=== PATIENT | female | born 1940 | race Caucasian/White ===

== ENCOUNTER 2017-06-21 05:57 | Day surgery (SDC) | payer MEDICARE, OTHER, SELFPAY ==
[2017-06-21] VITALS (8 sets, daily range): BP systolic 126–175; BP diastolic 74–90; PULSE 55–70; RESP 16; TEMP 36.2–37.1; O2SAT 94–99; BMI 25.6
--- NOTE | 2017-06-21 07:25 | PCM.OPRPT ---
Report of Operation Date of Procedure: 06/21/17 Pre-Operative Diagnosis: L CTS Post-Operative Diagnosis: L CTS Surgery/Procedure Performed:: L CTR Description of Surgical Findings:: Complete release TCL steel detailer: None Type of Anesthesia:: Lm Isaacs Anesthesiologist: Sal Rojas Special Medications: 1 gm ancef Estimated Blood Loss (mL): 2 Fluids Replaced: 400 ml Description of Procedure: Brief history operative indications: 77 yo female who failed conservative treatment for L CTS. Patient wished to proceed with left open carpal tunnel release. After discussing risks and benefits including but not limited to blood loss, DVTs, PEs, neurovascular damage, infection, hematoma and general risk of anesthesia, the patient demonstrated understanding wish to proceed with left open carpal tunnel release Procedure: On the date of the procedure, the patient's left upper extremity was marked in the preoperative area. Patient was taken back to the operating room, where the tourniquet was placed on the right upper extremity. Patient was given light sedation. All bony prominences are identified well-padded. Anesthesia assumed control C-spine and airway and remained in control throughout the remainder the procedure. Lm block was administered by anesthesia. The left upper extremity was prepped in sterile fashion. Surgeon then scrub. Upon reentering the room, the left upper extremity was prepped in a standard orthopedic fashion. A timeout was called and everyone agreed upon the side, the site, the procedure to be performed, patient identity and antibiotics given. The incision was marked out. Incision was taken at the skin subtenons tissue fat down to fascia. Fascia was then lightly tethered until the median nerve was visible. A [place] was placed proximally and distally, and then scissors were placed proximally and distally to release the transverse carpal ligament. During the release the others were never completely closed. The [place] was then placed proximally and distally once more to verify the transverse carpal ligament had been adequately released. The wound was then copiously irrigated out with normal saline. Wound was then closed using 3-0 nylon suture. 10 cc of 50-50 mixture of 1% lidocaine and 0.5% Sensorcaine without epinephrine injection was given. Xeroform dressing was placed, sterile dressing was placed, compressive dressing was placed. Tourniquet was let down. Volar splint was placed. Patient was awakened by anesthesia and transferred to the PACU for recovery. Postoperative plan: The patient will follow up in 2 weeks for removal of sutures. Can remove splintin 5 days. At that time if they are doing well they will follow-up as needed. Grafts/Implants Used: none - Complications none - Admit VTE Documentation VTE Present on Admission: No VTE Mechan Device Prophylaxis: SCD's VTE Pharm Prophylaxis ordered?: No Reason prophylaxis not ordered:: Treatment Not Indicated
--- NOTE | 2017-06-21 07:29 | OP.PCM_ITS ---
Report of Operation Date of Procedure: 06/21/17 Pre-Operative Diagnosis: L CTS Post-Operative Diagnosis: L CTS Surgery/Procedure Performed:: L CTR Description of Surgical Findings:: Complete release TCL medical administrative technician: None Type of Anesthesia:: Lm Isaacs Anesthesiologist: Sal Rojas Special Medications: 1 gm ancef Estimated Blood Loss (mL): 2 Fluids Replaced: 400 ml Description of Procedure: Brief history operative indications: 77 yo female who failed conservative treatment for L CTS. Patient wished to proceed with left open carpal tunnel release. After discussing risks and benefits including but not limited to blood loss, DVTs, PEs, neurovascular damage, infection, hematoma and general risk of anesthesia, the patient demonstrated understanding wish to proceed with left open carpal tunnel release Procedure: On the date of the procedure, the patient's left upper extremity was marked in the preoperative area. Patient was taken back to the operating room, where the tourniquet was placed on the right upper extremity. Patient was given light sedation. All bony prominences are identified well-padded. Anesthesia assumed control C-spine and airway and remained in control throughout the remainder the procedure. Lm block was administered by anesthesia. The left upper extremity was prepped in sterile fashion. Surgeon then scrub. Upon reentering the room, the left upper extremity was prepped in a standard orthopedic fashion. A timeout was called and everyone agreed upon the side, the site, the procedure to be performed, patient identity and antibiotics given. The incision was marked out. Incision was taken at the skin subtenons tissue fat down to fascia. Fascia was then lightly tethered until the median nerve was visible. A [place] was placed proximally and distally, and then scissors were placed proximally and distally to release the transverse carpal ligament. During the release the others were never completely closed. The [place] was then placed proximally and distally once more to verify the transverse carpal ligament had been adequately released. The wound was then copiously irrigated out with normal saline. Wound was then closed using 3-0 nylon suture. 10 cc of 50-50 mixture of 1% lidocaine and 0.5% Sensorcaine without epinephrine injection was given. Xeroform dressing was placed, sterile dressing was placed, compressive dressing was placed. Tourniquet was let down. Volar splint was placed. Patient was awakened by anesthesia and transferred to the PACU for recovery. Postoperative plan: The patient will follow up in 2 weeks for removal of sutures. Can remove splintin 5 days. At that time if they are doing well they will follow-up as needed. Grafts/Implants Used: none - Complications none - Admit VTE Documentation VTE Present on Admission: No VTE Mechan Device Prophylaxis: SCD's VTE Pharm Prophylaxis ordered?: No Reason prophylaxis not ordered:: Treatment Not Indicated
[2017-06-21] MEDS: Ketorolac 30 MG/ML Syringe IV (07:54)
== END 2017-06-21 09:12 | disposition home or self-care (01) ==
LOC: SDC 06:00 → AC 06:00
PROVIDERS: Family Provider Family Medicine; PCP Family Medicine; Visit Provider Specialist
PROC: (CPT 64721; principal; 2017-06-21 07:00)
DX: G56.02 Carpal tunnel syndrome, left upper limb (principal); I10 Essential (primary) hypertension; E66.3 Overweight; Z68.27 Body mass index [BMI] 27.0-27.9, adult; Z96.612 Presence of left artificial shoulder joint; Z79.891 Long term (current) use of opiate analgesic; Z79.82 Long term (current) use of aspirin; Z79.899 Other long term (current) drug therapy
CPT/HCPCS: 64721; J7120

== ENCOUNTER 2017-07-29 22:49 | Emergency (ER) | payer MEDICARE, OTHER, SELFPAY ==
[2017-07-29 22:49] VITALS: BP 197/84; PULSE 70; RESP 18; TEMP 36.3; O2SAT 97; BMI 25.7
--- NOTE | 2017-07-29 23:11 | ED.VISSUMM ---
- ER Visit Summary Date of Service: 07/29/17 Chief Complaint: Bleeding from varicose vein History of Present Illness: The patient is a 77 F who states that around 1600 hrs. today she was shaving her legs when she believes she nicked a varicose vein. She has been unable to get it to stop bleeding. Patient has tried numerous compressive devices that have not been successful. She takes a baby aspirin a day. Physical Examination: Afebrile vital signs are stable noted hypertension in triage There is a varicose vein lateral aspect distal left leg shows pinpoint area of bleeding. Emergency Department Course and Treatment: After removing the patient's dressings and washing the area that started bleeding but it quickly clotted on its own. I applied a Gelfoam dressing and covered it with Rosales wrap. Patient will leave this dressing in place until Tuesday. Return if worsening or concerns. She is instructed to elevate it not stay on her feet much over the next day. Impression: 1. Varicose vein bleeding This note was generated with Spodly dictation software. It may contain incorrect words, spelling, and punctuation that were not noted in review of the chart prior to signing ED Disposition - Plan for ED Patient: Disposition: Home or Assisted Living Chief Complaint: Laceration Instructions: ED Veins Varicose Referrals: Yannick Hughes MD [Primary Care Provider] - As Needed Additional Instructions: Leave dressing on until Tuesday. Return if worsening or concerns.
[2017-07-29 23:18] VITALS: BP 164/86; PULSE 87; RESP 16; O2SAT 97
== END 2017-07-29 23:22 | disposition home or self-care (01) ==
PROVIDERS: Emergency Provider Emergency Medicine; Family Provider Family Medicine; PCP Family Medicine
DX: I83.892 Varicose veins of left lower extremity with other complications (principal); I10 Essential (primary) hypertension; I34.1 Nonrheumatic mitral (valve) prolapse; Z79.82 Long term (current) use of aspirin; Z79.899 Other long term (current) drug therapy
CPT/HCPCS: 99282

== ENCOUNTER → 2018-10-30 | Outpatient (CLI) | payer MEDICARE, OTHER, SELFPAY ==
[2018-10-30 10:48] LABS: Anion Gap 8 (5-15); BUN 20 mg/dL (7-18); BUN/Creat Ratio 17.4 RATIO (10-20); Calcium,Total 9.7 mg/dL (8.5-10.1); Chloride 103 mmol/L (98-107); Cholesterol 242 mg/dL (200); Creatinine, Serum 1.15 mg/dL (0.55-1.02); EST Glomerular Filtration Rate 49 mL/min (>60); Est Glom Filt Rate - Afr Amer 59 mL/min (>60); Glucose 95 mg/dL (74-106); High Density Lipoprotein 74 mg/dL; Sodium Level 139 mmol/L (136-145); Triglycerides 92 mg/dL; Very Low Density Lipoprotein 18 mg/dL (5-40)
== END | disposition home or self-care (01) ==
LOC: MFPLAB 08:25
PROVIDERS: Family Provider Family Medicine; PCP Family Medicine; Visit Provider Family Medicine
DX: I10 Essential (primary) hypertension (principal); E78.00 Pure hypercholesterolemia, unspecified
CPT/HCPCS: 36415; 80048; 80061

== ENCOUNTER → 2018-11-23 | Outpatient (CLI) | payer MEDICARE, OTHER, SELFPAY ==
[2018-11-23 15:12] LABS: Bacteria 0 SEEN /hpf (None Seen); Mucous, Urine 0 SEEN /hpf (<or=2+); Red Blood Cells-Urine 0 SEEN /hpf (0-5); Squamous Epithelial Cells - UA 0 SEEN /hpf (5-10); White Blood Cells 0 SEEN /hpf (0-5)
[2018-11-23 17:39] LABS: Absolute Lymphocyte Count 1.48 X10^3/uL (0.83-4.51); Absolute Neutrophil Count 5.4 X10^3/uL (2.0-7.7); Basophil# 0.05 X10^3/uL; Basophil% 0.6 % (0-1); Eosinophil# 0.15 X10^3/uL; Eosinophils% 1.8 % (0-5); Hematocrit 37.5 % (37-47); Hemoglobin 12.4 g/dL (12.0-15.0); Lymphocyte # 1.48 X10^3/ul (4.0); Mean Corp Hgb Conc 33.1 g/dL (32-36); Mean Corpuscular Hgb 31.6 pg (27.0-32.0); Mean Corpuscular Volume 95.7 fL (81-99); Mean Platelet Vol. 10.2 fl (6.2-12.0); Monocyte# 1.07 X10^3/uL; NRBC Flagged by Analyzer 0 % (0-5); Neutrophil # 5.41 X10^3/uL (2.7-7.7); Neutrophil % 66.1 % (47-70); Platelet Count 273 K/mm3 (150-450); RBC Distribution Width CV 14.4 % (11.6-14.6); RBC Distribution Width SD 50.4 fl (35.1-43.9); Red Blood Count 3.92 M/mm3 (4.2-5.4); White Blood Count 8.2 K/mm3 (4.4-11.0)
[2018-11-23 17:52] LABS: Color, Urine Yellow (Yellow); Glucose, Dipstick Normal (Normal); Ketone-Dipstick Negative (Negative); Leukocyte Esterase-Dipstick Negative /ul (Negative); Nitrite-Dipstick Negative (Negative); Occult Blood-Urine 10 /ul (Negative); Protein-Dipstick Negative (Negative); Urine Bilirubin Dipstick Negative (Negative); Urine Clarity Clear (Clear); Urine Urobilinogen Normal (Normal)
[2018-11-23 18:08] LABS: Protein, Urine (Random) 12.1 mg/dL (<11.9); Protein:Creat Ratio 140 mg/g CRE (0-200)
[2018-11-23 18:17] LABS: ALB/GLOB Ratio 1.1 RATIO (0.9-2.4); AST(SGOT) 19 U/L (15-37); Alanine Aminotransfer ALT/SGPT 23 U/L (13-56); Albumin, Serum 3.8 g/dL (3.2-5.0); Alkaline Phosphatase 81 U/L (45-117); Anion Gap 7 (5-15); BUN 25 mg/dL (7-18); Calcium,Total 9.7 mg/dL (8.5-10.1); Chloride 104 mmol/L (98-107); Creatinine, Serum 1.39 mg/dL (0.55-1.02); EST Glomerular Filtration Rate 39 mL/min (>60); Est Glom Filt Rate - Afr Amer 47 mL/min (>60); Globulin 3.4 g/dL (2.2-4.2); Glucose 91 mg/dL (74-106); Potassium 4.2 mmol/L (3.5-5.1); Protein, Total 7.2 g/dL (6.4-8.2); Sodium Level 140 mmol/L (136-145)
[2018-11-23 18:20] LABS: Vitamin D,25 Hydroxy 34.3 ng/mL (29.95-100.01)
[2018-11-23 18:21] LABS: PTHIN 30.1 pg/mL (18.4-80.1)
== END | disposition home or self-care (01) ==
LOC: MFPLAB 15:09
PROVIDERS: Family Provider Family Medicine; PCP Family Medicine; Referring Provider Family Medicine; Visit Provider Family Medicine
DX: N18.3 Chronic kidney disease, stage 3 (moderate) (principal); L29.9 Pruritus, unspecified
CPT/HCPCS: 36415; 80053; 81001; 82306; 82570; 83970; 84156; 85025

== ENCOUNTER → 2018-12-07 | Outpatient (CLI) | payer MEDICARE, OTHER, SELFPAY ==
[2018-12-07 18:41] LABS: Anion Gap 9 (5-15); BUN 26 mg/dL (7-18); BUN/Creat Ratio 22.8 RATIO (10-20); Calcium,Total 9.4 mg/dL (8.5-10.1); Chloride 98 mmol/L (98-107); Cholesterol 244 mg/dL (200); Creatinine, Serum 1.14 mg/dL (0.55-1.02); EST Glomerular Filtration Rate 49 mL/min (>60); Est Glom Filt Rate - Afr Amer 60 mL/min (>60); Glucose 94 mg/dL (74-106); High Density Lipoprotein 73 mg/dL; Potassium 3.8 mmol/L (3.5-5.1); Sodium Level 134 mmol/L (136-145); Triglycerides 138 mg/dL; Very Low Density Lipoprotein 28 mg/dL (5-40)
[2018-12-17 09:08] LABS: Anti-Thyroglobulin AB 1.1 IU/mL (0.0-0.9); Thyroglobulin RIA 23 ng/mL (.); Thyroid Peroxidase AB 127 IU/mL (0-34)
== END | disposition home or self-care (01) ==
LOC: LAB 17:26
PROVIDERS: Family Provider Family Medicine; PCP Family Medicine; Referring Provider Family Medicine; Visit Provider Family Medicine
DX: E78.00 Pure hypercholesterolemia, unspecified (principal); I10 Essential (primary) hypertension; E01.0 Iodine-deficiency related diffuse (endemic) goiter
CPT/HCPCS: 36415; 80048; 80061; 84432; 84439; 84443; 86376; 86800

== ENCOUNTER → 2018-12-21 | Outpatient (CLI) | payer MEDICARE, OTHER, SELFPAY ==
--- NOTE | 2018-12-21 12:16 | US_ITS ---
STUDY: THYROID ULTRASOUND REASON FOR EXAM: Female, 78 years old. Thyromegaly. TECHNIQUE: Ultrasound evaluation of the thyroid was performed with real-time and static douglas-scale imaging. COMPARISON: None. FINDINGS: RIGHT LOBE: The right lobe of the thyroid gland measures 4.9 x 1.4 x 1.8 cm. There is a heterogeneous echotexture. There are no demonstrated solid, cystic or complex lesions. LEFT LOBE: The left lobe of the thyroid gland measures 4.3 x 1.4 x 1.7 cm. There is a heterogeneous echotexture. There is a 0.9 x 1.1 x 0.4 cm hyperechoic nodule along the anterior surface of the mid left thyroid lobe with perinodular and intranodular vascularity. There is a 0.4 x 0.3 x 0.2 cm cyst. ISTHMUS: The isthmus measures 0.3 centimeter. US/Thyroid IMPRESSION: Prominent size of the thyroid for age with generally moderately heterogeneous parenchyma. No demonstrated nodule of the right thyroid. Hyperechoic 0.9 x 1.1 x 0.4 cm well defined nodule of the mid pole of the left thyroid and a 0.4 x 0.3 x 0.2 cm cystic nodule. Electronically Signed: Jacquie Gong MD at 17:09 EST , Service support ,
--- NOTE | 2018-12-21 12:41 | ECHOD_ITS ---
Reason For Study: MITRAL VALVE PROLAPSE Procedure This was a 2D Doppler, Color Flow transthoracic echocardiogram. Exam performed in department. Left Ventricle Normal LV size. The estimated ejection fraction is 60 %. Diastolic function is indeterminate. No regional wall motion abnormalities noted. Right Ventricle Normal RV size. Normal systolic function. Atria Normal left atrium. Normal right atrium. No doppler evidence for ASD. Mitral Valve There is no mitral valve stenosis. Trivial mitral valve insufficiency. Tricuspid Valve There is no tricuspid stenosis. Trivial eccentric tricuspid valve insufficiency. Pulmonary artery systolic pressure is 35 mmHg. Aortic Valve Trisinus/trileaflet aortic valve. There is no aortic stenosis. No aortic valve insufficiency. Pulmonic Valve There is no pulmonic valvular stenosis. No pulmonic valve insufficiency. Great Vessels Normal aortic root. Pericardium/Pleural No pericardial effusion. MMode/2D Measurements & Calculations LVIDd: 4.2 cm IVSd: 0.94 cm Ao root diam: 2.8 cm LVIDs: 3.0 cm LVPWd: 1.0 cm RVDd: 3.6 cm FS: 29.2 % LAV(MOD-bp): 59.4 ml LA A4 area: 18.1 cm2 LA dimension(2D): 3.7 cm LAV(MOD-bp) Indexed: 33.9 ml/m2 LAV(MOD-sp2): 56.7 ml LAV(MOD-sp4): 56.7 ml RA A4 area: 11.4 cm2 Time Measurements MV dec time: 0.21 sec Doppler Measurements & Calculations MV E max hussein: 85.3 cm/sec Lat Peak E' Hussein: 4.6 cm/sec Med Peak E' Hussein: 5.2 cm/sec MV A max hussein: 134.2 cm/sec E/E' lat: 18.7 E/E' med: 16.5 MV E/A: 0.64 Ao V2 max: 91.4 cm/sec LV V1 max: 97.8 cm/sec PA V2 max: 67.4 cm/sec Ao max P.5 mmHg LV V1 max P.8 mmHg TR max hussein: 268.1 cm/sec TR max P.8 mmHg Interpretation Summary The estimated ejection fraction is 60 %. Diastolic function is indeterminate. Trivial mitral valve insufficiency. Trivial eccentric tricuspid valve insufficiency. Pulmonary artery systolic pressure is 35 mmHg. Ordering Physician: Yannick De Jesus Referring Physician: Yannick De Jesus Performed By: Brianna Hendrickson RDCS, RVT
== END | disposition home or self-care (01) ==
PROVIDERS: Family Provider Family Medicine; PCP Family Medicine; Referring Provider Family Medicine; Visit Provider Family Medicine
DX: I34.1 Nonrheumatic mitral (valve) prolapse (principal); E01.0 Iodine-deficiency related diffuse (endemic) goiter
CPT/HCPCS: 76536; 93306

== ENCOUNTER → 2019-01-03 14:20 | Outpatient (CLI) | payer MEDICARE, OTHER, SELFPAY ==
[2019-01-03 14:18] VITALS: BMI 27.1
--- NOTE | 2019-01-03 14:20 | ASPS_PTH ---
PATIENT: MISSY WYNN LOC: [facility] U#:[id number] AGE/SX: 84/F ROOM: RE01/03/[address]: Dr. Matt Gardner MD : [id number] BED: DIS: SPEC #: [id number] RECD: 01/04/19 11:41 STATUS: KRISTEN BENNY #: [id number] KATERINE: 01/03/19 14:[address]: Matt Gardner DEPT: CYTOLOGY RECD BY: John Mann ENTERED: 01/04/19 11:44 SP TYPE: ASPIRATION OTHR DR: Dr. Yannick De Jesus MD Tissues: Thyroid gland, NOS Procedures: Special Stain Group II Cytology Other HEADER OPERATION: Ultrasound-guided fine needle aspiration left thyroid PRE-OP DIAGNOSIS: Multinodular goiter E04.2 TISSUE SUBMITTED: Fine needle aspiration left thyroid (10 slides) DIAGNOSIS CYTOLOGY Fine needle aspiration, left thyroid nodule (smears): Adequate for evaluation. Atypical follicular cells with H?rthle cell change. Consistent with chronic thyroiditis. AM:sofia 01/05/19 COMMENT Clinical correlation is suggested. CYTOLOGY STUDY Slides are reviewed. CYTOLOGY GROSS Received are ten smears labeled with the patient's name and designated per the requisition as left thyroid. Submitted for staining. / sofia 01/04/19 TC:? CPT: 20539
== END ==
PROVIDERS: Family Provider Family Medicine; PCP Family Medicine; Visit Provider Surgery
DX: E04.2 Nontoxic multinodular goiter (principal)
CPT/HCPCS: 88161; 88313

== ENCOUNTER → 2019-01-16 14:12 | Outpatient (CLI) | payer MEDICARE, OTHER, SELFPAY ==
[2019-01-03 14:18] VITALS: BMI 27.1
[2019-01-16 17:49] LABS: Anion Gap 7 (5-15); BUN 23 mg/dL (7-18); Calcium,Total 9.3 mg/dL (8.5-10.1); Chloride 104 mmol/L (98-107); Creatinine, Serum 1.21 mg/dL (0.55-1.02); EST Glomerular Filtration Rate 46 mL/min (>60); Est Glom Filt Rate - Afr Amer 56 mL/min (>60); Glucose 103 mg/dL (74-106); Potassium 3.9 mmol/L (3.5-5.1); Sodium Level 137 mmol/L (136-145)
== END ==
PROVIDERS: Family Provider Family Medicine; PCP Family Medicine; Referring Provider Family Medicine; Visit Provider Family Medicine
DX: N18.3 Chronic kidney disease, stage 3 (moderate) (principal)
CPT/HCPCS: 36415; 80048

== ENCOUNTER → 2019-04-02 | Outpatient (CLI) | payer MEDICARE, OTHER, SELFPAY ==
[2019-01-03 14:18] VITALS: BMI 27.1
[2019-04-02 17:33] LABS: Absolute Lymphocyte Count 3.99 X10^3/uL (0.83-4.51); Absolute Neutrophil Count 5.9 X10^3/uL (2.0-7.7); Basophil% 0.8 % (0-1); Eosinophils% 1.7 % (0-5); Hematocrit 39.6 % (37-47); Hemoglobin 13.6 g/dL (12.0-15.0); Lymphocyte # 3.99 X10^3/ul (4.0); Lymphocyte % 33.6 % (19-41); Mean Corp Hgb Conc 34.3 g/dL (32-36); Mean Corpuscular Hgb 32.5 pg (27.0-32.0); Mean Corpuscular Volume 94.5 fL (81-99); Mean Platelet Vol. 9.3 fl (6.2-12.0); Monocyte# 1.51 X10^3/uL; Monocyte% 12.7 % (0-10); NRBC Flagged by Analyzer 0 % (0-5); Neutrophil # 5.94 X10^3/uL (2.7-7.7); Neutrophil % 50.2 % (47-70); POSITIVE DIFFERENTIAL YES; Platelet Count 333 K/mm3 (150-450); Red Blood Count 4.19 M/mm3 (4.2-5.4); White Blood Count 11.9 K/mm3 (4.4-11.0)
[2019-04-02 17:38] LABS: Differential Indicated SCAN CRITERIA MET
[2019-04-02 18:15] LABS: Vitamin D,25 Hydroxy 27.7 ng/mL (29.95-100.01)
[2019-04-02 18:16] LABS: Platelet Estimate ADEQUATE (ADEQ); Red Cell Morphology NORM C+C NORMAL (NORM C&C)
[2019-04-02 18:19] LABS: ALB/GLOB Ratio 1.1 RATIO (0.9-2.4); AST(SGOT) 14 U/L (15-37); Alanine Aminotransfer ALT/SGPT 29 U/L (13-56); Albumin, Serum 3.9 g/dL (3.2-5.0); Alkaline Phosphatase 69 U/L (45-117); Anion Gap 10 (5-15); BUN 32 mg/dL (7-18); BUN/Creat Ratio 19.8 RATIO (10-20); Calcium,Total 9.6 mg/dL (8.5-10.1); Chloride 101 mmol/L (98-107); Creatinine, Serum 1.62 mg/dL (0.55-1.02); EST Glomerular Filtration Rate 33 mL/min (>60); Est Glom Filt Rate - Afr Amer 40 mL/min (>60); Globulin 3.7 g/dL (2.2-4.2); Glucose 109 mg/dL (74-106); Potassium 3.6 mmol/L (3.5-5.1); Protein, Total 7.6 g/dL (6.4-8.2); Sodium Level 135 mmol/L (136-145); T4 Free Direct 0.89 ng/dL (0.76-1.46); Thyroid Stim Hormone (TSH) 7.26 uIU/mL (0.358-3.74)
[2019-04-03 14:45] LABS: Pathologist Review Reviewed
== END | disposition home or self-care (01) ==
LOC: MFPLAB 16:41
PROVIDERS: PCP Family Medicine; Referring Provider Family Medicine; Visit Provider Family Medicine
DX: E06.3 Autoimmune thyroiditis (principal); I12.9 Hypertensive chronic kidney disease with stage 1 through stage 4 chronic kidney disease, or unspecified chronic kidney disease; N18.3 Chronic kidney disease, stage 3 (moderate)
CPT/HCPCS: 36415; 80053; 82306; 84439; 84443; 85025

== ENCOUNTER → 2019-04-11 08:16 | Outpatient (CLI) | payer MEDICARE, OTHER, SELFPAY ==
[2019-01-03 14:18] VITALS: BMI 27.1
--- NOTE | 2019-04-11 08:30 | RAD_ITS ---
EXAM DESCRIPTION: Esophagram CLINICAL HISTORY: 79 years Female, pressure at mid esophagus when eating dense foods COMPARISON: None. TECHNIQUE: 3 minutes and 22 seconds of fluoroscopy was performed in 124 images were obtained. 208.92 mGy was a radiation dose FINDINGS: A barium esophagram with thin liquid barium was performed. Barium passed from the oropharynx to the stomach without delay or obstruction. Particular attention was paid to the cervical esophagus and the cricopharyngeus initially appeared somewhat thickened however this disappeared on subsequent imaging and appear to be normal. The mid and distal esophagus also appeared to be normal. No hiatal hernia or gastroesophageal reflux was seen. RAD/Esophagus Single Contrast IMPRESSION: Normal esophagram. Electronically Signed: Yannick Lynch, at 15:20 EST Tel , Service support ,
== END ==
PROVIDERS: PCP Family Medicine; Referring Provider Family Medicine; Visit Provider Family Medicine
DX: R13.10 Dysphagia, unspecified (principal)
CPT/HCPCS: 74220

== ENCOUNTER → 2019-04-19 | Outpatient (CLI) | payer MEDICARE, OTHER, SELFPAY ==
[2019-01-03 14:18] VITALS: BMI 27.1
--- NOTE | 2019-04-19 14:36 | RAD_ITS ---
STUDY: X-RAY - LEFT KNEE REASON FOR EXAM: Pain, gradually getting worse, left greater than right. TECHNIQUE: 4 view(s) of the knee. COMPARISON: None. FINDINGS: Normal visualized distal femur. Normal visualized proximal tibia and fibula. Normal proximal tibiofibular articulation. There is mild joint space narrowing of the medial femorotibial compartment. Normal lateral femorotibial compartment. Normal patellofemoral articulation. There is chondrocalcinosis in the menisci and at the posterior joint capsule in the knee. There is mild vascular calcification. RAD/Knee 4 or More Views IMPRESSION: Mild arthrosis of the medial femorotibial compartment. Chondrocalcinosis. Electronically Signed: Ag Rosales MD at 15:17 EST Tel , Service support ,
--- NOTE | 2019-04-19 14:36 | RAD_ITS ---
STUDY: X-RAY - RIGHT KNEE REASON FOR EXAM: Pain, gradually getting worse, left greater than right. TECHNIQUE: 4 view(s) of the knee. COMPARISON: None. FINDINGS: Normal visualized distal femur. Normal visualized proximal tibia and fibula. Normal proximal tibiofibular articulation. There is a small marginal osteophyte and mild joint space narrowing of the medial femorotibial compartment. Normal lateral femorotibial compartment. Normal patellofemoral articulation. There is chondrocalcinosis in the menisci and at the posterior joint capsule of the knee. RAD/Knee 4 or More Views IMPRESSION: Mild arthrosis of the medial femorotibial compartment. Chondrocalcinosis. Electronically Signed: Ag Rosales MD at 15:21 EST Tel , Service support ,
== END | disposition home or self-care (01) ==
LOC: MTRAD 14:35
PROVIDERS: PCP Family Medicine; Referring Provider Family Medicine; Visit Provider Family Medicine
DX: M25.561 Pain in right knee (principal); M25.562 Pain in left knee
CPT/HCPCS: 73564

== ENCOUNTER → 2019-08-14 | Outpatient (CLI) | payer MEDICARE, OTHER, SELFPAY ==
[2019-01-03 14:18] VITALS: BMI 27.1
[2019-08-14 15:38] LABS: Absolute Lymphocyte Count 1.66 X10^3/uL (0.83-4.51); Absolute Neutrophil Count 4.5 X10^3/uL (2.0-7.7); Basophil# 0.06 X10^3/uL; Basophil% 0.8 % (0-1); Eosinophil# 0.23 X10^3/uL; Eosinophils% 3.1 % (0-5); Hematocrit 41.5 % (37-47); Hemoglobin 12.9 g/dL (12.0-15.0); Lymphocyte # 1.66 X10^3/ul (4.0); Lymphocyte % 22.2 % (19-41); Mean Corp Hgb Conc 31.1 g/dL (32-36); Mean Corpuscular Hgb 32.3 pg (27.0-32.0); Mean Corpuscular Volume 103.8 fL (81-99); Mean Platelet Vol. 9.9 fl (6.2-12.0); Monocyte# 1.02 X10^3/uL; Monocyte% 13.7 % (0-10); NRBC Flagged by Analyzer 0 % (0-5); Neutrophil # 4.47 X10^3/uL (2.7-7.7); Neutrophil % 59.8 % (47-70); Platelet Count 316 K/mm3 (150-450); RBC Distribution Width CV 14.2 % (11.6-14.6); RBC Distribution Width SD 54.4 fl (35.1-43.9); White Blood Count 7.5 K/mm3 (4.4-11.0)
[2019-08-14 16:32] LABS: ALB/GLOB Ratio 1.1 RATIO (0.9-2.4); AST(SGOT) 30 U/L (15-37); Alanine Aminotransfer ALT/SGPT 25 U/L (13-56); Albumin, Serum 3.9 g/dL (3.2-5.0); Alkaline Phosphatase 79 U/L (45-117); Anion Gap 7 (5-15); BUN 25 mg/dL (7-18); BUN/Creat Ratio 18.9 RATIO (10-20); Calcium,Total 9.1 mg/dL (8.5-10.1); Chloride 103 mmol/L (98-107); Creatinine, Serum 1.32 mg/dL (0.55-1.02); EST Glomerular Filtration Rate 41 mL/min (>60); Est Glom Filt Rate - Afr Amer 50 mL/min (>60); Globulin 3.5 g/dL (2.2-4.2); Glucose 95 mg/dL (74-106); Potassium 5.3 mmol/L (3.5-5.1); Protein, Total 7.4 g/dL (6.4-8.2); Sodium Level 137 mmol/L (136-145); T4 Free Direct 0.96 ng/dL (0.76-1.46); Thyroid Stim Hormone (TSH) 2.67 uIU/mL (0.358-3.74)
[2019-08-14 16:35] LABS: Vitamin D,25 Hydroxy 64.8 ng/mL
== END | disposition home or self-care (01) ==
LOC: MFPLAB 13:52
PROVIDERS: PCP Family Medicine; Visit Provider Family Medicine
DX: I10 Essential (primary) hypertension (principal); E06.3 Autoimmune thyroiditis; E55.9 Vitamin D deficiency, unspecified
CPT/HCPCS: 36415; 80053; 82306; 84439; 84443; 85025

== ENCOUNTER → 2019-08-22 | Outpatient (CLI) | payer MEDICARE, OTHER, SELFPAY ==
[2019-01-03 14:18] VITALS: BMI 27.1
[2019-08-22 15:34] LABS: Potassium 4.1 mmol/L (3.5-5.1)
== END | disposition home or self-care (01) ==
LOC: MTLAB 13:34
PROVIDERS: PCP Family Medicine; Referring Provider Family Medicine; Visit Provider Family Medicine
DX: E87.5 Hyperkalemia (principal)
CPT/HCPCS: 36415; 84132

== ENCOUNTER → 2019-12-05 | Outpatient (CLI) | payer MEDICARE, OTHER, SELFPAY ==
[2019-01-03 14:18] VITALS: BMI 27.1
--- NOTE | 2019-12-05 13:55 | US_ITS ---
STUDY: THYROID ULTRASOUND REASON FOR EXAM: Female, 79 years old. Nodules. TECHNIQUE: Ultrasound evaluation of the thyroid was performed with real-time and static douglas-scale imaging. COMPARISON: December 21, 2018. FINDINGS: RIGHT LOBE: The right lobe of the thyroid gland measures 4.3 x 2.0 x 1.4 cm. There is a heterogeneous echotexture. There are no demonstrated solid, cystic or complex lesions. LEFT LOBE: The left lobe of the thyroid gland measures 4.2 x 2.2 x 1.5 cm. There is a heterogeneous echotexture. Midpole echogenic solid nodule measuring 1.1 x 0.9 x 0.4 cm and cystic nodule measuring 0.4 x 0.3 x 0.2 cm. ISTHMUS: The isthmus measures 4 mm . The regional lymph nodes are normal. US/Thyroid IMPRESSION: The thyroid gland is not enlarged. No significant change in solid and cystic nodules left lobe since December 2018. Electronically Signed: Fred Krueger MD at 6:16 EDT , Service support ,
== END | disposition home or self-care (01) ==
LOC: US 13:53
PROVIDERS: PCP Family Medicine; Referring Provider Family Medicine; Visit Provider Family Medicine
DX: E04.1 Nontoxic single thyroid nodule (principal)
CPT/HCPCS: 76536

== ENCOUNTER → 2020-05-23 08:45 | Outpatient (CLI) | payer MEDICARE, OTHER, SELFPAY ==
[2019-01-03 14:18] VITALS: BMI 27.1
[2020-05-23 10:18] LABS: PTHIN 38.9 pg/mL (18.4-80.1)
[2020-05-23 10:21] LABS: Vitamin D,25 Hydroxy 47.9 ng/mL
[2020-05-23 10:31] LABS: Protein, Urine (Random) 8.2 mg/dL (<11.9); Protein:Creat Ratio 163 mg/g CRE (0-200)
[2020-05-23 10:33] LABS: AST(SGOT) 16 U/L (15-37); Alanine Aminotransfer ALT/SGPT 24 U/L (13-56); Albumin, Serum 3.9 g/dL (3.2-5.0); Alkaline Phosphatase 74 U/L (45-117); Anion Gap 6 (5-15); BUN 22 mg/dL (7-18); BUN/Creat Ratio 20.8 RATIO (10-20); Calcium,Total 9.7 mg/dL (8.5-10.1); Chloride 101 mmol/L (98-107); Creatinine, Serum 1.06 mg/dL (0.55-1.02); EST Glomerular Filtration Rate 53 mL/min (>60); Est Glom Filt Rate - Afr Amer 65 mL/min (>60); Globulin 3.9 g/dL (2.2-4.2); Glucose 102 mg/dL (74-106); Phosphorus 3.3 mg/dL (2.5-4.9); Potassium 3.8 mmol/L (3.5-5.1); Protein, Total 7.8 g/dL (6.4-8.2); Sodium Level 132 mmol/L (136-145); Thyroid Stim Hormone (TSH) 4.85 uIU/mL (0.358-3.74)
== END ==
PROVIDERS: PCP Family Medicine; Referring Provider Family Medicine; Visit Provider Family Medicine
DX: E06.3 Autoimmune thyroiditis (principal); N18.30 Chronic kidney disease, stage 3 unspecified; E55.9 Vitamin D deficiency, unspecified
CPT/HCPCS: 80053; 82306; 82570; 83970; 84100; 84156; 84439; 84443

== ENCOUNTER → 2020-12-12 09:22 | Outpatient (CLI) | payer MEDICARE, OTHER, SELFPAY ==
[2020-12-12 10:01] LABS: Absolute Lymphocyte Count 1.69 X10^3/uL (0.83-4.51); Absolute Neutrophil Count 4.3 X10^3/uL (2.0-7.7); Basophil# 0.05 X10^3/uL; Basophil% 0.7 % (0-1); Eosinophil# 0.26 X10^3/uL; Eosinophils% 3.5 % (0-5); Hematocrit 39.4 % (37-47); Hemoglobin 13.4 g/dL (12.0-15.0); Lymphocyte # 1.69 X10^3/ul (0.83-4.51); Lymphocyte % 22.6 % (19-41); Mean Corpuscular Hgb 31.8 pg (27.0-32.0); Mean Corpuscular Volume 93.6 fL (81-99); Mean Platelet Vol. 9.2 fl (6.2-12.0); Monocyte# 1.14 X10^3/uL; Monocyte% 15.2 % (0-10); NRBC Flagged by Analyzer 0 % (0-5); Neutrophil # 4.32 X10^3/uL (2.7-7.7); Neutrophil % 57.7 % (47-70); Platelet Count 335 K/mm3 (150-450); RBC Distribution Width CV 14.5 % (11.6-14.6); RBC Distribution Width SD 50.2 fl (35.1-43.9); Red Blood Count 4.21 M/mm3 (4.2-5.4); White Blood Count 7.5 K/mm3 (4.4-11.0)
[2020-12-12 10:41] LABS: ALB/GLOB Ratio 0.9 RATIO (0.9-2.4); AST(SGOT) 17 U/L (15-37); Alanine Aminotransfer ALT/SGPT 22 U/L (13-56); Albumin, Serum 3.7 g/dL (3.2-5.0); Alkaline Phosphatase 84 U/L (45-117); Anion Gap 7 (5-15); BUN 18 mg/dL (7-18); BUN/Creat Ratio 15.3 RATIO (10-20); Calcium,Total 9.5 mg/dL (8.5-10.1); Chloride 101 mmol/L (98-107); Cholesterol 250 mg/dL (200); Creatinine, Serum 1.18 mg/dL (0.55-1.02); EST Glomerular Filtration Rate 47 mL/min (>60); Est Glom Filt Rate - Afr Amer 57 mL/min (>60); Globulin 4.3 g/dL (2.2-4.2); Glucose 103 mg/dL (74-106); High Density Lipoprotein 81 mg/dL; Potassium 3.8 mmol/L (3.5-5.1); Sodium Level 137 mmol/L (136-145); T4 Free Direct 0.89 ng/dL (0.76-1.46); Triglycerides 80 mg/dL; Very Low Density Lipoprotein 16 mg/dL (5-40)
== END ==
PROVIDERS: PCP Family Medicine; Referring Provider Family Medicine; Visit Provider Family Medicine
DX: I10 Essential (primary) hypertension (principal); E03.8 Other specified hypothyroidism; E78.5 Hyperlipidemia, unspecified
CPT/HCPCS: 36415; 80053; 80061; 84439; 84443; 85025

== ENCOUNTER → 2021-11-12 | Outpatient (CLI) | payer MEDICARE, OTHER, SELFPAY ==
--- NOTE | 2021-11-12 13:07 | CT_ITS ---
EXAM: CT RIGHT UPPER EXTREMITY WITHOUT INTRAVENOUS CONTRAST CLINICAL INDICATION: Osteomyelitis TECHNIQUE: Helically acquired images were obtained of the right upper extremity without intravenous contrast. 2-D reformats were performed by the technologist. This CT exam was performed using one or more of the following dose reduction techniques: automated exposure control, adjustment of the mA and/or kV according to patient size, and/or use of iterative reconstruction technique. This report was created using Pronota report Skritter technology. COMPARISON: None. FINDINGS: BONES/JOINTS: Fracture involves the acromion process. Prominent narrowing of the glenohumeral and AC joints. Subchondral cyst formation and bony hypertrophy extending along the glenohumeral joint. No findings to suggest osteomyelitis or septic arthritis. SOFT TISSUES: Normal. No soft tissue swelling or gas. No radiopaque foreign body. CT/Extremity Upper without Contra IMPRESSION: 1. Acute fracture of the acromion process. 2. Advanced arthritic changes of the shoulder. Electronically Signed: Chaim Newman MD at 7:13 EDT ,
== END | disposition home or self-care (01) ==
LOC: CT 13:01
PROVIDERS: PCP Family Medicine; Referring Provider Specialist; Visit Provider Specialist
DX: M19.011 Primary osteoarthritis, right shoulder (principal); G89.29 Other chronic pain
CPT/HCPCS: 73200

== ENCOUNTER → 2021-11-27 | Outpatient (CLI) | payer MEDICARE, OTHER, SELFPAY ==
[2021-11-27 12:31] LABS: Absolute Lymphocyte Count 1.56 X10^3/uL (0.83-4.51); Absolute Neutrophil Count 4.3 X10^3/uL (2.0-7.7); Basophil# 0.05 X10^3/uL; Basophil% 0.6 % (0-1); Eosinophil# 0.14 X10^3/uL; Eosinophils% 1.7 % (0-5); Hematocrit 40.5 % (37-47); Hemoglobin 13.6 g/dL (12.0-15.0); Lymphocyte # 1.56 X10^3/ul (0.83-4.51); Lymphocyte % 19.4 % (19-41); Mean Corp Hgb Conc 33.6 g/dL (32-36); Mean Corpuscular Hgb 31.6 pg (27.0-32.0); Mean Corpuscular Volume 94.2 fL (81-99); Mean Platelet Vol. 9.7 fl (6.2-12.0); Monocyte# 1.93 X10^3/uL; NRBC Flagged by Analyzer 0 % (0-5); Neutrophil # 4.31 X10^3/uL (2.7-7.7); Neutrophil % 53.8 % (47-70); POSITIVE DIFFERENTIAL YES; Platelet Count 286 K/mm3 (150-450); RBC Distribution Width CV 15.1 % (11.6-14.6); RBC Distribution Width SD 52.5 fl (35.1-43.9)
[2021-11-27 12:33] LABS: Differential Indicated SCAN CRITERIA MET
[2021-11-27 12:55] LABS: Ferritin 287 ng/mL (8-252); T4 Free Direct 0.96 ng/dL (0.76-1.46); Thyroid Stim Hormone (TSH) 1.23 uIU/mL (0.358-3.74)
== END | disposition home or self-care (01) ==
LOC: BFHLAB 11:06
PROVIDERS: PCP Family Medicine; Visit Provider Family Medicine
DX: E03.9 Hypothyroidism, unspecified (principal); L65.0 Telogen effluvium
CPT/HCPCS: 36415; 82728; 84439; 84443; 85025

== ENCOUNTER 2022-09-10 13:02 | Emergency (ER) | payer MEDICARE, OTHER, SELFPAY ==
[2022-09-10 13:03] VITALS: BP 162/62; PULSE 71; RESP 14; TEMP 36.6; O2SAT 97; BMI 25.1
--- NOTE | 2022-09-10 13:23 | EKG12_ITS ---
Test Reason : cp Blood Pressure : / mmHG Vent. Rate : 074 BPM Atrial Rate : 074 BPM P-R Int : 174 ms QRS Dur : 078 ms QT Int : 388 ms P-R-T Axes : 040 022 -02 degrees QTc Int : 430 ms Normal sinus rhythm Normal ECG Confirmed by SHRUTHI HERNANDEZ, ADONAY ([id number]), newspaper managing editor LG HOYOS ([id number]) on 09/11/2022 10:02:20 AM Referred By: Confirmed By:ADONAY HAWKINS MD
--- NOTE | 2022-09-10 13:41 | RAD_ITS ---
STUDY: X-RAY CHEST REASON FOR EXAM: Female, 82 years old. Chest pain TECHNIQUE: Single AP portable view of the chest. COMPARISON: Comparison is made with prior study dated August 04, 2009. FINDINGS: EKG electrodes are seen. There is hyperinflation of the lungs consistent with chronic obstructive lung disease (COPD). Scattered calcified granulomas. There is no demonstrated pleural abnormality. Normal size heart. Normal mediastinum and lee. There is prominence of the pulmonary hilar arteries without peripheral pulmonary vascular congestion, suggesting pulmonary hypertension. There is atherosclerotic calcification of the aortic arch with tortuosity. There are diffuse degenerative changes of the visualized thoracic spine. Status post left shoulder replacement. There is no demonstrated abnormality of the visualized soft tissue structures of the upper abdomen. RAD/Chest 1 View (Portable) IMPRESSION: Hyperinflation. No acute abnormality is seen. Electronically Signed: Jai Sharma MD at 14:01 EDT ,
[2022-09-10 13:42] LABS: Absolute Lymphocyte Count 1.96 X10^3/uL (0.83-4.51); Absolute Neutrophil Count 5.8 X10^3/uL (2.0-7.7); Basophil# 0.05 X10^3/uL; Basophil% 0.5 % (0-1); Eosinophil# 0.17 X10^3/uL; Eosinophils% 1.8 % (0-5); Hematocrit 36.8 % (37-47); Hemoglobin 12.3 g/dL (12.0-15.0); Lymphocyte # 1.96 X10^3/ul (0.83-4.51); Mean Corp Hgb Conc 33.4 g/dL (32-36); Mean Corpuscular Hgb 31.8 pg (27.0-32.0); Mean Corpuscular Volume 95.1 fL (81-99); Mean Platelet Vol. 9.2 fl (6.2-12.0); Monocyte# 1.35 X10^3/uL; Monocyte% 14.5 % (0-10); NRBC Flagged by Analyzer 0 % (0-5); Neutrophil # 5.77 X10^3/uL (2.7-7.7); Platelet Count 330 K/mm3 (150-450); RBC Distribution Width CV 14.2 % (11.6-14.6); RBC Distribution Width SD 49.2 fl (35.1-43.9); Red Blood Count 3.87 M/mm3 (4.2-5.4); White Blood Count 9.3 K/mm3 (4.4-11.0)
--- NOTE | 2022-09-10 13:49 | ED.VIS.CHEST ---
HPI <CLOVIS Burrows - Last Filed: 09/10/22 17:07> History of Present Illness Chief Complaint: Chest Pain Narrative Narrative: Patient presenting today due to concerns for a cardiac event. She reports that she was making lunch this afternoon just a few hours ago and felt a sharp pain in her left arm. She reports that a few days ago while she was riding her exercise bike she felt a pain in her left arm as well but it was not this severe. She denies any chest pain, shortness of breath, fever, chills, abdominal pain, nausea, vomiting, history of blood clots, recent surgeries/procedures, recent immobilization. PMH includes hypertension. She denies a history of any cardiac conditions. PFSH <CLOVIS Burrows - Last Filed: 09/10/22 17:07> PFSH Medical History Arthritis Dehydration Hypertension Hypokalemia Multinodular goiter MVP (mitral valve prolapse) NSVT (nonsustained ventricular tachycardia) Prerenal azotemia Syncope Home Medications losartan 100 mg tablet 100 mg PO DAILY BP 11/14/12 [History Last Taken 02/15/17 05:50 100 MG] multivitamin with folic acid 400 mcg tablet 1 tab PO QODAY SUPPLEMENT 11/14/12 [History Last Taken 07/08/13 08:00] fluticasone propionate 50 mcg/actuation nasal spray,suspension 2 spray NASAL DAILY ALLERGIES 06/15/17 [History Last Taken Unknown] amlodipine 5 mg tablet 5 mg PO DAILY 12/25/18 [History Last Taken Unknown] metoprolol succinate 100 mg tablet,extended release 24 hr (Toprol XL) 100 mg PO DAILY 12/25/18 [History Last Taken Unknown] Allergy/AdvReac Type Severity Reaction Status Date / Time No Known Allergies Allergy Verified 09/10/22 13:03 Family History Father Heart disease Surgical History History of tonsillectomy History of total replacement of both hip joints History of total replacement of left shoulder joint History of tubal ligation Status post biopsy of thyroid gland (~12/2018) Social History Smoking Status: Never smoker alcohol intake: never substance use type: does not use ROS <CLOVIS Burrows - Last Filed: 09/10/22 17:07> ROS ED Constitutional Constitutional ED: Denies chills or fever(s) Cardiovascular Cardiovascular: Denies chest pain or palpitations Respiratory/Chest Respiratory/Chest: Denies cough or dyspnea Gastrointestinal Gastrointestinal: Denies abdominal pain, nausea or vomiting Genitourinary Genitourinary ED: Denies dysuria, hematuria or urinary urgency Musculoskeletal Musculoskeletal: Reports arthralgias Integumentary Denies Abrasions or rash Neurologic Neurologic: Denies paresthesias or weakness EXAM <CLOVSI Burrows - Last Filed: 09/10/22 17:07> Physical Exam Const Vital Signs: 09/10/22 13:03 09/10/22 13:02 09/10/22 15:02 Temperature 98 F Temperature Source Temporal Pulse Rate 71 75 Respiratory Rate 14 16 Respiratory Effort Normal Non-Labored Blood Pressure 162/62 H 142/72 H Blood Pressure Mean 95 95 Pulse Ox 97 99 Oxygen Delivery Method Room Air Room Air Positive well nourished, well developed and no apparent distress General Appearance ED: well developed HEENT Reports normocephalic and head/scalp atraumatic Mouth ED: Yes moist mucous membranes normal Eyes PERRL and EOMs intact bilaterally Neck full ROM and supple Chest Wall inspection of chest normal Resp normal respiratory effort and clear to auscultation bilaterally Cardio regular rate and regular rhythm GI soft to palpation, non-tender, non-distended and no masses Back/Spine normal ROM and normal to inspection Extremity normal to inspection and full ROM Neuro oriented x3, CN's II-XII intact bilaterally, moves all extremities, no focal motor deficits and no sensory deficits noted Sensorium / Orientation: awake and alert Psych mental status grossly normal and thought process normal Skin no rashes or lesions noted and no wounds <Dr. Aiden Darling DO - Last Filed: 09/10/22 16:36> Physical Exam Const Vital Signs: 09/10/22 13:03 09/10/22 13:02 09/10/22 15:02 Temperature 98 F Temperature Source Temporal Pulse Rate 71 75 Respiratory Rate 14 16 Respiratory Effort Normal Non-Labored Blood Pressure 162/62 H 142/72 H Blood Pressure Mean 95 95 Pulse Ox 97 99 Oxygen Delivery Method Room Air Room Air <CLOVIS Burrows - Last Filed: 09/10/22 17:07> Heart Score Score: 4 <Dr. Aiden Darling DO - Last Filed: 09/10/22 16:36> Heart Score History: Slightly/Non-Suspicious ECG: Nonspecific Repolarization Age: >/= 65 years Risk Factors: 1 or 2 Risk Factors Troponin: </= Normal Limit Score: 4 MDM <CLOVIS Burrows - Last Filed: 09/10/22 17:07> MDM MDM Narrative Medical decision making narrative: Patient presenting with concerns that she had a cardiac event due to pain in her left arm that started this afternoon. She reports that it came on suddenly and lasted about 5 minutes and then went away. She is asymptomatic now and this started just prior to arrival. She has not had any chest pain or pressure. She has no shortness of breath. Labs will be obtained to rule out ACS, leukocytosis, anemia, electrolyte abnormality. EKG is normal sinus rhythm. She is well-appearing and in no acute distress, she is slightly hypertensive but otherwise vitals are unremarkable. Labs overall are unremarkable. patient has a heart score of 4, shared decision-making was made regarding discharge and following up with PCP for further cardiac testing as she has not had a cardiac stress test or echo performed in several years versus admission to the hospital and patient would like to follow-up outpatient. I feel that this is reasonable. She will be discharged home in stable condition and is comfortable with plan. She is to follow-up with her PCP and has been given return instructions. Lab Data Attestation: I reviewed the patient's lab results. Lab results narrative: Delta troponin WNL Labs: Laboratory Results - last 24 hr 09/10/22 09/10/22 13:30 15:23 WBC 9.3 RBC 3.87 L Hgb 12.3 Hct 36.8 L MCV 95.1 MCH 31.8 MCHC 33.4 RDW Std Deviation 49.2 H RDW Coeff of Jennifer 14.2 Plt Count 330 MPV 9.2 Immature Gran % (Auto) 0.200 Neut % (Auto) 62.0 Lymph % (Auto) 21.0 [place] % (Auto) 14.5 H Eos % (Auto) 1.8 Baso % (Auto) 0.5 Absolute Neuts (auto) 5.8 Absolute Lymphs (auto) 1.96 Nucleated RBC % 0 Sodium 137 Potassium 4.1 Chloride 105 Carbon Dioxide 25.0 Anion Gap 7 BUN 26 H Creatinine 1.34 H Estim Creat Clear Calc 30.13 Est GFR (MDRD) Af Amer 49 L Est GFR (MDRD) Non-Af 40 L BUN/Creatinine Ratio 19.4 Glucose 115 H Calcium 9.1 Troponin I High Sens 7 8 Radiography Diagnostic Testing: Clinical Impression(s) from Imaging Studies Chest X-Ray 09/10/22 13:41 IMPRESSION: Hyperinflation. No acute abnormality is seen. Electronically Signed: Jai Sharma MD at 14:01 EDT , EKG Initial EKG: Comments: 74 bpm, normal sinus rhythm, no ST elevation no signs of cardiac ischemia, reviewed and interpreted by attending ED physician <Dr. Aiden Darling, DO - Last Filed: 09/10/22 16:36> [facility] Lab Data Labs: Laboratory Results - last 24 hr 09/10/22 09/10/22 13:30 15:23 WBC 9.3 RBC 3.87 L Hgb 12.3 Hct 36.8 L MCV 95.1 MCH 31.8 MCHC 33.4 RDW Std Deviation 49.2 H RDW Coeff of Jennifer 14.2 Plt Count 330 MPV 9.2 Immature Gran % (Auto) 0.200 Neut % (Auto) 62.0 Lymph % (Auto) 21.0 [place] % (Auto) 14.5 H Eos % (Auto) 1.8 Baso % (Auto) 0.5 Absolute Neuts (auto) 5.8 Absolute Lymphs (auto) 1.96 Nucleated RBC % 0 Sodium 137 Potassium 4.1 Chloride 105 Carbon Dioxide 25.0 Anion Gap 7 BUN 26 H Creatinine 1.34 H Estim Creat Clear Calc 30.13 Est GFR (MDRD) Af Amer 49 L Est GFR (MDRD) Non-Af 40 L BUN/Creatinine Ratio 19.4 Glucose 115 H Calcium 9.1 Troponin I High Sens 7 8 Radiography Chest X-Ray - ED: Read by ED Physician Diagnostic Testing: Clinical Impression(s) from Imaging Studies Chest X-Ray 09/10/22 13:41 IMPRESSION: Hyperinflation. No acute abnormality is seen. Electronically Signed: Jai Sharma MD at 14:01 EDT , I have personally reviewed the patient's chest x-ray. Chest x-ray is unremarkable for pulmonary edema, pneumothorax, pneumonia or focal cardiopulmonary abnormality. EKG Initial EKG: Attestation: I personally reviewed and interpreted this EKG as follows: Treatment and Re-Evaluation :: ED attending note: I evaluated the patient in conjunction with the MAURISIO. I agree with his/her statements and above findings. I have personally performed a face to face assessment of the patient and have reviewed the MAURISIO Note. I performed a substantive portion of the visit including all aspects of the following. I personally saw the patient performed chart review, physical exam, reviewed labs, imaging (if obtained), and formulated a treatment and management plan. Brief history: 82-year old female here with left arm pain. Denies any chest pain or shortness of breath. The patient denies recent surgery in the last 4 weeks or immobilization in the last 3 days, denies previous diagnosis of DVT or PE, hemoptysis, unilateral leg swelling or malignancy with treatment the last 6 months. No estrogen use noted. Patient denies sudden onset of pain, no tearing sensation, no migratory symptoms, no new numbness, weakness or loss of sensation. Patient denies family history or personal history of Marfan syndrome or Adeel-Danlos Exam: Nursing triage notes reviewed, Vital signs reviewed Constitutional: please see mdm HENT: MMM Eyes: Pupils equal round and reactive to light, Extraocular muscles intact Neck: No stridor, no JVD, full neck ROM Lungs: Clear to auscultation, No wheezing or rales. No increased work of breathing, no conversational dyspnea, no accessory muscle use, no nasal flaring. No respiratory distress noted Heart: Regular rate and rhythm, No murmurs, No rubs and No gallops, 2+ distal pulses (radial, femoral, posterior tibial) in all extremities Abdomen: Soft, there is no tenderness, rigidity, rebound or guarding, no obvious peritoneal signs, no palpable pulsatile abdominal masses, no auscultated abdominal bruit : No CVAT Extremities: No edema Neuro: No focal neurological deficits, cranial nerves II through XII intact, 5/5 strength in all extremities. Intact sensation to light touch in all extremities, 2+ reflexes bilateral patella dens. Normal gait. No ataxia. Skin: No rash or lesions noted MDM/plan: Chief Complaint: Chest pain External records reviewed: Echocardiogram shows ejection of 60 MDM narrative: Patient was hemodynamically stable, afebrile, nontoxic-appearing. Exam without focal cardiopulmonary maladies. I considered the following differential diagnosis: PE less likely given low risk Wells score. Aortic dissection is thought to be less likely given no sudden ripping or tearing pain, migratory pain, palpable pulse inequalities, no focal neurologic deficits concurrent with chest pain. Chance of dissection less than 02/1999. Pericarditis less likely given no pathognomonic EKG changes (no diffuse ST elevations, WA depressions). GI etiology (i.e. Boerhaave syndrome) less likely given no chest or neck crepitus, no vomiting or forced retching. We will also obtain labs including troponin, chest x-ray and EKG to further elucidate the etiology of the patient's complaints. We will dispo based on assessment of chest pain, lab and imaging evaluation, heart score evaluation and shared decision making. Shared decision making: I will have a discussion with the patient and or visitors regarding risk/benefits of further testing or admission. They will be made aware of of the risk/benefits inherent in this decision they will be given the opportunity to voice understanding. Consults: none Discharge Plan Triage Chief Complaint: Chest Pain ED Midlevel Provider: Anusha Guzman ED Provider: Aiden Darling Dx/Rx/DC Orders Clinical Impression: Arm pain, left Instructions: ED Chest Pain, Uncertain Cause Prescriptions: No Action amlodipine 5 mg tablet 5 mg PO DAILY metoprolol succinate [Toprol XL] 100 mg tablet extended release 24 hr 100 mg PO DAILY losartan 100 MG tablet 100 mg PO DAILY Patient Comments: blood pressure multivitamin with folic acid 1 TABLET tablet 1 tab PO QODAY Patient Comments: vitamin fluticasone propionate 1 SPRAY spray,suspension 2 spray NASAL DAILY Primary Care Provider: Shavon Pitts Referrals: Shavon Pitts MD [Primary Care Provider] - 3-5 Days Activity Restrictions/Additional Instructions: Please follow-up with your PCP and return for any worsening of your symptoms. Disposition Disposition: Home, Self Care Discharge Date/Time: 09/10/22 16:23
[2022-09-10 13:57] LABS: Anion Gap 7 (5-15); BUN 26 mg/dL (7-18); BUN/Creat Ratio 19.4 RATIO (10-20); Calcium,Total 9.1 mg/dL (8.5-10.1); Chloride 105 mmol/L (98-107); Creatinine, Serum 1.34 mg/dL (0.55-1.02); EST Glomerular Filtration Rate 40 mL/min (>60); Est Glom Filt Rate - Afr Amer 49 mL/min (>60); Estimated Creatinine Clearance 30.13 ml/min; Glucose 115 mg/dL (74-106); Potassium 4.1 mmol/L (3.5-5.1); Sodium Level 137 mmol/L (136-145); Troponin-I HS (w/2H Reflex) 7 pg/mL (3.0-54.0)
[2022-09-10 15:02] VITALS: BP 142/72; PULSE 75; RESP 16; O2SAT 99
[2022-09-10 15:35] LABS: Reflex Troponin-HS? (from REC) Y
[2022-09-10 15:46] LABS: Troponin-I HS 8 pg/mL (3.0-54.0)
== END 2022-09-10 16:23 | disposition home or self-care (01) ==
PROVIDERS: Physician Assistant; Emergency Provider Emergency Medicine; PCP Family Medicine; Visit Provider Emergency Medicine
DX: M79.602 Pain in left arm (principal); I10 Essential (primary) hypertension
CPT/HCPCS: 71045; 80048; 84484; 85025; 93005; 99284; A4216

== ENCOUNTER → 2022-09-14 | Outpatient (CLI) | payer MEDICARE, OTHER, SELFPAY ==
--- NOTE | 2022-09-14 17:10 | RAD_ITS ---
STUDY: X-RAY - CERVICAL SPINE REASON FOR EXAM: Female, 82 years old. LEFT ARM AND NECK PAIN TECHNIQUE: XR Spine Cervical 5 Views COMPARISON: None FINDINGS: Normal anterior atlantoaxial articulation. The odontoid process is obscured by the overlying hard palate on the open mouth view. Therefore, it is not fully evaluated by plain film. There is straightening of the normal cervical lordosis. There is multi-level endplate spondylosis. There is multi-level degenerative disc disease with multilevel disc space narrowing. There is multi-level osseous foraminal stenosis. There are calcifications around the left common carotid arteries. This is consistent for atherosclerotic disease. RAD/Cerv Spine 4 or 5 Views IMPRESSION: There are degenerative changes as noted above. The odontoid process is obscured by the overlying hard palate on the open mouth view. Therefore, it is not fully evaluated by plain film. There are calcifications around the left common carotid arteries. This is consistent for atherosclerotic disease. Electronically Signed: Monico Reddy MD at 21:37 EDT ,
== END | disposition home or self-care (01) ==
LOC: MTRAD 17:06
PROVIDERS: PCP Family Medicine; Referring Provider Family Medicine; Visit Provider Family Medicine
DX: M47.812 Spondylosis without myelopathy or radiculopathy, cervical region (principal)
CPT/HCPCS: 72050

== ENCOUNTER → 2022-10-13 | Outpatient (CLI) | payer MEDICARE, OTHER, SELFPAY ==
--- NOTE | 2022-10-18 16:53 | STRESSREP ---
Stress Test Report Date: 10/13/2022 Procedure: Exercise tolerance test/imaging study Indications: Chest pain Consent: Per the patient Procedure: The patient exercised on a Brandon protocol for 3 minutes and 15 seconds achieving a peak heart rate of 126 bpm (90% predicted maximal heart rate) with a peak blood pressure 150/60 mmHg and a peak MET capacity of 5.2 METs. The baseline ECG demonstrated normal sinus rhythm. The peak exercise ECG demonstrated no significant ischemic changes. EKG during recovery revealed no ischemic changes [There were no cardiac dysrhythmias pretest, during exercise, or recovery]. The functional capacity was considered normal for age. There was [no complaint of chest discomfort during exercise or recovery]. The examination was discontinued secondary to dyspnea, fatigue. Impression: 1. Technically adequate (percent predicted maximal heart rate greater than 85%) exercise tolerance test 2. Stress test is negative for exercise-induced EKG changes of ischemia 3. The test test is negative for exercise-induced chest pain 4. Functional capacity is normal for age 5. Nuclear images pending Myocardial perfusion imaging study: Technique: The patient was injected with 11.2 mCi of technetium 99m Cardiolite and subsequently rest SPECT Cardiolite nuclear imaging was obtained in the horizontal long, vertical long, and short axis views. The patient exercised on a Brandon protocol. Please see above for details. The patient was injected with 34.1 mCi of technetium 99m Cardiolite and subsequently stress SPECT Cardiolite nuclear imaging was obtained in the horizontal long, vertical long, and short axis views. A gated Cardiolite study at peak stress was obtained. Interpretation: Rest and stress SPECT Cardiolite nuclear imaging status post realignment, normalization, and attenuation correction, demonstrates no evidence of significant ischemia or infarction. The gated Cardiolite study demonstrates no significant regional wall motion abnormalities. The reported LVEF is greater than 70%. Impression: 1. There is no evidence of significant ischemia or infarction. 2. The gated Cardiolite study reports an LVEF of greater than 70%. This note was generated with [employer] software. It may contain incorrect words, spelling, and punctuation that were not noted in checking the note before signing.
== END | disposition home or self-care (01) ==
LOC: CVS 07:10
PROVIDERS: PCP Family Medicine; Referring Provider Family Medicine; Visit Provider Family Medicine
DX: R07.9 Chest pain, unspecified (principal)
CPT/HCPCS: 78452; 93017; A9500; A4216

== ENCOUNTER → 2023-08-09 | Outpatient (CLI) | payer MEDICARE, OTHER, SELFPAY ==
--- NOTE | 2023-08-09 08:50 | ECHOD_ITS ---
Reason For Study: MURMUR Procedure This was a 2D Doppler, Color Flow transthoracic echocardiogram. Exam performed in department. Left Ventricle Normal LV size. Left ventricular systolic function is normal. The left ventricular ejection fraction is 60 %. Stage 1 diastolic dysfunction. No regional wall motion abnormalities noted. Right Ventricle Normal right ventricle. Normal systolic function. Atria Normal left atrium. Normal right atrium. Mitral Valve Bileaflet diffuse mitral valve thickening. Tricuspid Valve Normal tricuspid valve. Mild (1+) tricuspid valve insufficiency. Pulmonary artery systolic pressure is 41 mmHg. Aortic Valve Trisinus/trileaflet aortic valve. Mild focal aortic valve calcification. Pulmonic Valve Normal pulmonic valve. Great Vessels Normal aortic root. The pulmonary artery is normal size. Inferior vena cava collapse with sniff. Pericardium/Pleural No pericardial effusion. MMode/2D Measurements & Calculations LVIDd: 4.3 cm IVSd: 1.1 cm LVOT diam: 1.9 cm LVIDs: 2.4 cm LVPWd: 0.84 cm LVOT area: 2.9 cm2 RVDd: 3.2 cm FS: 45.5 % Ao root diam: 3.1 cm LAV(MOD-bp): 53.0 ml LVAd ap4: 20.3 cm2 LAV(MOD-bp) Indexed: 30.1 ml/m2 LVLd ap4: 6.7 cm LAV(MOD-sp2): 46.7 ml EDV(MOD-sp4): 50.3 ml LAV(MOD-sp4): 55.5 ml EDV(sp4-el): 52.6 ml LVAs ap4: 9.7 cm2 LVLs ap4: 5.4 cm ESV(MOD-sp4): 14.9 ml ESV(sp4-el): 14.7 ml EF(MOD-sp4): 70.3 % EF(sp4-el): 72.1 % LVAd ap2: 17.2 cm2 SV(MOD-sp4): 35.4 ml SV(MOD-sp2): 25.3 ml LVLd ap2: 6.5 cm EDV(MOD-sp2): 36.9 ml EDV(sp2-el): 38.7 ml LVAs ap2: 8.6 cm2 LVLs ap2: 5.7 cm ESV(MOD-sp2): 11.6 ml ESV(sp2-el): 11.1 ml EF(MOD-sp2): 68.5 % SV(sp4-el): 37.9 ml LA dimension(2D): 3.7 cm LA A4 area: 19.1 cm2 RA A4 area: 15.1 cm2 TAPSE: 2.2 cm Time Measurements MV dec time: 0.29 sec Doppler Measurements & Calculations MV E max hussein: 89.3 cm/sec Lat Peak E' Hussein: 6.7 cm/sec Med Peak E' Hussein: 7.7 cm/sec MV A max hussein: 118.5 cm/sec E/E' lat: 13.4 E/E' med: 11.6 MV E/A: 0.75 Ao V2 max: 175.7 cm/sec LV V1 max: 95.5 cm/sec MV dec slope: 305.8 cm/sec2 Ao max P.3 mmHg LV V1 max P.6 mmHg Ao V2 mean: 129.0 cm/sec LV V1 mean P.2 mmHg Ao mean P.2 mmHg LV V1 mean: 72.0 cm/sec Ao V2 VTI: 41.6 cm LV V1 VTI: 23.6 cm AV (velocity ratio): 0.57 INDIRA(I,D): 1.6 cm2 INDIRA(V,D): 1.6 cm2 SV(LVOT): 68.2 ml PA V2 max: 77.7 cm/sec TR max hussein: 303.5 cm/sec PA max PG (full): 0.81 mmHg TR max P.9 mmHg ECHO/Echo Complete Interpretation Summary Normal LV size. Left ventricular systolic function is normal. The left ventricular ejection fraction is 60 %. Stage 1 diastolic dysfunction. Pulmonary artery systolic pressure is 41 mmHg. Ordering Physician: Graciela Tejada Referring Physician: Graciela Tejada Performed By: Consuelo Doll RDCS
--- NOTE | 2023-08-09 08:50 | ART_ITS ---
Reason For Study: claudication Procedure A bilateral lower extremity continuous wave Doppler with analog waveform analysis and ankle brachial indexes. Left Segmental Pressures Left brachial= 155mmHg. Left posterior tibial artery = 154mmHg. Left dorsalis pedis artery = 160mmHg. The left dorsalis pedis waveforms are triphasic. The left posterior tibial artery waveforms are triphasic. Right Segmental Pressures Right brachial= 157mmHg. Right posterior tibial artery = 146mmHg. Right dorsalis pedis artery = 138mmHg. The right dorsalis pedis waveforms are triphasic. The right posterior tibial artery waveforms are triphasic. Indices The right ankle brachial index by the dorsalis pedis is .88. The right ankle brachial index by the posterior tibial artery is .93. The left ankle brachial index by the posterior tibial artery is .98. The left ankle brachial index by the dorsalis pedis is 1.02. VL/Ankle Brachial Index Interpretation Summary Triphasic Doppler waveforms are noted at ankle level bilaterally. Pulse-volume recordings appear satisfactory at ankle level bilaterally. The resting right ankle-brachial index demonstrates minimal arterial disease. The resting left ankle-brachial index is normal. There is evidence of minimal arterial occlusive disease at ankle level on the r ight. There is no evidence of significant arterial occlusive disease on the left. Ordering Physician: Shannan Spann Referring Physician: SHANNAN SPANN QUAL FIELD MANAGER-C Performed By: Patricio Angel RVT
== END | disposition home or self-care (01) ==
LOC: CVS 08:48
PROVIDERS: PCP Family Medicine; Referring Provider Nurse Practitioner Gerontology; Visit Provider Nurse Practitioner Gerontology
DX: R01.1 Cardiac murmur, unspecified (principal); I73.9 Peripheral vascular disease, unspecified
CPT/HCPCS: 93306; 93922

== ENCOUNTER → 2023-10-07 | Outpatient (CLI) | payer MEDICARE, OTHER, SELFPAY ==
[2023-10-07 12:25] LABS: Absolute Neutrophil Count 3.7 X10^3/uL (2.0-7.7); Basophil# 0.06 X10^3/uL; Basophil% 0.9 % (0-1); Eosinophil# 0.29 X10^3/uL; Eosinophils% 4.1 % (0-5); Hematocrit 39.5 % (37-47); Hemoglobin 13.3 g/dL (12.0-15.0); Lymphocyte % 24.3 % (19-41); Mean Corp Hgb Conc 33.7 g/dL (32-36); Mean Corpuscular Hgb 31.5 pg (27.0-32.0); Mean Corpuscular Volume 93.6 fL (81-99); Mean Platelet Vol. 9.8 fl (6.2-12.0); Monocyte% 17.1 % (0-10); NRBC Flagged by Analyzer 0 % (0-5); Neutrophil # 3.73 X10^3/uL (2.7-7.7); Neutrophil % 53.3 % (47-70); Platelet Count 368 K/mm3 (150-450); RBC Distribution Width CV 14.6 % (11.6-14.6); RBC Distribution Width SD 50.3 fl (35.1-43.9); Red Blood Count 4.22 M/mm3 (4.2-5.4)
[2023-10-07 12:27] LABS: Erythrocyte Sedimentation Rate 24 mm/hr (0-30)
[2023-10-07 13:11] LABS: CRP < 2.90 mg/L (0.0-3.0)
== END | disposition home or self-care (01) ==
LOC: MTLAB 09:56
PROVIDERS: PCP Family Medicine; Referring Provider Specialist; Visit Provider Specialist
DX: T84.84XD Pain due to internal orthopedic prosthetic devices, implants and grafts, subsequent encounter (principal); S46.012D Strain of muscle(s) and tendon(s) of the rotator cuff of left shoulder, subsequent encounter; I10 Essential (primary) hypertension; X58.XXXA Exposure to other specified factors, initial encounter
CPT/HCPCS: 36415; 85025; 85652; 86140

== ENCOUNTER → 2023-10-13 | Outpatient (CLI) | payer MEDICARE, OTHER, SELFPAY ==
[2023-10-13 15:15] LABS: Color, Urine Yellow (Yellow); Glucose, Dipstick Normal (Normal); Ketone-Dipstick Negative (Negative); Leukocyte Esterase-Dipstick Negative /ul (Negative); Nitrite-Dipstick Negative (Negative); Occult Blood-Urine Negative /ul (Negative); Protein-Dipstick Negative (Negative); Specific Gravity, Urine 1.005 (1.002-1.030); Urine Bilirubin Dipstick Negative (Negative); Urine Clarity Clear (Clear); Urine Urobilinogen Normal (Normal)
[2023-10-13 16:16] LABS: ALB/GLOB Ratio 0.9 RATIO (0.9-2.4); AST(SGOT) 23 U/L (15-37); Alanine Aminotransfer ALT/SGPT 26 U/L (13-56); Albumin, Serum 3.9 g/dL (3.2-5.0); Alkaline Phosphatase 80 U/L (45-117); Anion Gap 7 (5-15); BUN 23 mg/dL (7-18); BUN/Creat Ratio 19.2 RATIO (10-20); Calcium,Total 10.6 mg/dL (8.5-10.1); Chloride 102 mmol/L (98-107); EST Glomerular Filtration Rate 46 mL/min (>60); Est Glom Filt Rate - Afr Amer 55 mL/min (>60); Globulin 4.2 g/dL (2.2-4.2); Glucose 104 mg/dL (74-106); Potassium 4.4 mmol/L (3.5-5.1); Protein, Total 8.1 g/dL (6.4-8.2); Sodium Level 135 mmol/L (136-145)
== END | disposition home or self-care (01) ==
LOC: BFHLAB 13:29
PROVIDERS: PCP Family Medicine; Referring Provider Family Medicine; Visit Provider Family Medicine
DX: N18.30 Chronic kidney disease, stage 3 unspecified (principal); R55 Syncope and collapse; R53.83 Other fatigue
CPT/HCPCS: 36415; 80053; 81002; 84443

== ENCOUNTER → 2023-10-21 | Outpatient (CLI) | payer MEDICARE, OTHER, SELFPAY ==
--- NOTE | 2023-10-21 08:44 | CDU_ITS ---
Reason For Study: Left carotid bruit Rt. Velocities/BP Lt. Velocities/BP Prox CCA 79.6/10.7 cm/sec. Prox CCA 68.3/12.6 cm/sec. Mid CCA 81.5/12.6 cm/sec. Mid CCA 75.9/14.5 cm/sec. Dist CCA 63.6/12.6 cm/sec. Dist CCA 67.4/11.6 cm/sec. Prox ICA 54.1/9.7 cm/sec. Bulb, 154.3/20.4 cm/sec. Mid ICA 63.6/17.3 cm/sec. Prox ICA 67.9/15.1 cm/sec. Dist ICA 68.3/21.1 cm/sec. Mid ICA 72.8/16.3 cm/sec. Rt. ICA/CCA = 0.84. Dist ICA 59.9/17 cm/sec. Prox ECA 93.8/5.8 cm/sec. Lt. ICA/CCA = 2.03. Rt. Vert. 57.9/11.6 cm/sec. Prox ECA 226.3/8.6 cm/sec. Lt. Vert. 26.8 cm/sec. Right Extracranial There is homogeneous, smooth atherosclerotic plaque noted in the right common carotid artery. There is heterogeneous, irregular atherosclerotic plaque noted in the right internal carotid artery. There is heterogeneous, irregular atherosclerotic plaque noted in the right external carotid artery. Antegrade flow is noted in the right vertebral artery. Left Extracranial There is homogeneous, irregular atherosclerotic plaque noted in the left common carotid artery. There is heterogeneous, irregular atherosclerotic plaque noted in the left internal carotid artery. There is heterogeneous, irregular atherosclerotic plaque noted in the left external carotid artery. Antegrade flow is noted in the left vertebral artery. Procedure Carotid Duplex [id number]. This is a Carotid Duplex examination using B-mode, color flow and specral Doppler. Exam performed in department. VL/Carotid Duplex Ultrasound Interpretation Summary Mild (<50%) stenosis right extracranial internal carotid. Moderate (50-69%) stenosis left extracranial internal carotid. Patent and antegrade vertebrals bilaterally. Ordering Physician: Shavon Pitts Referring Physician: Shavon Pitts Performed By: Maddi Kapoor RVT
[2023-10-21 09:08] LABS: Ionized Calcium 5.02 mg/dL (4.36-5.20)
[2023-10-21 09:24] LABS: Ionized Calcium Order ORDER TUBE
[2023-10-21 10:16] LABS: PTHIN 39.3 pg/mL (18.4-80.1)
[2023-10-21 10:19] LABS: Vitamin D,25 Hydroxy 46.5 ng/mL
[2023-10-24 12:08] LABS: Vitamin D 1,25-Dihydroxy 27.1 pg/mL (24.8-81.5)
== END | disposition home or self-care (01) ==
PROVIDERS: PCP Family Medicine; Referring Provider Family Medicine; Visit Provider Family Medicine
DX: R09.89 Other specified symptoms and signs involving the circulatory and respiratory systems (principal); E83.52 Hypercalcemia
CPT/HCPCS: 36415; 82306; 82330; 82652; 83970; 93880

== ENCOUNTER → 2024-05-02 | Outpatient (CLI) | payer MEDICARE, OTHER, SELFPAY ==
--- NOTE | 2024-05-07 08:01 | EKG12_ITS ---
Test Reason : PRE OP
[2024-05-07 09:10] LABS: Absolute Lymphocyte Count 2.15 X10^3/uL (0.83-4.51); Absolute Neutrophil Count 4.8 X10^3/uL (2.0-7.7); Basophil# 0.07 X10^3/uL; Basophil% 0.8 % (0-1); Eosinophil# 0.37 X10^3/uL; Eosinophils% 4.2 % (0-5); Hematocrit 39.5 % (37-47); Hemoglobin 13.5 g/dL (12.0-15.0); Lymphocyte # 2.15 X10^3/ul (0.83-4.51); Lymphocyte % 24.3 % (19-41); Mean Corp Hgb Conc 34.2 g/dL (32-36); Mean Corpuscular Hgb 31.9 pg (27.0-32.0); Mean Corpuscular Volume 93.4 fL (81-99); Mean Platelet Vol. 9.2 fl (6.2-12.0); Monocyte% 15.8 % (0-10); NRBC Flagged by Analyzer 0 % (0-5); Neutrophil # 4.78 X10^3/uL (2.7-7.7); Neutrophil % 54.1 % (47-70); Platelet Count 382 K/mm3 (150-450); RBC Distribution Width CV 14.3 % (11.6-14.6); RBC Distribution Width SD 49.3 fl (35.1-43.9); Red Blood Count 4.23 M/mm3 (4.2-5.4); White Blood Count 8.8 K/mm3 (4.4-11.0)
[2024-05-07 14:37] LABS: Albumin, Serum 4.4 g/dL (3.4-4.8); Anion Gap 13 (5-15); BUN 24 mg/dL (4-19); BUN/Creat Ratio 19.1 RATIO (10-20); Calcium,Total 10.4 mg/dL (7.6-11.0); Carbon Dioxide 22.2 mmol/L (21.0-32.0); Chloride 99 mmol/L (98-108); Creatinine, Serum 1.24 mg/dL (0.70-1.20); EST Glomerular Filtration Rate 43 (>60); Glucose 109 mg/dL (70-99); Potassium 4.3 mmol/L (3.3-5.1); Sodium Level 134 mmol/L (133-145)
--- NOTE | 2024-05-09 11:51 | PAT.ANESEVAL ---
Pre-Assessment Diagnosis/Proposed Procedure Planned Operative Procedure(s): RIGHT REVERSE TOTAL SHOULDER ARTHROPLASTY Anesthesia History Anesthesia History - hand binder cutter: Anesthesia History - hand binder cutter Hx Hospitalization No 05/09/24 11:32 Any Problems With Anesthesia Yes: DAKOTA GOES A LONG 05/09/24 11:32 WAY HAS FAINTED AFTER /SLOW TO AWAKEN Cholinesterase deficiency No 05/09/24 11:32 You/Your Family Experience No 05/09/24 11:32 fever (hyperthermia) with Relationship Recent Exposure to Contagious No 06/21/17 06:17 Disease Does patient have nerve No 05/09/24 11:32 stimulator Patient instructed to have device shut off --Does patient have Pacemaker or ICD? When Was Last Pacemaker Check QUESTION #4 FULL TEXT: You/Your Family Experience fever (hyperthermia) with Anesthesia Last Oral Intake Last Oral intake: Last Oral Intake NPO since Meds taken in AM with sips of water? Meds patient instructed to take am of surgery PONV PONV - hand binder cutter: PONV - hand binder cutter Female Yes 05/09/24 11:32 HX of Motion Sickness No 05/09/24 11:32 HX of N/V After Surgery No 05/09/24 11:32 Non-Smoker Yes 05/09/24 11:32 Duration of Surgery greater Yes 05/09/24 11:32 than 60 minutes Number of Risk Factors 3 05/09/24 11:32 PONV Score Moderate Risk 05/09/24 11:32 Height & Weight Height & Weight: Anesthesia: Height & Weight Height 5 ft 5 in 07/01/23 14:54 Respiratory Assessment Respiratory Assessment - hand binder cutter: Respiratory Tract Infection Hx - hand binder cutter Hx Respiratory Tract Infection Yes: SINUS INFECTION/TREATED 05/09/24 11:32 STOP Sleep Apnea STOP Sleep Apnea - hand binder cutter: STOP Sleep Apnea - hand binder cutter Hx Hypertension Yes: CONTROLLED WITH MED 05/09/24 11:32 Hx Sleep Apnea No 05/09/24 11:32 CPAP No 06/21/17 07:39 BIPAP No 06/15/17 15:23 Do you snore loudly (louder No 05/09/24 11:32 than talking or can be heard Do you often feel tired/ No 05/09/24 11:32 fatigued/ sleepy during daytime? Has anyone observed you stop No 05/09/24 11:32 breathing during sleep? STOP Results Negative 05/09/24 11:32 QUESTION #5 FULL TEXT : Do you snore loudly (louder than talking or can be heard through closed doors)? 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 Specify any problems Hx of Preganancy in last 3 No 05/09/24 11:32 Months Nurse Filling Out Transfusion DSCHRIBER 05/09/24 11:32 & Questions: Date: 05/09/24 05/09/24 11:32 Time: 11:35 05/09/24 11:32 Patient unable to answer at this time (ie. confused, unrespo /Reproduction History /Reproductive History - hand binder cutter: /Reproductive Hx- hand binder cutter Hx Now No 05/09/24 11:32 Gestational Age (in weeks): EDC: Hx Hx Para Hx Section SAB No 05/09/24 11:32 PFSH Medical History (Updated 05/09/24 @ 11:48 by Madalyn Hill) Wears glasses Post-menopausal Low iron Migraine headache Syncope Non-smoker Shortness of breath on exertion History of echocardiogram History of stress test Cardiology follow-up encounter MRSA (methicillin resistant staph aureus) culture positive Skin cancer Chronic renal disease, stage 3, moderately decreased glomerular filtration rate (GFR) between 30-59 mL/min/1.73 square meter Vitamin D deficiency Essential hypertension Arthritis Multinodular goiter NSVT (nonsustained ventricular tachycardia) Hypokalemia Dehydration MVP (mitral valve prolapse) Syncope Prerenal azotemia Home Medications ?Medication ?Instructions ?Recorded ?Last Taken ?Type amlodipine 10 mg tablet 10 mg PO DAILY 10/04/22 Unknown History calcium 600 mg (as 1 tab PO DAILY 10/04/22 Unknown History carbonate)-vitamin D3 10 mcg (400 unit) tablet fluticasone propionate 50 1 spray NASAL DAILY ALLERGIES 10/04/22 Unknown History mcg/actuation nasal spray,suspension metoprolol succinate 50 mg 50 mg PO DAILY 10/04/22 Unknown History tablet,extended release 24 hr losartan 100 mg tablet 100 mg PO DAILY #90 tabs 11/01/22 Unknown Rx multivitamin with folic acid 400 1 tab PO DAILY SUPPLEMENT 11/01/22 Unknown History mcg tablet loratadine 10 mg tablet (Claritin) 10 mg PO DAILY 05/09/24 Unknown History Allergy/AdvReac Type Severity Reaction Status Date / Time No Known Allergies Allergy Verified 05/09/24 11:23 Family History Father CAD (coronary artery disease) Surgical History (Updated 05/09/24 @ 11:48 by Madalyn Hill) Hx of colonoscopy History of lumbar laminectomy History of carpal tunnel surgery of left wrist Hx of total hip arthroplasty Hx of total hip arthroplasty History of vein stripping History of carpal tunnel surgery of right wrist Status post biopsy of thyroid gland (~12/2018) History of tonsillectomy History of tubal ligation History of total replacement of left shoulder joint Social History Smoking Status: Never smoker alcohol intake: never substance use type: does not use Audit: Pertinent Findings Pertinent Findings EKG Perinent findings: 05/07/2024. Normal sinus rhythm. 64 bpm. Echo (EF%) pertinent findings: 08/09/2023. EF 60% pulmonary artery pressure 41. Consult pertinent findings: 07/01/2023. Hypertension. Chronic. Continue medications. Cardiac murmur. Acute. Obtain echo to assess. Recommendation Anesthesia Recommendation Anesthesia recommendation: OPTIMIZED for anesthesia
[2024-05-09 16:49] LABS: Magnesium 2.1 mg/dL (1.5-2.2)
== END | disposition home or self-care (01) ==
LOC: SDC 12-26 16:01
PROVIDERS: Anesthesiology; PCP Family Medicine; Visit Provider Specialist
DX: Z01.818 Encounter for other preprocedural examination (principal); Z01.810 Encounter for preprocedural cardiovascular examination; M19.011 Primary osteoarthritis, right shoulder
CPT/HCPCS: 36415; 80048; 82040; 83735; 85025; 87081; 93005

== ENCOUNTER 2024-05-07 07:58 | Outpatient (CLI) | payer MEDICARE, OTHER, SELFPAY ==
--- NOTE | 2024-05-07 08:06 | CT_ITS ---
PROCEDURE: EXTREMITY UPPER WITHOUT CONTRA 05/07/2024 REASON FOR EXAM: PAIN IN RIGHT SHOULDER TECHNIQUE: Axial CT images of the right shoulder obtained without intravenous contrast. Coronal and Sagittal reconstruction series were provided. One or more dose reduction techniques were used (e.g., Automated exposure control, adjustment of the mA and/or kV according to patient size, use of iterative reconstruction technique RADIATION DOSE SUMMARY: CTDlvol: 22.17 mGy DLP: 437.59 mGycm COMPARISON: None FINDINGS: Bones: Degenerative spur formation of the medial inferior aspect of the humeral head. Joints: Marked degree of joint space narrowing of the glenohumeral joint with decreased distance between the humeral head and acromion suggestive of rotator cuff pathology. Moderate degree of hypertrophic osteoarthritis of the right acromioclavicular joint. Soft Tissues: Calcific tendinitis. CT/Extremity Upper without Contra IMPRESSION: Marked degree of osteoarthritis with joint space narrowing and degenerative spu r formation of the glenoid humeral joint with findings suggestive of rotator cuff pathology. 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 Reading Location: [place] [id number]
== END 2024-05-07 23:59 | disposition home or self-care (01) ==
LOC: CT 08:00
PROVIDERS: PCP Family Medicine; Referring Provider Specialist; Visit Provider Specialist
DX: Z01.818 Encounter for other preprocedural examination (principal); M25.511 Pain in right shoulder; M19.011 Primary osteoarthritis, right shoulder; Z01.810 Encounter for preprocedural cardiovascular examination
CPT/HCPCS: 36415; 73200; 80048; 82040; 83735; 85025; 87081; 93005

== ENCOUNTER → 2024-05-21 | Outpatient (CLI) | payer MEDICARE, OTHER, SELFPAY ==
--- NOTE | 2024-05-21 16:10 | RAD_ITS ---
PROCEDURE: PA and lateral chest radiographs, two views 05/21/2024 REASON FOR EXAM: Cough for 6 weeks TECHNIQUE: PA and lateral views of the chest. FINDINGS: The cardiomediastinal silhouette is within normal limits. Thoracic aorta is tortuous. Bones are osteopenic with degenerative changes in the spine. Partially included left total shoulder arthroplasty. 3 mm tiny calcified granuloma projects over the lower left lung on the PA view. Lungs are hyperinflated, without focal airspace consolidation or pleural effusion. RAD/Chest PA and Lateral IMPRESSION: Pulmonary hyperinflation. No acute cardiopulmonary process is demonstrated. If there are persistent symptoms or clinical concern, short-term follow-up CT e valuation may be considered. Reading Location: [facility]
== END | disposition home or self-care (01) ==
LOC: MTRAD 16:08
PROVIDERS: PCP Family Medicine; Referring Provider Physician Assistant Surgical; Visit Provider Physician Assistant Surgical
DX: R05.1 Acute cough (principal); R09.81 Nasal congestion
CPT/HCPCS: 71046

== ENCOUNTER 2024-06-11 07:37 | Observation (INO) | payer MEDICARE, OTHER, SELFPAY ==
--- NOTE | 2024-06-07 06:47 | HP.PCM_ITS ---
History and Physical History and Physical Patient Name: Yin Wu : 1940From:? MARY PAUL PA-C DATE OF PRE-OPERATIVE EXAM: 06/06/2024 DATE OF SURGERY:? 06/11/2024 SCHEDULED PROCEDURE:? Right reverse total shoulder arthroplasty HISTORY OF PRESENT ILLNESS: Preoperative history and physical exam was performed on June 06, 2024.? This is a 84-year-old female who is been having ongoing pain in the right shoulder for several years.? She is right-hand dominant.? She does have past history of a left reverse total shoulder arthroplasty by Dr. Dominic Romero on February 15, 2017.? She is doing well from that procedure.? The right shoulder gives her pain throughout the day with activities.? Pain is increased with overhead use.? She gets locking sensations in the shoulder and severe pain.? Patient has difficulty and at times unable to reach in high coverage due to the pain.? She has difficulty with getting dressed and doing hygiene activity with the right upper extremity.? Difficulty putting on her shirt and jacket.? She has increased pain Stanley on the right shoulder.? Patient recently was scheduled to undergo total shoulder arthroplasty however had upper respiratory symptoms.? She had chest x- ray which has been reviewed by the primary care provider.? Patient's symptoms have all resolved.? PCP was okay with patient proceeding forward with surgery.? Patient has medical history pertinent for chronic kidney disease, thyroid nodules, hypertension.? Denies past history of DVT or pulmonary embolism.? After failing conservative measures and discussing all treatment options Dr. Dominic Romero, the patient does wish to proceed with a right reverse total shoulder arthroplasty.? She has obtain surgical clearance from the primary care provider Dr. Wagoner. ? REVIEW OF SYSTEMS: Review Of Systems: Constitutional: Denies anorexia, anxiety, change in appetite, fever and weight change,hard of hearing, and vision problems. Cardiovasular: Denies chest pain, heart murmur, irregular heartbeat and peripheral vascular disease. Respiratory: Denies asthma, cough, pneumonia, sleep apnea, shortness of breath, tuberculosis and wheezing. Gastrointestinal: Denies constipation, diarrhea, heartburn, nausea, bloody stools and vomiting, and difficulty swallowing. Genitourinary: Denies incontinence. Musculoskeletal: Reports pain and weakness, but denies gait disturbance, leg swelling and trouble walking. Skin: Denies Raynaud's, history of shingles and tattoo. Neurological: Denies tremor in R hand, ambulatory dysfunction, dizziness and numbness/tingling Psychiatric: Denies anxiety, depression, insomnia, mental illness and stress. Hematologic/Lymphatic: Denies anemia, bleeding/bruising tendency and past transfusion. Reviewed and updated. PAST MEDICAL HISTORY: Advance Care Plan: Other Directive, POA Effective Date: 11/15/2016 Past Medical History: Medical Problems: Arthritis, High Blood Pressure Kidney Disease/Renal Failure - stage 3 thyroid nodules syncope after surgery - if not enough fluids after surgery Covid- 19 - (2023) subclinical hypothyroidism, carotid stenosis left side, psoriasis on scalp Accidents: Sports Related Injury - (1979) TORN ACHILLES Surgical Hx: Tonsillectomy - Age 8 Tubal Ligation - 1971 Carpal Tunnel - RT- 2001 [facility]? Dr. James Laminectomy - 1971 [facility]? Dr. James LT THR - (08/19/2008) ROGER @ [facility] RT THR - (11/27/2012) [email or web address] Shoulder Replacement LT - (02/15/2017) [email or web address] Carpal Tunnel Release LT - (06/21/2017) [email or web address] vein stripping - (1982) Anesthesia Complications: Takes awhile to wake up Assistive Devices: Glasses - readers Reviewed and updated. 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 Personal Habits:? Tobacco Use: Patient has never smoked.Cigarette Use: Never.Smokeless Tobacco: Never Used Smokeless Tobacco.E-Cigarette Use: Never used.Alcohol: Occasionally.Drug Use: Denies Use.Enjoy Exercising: Daily. Reviewed and updated. VITALS: Ht: 64.5 Wt: 150lb Wt k.040 BMI: 25.3 BP: 128/70 Pulse: 75 Resp: 17 T: 97.7 T: 36.5C Pain Level: 9 O2SatR: 95 ALLERGIES: No Known Drug Allergy MEDICATIONS: Mupirocin 2 % use qtip and apply inside each nostril twice a day until the day of surgery, Calcium Plus D3 600 mg 1 po qday, Losartan Potassium 50 mg 1 tab po daily, Metoprolol Succinate ER 50 mg twice daily po, Fluticasone Propionate 50 mcg/Act uad, Multivitamin? take one(1) tablet daily., Amlodipine Besylate 10 mg 1 by mouth every day, Calcium + D 500-1000-40 MG-Unt-mcg 1po qday PRE-OP EXAM: General appearance:NORMAL? Other: Eyes: Conjunctivae and lids: NORMAL? Pupils: ERR Ears, Nose, Mouth, and Throat: NORMAL? Other: Inspection of lips, teeth and gums: NORMAL?? Other: Neck: Examination of neck: no masses noted. Respiratory: Assessment of respiratory effort: NORMAL?? Other: ? Auscultation of lungs: clear to auscultation no wheezes, rhonchi or rales. Cardiovascular:? Auscultation of heart: regular rate and rhythm, no murmurs, gallops or rubs. PHYSICAL EXAMINATION: Patient's right shoulder is without erythema or signs of infection.? She has diffuse tenderness to palpation throughout the right shoulder.? Crepitus appreciated with range of motion.? Pain is increased with active motion.? Forward elevation 90, internal rotation L4, and external rotation 40.? 3/5 right shoulder strength with increased pain.? Scapular dyskinesia with range of motion.? Sensation intact axillary, radial, median, ulnar nerve distribution. IMAGING STUDIES: Previous x-rays of the right shoulder reveal progression of the osteoarthritis from previous imaging in 2021.? Patient has joint space narrowing with large osteophytes with increased bony erosion in the glenohumeral joint.? [id number] stage IV glenohumeral osteoarthritis. IMPRESSION: 1.? Severe right shoulder glenohumeral osteoarthritis 2.? 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 Hypertension 4.? Chronic kidney disease stage III 5.? Thyroid nodules with hypothyroidism 6.? Overweight with a BMI 25.3 PLAN: Dr. Dominic Romero did discuss and review with the patient all treatment options including surgical versus nonsurgical options.? I will continue plan established by Dr. Dominic Romero.? Patient does wish to proceed with the above-stated procedure.? Potential risks, benefits, and complications of the procedure were discussed in detail including but not limited to , infection, nerve and blood vessel damage, persistent pain, numbness, tingling, paresthesias, blood clot, pulmonary embolism, and requirement for possible further surgery.? The patient expressed full understanding and has no further questions for the doctor.? Patient does agree to proceed with the above-stated procedure and has signed the surgery consent form. POST-OP MEDICATION PLAN: Pain Medications: Postoperative pain regimen will be initiated by Dr. Dominic Romero in the hospital.? We are unable to use nonsteroidal anti-inflammatories due to chronic kidney disease.? Patient will be on doxycycline for 2 weeks postoperatively due to preoperative findings of positive MRSA.? Instructed the patient that she is more sensitive to this and my and should take appropriate precautions.? Also recommend using probiotics while on the antibiotic. DVT Prophylaxis Plan:? Aspirin 81 mg twice daily for 2 weeks postoperatively.? Denies past history of DVT or pulmonary embolism.? Patient will also use RANJIT hose for 2 weeks postoperatively. This dictation was created using voice recognition software. Phonetic and/or grammatical errors may exist. ___? I have re-examined the patient.? There are no clinical changes since date of exam. ___? See progress notes for changes. ___? Dictated on admission Date: ? Time: Signature:
[2024-06-11] VITALS (14 sets, daily range): BP systolic 107–146; BP diastolic 47–65; PULSE 57–82; RESP 16–18; TEMP 35.8–36.4; O2SAT 93–98; BMI 25.4
--- NOTE | 2024-06-11 08:48 | PCM.PRE.AN2 ---
ASA Classification* ASA Classification ASA Classification: 2 Assessment & Plan Anesthesia* Anesthesia Assessment Anesthesia Assessment: Discussed sedation and/or anesthesia options, risks, benefits, and alternatives with patient/parents/legal guardian/POA. Questions invited. The patient/parents/legal guardian/POA seems to understand and agrees to proceed with anesthesia plan. Reviewed the physical assessment, medical history, allergy history and patient home medications list prior to surgery/procedure/anesthetic and documented any changes. Performed airway and anesthesia risk assessments. Anesthesia Type Anesthesia Type: General Anesthesia Focused Assessment* Airway Assessment Mouth opens: >3 cm Mallampati Score: II Focused Labs Anesthesia Preop lab: CBC WBC 8.8 K/mm3 (4.4-11.0) 05/07/24 08:40 05/07/24 RBC 4.23 M/mm3 (4.2-5.4) 05/07/24 08:40 05/07/24 Hgb 13.5 g/dL (12.0-15.0) 05/07/24 08:40 05/07/24 Hct 39.5 % (37-47) 05/07/24 08:40 05/07/24 Plt Count 382 K/mm3 (150-450) 05/07/24 08:40 05/07/24 CHEMISTRY Potassium 4.3 mmol/L (3.3-5.1) 05/07/24 08:40 05/07/24 Sodium 134 mmol/L (133-145) 05/07/24 08:40 05/07/24 Magnesium 2.1 mg/dL (1.5-2.2) 05/09/24 14:53 05/09/24 Phosphorus 3.3 mg/dL (2.5-4.9) 05/23/20 08:50 05/23/20 BUN 24 mg/dL (4-19) H 05/07/24 08:40 05/07/24 Creatinine 1.24 mg/dL (0.70-1.20) H 05/07/24 08:40 05/07/24 Glucose 109 mg/dL (70-99) H 05/07/24 08:40 05/07/24 TSH 4.640 uIU/mL (0.358-3.740) H 10/13/23 13:30 10/13/23 COAG Pre-Assessment Diagnosis/Proposed Procedure Planned Operative Procedure(s): Right Reverse Total shoulder Anesthesia History Anesthesia History - recruiting and selection consultant: Anesthesia History - recruiting and selection consultant Hx Hospitalization No 05/09/24 11:32 Any Problems With Anesthesia Yes: DAKOTA GOES A LONG 05/09/24 11:32 WAY HAS FAINTED AFTER /SLOW TO AWAKEN Cholinesterase deficiency No 05/09/24 11:32 You/Your Family Experience No 05/09/24 11:32 fever (hyperthermia) with Relationship Recent Exposure to Contagious No 06/21/17 06:17 Disease Does patient have nerve No 05/09/24 11:32 stimulator Patient instructed to have device shut off --Does patient have Pacemaker or ICD? When Was Last Pacemaker Check QUESTION #4 FULL TEXT: You/Your Family Experience fever (hyperthermia) with Anesthesia Last Oral Intake Last Oral intake: Last Oral Intake NPO since Meds taken in AM with sips of water? Meds patient instructed to take am of surgery PONV PONV - recruiting and selection consultant: PONV - recruiting and selection consultant Female HX of Motion Sickness HX of N/V After Surgery Non-Smoker Duration of Surgery greater than 60 minutes Number of Risk Factors PONV Score Height & Weight Height & Weight: Anesthesia: Height & Weight Height 5 ft 5 in 06/08/24 11:07 Weight: 68.039 kg 06/08/24 11:07 Respiratory Assessment Respiratory Assessment - recruiting and selection consultant: Respiratory Tract Infection Hx - recruiting and selection consultant Hx Respiratory Tract Infection Yes: SINUS INFECTION/TREATED 05/09/24 11:32 STOP Sleep Apnea STOP Sleep Apnea - recruiting and selection consultant: STOP Sleep Apnea - recruiting and selection consultant Hx Hypertension Yes: CONTROLLED WITH MED 05/09/24 11:32 Hx Sleep Apnea No 05/09/24 11:32 CPAP No 06/21/17 07:39 BIPAP No 06/15/17 15:23 Do you snore loudly (louder than talking or can be heard Do you often feel tired/ fatigued/ sleepy during daytime? Has anyone observed you stop breathing during sleep? STOP Results QUESTION #5 FULL TEXT : Do you snore loudly (louder than talking or can be heard through closed doors)? 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 Specify any problems Hx of Preganancy in last 3 Months Nurse Filling Out Transfusion & Questions: Date: Time: Patient unable to answer at this time (ie. confused, unrespo /Reproduction History /Reproductive History - recruiting and selection consultant: /Reproductive Hx- recruiting and selection consultant Hx Now Gestational Age (in weeks): EDC: Hx Hx Para Hx Section SAB No 05/09/24 11:32 Active Medications Active Medications: Current Medications Generic Name Dose Route Start Last Admin Trade Name Freq PRN Reason Stop Dose Admin Acetaminophen 1,000 mg 06/11/24 10:30 Acetaminophen 500 Mg Tablet PO 06/11/24 10:31 X1 ONE Acetaminophen 1,000 mg 06/11/24 14:00 Acetaminophen 500 Mg Tablet PO Q8 [facility] Aspirin 81 mg 06/11/24 10:00 Aspirin 81 Mg Tab.Chew PO BID [facility] Dexamethasone Sodium Phosphate 10 mg 06/11/24 10:30 Dexamethasone 10 Mg/Ml Vial IV 06/11/24 10:31 X1 ONE Doxycycline Monohydrate 100 mg 06/12/24 13:00 Doxycycline 100 Mg Capsule PO BID [facility] Enteral Nutritional Formula 237 ml 06/11/24 08:00 Ensure Surgery 237 Ml Liquid PO TIDCM [facility] Famotidine 20 mg 06/11/24 10:00 Famotidine 20 Mg Tablet PO DAILY [facility] Gabapentin 600 mg 06/11/24 10:30 Gabapentin 600 Mg Tablet PO 06/11/24 10:31 X1 ONE Lactated Ringer's 1,000 mls @ 999 mls/hr 06/11/24 10:30 IV 06/11/24 11:30 .Q1H1M [facility] Cefazolin Sodium 2 gm/ N/A 20 mls @ 400 mls/hr 06/11/24 10:30 IV 06/11/24 10:32 PREOP ONE Tranexamic Acid 1,000 mg/ 110 mls @ 660 mls/hr 06/11/24 10:30 Sodium Chloride IV 06/11/24 10:39 X1 ONE Tranexamic Acid 1,000 mg/ 110 mls @ 660 mls/hr 06/11/24 11:30 Sodium Chloride IV 06/11/24 11:39 X1 ONE Lactated Ringer's 1,000 mls @ 999 mls/hr 06/11/24 11:30 IV 06/11/24 12:30 .Q1H1M [facility] Lactated Ringer's 1,000 mls @ 125 mls/hr 06/11/24 12:30 IV 06/11/24 20:29 .Q8H [facility] Vancomycin HCl 1,000 mg in 200 mls @ 200 mls/hr 06/11/24 09:00 Vancomycin IV 06/11/24 09:59 PREOP ONE Magnesium Sulfate 1 gm/ 102 mls @ 408 mls/hr 06/11/24 10:30 Dextrose IV 06/11/24 10:44 X1 ONE Cefazolin Sodium 1 gm in 50 mls @ 150 mls/hr 06/11/24 07:40 IV 06/11/24 15:59 Q8H [facility] Insulin Human Lispro 1 - 6 unit 06/11/24 10:30 Insulin Lispro 100 Unit/Ml Insuln.Pen SC 06/11/24 16:30 Q4H PRN PRN BG>/= 180, SEE PROTOCOL Protocol Morphine Sulfate 2 - 4 mg 06/11/24 07:37 Morphine 2 Mg/Ml Syringe IV Q2H PRN PRN Pain Score 4-10 Ondansetron HCl 4 mg 06/11/24 07:37 Ondansetron 4 Mg/2 Ml Vial IV Q6H PRN PRN NAUSEA/VOMITING Oxycodone HCl 5 - 10 mg 06/11/24 07:37 Oxycodone 5 Mg Tablet PO Q4H PRN PRN Pain Score 4-10 Promethazine HCl 12.5 mg 06/11/24 07:37 Promethazine 25 Mg Tablet PO Q6H PRN PRN NAUSEA/VOMITING Promethazine HCl 12.5 mg 06/11/24 07:37 Promethazine 25 Mg/Ml Syringe IM Q6H PRN PRN NAUSEA/VOMITING Senna/Docusate Sodium 2 tablet 06/11/24 10:00 Senna/Docusate Sodium 1 Tablet PO BID [facility] Medical History Wears glasses Post-menopausal Low iron Migraine headache Syncope Non-smoker Shortness of breath on exertion History of echocardiogram History of stress test Cardiology follow-up encounter MRSA (methicillin resistant staph aureus) culture positive Skin cancer Chronic renal disease, stage 3, moderately decreased glomerular filtration rate (GFR) between 30-59 mL/min/1.73 square meter Vitamin D deficiency Essential hypertension Arthritis Multinodular goiter NSVT (nonsustained ventricular tachycardia) Hypokalemia Dehydration MVP (mitral valve prolapse) Syncope Prerenal azotemia Home Medications ?Medication ?Instructions ?Recorded ?Last Taken ?Type amlodipine 10 mg tablet 10 mg PO DAILY 10/04/22 Unknown History calcium 600 mg (as 1 tab PO DAILY 10/04/22 Unknown History carbonate)-vitamin D3 10 mcg (400 unit) tablet fluticasone propionate 50 1 spray NASAL DAILY ALLERGIES 10/04/22 Unknown History mcg/actuation nasal spray,suspension metoprolol succinate 50 mg 50 mg PO DAILY 10/04/22 Unknown History tablet,extended release 24 hr losartan 100 mg tablet 100 mg PO DAILY #90 tabs 11/01/22 Unknown Rx multivitamin with folic acid 400 1 tab PO DAILY SUPPLEMENT 11/01/22 Unknown History mcg tablet loratadine 10 mg tablet (Claritin) 10 mg PO DAILY 05/09/24 Unknown History Allergy/AdvReac Type Severity Reaction Status Date / Time No Known Allergies Allergy Verified 05/09/24 11:23 Family History Father CAD (coronary artery disease) Surgical History Hx of colonoscopy History of lumbar laminectomy History of carpal tunnel surgery of left wrist Hx of total hip arthroplasty Hx of total hip arthroplasty History of vein stripping History of carpal tunnel surgery of right wrist Status post biopsy of thyroid gland (~12/2018) History of tonsillectomy History of tubal ligation History of total replacement of left shoulder joint Social History Smoking Status: Never smoker alcohol intake: never substance use type: does not use Review of Systems (Anesthesia) ROS Narrative System reviewed and no additional complaints, except as documented.
[2024-06-11] MEDS: Magnesium 1 GM over 15 mins IV (09:24)
[2024-06-11] MEDS: Lactated Ringers 1,000 ML 999 ML IV ×2 (09:24→13:00)
[2024-06-11] MEDS: Acetaminophen 500 MG Tablet 1000 MG PO ×2 (09:25→21:38)
[2024-06-11] MEDS: Gabapentin 600 MG Tablet PO (09:26)
[2024-06-11] MEDS: Vancomycin IV 1,000 MG/200 ML BAG 200 MG IV (09:35)
[2024-06-11 10:05] LABS: Bedside Glucose 117 mg/dL (74-106)
[2024-06-11] MEDS: TXA 1000mg in NS100 100ml (IVPB at Incision) 660 MG IV (10:45)
[2024-06-11] MEDS: Cefazolin 2 GM in Syringe 10 ML IV (10:46)
[2024-06-11] MEDS: TXA 1000mg in NS100 100ml (IVPB at Closure) 660 MG IV (11:44)
--- NOTE | 2024-06-11 11:46 | PCM.OPRPT ---
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 Post-Operative Diagnosis: Right reverse total shoulder replacement Surgery/Procedure Performed: Right reverse total shoulder replacement pond tender: Yes Waiter: Samantha Hong Tasks completed by welder first class: Other (See body of operative report) Additional research assistant member?: No Type of Anesthesia: General RN Documented Start/Stop Times: Operation Date: 06/11/24 10:30 Case Time Into Pre-Op 06/11/24 08:30 Anesthesia Start 06/11/24 10:30 Into Room 06/11/24 10:30 Out of Pre-Op 06/11/24 10:30 Procedure Start 06/11/24 10:57 Procedure End 06/11/24 12:45 Anesthesia End 06/11/24 12:52 Out of Room 06/11/24 12:52 Into Recovery 06/11/24 12:55 Procedure Start Time: 10:57 Procedure Stop Time: 12:45 Select all DRAINS/GRAFTS/IMPLANTS that apply: Prosthetic device Prosthetic device details: See body of operative report Special Medications: Ancef, vancomycin, TXA Estimated Blood Loss: 100 mL Fluids Replaced: 1000 L crystalloid Specimen collected: Yes Description of specimen(s) removed: Bony cuts Description of surgery: Components used 1. Tournier perform glenoid full wedge, 25 mm baseplate 2. Tournier perform 36 mm, 0 mm Glenosphere 3. Tournier perform 36 mm, 0 mm humeral liner retentive 4. 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 Patient failed conservative measures as mentioned in the H&P. After discussion of risk and benefits of reverse total shoulder replacement including but not limited to blood loss, DVTs, PEs, nerve vessel damage, infection, general risk of anesthesia including loss of life, instability and stiffness patient demonstrating understanding wish to proceed was able to sign informed consent. Medical clearance was obtained. Procedure: On the date of the procedure, patient's R upper extremity was marked in the preoperative area. Patient was taken back to the operating room where they were placed on the table in the supine position. Anesthesia assumed control of the C-spine and airway, then administered anesthetic. All bony prominences were identified well-padded, the head was secured and the patient was placed in the beachchair position at about 35? inclination. Anesthesia remained in control of the C-spine airway throughout the remainder of the procedure. Patient was then appropriately fastened to the table and the R upper extremity was prepped in a sterile fashion. The surgeons then scrubbed. Upon reentering the room, the R upper extremity was draped in a sterile fashion and the incision was marked out. Timeout was called, everyone agreed upon the side, the site, the procedure to be performed, patient identity and antibiotics given. Incision was taken down through skin and subcutaneous tissue, fat down to fascia. The stripe of the deltopectoral interval and cephalic vein were identified and blunt dissection was used to retract the deltoid. The cephalic vein was retracted laterally. Clavipectoral fascia was then incised and a cobra retractor was placed in the wound. The proximal one third of the pectoralis major insertion was released. Pectoralis tendon insertion was used to tenodesed the biceps tendon which was identified in the bicipital groove. Tenodesis was done with #1 Vicryl. Proximally we followed the biceps tendon after transecting it into the rotator interval. The rotator interval was split and the arm was externally rotated. The split was 1 cm medial to the bicipital groove. Subscapularis tendon was released. We released down the anterior portion of the humeral head and a rodriguez elevator was used to release the inferior portion of the humeral head. The arm was externally rotated and the shoulder was dislocated. The humeral head was then cut at its natural retroversion. Once his humeral head cut was made humerus was retracted out of the way and the glenoid was exposed. After exposing the glenoid, the labrum and the remaining proximal biceps were debrided. At this time we are able to view the entire outer edge of the glenoid. A central pin was placed we sequentially reamed over this central pin to 25mm. Once this was completed the central screw was measured and found to be. The glenoid baseplate was screwed into place. Wound was closely irrigated out with normal saline we then drilled sequentially for 2 screws. Screws were placed superiorly and inferiorly and tightened down the screws. Once the screws were appropriately tightened into place the glenoid baseplate was compressed against the exposed subchondral bone. A 36mm glenosphere was impacted into place engaging the Muniz taper. Attention was then turned towards the humerus. The humerus was again externally rotated exposing the proximal portion of the humerus. Central canal finder was then used to open up the canal. We reamed to a 2 reamer. We then broached to a size 2+ stem. We trialed the 0 mm liner. We obtained an adequate reduction at this time with a nice stable shoulder. Good internal rotation to the gluteus, forward elevation to 140?, external rotation to 20?. Final components were then assembled on the back table, trials were removed and the wound was copiously irrigated with normal saline after dislocating the shoulder. Once the final components were assembled they were impacted into place. Shoulder was then reduced and found to be stable with good range of motion. Subscapularis tendon was repaired using #2 FiberWire. The wound was with chlorhexidine solution then copiously irrigated out with a 1 L normal saline lavage. The deltopectoral fascia was then closed using #1 Vicryl skin was closed using 2-0 Vicryl interrupted sutures and final skin closure was done with 3-0 stratafix. Steri-Strips are placed for final skin closure. Sterile dressing was placed patient was then placed in a sling and awakened by anesthesia. Patient was then transferred to the PACU for recovery. Postoperative plan: Patient will be admitted to the hospital overnight. They will get physical therapy starting in 2 weeks with normal postoperative regimen. Patient will be placed on aspirin 81 mg p.o. twice daily for DVT prophylaxis. The first postoperative appointment will be in 2 weeks for wound check and initiation of phase 1 physical therapy. During the course of the procedure the physician research assistant member played a vital role. His intimate knowledge of my steps in the procedure aided in safe and expedient completion of the procedure. The PA played a vital rolls in positioning particularly in obtaining the appropriate beach chair position and securing the patient's body and head to the table. The PA was also vital in the retraction of soft tissues during the exposure and especially the glenoid work as this is a vital part of the procedure to prevent neurovascular damage. the PA was also vital and protecting soft tissues during times of bony cuts and reaming. He also played a vital role in closure with my direct supervision. The PA was also important during reduction and dislocation of the joint and trials intraoperatively. Surgical Findings: severe OA Complications Complications: No Admit VTE Documentation VTE Present on Admission: No VTE Mechan Device Prophylaxis: SCD's and Thigh High RANJIT Hose VTE Pharm Prophylaxis ordered?: Yes
--- NOTE | 2024-06-11 12:54 | SHO_PTH ---
PATIENT: MISSY WYNN LOC: [facility] U#:[id number] AGE/SX: 84/F ROOM: DC321 RE06/11/[address]: Dr. Dominic Romero MD : [id number] BED: 1 DIS: 06/12/2024 SPEC #: [id number] RECD: 06/11/24 13:55 STATUS: KRISTEN REGeorges #: [id number] KATERINE: 06/11/24 12:[address]: Dominic Romero DEPT: SURGICAL PATHOLOGY RECD BY: Ren Lopez ENTERED: 06/11/24 13:55 SP TYPE: HUMERUS OTHR DR: Dr. Shavon Pitts MD Tissues: A - Humerus, NOS Procedures: Decalcification bone/plaque Surgery Specimen Level IV HEADER OPERATION: ERAS, reverse total shoulder arthroplasty PRE-OP DIAGNOSIS: Severe right shoulder glenohumeral osteoarthritis TISSUE SUBMITTED: A- Right humeral head MICROSCOPIC DIAGNOSIS A. Right shoulder, humeral head, total arthroplasty: * Benign cartilage and bone with degenerative changes MICROSCOPIC DESCRIPTION Slides are reviewed. GROSS DESCRIPTION A. Received in formalin in a container labeled with the patient's name, date of , and right humeral head is a 5.0 x 4.8 x 0.2 cm semispherical fragment of firm bone. The resection margin is smooth and firm and the cortical surface is pitted and granular with smooth eburnation. Sectioning reveals firm and unremarkable surfaces. There are multiple soft tissue and bone fragments measuring 4.8 x 4.0 x 1.2 cm in aggregate. Sectioning reveals unremarkable bill-pink surfaces. Wicker Molded Candles sections of bone and soft tissue are submitted in A1 following decalcification. [facility] 06-11-2024 CPT:[id number]
--- NOTE | 2024-06-11 13:00 | PCM.POST.ANE ---
Anesthesia: Postop Eval I Current Vital Signs Temperature: 97.5 F Pulse Rate: 63 Blood Pressure: 121/51 Respiratory Rate: 16 Pulse Ox: 93 Oxygen Delivery Method: Nasal Cannula Oxygen Flow Rate (L/min): 3 Assessment Airway patent: Yes Spontaneous unlabored respirations: Yes Mental status: Awake and Calm nausea: No Vomiting: No Anesthesia Complication: No Fluid Hydration Crystalloid volume administer (ml): 1,000 Total IV fluid infused: 1,000 Progress Note Anesthesia document: Postop Eval 1 completed: Yes
--- NOTE | 2024-06-11 13:05 | RAD_ITS ---
PROCEDURE: SHOULDER MIN 2 VIEWS 06/11/2024 REASON FOR EXAM: TSA TECHNIQUE: Two views of the right shoulder COMPARISON: None FINDINGS: There is a reverse shoulder prosthesis in position. The AC joint is aligned. There is no fracture or dislocation. RAD/Shoulder min 2 Views IMPRESSION: Hardware in position. Reading Location: [facility]
--- NOTE | 2024-06-11 14:01 | POSTOPAN2_ITS ---
Anesthesia Postop Eval I Sum Postop Eval Completion status Anesthesia document: Postop Eval 1 completed: Yes Anesthesia Postop Eval I Summary Anesthesia Postop Eval I Summary: Anesthesia Postop Eval I: Assessment Summary Airway patent Yes 06/11/24 13:01 APPLICATIONS INTERN.SOBR Spontaneous unlabored Yes 06/11/24 13:01 APPLICATIONS INTERN.SOBR respirations Mental status Awake,Calm 06/11/24 13:01 APPLICATIONS INTERN.SOBR nausea No 06/11/24 13:01 APPLICATIONS INTERN.SOBR Vomiting No 06/11/24 13:01 APPLICATIONS INTERN.SOBR Anesthesia Postop Eval I: Fluid Summary Crystalloid volume administer 1,000 06/11/24 13:01 APPLICATIONS INTERN.SOBR (ml) Colloids volume administered ( ml) Blood Product volume administered (ml) Total IV fluid infused 1,000 06/11/24 13:01 APPLICATIONS INTERN.SOBR Anesthesia Postop Eval I: Summary Notes Anesthesia Complication No 06/11/24 13:01 APPLICATIONS INTERN.SOBR Anesthesia Complication Comment: Post-operative progress note Anesthesia: Postop Eval II Evaluation Mental status: Awake Pain Level: 1 nausea: No Vomiting: No
--- NOTE | 2024-06-11 14:01 | PCM.POSTANE2 ---
Anesthesia Postop Eval I Sum Postop Eval Completion status Anesthesia document: Postop Eval 1 completed: Yes Anesthesia Postop Eval I Summary Anesthesia Postop Eval I Summary: Anesthesia Postop Eval I: Assessment Summary Airway patent Yes 06/11/24 13:01 PADDED PRODUCTS INSPECTOR [email or web address] Spontaneous unlabored Yes 06/11/24 13:01 PADDED PRODUCTS INSPECTOR [email or web address] respirations Mental status Awake,Calm 06/11/24 13:01 PADDED PRODUCTS INSPECTOR [email or web address] nausea No 06/11/24 13:01 PADDED PRODUCTS INSPECTOR [email or web address] Vomiting No 06/11/24 13:01 PADDED PRODUCTS INSPECTOR [email or web address] Anesthesia Postop Eval I: Fluid Summary Crystalloid volume administer 1,000 06/11/24 13:01 PADDED PRODUCTS INSPECTOR [email or web address] (ml) Colloids volume administered ( ml) Blood Product volume administered (ml) Total IV fluid infused 1,000 06/11/24 13:01 PADDED PRODUCTS INSPECTOR [email or web address] Anesthesia Postop Eval I: Summary Notes Anesthesia Complication No 06/11/24 13:01 PADDED PRODUCTS INSPECTOR [email or web address] Anesthesia Complication Comment: Post-operative progress note Anesthesia: Postop Eval II Evaluation Mental status: Awake Pain Level: 1 nausea: No Vomiting: No
[2024-06-11] MEDS: 0.9% Saline Lock 10 ML Syringe IV ×2 (17:07→21:37)
[2024-06-11] MEDS: Ensure Surgery 237 ML LIQUID PO (17:07)
[2024-06-11] MEDS: Cefazolin 1 GM/50 ML BAG IV (17:07)
[2024-06-11] MEDS: Senna/Docusate Sodium 1 Tablet 2 TABLET PO (21:37)
[2024-06-11] MEDS: Aspirin 81 MG TAB.CHEW PO (21:37)
[2024-06-12 01:32] VITALS: BP 125/65; PULSE 80; RESP 18; TEMP 36.4; O2SAT 94
[2024-06-12] MEDS: Cefazolin 1 GM/50 ML BAG IV (01:45)
[2024-06-12] MEDS: 0.9% Saline Lock 10 ML Syringe IV ×2 (01:46→05:30)
[2024-06-12 05:24] VITALS: BP 130/67; PULSE 66; RESP 16; TEMP 36.4; O2SAT 95
[2024-06-12] MEDS: Acetaminophen 500 MG Tablet 1000 MG PO ×2 (05:30→15:04)
[2024-06-12] MEDS: oxyCODONE 5 MG Tablet PO ×2 (06:04→11:22)
[2024-06-12 07:09] LABS: Hematocrit 37.2 % (37-47); Mean Corp Hgb Conc 34.9 g/dL (32-36); Mean Corpuscular Hgb 32.5 pg (27.0-32.0); Mean Platelet Vol. 9.9 fl (6.2-12.0); Platelet Count 339 K/mm3 (150-450); RBC Distribution Width CV 14.2 % (11.6-14.6); RBC Distribution Width SD 48.6 fl (35.1-43.9)
[2024-06-12 07:48] LABS: Anion Gap 14 (5-15); BUN 16 mg/dL (4-19); BUN/Creat Ratio 15.7 RATIO (10-20); Calcium,Total 9.3 mg/dL (7.6-11.0); Carbon Dioxide 20.9 mmol/L (21.0-32.0); Chloride 100 mmol/L (98-108); Creatinine, Serum 1.02 mg/dL (0.70-1.20); EST Glomerular Filtration Rate 55 (>60); Estimated Creatinine Clearance 41.62 ml/min (50-250); Glucose 133 mg/dL (70-99); Potassium 4.1 mmol/L (3.3-5.1); Sodium Level 135 mmol/L (133-145)
--- NOTE | 2024-06-12 08:18 | PN.ORTHO_ITS ---
Subjective Subjective Patient appears comfortable in bed. Patient states that she has not yet worked with physical therapy or occupational therapy. Patient states that she does feel safe going home and has her at home. Patient states that her pain is adequately controlled. Patient denies any numbness or tingling. Patient denies any fevers, chills, signs of infection. Patient denies any shortness of breath, chest pain, calf pain. Patient denies any nausea, vomiting, dizziness. Patient denies any adverse events overnight. Objective Data Objective Data Vital Signs: Vital Signs Temp Pulse Resp BP Pulse Ox O2 Del Method O2 Flow Rate 97.5 F L 66 16 130/67 H 95 Room Air 3 06/12/24 05:24 06/12/24 05:24 06/12/24 05:24 06/12/24 05:24 06/12/24 05:24 06/12/24 05:24 06/11/24 14:00 Oxygen Flow Rate (L/min) 3 Oxygen Delivery Method Room Air Weight: 69.5 kg Body Mass Index (BMI) 25.4 Intake & Output: Intake and Output for Last 24 Hours 06/10/24 06/11/24 06/12/24 23:59 23:59 23:59 Intake Total 2592 / 2592 50 / 50 Balance 2592 / 2592 50 / 50 Lab / Micro Data 06/12/24 06:13 06/12/24 06:13 Labs: Laboratory Results - last 24 hr 06/11/24 09:21: POC Glucose 117 H 06/12/24 06:13: WBC 15.0 H, RBC 4.00 L, Hgb 13.0, Hct 37.2, MCV 93.0, MCH 32.5 H , MCHC 34.9, RDW Std Deviation 48.6 H, RDW Coeff of Jennifer 14.2, Plt Count 339, MPV 9.9, Sodium 135, Potassium 4.1, Chloride 100, Carbon Dioxide 20.9 L, Anion Gap 14, BUN 16, Creatinine 1.02, Estim Creat Clear Calc 41.62 L, Est GFR (MDRD) Non- Af 55 L, BUN/Creatinine Ratio 15.7, Glucose 133 H, Calcium 9.3 Radiography Diagnostic Testing: Radiology Impression Shoulder X-Ray 06/11/24 13:05 IMPRESSION: Hardware in position. Reading Location: [facility] Physical Exam Narrative Vital signs are stable and afebrile. Dressing is clean dry and intact. Ultrasound has been appropriately fitted. Sensation intact axillary, radial, median, ulnar nerve distribution. Motor intact with patient able to make okay sign, cross fingers, thumbs up. RANJIT hose in place bilaterally. SCDs in place bilaterally. Const alert, oriented x3 and no apparent distress Assessment & Plan Assessment/Plan (1) Status post reverse total shoulder replacement: PLAN: Status post right reverse total shoulder arthroplasty day 1. 1. Physical therapy. Patient will continue with UltraSling at all times. Patient is okay to take the sling off for range of motion of elbow and pendulum exercises 2-3 times daily. No range of motion of the operative shoulder. Will begin outpatient physical therapy after the 2-week follow-up at [facility] [place]. 2. DVT prophylaxis: Patient will be taking aspirin 81 mg twice daily for 2 weeks postoperatively. Patient was also educated to wear RANJIT hose for 2 weeks postoperatively. 3. Pain control: Patient was instructed to take Tylenol 1000 mg every 8 hours [id number] taking no more than 3000 mg in 24 hours. We will be avoiding anti-inflammatory medications in this patient due to chronic kidney disease. Patient was then instructed to take her oxycodone 1-2 every 4-6 hours as needed for breakthrough pain. OARRS report was reviewed today. The risk of abuse potential for narcotic pain medication was discussed and reviewed. Patient voiced understanding. 4. Constipation: Patient was instructed to take senna as instructed until her first bowel movement to decrease risk of infection following surgery. Patient was instructed if she has not had a bowel movement in 3 days contact our office. Patient states that she already has senna at home. 5. Labs: H&H: 13.0/37.2. Patient is afebrile and vital signs are stable. Hemoglobin is currently above the threshold of 10 and patient does not have to begin anemia protocol. 6. Reactive leukocytosis: White blood cell count is currently 15.0. Patient did receive intraoperative Decadron. Currently has stable vital signs and is afebrile. 7. Incentive spirometry: Patient was encouraged to use incentive spirometer every hour if she is awake for the first week to exercise the lungs and decrease risk of postoperative lung infection. 8. Doxycycline: Patient will be on doxycycline for 2 weeks postoperatively due to positive MRSA screening prior to surgery. Patient was educated to be extra cautious in the sun as it can cause increased risk sunburn. Patient was encouraged to try taking a probiotic while taking doxycycline. 9. Patient is to follow-up per postoperative instructions. 10. Patient will be seen by medicine to evaluate chronic disease. Appreciate recommendations from medicine for safe and proper discharge. 11. Patient does have outpatient physical therapy and follow-up appointment scheduled. 12. Patient is okay for discharge if pain is adequately controlled, has worked with and is cleared by physical therapy and Occupational Therapy and is okay per medicine doctors instructions. 13. Disposition: At this time patient states that she does feel comfortable going home and that her is at home to help her. Patient also has kids that she may have help from. Patient does have follow-up scheduled for 2 weeks postoperatively and physical therapy to begin after. Patient's medications were sent to pharmacy of choice. Patient stated that she did have senna, Tylenol, aspirin at home. Patient was educated on UltraSling and physical therapy. At this time patient was encouraged to call with any questions, concerns, new problems.
--- NOTE | 2024-06-12 08:31 | DCINST_ITS ---
Discharge Instructions Diet Discharge Diet: No restrictions DC O2, CPAP, BIPAP needs Home O2 Discharge instructions: No Dressing / Incision Discharge Activity: May Shower (Patient may shower over waterproof dressing on postop day 1. Patient was encouraged to not let water directly hit dressing.) Dressing / Incision Call your doctor if your incision/area has: Continuous Slow Oozing, Sudden Increased Bleeding, Increased Pain/ Swelling, Increased Redness, Foul Smelling Discharge and Swelling at the incision site Call your doctor if you observe: Fever of 101 or Higher, Coldness, Increased Pain, Numbness or Tingling, Change in Color, Inability to urinate, Inability to have a bowel movement, Using more than 1 pad per hour, Shortness of breath, Dizziness, Fainting spells, Swelling in the ankles, Chest pain, Prolonged hiccupping, Increased palpitations (irregular heartbeat), Calf discomfort and Uncontrolled pain Remove Dressing in: 5 days (Patient was encouraged she can remove her dressing on postop day 5. Which will be 06/16/2024. Patient was encouraged when her dressing is removed there will be Steri-Strips underneath. Patient was encouraged to leave Steri-Strips alone and allow it to fall off on their own.) Cleanse incision/area with: Soap & Water Additional Dressing/Incision Instructions:: Patient was encouraged no soaking, submerging of incision until 6 weeks postoperatively. Patient was encouraged no lotions, salves, oils on incision until 6 weeks postoperatively. Patient was encouraged no motion of operative shoulder until 2 weeks postoperatively. Patient will then begin physical therapy following her 2-week follow-up appointment. Patient was encouraged she could remove sling for gentle range of motion of elbow, hand. Patient was educated on the increased risk of sunburn with taking doxycycline. Patient voiced understanding. Patient was encouraged to take probiotic while taking doxycycline. OARRS report was checked today. Follow Up Care Test Results: Test results from this visit will be discussed in further detail at your follow- up appointment, if applicable. Discharge Plan Admission Admit Date/Time: 06/11/24 07:37 Attending Provider: Dominic Romero Primary Care Provider: Shavon Pitts Consulting Providers: Macario Kilgore Alexander Discharge Orders/Prescriptions Prescriptions: New acetaminophen 500 mg Tablet 1,000 mg PO TID Qty: 0 0RF aspirin 81 mg capsule 81 mg PO BID Qty: 0 0RF sennosides-docusate sodium [Stimulant Laxative Plus] 8.6-50 mg Tablet 2 tab PO BID Qty: 0 0RF Rx Instructions: Take until first bowel movement and then as needed. famotidine 20 mg Tablet 20 mg PO DAILY 14 Days Qty: 14 0RF doxycycline monohydrate 100 mg Capsule 100 mg PO BID 14 Days Qty: 28 0RF oxycodone 5 mg Tablet 5 - 10 mg PO Q4H PRN PRN (Reason: As needed for pain.) 7 Days Qty: 28 0RF Continued amlodipine 10 mg tablet 10 mg PO DAILY metoprolol succinate 50 mg tablet extended release 24 hr 50 mg PO DAILY calcium carbonate-vitamin D3 600 mg-10 mcg (400 unit) tablet 1 tab PO DAILY losartan 100 mg tablet 100 mg PO DAILY Qty: 90 3RF multivitamin with folic acid 400 mcg tablet 1 tab PO DAILY Patient Comments: vitamin fluticasone propionate 50 mcg/actuation spray,suspension 1 spray NASAL DAILY loratadine [Claritin] 10 mg tablet 10 mg PO DAILY Referrals / Follow Up: Shavon Pitts MD [Primary Care Provider] - Disposition Disposition (needs filled in before D/C Order can be placed): Home, Self Care
--- NOTE | 2024-06-12 09:38 | CASEMGMT ---
Met with patient to complete GALLEGOS form. GALLEGOS form explained to patient who voiced understanding and signed form. Original form placed in pt?s chart and copy provided to patient. Edith Burton, Discharge Planning Asst
--- NOTE | 2024-06-12 10:39 | PCM.PN.HOSP ---
Reason for Visit Reason for Visit: Diagnoses Presence of unspecified artificial shoulder joint (06/11/24) Subjective Subjective Patient is an orthopedic surgery primary patient. Had right reverse total shoulder replacement done with Dr. Romero on 06/11. Tolerated procedure well, no intraoperative complications noted. Medicine consulted postoperatively for medical management. I saw the patient at bedside this morning. Patient was sitting up comfortably in bedside chair, conversing normally, in no acute distress. Had mild shoulder pain this morning but stated it was very manageable. Was hoping to go home today, denied any other acute concerns currently. Objective Data Objective Data Vital Signs: Vital Signs Temp Pulse Resp BP Pulse Ox O2 Del Method O2 Flow Rate 97.5 F L 66 16 130/67 H 95 Room Air 3 06/12/24 05:24 06/12/24 05:24 06/12/24 05:24 06/12/24 05:24 06/12/24 05:24 06/12/24 05:24 06/11/24 14:00 Oxygen Flow Rate (L/min) 3 Oxygen Delivery Method Room Air Weight: 69.5 kg Body Mass Index (BMI) 25.4 Intake & Output: Intake and Output for Last 24 Hours 06/10/24 06/11/24 06/12/24 23:59 23:59 23:59 Intake Total 2592 / 2592 50 / 50 Balance 2592 / 2592 50 / 50 Lab / Micro Data 06/12/24 06:13 06/12/24 06:13 Labs: Laboratory Results - last 24 hr 06/12/24 06:13: WBC 15.0 H, RBC 4.00 L, Hgb 13.0, Hct 37.2, MCV 93.0, MCH 32.5 H, MCHC 34.9, RDW Std Deviation 48.6 H, RDW Coeff of Jennifer 14.2, Plt Count 339, MPV 9.9, Sodium 135, Potassium 4.1, Chloride 100, Carbon Dioxide 20.9 L, Anion Gap 14, BUN 16, Creatinine 1.02, Estim Creat Clear Calc 41.62 L, Est GFR (MDRD) Non-Af 55 L, BUN/Creatinine Ratio 15.7, Glucose 133 H, Calcium 9.3 Radiography Diagnostic Testing: Radiology Impression Shoulder X-Ray 06/11/24 13:05 IMPRESSION: Hardware in position. Reading Location: [facility] Physical Exam Const alert, oriented x3, no apparent distress and average body habitus Constitutional Narrative: Pleasant elderly female, sitting back comfortably in bedside chair, conversing normally, in no acute distress. General Appearance: cooperative and comfortable HEENT normocephalic, head/scalp atraumatic, hearing grossly normal bilaterally, nasal mucous membranes and turbinates normal and moist oral mucous membranes Eyes PERRL, EOMs intact bilaterally and conjunctivae normal Neck full ROM Chest inspection of chest normal Resp normal respiratory effort, normal air movement, no use of accessory muscles and clear to auscultation bilaterally Cardio regular rate, regular rhythm, no murmurs and peripheral pulses 2+ throughout GI normal to inspection, nondistended, normoactive bowel sounds, soft to palpation, non-tender and non-distended Back/Spine normal ROM Extremity Extremity Narrative: Right shoulder with dressing and sling in place. Skin no rashes or lesions noted Psych mental status grossly normal Assessment & Plan Assessment/Plan (1) Status post reverse total shoulder replacement: PLAN: Plan Patient is an 84-year-old female who presented to [facility] on 06/11/2024 for planned right total shoulder replacement. Medicine consulted postoperatively for medical management. 1. Right shoulder primary osteoarthritis ? Orthopedic surgery primary. S/p right reverse total shoulder replacement with Dr. Romero on 06/11. Tolerated procedure well, no intraoperative complications. Postoperative care per orthopedics. 2. Mild leukocytosis ? WBC count 15 postoperatively. Presumed secondary to acute stress response from surgery. Afebrile and hemodynamically stable, very low concern for infection. Recommend repeat CBC in 5 to 7 days to ensure WBC count has normalized. 3. Hypertension ? Mildly hypertensive to the 130s systolic postoperatively. Continue home amlodipine, losartan and Toprol. 4. Seasonal allergies ? Stable. Continue home Claritin and Flonase. Total clinical time spent by myself addressing the patient's medical issues, reviewing all the data, and collaborating with patient's care team: 35 minutes. Charges/Coding Visit Charges Inpatient E&M: 86560 Subs Hosp L2
[2024-06-12] MEDS: Aspirin 81 MG TAB.CHEW PO (11:05)
[2024-06-12 11:06] VITALS: PULSE 79
[2024-06-12] MEDS: Metoprolol(XL)Succ 50 MG Tablet PO (11:06)
[2024-06-12] MEDS: Losartan Potassium 100 MG Tablet PO (11:06)
[2024-06-12] MEDS: amLODIPine 10 MG Tablet PO (11:07)
[2024-06-12] MEDS: Senna/Docusate Sodium 1 Tablet 2 TABLET PO (11:08)
[2024-06-12 11:24] VITALS: BP 127/64; PULSE 79; RESP 16; TEMP 36.6; O2SAT 98
[2024-06-12] MEDS: Ensure Surgery 237 ML LIQUID PO (12:54)
--- NOTE | 2024-06-12 13:50 | CASEMGMT ---
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 Pt voices understanding and consents to?assessment?at this time.? Pt sitting up in chair in no distress at this time.? Pt is A/O at this time and answers all questions appropriately.?? Care providers, pharmacy, and demographics verified/updated at this time. PCP: Dr Pitts Specialists: Dr Romero-ortho, Dr Ochoa-cardio, [facility] Preferred Pharmacy: [facility] Retail Insurance: MCR, [employer] Prescription Benefit:?yes LNOK: , [place] Living Arrangements: Lives w/ in one-story home w/basement and one step to enter home. Pt states she does not usually go to the basement. Independent w/ADL's and IADL's and does yard work (mowing, weed-eating, etc). Transportation:?Pt states drives self and states no transportation concerns at this time.? also drives and will take her home @ dc. DME: ?States has the following DME:?Rt arm sling in place that pt will take home. Pt has a shower chair available to use, if needed. ?Pt states no need for further DME at this time.? HHC/SNF: No hx of either. Has done OP therapy in the past. Pt is scheduled for OP therapy @ [facility] 06/25 @ 3 PM and she is aware. Pt had many questions and concerns re: [facility] form. Questions answered and pt voices much appreciation. She denies having further questions/concerns at this time. Pt wishes to return home and states has no concerns with going home. Discharge order is in. PLAN:??Home w/OP therapy @ [facility]. Misael TRACYN?RN?CM
--- NOTE | 2024-06-12 13:57 | PHA.DC.MC.R ---
Pharmacy [facility] has performed discharge medication reconciliation and counseling for this patient. 1. Acetaminophen 1000mg PO Q8 2. Aspirin 81mg PO BID 3. Doxycycline 100mg PO BID x 14 days 4. Famotidine 20mg PO daily 5. Oxycodone 5-10mg PO Q4H PRN pain 6. Senna/docusate 2T PO BID until first BM, then PRN The patient's discharge medication list was reviewed for discrepancies and discrepancies were resolved. The patient was counseled on the following discharge medications and changes in medications for homegoing were reviewed. The Reason for Use, instructions for use, and potential side effects were reviewed for all new medications. The patient's questions regarding all of their medications were answered. The patient was able to verbally demonstrate an understanding of their discharge medications. Patient counseled by pharmacy graduate intern, Mat. Medications at Discharge Home Medications amlodipine 10 mg tablet 10 mg PO DAILY 10/04/22 calcium 600 mg (as carbonate)-vitamin D3 10 mcg (400 unit) tablet 1 tab PO DAILY 10/04/22 fluticasone propionate 50 mcg/actuation nasal spray,suspension 1 spray NASAL DAILY ALLERGIES 10/04/22 metoprolol succinate 50 mg tablet,extended release 24 hr 50 mg PO DAILY 10/04/22 losartan 100 mg tablet 100 mg PO DAILY #90 tabs 11/01/22 multivitamin with folic acid 400 mcg tablet 1 tab PO DAILY SUPPLEMENT 11/01/22 loratadine 10 mg tablet (Claritin) 10 mg PO DAILY 05/09/24 acetaminophen 500 mg tablet 1,000 mg (2 x 500 mg) PO TID #0 tabs 06/12/24 aspirin 81 mg capsule 81 mg PO BID #0 caps 06/12/24 doxycycline monohydrate 100 mg capsule 100 mg PO BID 14 days #28 caps 06/12/24 famotidine 20 mg tablet 20 mg PO DAILY 14 days #14 tabs 06/12/24 oxycodone 5 mg tablet 5 - 10 mg (1 - 2 x 5 mg) PO Q4H PRN PRN As needed for pain. 7 days #28 tabs 06/12/24 sennosides 8.6 mg-docusate sodium 50 mg tablet (Stimulant Laxative Plus) 2 tab PO BID #0 tabs 06/12/24
[2024-06-12] MEDS: Doxycycline 100 MG CAPSULE PO (15:04)
[2024-06-12] MEDS: Morphine 2 MG/ML Syringe IV (15:05)
== END 2024-06-12 15:36 | disposition home or self-care (01) ==
LOC: AC 08:24 → SDC 14:15 → AC 14:15 → SDC 14:16 → MS3 14:16
PROVIDERS: Admitting Provider Specialist; PCP Family Medicine; Referring Provider Specialist; Visit Provider Specialist
PROC: (CPT 23472; principal; 2024-06-11 10:00)
DX: M19.011 Primary osteoarthritis, right shoulder (principal); N18.30 Chronic kidney disease, stage 3 unspecified; I65.22 Occlusion and stenosis of left carotid artery; E04.2 Nontoxic multinodular goiter; I12.9 Hypertensive chronic kidney disease with stage 1 through stage 4 chronic kidney disease, or unspecified chronic kidney disease; E03.9 Hypothyroidism, unspecified; L40.9 Psoriasis, unspecified; J30.2 Other seasonal allergic rhinitis; Z79.899 Other long term (current) drug therapy
CPT/HCPCS: 23472; 01638; 36415; 73030; 80048; 82962; 85027; 88305; 88311; 94668; 96365; 96366; 96375; 97166; 99221; C1713; C1776; A4216; G0378; J2405; J3475

== ENCOUNTER 2024-07-23 10:46 | Emergency (ER) | payer MEDICARE, OTHER, SELFPAY ==
[2024-07-23 10:47] VITALS: BP 160/58; PULSE 82; RESP 16; TEMP 36.6; O2SAT 98; BMI 25.2
--- NOTE | 2024-07-23 11:28 | EX.ED.VISEXT ---
HPI History of Present Illness Chief Complaint: Bite Narrative Narrative: Chief complaint and HPI: Bites. 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 Patient states that she occasionally gets what she thinks are bites to her body periodically over the past several years. She states when she gets them it takes several weeks for them to heal. She denies history of abscesses or MRSA. She has not seen a recent spider or bug. Patient states several weeks ago she developed a small area of redness to her right lateral thigh as well as right upper arm which is consistent with her typical bites. She states over the past several weeks they have become more red and warm. States that the upper arm is now developing a blister over the area. She denies any significant pain. Denies any fever, chills, body aches, nausea, vomiting. Denies any purulence. Denies rash elsewhere. Review of systems: See HPI Medications: As listed on the chart Allergies: As listed on the chart PFSH: Per chart Vital signs: As listed on the chart. Reviewed. Physical exam: Gen: A&O x3, NAD Head: Normocephalic, atraumatic Eyes: No sclera icterus, conjunctiva clear ENT: Moist mucous membranes Neck: Trachea midline, No JVD, full range of motion CV: RRR, no murmurs, no peripheral edema Resp: Lungs CTA BL, no w/r/c GI: Abd soft, non-distended, non-tender, no r/r/g Musc: Full ROM of all extremities, patient has an approximately 2 x 2 cm erythematous patch to the right upper arm with surrounding erythema-indurated and warm-not significantly painful-1 small clear blister-no skin sloughing-no purulence or fluctuance, no tenderness/warmth/erythema over any of the upper extremity joints, no lymphatic streaking, radial pulse +2, sensation intact, compartments soft. Patient has an approximately 3 x 3 cm erythematous patch to the right upper thigh with surrounding erythema-indurated and warm-not significantly painful-no blisters-no skin sloughing-no purulence or fluctuance, no tenderness/warmth/erythema over any of the lower extremity joints, no lymphatic streaking, DP/PT pulse +2 , sensation intact, compartments soft. Both areas are blanchable. No crepitus. No weeping or drainage. Skin: Warm, dry Neuro: Alert, oriented, grossly intact, sensation intact Psych: Cooperative, appropriate mood and affect [facility] Medical History Wears glasses Post-menopausal Low iron Migraine headache Syncope Non-smoker Shortness of breath on exertion History of echocardiogram History of stress test Cardiology follow-up encounter MRSA (methicillin resistant staph aureus) culture positive Skin cancer Chronic renal disease, stage 3, moderately decreased glomerular filtration rate (GFR) between 30-59 mL/min/1.73 square meter Vitamin D deficiency Essential hypertension Arthritis Multinodular goiter NSVT (nonsustained ventricular tachycardia) Hypokalemia Dehydration MVP (mitral valve prolapse) Syncope Prerenal azotemia Home Medications ?Medication ?Instructions ?Recorded ?Last Taken ?Type amlodipine 10 mg tablet 10 mg PO DAILY 10/04/22 07/23/24 History calcium 600 mg (as 1 tab PO DAILY 10/04/22 07/23/24 History carbonate)-vitamin D3 10 mcg (400 unit) tablet fluticasone propionate 50 1 spray NASAL DAILY ALLERGIES 10/04/22 07/23/24 History mcg/actuation nasal spray,suspension metoprolol succinate 50 mg 50 mg PO DAILY 10/04/22 07/23/24 History tablet,extended release 24 hr losartan 100 mg tablet 100 mg PO DAILY #90 tabs 11/01/22 07/23/24 Rx multivitamin with folic acid 400 1 tab PO DAILY SUPPLEMENT 11/01/22 07/23/24 History mcg tablet loratadine 10 mg tablet (Claritin) 10 mg PO DAILY 05/09/24 07/23/24 History acetaminophen 500 mg tablet 1,000 mg (2 x 500 mg) PO TID #0 06/12/24 Unknown Rx tabs cephalexin 500 mg capsule 500 mg PO BID 7 days #14 caps 07/23/24 Unknown Rx sulfamethoxazole 800 1 tab PO BID 7 days #14 tabs 07/23/24 Unknown Rx mg-trimethoprim 160 mg tablet (Bactrim DS) Allergy/AdvReac Type Severity Reaction Status Date / Time No Known Allergies Allergy Verified 07/23/24 10:47 Family History Father CAD (coronary artery disease) Surgical History Hx of colonoscopy History of lumbar laminectomy History of carpal tunnel surgery of left wrist Hx of total hip arthroplasty Hx of total hip arthroplasty History of vein stripping History of carpal tunnel surgery of right wrist Status post biopsy of thyroid gland (~12/2018) History of tonsillectomy History of tubal ligation History of total replacement of left shoulder joint Social History Smoking Status: Never smoker alcohol intake: never substance use type: does not use EXAM Physical Exam Const Vital Signs: 07/23/24 10:47 07/23/24 11:26 07/23/24 13:28 Temperature 97.9 F 97.6 F L Temperature Source Oral Pulse Rate 82 92 Respiratory Rate 16 18 Respiratory Effort Normal Non-Labored Respiratory Pattern Normal Blood Pressure 160/58 H 118/64 Blood Pressure Mean 92 82 Pulse Ox 98 96 Oxygen Delivery Method Room Air MDM MDM MDM Narrative Medical decision making narrative: 84-year-old female with past medical history of HTN, right reverse total shoulder replacement in May presents for evaluation of bites. Patient has 2 areas of erythema/warmth over her right thigh and right arm. See physical exam. Differential diagnosis includes but is not limited to cellulitis, bite. Physical exam is not consistent with abscess or erythema migrans. There is nothing to drain or incise. Not consistent with Fatima-Jean Pierre syndrome or other rashes. On presentation, patient is no acute distress. Denies any systemic symptoms. Vitals are stable. No signs of septic arthritis. Will obtain basic infectious labs including blood culture. CBC without leukocytosis or anemia. Platelets unremarkable. BMP shows baseline renal insufficiency with creatinine of 1.34. Lactic acid unremarkable. Patient was updated of all the results. She was given the option of discharge home on oral antibiotics with strict return precautions versus admission for observation. Patient elected to discharge home. I do think this is appropriate as her vitals are unremarkable along with her labs. She denies any systemic symptoms. The redness of both areas was outlined with a marker. She was made aware that if it spreads beyond that she needs to return back to the emergency department. She was educated that should she has worsening signs and symptoms she needs to return back to the emergency department. She will given a 1 week course of Keflex and Bactrim. First dose is given here. Follow-up with PCP. She confirmed understanding of the plan. Patient discharged home. Impression: 1. Cellulitis of the right upper and right lower extremity 2. Concern for insect bite Lab Data Labs: Laboratory Results - last 24 hr 07/23/24 11:33 WBC 9.2 RBC 3.88 L Hgb 12.3 Hct 36.2 L MCV 93.3 MCH 31.7 MCHC 34.0 RDW Std Deviation 48.1 H RDW Coeff of Jennifer 14.0 Plt Count 353 MPV 8.9 Immature Gran % (Auto) 1.900 H Neut % (Auto) 59.5 Lymph % (Auto) 12.7 L Dewitt % (Auto) 24.5 H Eos % (Auto) 0.7 Baso % (Auto) 0.7 Absolute Neuts (auto) 5.5 Absolute Lymphs (auto) 1.16 Nucleated RBC % 0 Sodium 133 Potassium 4.1 Chloride 97 L Carbon Dioxide 23.0 Anion Gap 13 BUN 19 Creatinine 1.34 H Estim Creat Clear Calc 31.57 L Est GFR (MDRD) Non-Af 40 L BUN/Creatinine Ratio 13.9 Glucose 105 H Lactic Acid 1.1 Calcium 10.0 Discharge Plan Triage Chief Complaint: Bite ED Provider: Usman Ramirez Dx/Rx/DC Orders Clinical Impression: Cellulitis Instructions: ED Cellulitis Prescriptions: New sulfamethoxazole-trimethoprim [Bactrim DS] 800-160 mg tablet 1 tab PO BID 7 Days Qty: 14 0RF cephalexin 500 mg capsule 500 mg PO BID 7 Days Qty: 14 0RF No Action amlodipine 10 mg tablet 10 mg PO DAILY metoprolol succinate 50 mg tablet extended release 24 hr 50 mg PO DAILY calcium carbonate-vitamin D3 600 mg-10 mcg (400 unit) tablet 1 tab PO DAILY losartan 100 mg tablet 100 mg PO DAILY Qty: 90 3RF multivitamin with folic acid 400 mcg tablet 1 tab PO DAILY Patient Comments: vitamin fluticasone propionate 50 mcg/actuation spray,suspension 1 spray NASAL DAILY acetaminophen 500 mg Tablet 1,000 mg PO TID Qty: 0 0RF loratadine [Claritin] 10 mg tablet 10 mg PO DAILY Primary Care Provider: Shavon Pitts Referrals: Shavon Pitts MD [Primary Care Provider] - 3-5 Days Activity Restrictions/Additional Instructions: Follow-up with your primary care physician. Take all of your antibiotics. You received the first dose here in the emergency department. You need to return back to the ED if you developing worsening symptoms such as fever, chills, nausea, vomiting, spreading of the redness outside of the marker lines. Print Language: Persian Disposition Disposition: Home, Self Care Discharge Date/Time: 07/23/24 13:32
[2024-07-23 11:50] LABS: Absolute Lymphocyte Count 1.16 X10^3/uL (0.83-4.51); Absolute Neutrophil Count 5.5 X10^3/uL (2.0-7.7); Basophil# 0.06 X10^3/uL; Basophil% 0.7 % (0-1); Differential Indicated SCAN CRITERIA MET; Eosinophil# 0.06 X10^3/uL; Eosinophils% 0.7 % (0-5); Hematocrit 36.2 % (37-47); Hemoglobin 12.3 g/dL (12.0-15.0); Lymphocyte # 1.16 X10^3/ul (0.83-4.51); Lymphocyte % 12.7 % (19-41); Mean Corpuscular Hgb 31.7 pg (27.0-32.0); Mean Corpuscular Volume 93.3 fL (81-99); Mean Platelet Vol. 8.9 fl (6.2-12.0); Monocyte# 2.24 X10^3/uL; Monocyte% 24.5 % (0-10); NRBC Flagged by Analyzer 0 % (0-5); Neutrophil # 5.47 X10^3/uL (2.7-7.7); Neutrophil % 59.5 % (47-70); POSITIVE DIFFERENTIAL YES; Platelet Count 353 K/mm3 (150-450); RBC Distribution Width SD 48.1 fl (35.1-43.9); Red Blood Count 3.88 M/mm3 (4.2-5.4); White Blood Count 9.2 K/mm3 (4.4-11.0)
[2024-07-23 12:28] LABS: Anion Gap 13 (5-15); BUN 19 mg/dL (4-19); BUN/Creat Ratio 13.9 RATIO (10-20); Chloride 97 mmol/L (98-108); Creatinine, Serum 1.34 mg/dL (0.70-1.20); EST Glomerular Filtration Rate 40 (>60); Estimated Creatinine Clearance 31.57 ml/min (50-250); Glucose 105 mg/dL (70-99); Potassium 4.1 mmol/L (3.3-5.1); Sodium Level 133 mmol/L (133-145)
[2024-07-23 12:45] LABS: Lactic Acid 1.1 mmol/L (0.0-2.0)
[2024-07-23] MEDS: Smz/Tmp Ds Tablet 1 TABLET PO (13:26)
[2024-07-23] MEDS: Cephalexin 250 MG Capsule 500 MG PO (13:26)
[2024-07-23 13:28] VITALS: BP 118/64; PULSE 92; RESP 18; TEMP 36.4; O2SAT 96
== END 2024-07-23 13:32 | disposition home or self-care (01) ==
PROVIDERS: Emergency Provider Surgery; PCP Family Medicine; Visit Provider Surgery
DX: L03.115 Cellulitis of right lower limb (principal); N18.30 Chronic kidney disease, stage 3 unspecified; I12.9 Hypertensive chronic kidney disease with stage 1 through stage 4 chronic kidney disease, or unspecified chronic kidney disease; L03.113 Cellulitis of right upper limb; Z96.611 Presence of right artificial shoulder joint; Z85.828 Personal history of other malignant neoplasm of skin; Z79.899 Other long term (current) drug therapy; Z98.51 Tubal ligation status; Z04.89 Encounter for examination and observation for other specified reasons
CPT/HCPCS: 99285; 80048; 83605; 85025; 87040; A4216

== ENCOUNTER 2024-07-26 08:52 | Inpatient (IN) | payer MEDICARE, OTHER, SELFPAY ==
[2024-07-26 08:53] VITALS: BP 152/67; PULSE 72; RESP 16; TEMP 36.6; O2SAT 97; BMI 25.2
--- NOTE | 2024-07-26 09:09 | EX.ED.DYSGE1 ---
HPI History of Present Illness Chief Complaint: Cellulitis Detail of Chief Complaint: Cellulitis to the right upper arm and right thigh Informant: patient Narrative Narrative: Patient presents the emergency department with complaint of cellulitis to the right upper arm and right thigh. She states that she initially thought she had some bug bites that developed about 2 weeks ago. She was seen in the emergency department 4 days ago and started on Keflex and Bactrim and had the areas of erythema outlined with marker. Yesterday she complained of malaise. Denies fevers or chills or sweats. She states that the erythema has spread beyond the outlined area and marker and is not getting better. Patient has history of MRSA. [facility] Medical History Wears glasses Post-menopausal Low iron Migraine headache Syncope Non-smoker Shortness of breath on exertion History of echocardiogram History of stress test Cardiology follow-up encounter MRSA (methicillin resistant staph aureus) culture positive Skin cancer Chronic renal disease, stage 3, moderately decreased glomerular filtration rate (GFR) between 30-59 mL/min/1.73 square meter Vitamin D deficiency Essential hypertension Arthritis Multinodular goiter NSVT (nonsustained ventricular tachycardia) Hypokalemia Dehydration MVP (mitral valve prolapse) Syncope Prerenal azotemia Home Medications ?Medication ?Instructions ?Recorded ?Last Taken ?Type amlodipine 10 mg tablet 10 mg PO DAILY 10/04/22 07/23/24 History calcium 600 mg (as 1 tab PO DAILY 10/04/22 07/23/24 History carbonate)-vitamin D3 10 mcg (400 unit) tablet fluticasone propionate 50 1 spray NASAL DAILY ALLERGIES 10/04/22 07/23/24 History mcg/actuation nasal spray,suspension metoprolol succinate 50 mg 50 mg PO DAILY 10/04/22 07/23/24 History tablet,extended release 24 hr losartan 100 mg tablet 100 mg PO DAILY #90 tabs 11/01/22 07/23/24 Rx multivitamin with folic acid 400 1 tab PO DAILY SUPPLEMENT 11/01/22 07/23/24 History mcg tablet loratadine 10 mg tablet (Claritin) 10 mg PO DAILY 05/09/24 07/23/24 History acetaminophen 500 mg tablet 1,000 mg (2 x 500 mg) PO TID #0 06/12/24 Unknown Rx tabs cephalexin 500 mg capsule 500 mg PO BID 7 days #14 caps 07/23/24 Unknown Rx sulfamethoxazole 800 1 tab PO BID 7 days #14 tabs 07/23/24 Unknown Rx mg-trimethoprim 160 mg tablet (Bactrim DS) Allergy/AdvReac Type Severity Reaction Status Date / Time No Known Allergies Allergy Verified 07/26/24 08:53 Family History Father CAD (coronary artery disease) Surgical History Hx of colonoscopy History of lumbar laminectomy History of carpal tunnel surgery of left wrist Hx of total hip arthroplasty Hx of total hip arthroplasty History of vein stripping History of carpal tunnel surgery of right wrist Status post biopsy of thyroid gland (~12/2018) History of tonsillectomy History of tubal ligation History of total replacement of left shoulder joint Social History Smoking Status: Never smoker alcohol intake: never substance use type: does not use ROS ROS ED Review of Systems ROS Unobtainable: other Constitutional Constitutional ED: Reports lethargy; Denies chills, fever(s), sweats or weight loss Eyes Eyes: Denies blurry vision, change in vision or diplopia ENT ENT ED: Denies rhinorrhea or sore throat Cardiovascular Cardiovascular: Denies chest pain, orthopnea or racing heartbeat Respiratory/Chest Respiratory/Chest: Denies cough, dyspnea, dyspnea on exertion, orthopnea or sputum Gastrointestinal Gastrointestinal: Denies abdominal pain, diarrhea, nausea or vomiting Genitourinary Genitourinary ED: Denies dysuria, hematuria or urinary frequency Musculoskeletal Musculoskeletal: Denies arthralgias, back pain, myalgias or neck pain Integumentary Reports rash; Denies abscess or Abrasions Neurologic Neurologic: Denies headache(s) or weakness Psychiatric Psychiatric: Denies anxiety, depression or suicidal thoughts Endocrine Endocrinology: Denies polydipsia, polyphagia or polyuria Hematologic/Lymphatic Hematologic/Lymphatic: Denies easy bleeding, easy bruising or lymphadenopathy Allergic/Immunologic Allergic/Immunologic ED: Denies mouth swelling, tongue swelling or urticaria EXAM Physical Exam Const Vital Signs: 07/26/24 08:53 Temperature 97.9 F Temperature Source Oral Pulse Rate 72 Respiratory Rate 16 Blood Pressure 152/67 H Blood Pressure Mean 95 Pulse Ox 97 Oxygen Delivery Method Room Air Positive well nourished and well developed General Appearance ED: well developed and NAD HEENT Reports TM's clear and moist mucous membranes normocephalic and atraumatic; Negative for trauma or tenderness Tympanic Membrane ED: Yes TM's clear Eyes PERRL and EOMs intact bilaterally General Eye ED: Negative for pale conjunctiva or scleral icterus Neck no lymphadenopathy, supple and no JVD General: Negative for tenderness Chest Wall inspection of chest normal and palpation of chest normal Chest: Negative for tenderness Resp normal respiratory effort and clear to auscultation bilaterally Effort and Inspection: Negative for respiratory distress or pain with movement Auscultation: Negative for rhonchi, wheezes or diminished lung sounds Cardio regular rate, regular rhythm, S1 normal heart sound, S2 normal heart sound and no murmurs Peripheral Pulses: pulses 2+ throughout GI normal to inspection, nondistended, normoactive bowel sounds, soft to palpation, non-tender, non-distended and no masses Back/Spine no CVA tenderness and no thoracic nor lumbar tenderness Extremity Negative for normal to inspection Extremity Narrative: Right upper arm-over the area of the bicep there is a area of erythema measuring approximately 15 x 10 cm. Central portion of the erythema slightly indurated and superficial skin breakdown developing. No fluctuant area noted. Clinically I do not suspect an abscess. She is neurovascular intact distally. Right lateral thigh-area of erythema measuring approximately 10 x 10 cm with some central induration but no fluctuance. Erythema is extending beyond the initially outlined area with marker. General Extremety ED: Negative for edema General Extremity: Negative for edema Neuro oriented x3, CN's II-XII intact bilaterally, no sensory deficits noted and gait normal Sensorium / Orientation: awake, alert, oriented to person, oriented to place and oriented to time Motor Exam: strength 5/5 throughout and strength abnormal Psych mental status grossly normal Skin no rashes or lesions noted and no wounds MDM MDM MDM Narrative Medical decision making narrative: Patient presents with cellulitis of the right upper arm and right lateral thigh. Blood cultures performed 4 days ago were negative for growth. CBC with differential obtained here showed a white count of 6.2 with hemoglobin 12 and platelet count of 404. Patient started on Unasyn and vancomycin IV. Discussed case with hospitalist evaluate for admission for failed outpatient therapy. Patient has history of MRSA Lab Data Attestation: I reviewed the patient's lab results. Labs: Laboratory Results - last 24 hr 07/26/24 09:23 WBC 6.2 RBC 3.78 L Hgb 12.0 Hct 34.8 L MCV 92.1 MCH 31.7 MCHC 34.5 RDW Std Deviation 46.9 H RDW Coeff of Jennifer 13.9 Plt Count 404 MPV 9.1 Immature Gran % (Auto) 0.500 Neut % (Auto) 50.3 Lymph % (Auto) 20.1 [place] % (Auto) 24.0 H Eos % (Auto) 4.1 Baso % (Auto) 1.0 Absolute Neuts (auto) 3.1 Absolute Lymphs (auto) 1.24 Nucleated RBC % 0 Discharge Plan Triage Chief Complaint: Cellulitis ED Provider: Madeleine Logan Dx/Rx/DC Orders Clinical Impression: Cellulitis, Hypertension Prescriptions: No Action amlodipine 10 mg tablet 10 mg PO DAILY metoprolol succinate 50 mg tablet extended release 24 hr 50 mg PO DAILY calcium carbonate-vitamin D3 600 mg-10 mcg (400 unit) tablet 1 tab PO DAILY losartan 100 mg tablet 100 mg PO DAILY Qty: 90 3RF multivitamin with folic acid 400 mcg tablet 1 tab PO DAILY Patient Comments: vitamin fluticasone propionate 50 mcg/actuation spray,suspension 1 spray NASAL DAILY acetaminophen 500 mg Tablet 1,000 mg PO TID Qty: 0 0RF sulfamethoxazole-trimethoprim [Bactrim DS] 800-160 mg tablet 1 tab PO BID 7 Days Qty: 14 0RF cephalexin 500 mg capsule 500 mg PO BID 7 Days Qty: 14 0RF loratadine [Claritin] 10 mg tablet 10 mg PO DAILY Primary Care Provider: Shavon Pitts Referrals: Shavon Pitts MD [Primary Care Provider] - Print Language: Danish Disposition Disposition: Acute Care Hospital [facility]
[2024-07-26 09:37] LABS: Absolute Lymphocyte Count 1.24 X10^3/uL (0.83-4.51); Absolute Neutrophil Count 3.1 X10^3/uL (2.0-7.7); Basophil# 0.06 X10^3/uL; Eosinophil# 0.25 X10^3/uL; Eosinophils% 4.1 % (0-5); Hematocrit 34.8 % (37-47); Lymphocyte # 1.24 X10^3/ul (0.83-4.51); Lymphocyte % 20.1 % (19-41); Mean Corp Hgb Conc 34.5 g/dL (32-36); Mean Corpuscular Hgb 31.7 pg (27.0-32.0); Mean Corpuscular Volume 92.1 fL (81-99); Mean Platelet Vol. 9.1 fl (6.2-12.0); Monocyte# 1.48 X10^3/uL; NRBC Flagged by Analyzer 0 % (0-5); Neutrophil % 50.3 % (47-70); Platelet Count 404 K/mm3 (150-450); RBC Distribution Width CV 13.9 % (11.6-14.6); RBC Distribution Width SD 46.9 fl (35.1-43.9); Red Blood Count 3.78 M/mm3 (4.2-5.4); White Blood Count 6.2 K/mm3 (4.4-11.0)
[2024-07-26] MEDS: Ampicillin/Sulbactam 3 GM in 0.9% Normal Saline (100mL MB+) 100 ML IV ×2 (09:42→21:03)
[2024-07-26 09:55] VITALS: BP 145/72; PULSE 71; RESP 14; TEMP 36.5; O2SAT 98
[2024-07-26 09:59] LABS: Anion Gap 16 (5-15); BUN 21 mg/dL (4-19); BUN/Creat Ratio 13.1 RATIO (10-20); Calcium,Total 9.8 mg/dL (7.6-11.0); Carbon Dioxide 18.5 mmol/L (21.0-32.0); Chloride 100 mmol/L (98-108); Creatinine, Serum 1.63 mg/dL (0.70-1.20); EST Glomerular Filtration Rate 31 (>60); Estimated Creatinine Clearance 25.95 ml/min (50-250); Glucose 109 mg/dL (70-99); Sodium Level 135 mmol/L (133-145)
[2024-07-26 10:02] LABS: Lactic Acid 1.7 mmol/L (0.0-2.0)
[2024-07-26] MEDS: Vancomycin IV 1,000 MG/200 ML BAG 200 MG IV (10:19)
--- NOTE | 2024-07-26 10:58 | PCM.HP.STD ---
HPI - General General Date of Admission: 07/26/24 Date of Service: 07/26/24 Chief Complaint: Cellulitis HPI Narrative MISSY WYNN, is a 84 F who presents to the emergency room at [facility] for evaluation of persistent cellulitis of her right upper arm and right upper leg. She has been treated for cellulitis for the last several days with Bactrim and Keflex without improvement to these areas. Patient relates to a past history of positive MRSA and a nasal swab prior to recent right shoulder replacement. Labs obtained in the emergency room revealed an elevated creatinine of 1.63 and BUN of 21 on her chemistry profile, her CBC was unremarkable. Examination of the patient's right upper arm revealed an area approximately 4 cm in diameter which was reddened and indurated, there is some skin shear over the area noted, there is also another area of redness and induration over the patient's right hip area, this area is slightly smaller. Patient was given IV Unasyn and IV vancomycin in the emergency room, she will be admitted to [place] [id number] and placed on these medications, I will have infectious diseases see the patient in consultation tomorrow. [facility] Medical History Wears glasses Post-menopausal Low iron Migraine headache Syncope Non-smoker Shortness of breath on exertion History of echocardiogram History of stress test Cardiology follow-up encounter MRSA (methicillin resistant staph aureus) culture positive Skin cancer Chronic renal disease, stage 3, moderately decreased glomerular filtration rate (GFR) between 30-59 mL/min/1.73 square meter Vitamin D deficiency Essential hypertension Arthritis Multinodular goiter NSVT (nonsustained ventricular tachycardia) Hypokalemia Dehydration MVP (mitral valve prolapse) Syncope Prerenal azotemia Home Medications ?Medication ?Instructions ?Recorded ?Last Taken ?Type amlodipine 10 mg tablet 10 mg PO DAILY 10/04/22 07/23/24 History calcium 600 mg (as 1 tab PO DAILY 10/04/22 07/23/24 History carbonate)-vitamin D3 10 mcg (400 unit) tablet fluticasone propionate 50 1 spray NASAL DAILY ALLERGIES 10/04/22 07/23/24 History mcg/actuation nasal spray,suspension metoprolol succinate 50 mg 50 mg PO DAILY 10/04/22 07/23/24 History tablet,extended release 24 hr losartan 100 mg tablet 100 mg PO DAILY #90 tabs 11/01/22 07/23/24 Rx multivitamin with folic acid 400 1 tab PO DAILY SUPPLEMENT 11/01/22 07/23/24 History mcg tablet loratadine 10 mg tablet (Claritin) 10 mg PO DAILY 05/09/24 07/23/24 History acetaminophen 500 mg tablet 1,000 mg (2 x 500 mg) PO TID #0 06/12/24 Unknown Rx tabs cephalexin 500 mg capsule 500 mg PO BID 7 days #14 caps 07/23/24 Unknown Rx sulfamethoxazole 800 1 tab PO BID 7 days #14 tabs 07/23/24 Unknown Rx mg-trimethoprim 160 mg tablet (Bactrim DS) Allergy/AdvReac Type Severity Reaction Status Date / Time No Known Allergies Allergy Verified 07/26/24 08:53 Family History Father CAD (coronary artery disease) Surgical History Hx of colonoscopy History of lumbar laminectomy History of carpal tunnel surgery of left wrist Hx of total hip arthroplasty Hx of total hip arthroplasty History of vein stripping History of carpal tunnel surgery of right wrist Status post biopsy of thyroid gland (~12/2018) History of tonsillectomy History of tubal ligation History of total replacement of left shoulder joint Social History Smoking Status: Never smoker alcohol intake: never substance use type: does not use ROS Constitutional Constitutional: Denies anorexia, change in weight, chills, fatigue, fever(s), malaise, night sweats or weakness Eyes Eyes: Denies blurry vision, change in vision, discharge from eye(s) or eye pain Cardiovascular Cardiovascular: Denies chest pain, claudication, edema or palpitations Respiratory/Chest Respiratory/Chest: Denies cough, hemoptysis, shortness of breath at rest or shortness of breath with exertion Gastrointestinal Gastrointestinal: Denies abdominal pain, constipation, diarrhea, hematemesis, hematochezia, melena, nausea or vomiting Genitourinary Genitourinary: Denies dysuria, hematuria, urinary frequency, urinary hesitancy, urinary incontinence or urinary urgency Musculoskeletal Musculoskeletal: Denies back pain, joint pain, joint stiffness, joint swelling, myalgias or neck pain Neurologic Neurologic: Denies abnormal gait, abnormal speech, dizziness, focal weakness, headache(s), loss of vision, numbness, other visual disturbances, paresthesias, syncope or tingling Psychiatric Psychiatric: Denies anxiety, cognitive impairment, depression, irritability, mood swings or suicidal ideation Endocrine Endocrinology: Denies change in body appearance, cold intolerance, excessive sweating, heat intolerance, polydipsia or polyuria Hematologic/Lymphatic Hematologic/Lymphatic: Denies none, anemia, easy bleeding, easy bruising or lymphadenopathy Allergic/Immunologic Allergic/Immunologic: Denies rhinitis, urticaria, eczemia or asthma Vital Signs Vital Signs Vital Signs: 07/26/24 08:53 07/26/24 09:55 07/26/24 09:55 Temperature 97.9 F 97.7 F L 97.7 F L Temperature Source Oral Oral Pulse Rate 72 71 71 Respiratory Rate 16 14 14 Blood Pressure 152/67 H 145/72 H 145/72 H Blood Pressure Mean 95 96 96 Pulse Ox 97 98 98 Oxygen Delivery Method Room Air Room Air Weight Weight: 68.946 kg Body Mass Index (BMI) 25.2 Physical Exam Const alert, oriented x3, no apparent distress and healthy appearing General Appearance: cooperative, well kempt and well developed Orientation / Consciousness: awake, oriented to person, oriented to place and oriented to time HEENT normocephalic, head/scalp atraumatic, hearing grossly normal bilaterally and moist oral mucous membranes Eyes PERRL, EOMs intact bilaterally and conjunctivae normal Neck supple, no JVD, thyroid normal and no carotid bruits General: trachea midline Resp normal respiratory effort and clear to auscultation bilaterally Auscultation: Negative for rales, rhonchi or wheezes Cardio regular rate, regular rhythm, no murmurs, no rub and no gallops GI normal to inspection, nondistended, normoactive bowel sounds, soft to palpation, non-tender and non-distended Extremity no clubbing, cyanosis or edema Skin Skin Narrative: There is an area on the patient's right upper arm that is approximately 4 cm in diameter, this area is erythematous and indurated, there is some skin shear noted over the center of the area. There is another area over the patient's right hip area/right upper thigh that is approximately 3 cm, reddened and indurated. Both these areas are warm to the touch. Neuro oriented x3, CN's II-XII intact bilaterally, moves all extremities, no focal motor deficits and no sensory deficits noted Sensorium / Orientation: awake and alert Speech: speech normal Psych affect normal Results Lab / Micro Data 07/26/24 09:23 07/26/24 09:23 Labs: Laboratory Results - last 24 hr 07/26/24 09:23: WBC 6.2, RBC 3.78 L, Hgb 12.0, Hct 34.8 L, MCV 92.1, MCH 31.7, MCHC 34.5, RDW Std Deviation 46.9 H, RDW Coeff of Jennifer 13.9, Plt Count 404, MPV 9.1, Immature Gran % (Auto) 0.500, Neut % (Auto) 50.3, Lymph % (Auto) 20.1, [place] % (Auto) 24.0 H, Eos % (Auto) 4.1, Baso % (Auto) 1.0, Absolute Neuts (auto) 3.1, Absolute Lymphs (auto) 1.24, Nucleated RBC % 0, Sodium 135, Potassium 4.0, Chloride 100, Carbon Dioxide 18.5 L, Anion Gap 16 H, BUN 21 H, Creatinine 1.63 H, Estim Creat Clear Calc 25.95 L, Est GFR (MDRD) Non-Af 31 L, BUN/Creatinine Ratio 13.1, Glucose 109 H, Lactic Acid 1.7, Calcium 9.8 Assessment & Plan Assessment/Plan (1) Cellulitis: PLAN: Plan 1. Cellulitis of the right arm and right upper leg-failed outpatient therapy-patient will be admitted to [facility] 3, she will be placed on IV Unasyn and vancomycin, she will be seen in consultation by infectious diseases. #2 essential hypertension-patient will remain on her present medications #3 chronic kidney disease stage IIIb-BMP will be monitored Total clinical time spent by myself addressing the patient's medical issues, reviewing all of her data, and collaborating with patient's care team 55 minutes Charges/Coding Visit Charges Inpatient E&M: 88267 Subs Hosp L2
[2024-07-26 11:00] VITALS: BP 141/73; PULSE 73; RESP 16; TEMP 36.6; O2SAT 98
[2024-07-26 11:17] VITALS: BMI 25.2
[2024-07-26 11:49] VITALS: BP 142/64; PULSE 69; RESP 16; TEMP 36.6; O2SAT 96
--- NOTE | 2024-07-26 13:00 | PCM.RX.CS ---
Consult Antibiotic Management Pharmacy has been consulted to manage selected antibiotic: Vancomycin Type of Intervention Type of Consult: New start Suspected Infection Suspected Infection: Skin/Soft tissue Prior Doses of Antibiotics Prior Doses of Antibiotics Received/Current Regimen: Vancomycin 1000 mg IV x 1 given 07/26/24 @ 1019 Labs Labs: Sodium 135 mmol/L (133-145) 07/26/24 09:23 Potassium 4.0 mmol/L (3.3-5.1) 07/26/24 09:23 Chloride 100 mmol/L (98-108) 07/26/24 09:23 Carbon Dioxide 18.5 mmol/L (21.0-32.0) L 07/26/24 09:23 Anion Gap 16 (5-15) H 07/26/24 09:23 BUN 21 mg/dL (4-19) H 07/26/24 09:23 Creatinine 1.63 mg/dL (0.70-1.20) H 07/26/24 09:23 Est GFR (MDRD) Non-Af 31 (>60) L 07/26/24 09:23 BUN/Creatinine Ratio 13.1 RATIO (10-20) 07/26/24 09:23 Glucose 109 mg/dL (70-99) H 07/26/24 09:23 Dosing Weight Weight used for dosin kg Estimated Creatinine Clearance Estimated Creatinine Clearance: ~ 26 Goal Trough Goal Trough: 10-15 mcg/mL Pharmacy Plan for Drug Dosing Pharmacy Plan for Drug Dosing: Vancomycin 1000 mg IV x 1 followed by 500 mg Q24H Pharmacy Service will continue to monitor and adjust dosing as required. Follow-Up Labs Follow-Up Labs: Trough: Vancomycin Date/Time Labs Ordered Labs to be done on [date and time ordered]: 07/28/24 @ 0533
[2024-07-26 17:45] VITALS: BP 136/66; PULSE 72; RESP 16; TEMP 36.7; O2SAT 97
[2024-07-26 20:01] VITALS: BP 140/58; PULSE 67; RESP 16; TEMP 36.6; O2SAT 94
--- OUTSIDE RECORDS SUMMARY | 2024-07-26 20:33 | XMS RPT_ITS | CCD ---
Author Organization [facility] Care Team Providers Care Graphic Design Professor Name Role Phone Unavailable Primary Care Provider Dr. Shavon Santos Primary Care Provider Dr. Shavon Pitts Referring Provider [phone] Shavon Pitts Other Provider [phone] Dr. Micheal Pichardo Attending Provider DORCAS TAVARES Referring Unavailable DORCAS TAVARES Attending Unavailable SILVERIO RUIZ Referring Unavailable DORCAS TAVARES Attending Unavailable Unavailable Primary Care Provider Dr. Shavon Santos MD Primary Care Provider [phone] Dr. Silverio Ruiz MD Attending Provider Dr. Silverio Ruiz MD Referring Provider Dr. Teddy Ochoa MD Attending Provider Antolin Paul PA-C Attending Provider Almaz LYNN Ray Referring Provider Dr. Silverio Ruiz MD Admit Provider Magui HERNANDEZ, Dr. Macario Mcdonald Other Provider Dr. Kelvin Almonte DO Other Provider Dr. Silverio Ruiz MD Other Provider Dr. Kelvin Almonte DO Attending Provider Dr. Usman Ramirez DO Emergency Provider Shavon Pitts Primary Care Unavailable Silverio Ruiz Referring Unavailable Silverio Ruiz Attending Unavailable Antolin Cortez Referring Unavailable Antolin Cortez Attending Unavailable [facility] [place] Primary Care Unavailable [place], [place] Primary Care Unavailable Sara, Silverio Referring Unavailable Teddy Ochoa Attending Unavailable Wied, [place] Primary Care Unavailable Teddy Ochoa Attending Unavailable [facility] [place] Primary Care Unavailable Terrell FLOYD, Shannan Attending Unavailable Sal Doran Attending Unavailable [facility] [place] Primary Care Unavailable Miedel, Shavon Referring Unavailable Terrell FLOYD, Shannan Attending Unavailable [facility] [place] Primary Care Unavailable Kelvin Almonte Attending Unavailable Macario Kilgore Consulting Unavailable Wied, [place] Primary Care Unavailable Silverio Ruiz Admitting Unavailable Sara Silverio Referring Unavailable Kelvin Almonte Consulting Unavailable Silverio Ruiz Consulting Unavailable [facility] [place] Primary Care Unavailable Sheila Hernandez Attending Unavailable Ernie Grubbs Referring Unavailable [facility] [place] Primary Care Unavailable Silverio Ruiz Attending Unavailable Usman Ramirez Attending Unavailabl e [facility] [place] Primary Care Unavailable [facility] [place] Primary [facility] Unavailable Shannan Spann NP Referring Unavailable Terrell FLOYD, Shannan Attending Unavailable [facility] [place] Primary Care Unavailable Miedel, Shavon Referring Unavailable Miedel, Shavon Attending Unavailable [facility] [place] Primary Care Unavailable Miedel, Shavon Referring Unavailable [facility] [place] Attending Unavailable Macario Kilgore Consulting Unavailable [facility] [place] Primary Care Unavailable Sara Silverio Admitting Unavailable Sara Silverio Referring Unavailable Silverio Ruiz Attending Unavailable Kelvin Almonte Consulting Unavailable Miedel, Shavon Attending Unavailable [facility] [place] Primary Care Unavailable Miedel, Shavon Primary Care Unavailable Sara Silverio Referring Unavailable Silverio Ruiz Attending Unavailable Dr. Madeleine Logan DO Emergency Provider Anita HERNÁNDEZ, Dr. Klien Admit Provider [phone] [facility]NDEZ, Dr. Klein Attending Provider Medications Current Medications Medication Drug Class(es) Dates Sig (Normalized) Sig (Original) acetaminophen 500 mg oral tablet (3 sources) Start: 06-12-2024 take 2 tablets by mouth three times daily Acetaminophen 500 mg Tablet Active 1000 mg PO THREE TIMES A DAY 0 June 12, 2024 12:00am amLODIPine 10 mg oral tablet (15 sources) Dihydropyridine Calcium Channel Mason Start: 10-04-2022 take 1 tablet by mouth once daily Amlodipine 10 mg tablet Active 10 mg PO DAILY October 04, 2022 12:00am Start: 12-25-2018 End: 10-04-2022 take 1 tablet by mouth once daily Amlodipine 5 mg tablet Discontinued 5 mg PO DAILY December 25, 2018 1:00am October 04, 2022 11:11am calcium carbonate 1500 mg / cholecalciferol 0.01 mg oral tablet (15 sources) Vitamin D Start: 10-04-2022 Calcium Carbon ate-Vitamin D3 600 mg-10 mcg (400 unit) tablet Active 1 {tbl} PO DAILY October 04, 2022 12:00am Start: 10-04-2022 take 1 tablet by atul once daily Calcium Carbonate-Vitamin D3 Active 1 TABLET PO DAILY October 04, 2022 12:00am Start: 11-14-2012 End: 12-25-2018 Calcium Carbonate-Vitamin D3 1 TAB tablet Discontinued 1 {tbl} PO DAILY@799November 14, 2012 12:00am December 25, 2018 4:02pm Start: 11-14-2012 End: 12-25-2018 take 1 tablet by mouth once daily Calcium Carbonate-Vitamin D3 Discontinued 1 TABLET PO DAILY@799November 14, 2012 12:00am December 25, 2018 4:02pm cephalexin 500 mg oral capsule (2 sources) Cephalosporin Antibacterial Start: 07-23-2024 take 1 capsule by mouth twice daily Cephalexin 500 mg capsule Active 500 mg PO TWICE A DAY 14 7 July 23, 2024 12:00am fluticasone propionate 0.05 mg/actuat metered dose nasal spray (15 sources) Corticosteroid Start: 06-15-2017 End: 10-04-2022 Fluticasone Propionate 50 mcg/actuation spray,suspension Active 1 NMA NASAL DAILY October 04, 2022 11:11am Start: 06-15-2017 End: 10-04-2022 Fluticasone Propionate Activ e 1 SPRAY NASAL DAILY October 04, 2022 11:11am loratadine 10 mg oral tablet (5 sources) Start: 05-09-2024 take 1 tablet by mouth once daily Loratadine (Claritin) 10 mg tablet Active 10 mg PO DAILY May 09, 2024 12:00am losartan potassium 100 mg oral tablet (20 sources) Angiotensin 2 Receptor Mason Start: 11-01-2022 take 1 tablet by mouth once daily Losartan 100 mg tablet Active 100 mg PO DAILY November 01, 2022 1:32pm Start: 10-04-2022 End: 11-01-2022 take 1 tablet by mouth once daily Losartan 50 mg tablet Discontinued 50 mg PO DAILY October 04, 2022 12:00am November 01, 2022 1:43pm Start: 11-14-2012 End: 10-04-2022 take 1 tablet by mouth once daily Losartan 100 MG tablet Discontinued 100 mg PO DAILY November 14, 2012 12:00am October 04, 2022 11:15am 24 hr metoprolol succinate 50 mg extended release oral tablet (20 sources) beta-Adrenergic Mason Start: 10-04-2022 take 1 tablet by mouth once daily Metoprolol Succinate 50 mg tablet extended release 24 hr Active 50 mg PO DAILY October 04, 2022 12:00am Start: 12-25-2018 End: 10-04-2022 take 1 tablet by mouth once daily Metoprolol Succinate (Toprol Xl) 100 mg tablet extended release 24 hr Discontinued 100 mg PO DAILY December 25, 2018 1:00am October 04, 2022 11:12am Start: 11-14-2012 End: 12-25-2018 take 2 tablets by mouth once daily Metoprolol Succinate 25 MG tablet Discontinued 50 mg PO DAILY November 14, 2012 12:00am December 25, 2018 4:04pm Start: 11-14-2012 End: 12-25-2018 take 50 mg by mouth once daily Metoprolol Succinate Di scontinued 50 MG PO DAILY November 14, 2012 12:00am December 25, 2018 4:04pm Multivitamin With Folic Acid (4 sources) Start: 11-14-2012 take 1 tablet by mouth every other day Multivitamin With Folic Acid Active 1 TABLET PO EVERY OTHER DAY November 14, 2012 12:00am Multivitamin With Folic Acid 400 mcg tablet (5 sources) Start: 11-01-2022 Multivitamin With Folic Acid 400 mcg tablet Active 1 {tbl} PO DAILY November 01, 2022 1:14pm sulfamethoxazole 800 mg / trimethoprim 160 mg oral tablet (2 sources) Dihydrofolate Reductase Inhibitor Antibacterial, Sulfonamide Antimicrobial Start: 07-23-2024 Sulfamethoxazole- Trimethoprim (Bactrim Ds) 800-160 mg tablet Active 1 {tbl} PO TWICE A DAY 14 7 July 23, 2024 12:00am Completed/Discontinued Medications Medication Drug Class(es) Dates Sig (Normalized) Sig (Original) aspirin 81 mg oral tablet (20 sources) Platelet Aggregation Inhibitor, Nonsteroidal Anti-inflammatory Drug Start: 06-12-2024 End: 07-23-2024 take 1 capsule by mouth twice daily Aspirin 81 mg capsule Discontinued 81 mg PO TWICE A DAY 0 June 12, 2024 12:00am July 23, 2024 12:06pm Start: 06-15-2017 End: 12-25-2018 take 1 tablet by mouth once daily Aspirin 81 MG tablet,delayed release (DR/EC) Discontinued 81 mg PO DAILY June 15, 2017 12:00am December 25, 2018 4:02pm Start: 07-08-2013 End: 02-16-2017 take 1 tablet by mouth once daily Aspirin 81 MG Tab.Chew Discontinued 81 mg PO DAILY July 08, 2013 12:00am February 16, 2017 8:01am Start: 11-14-2012 End: 11-29-2012 take 1 tablet by mouth once daily Aspirin 81 MG Tab.Chew Discontinued 81 mg PO DAILY@0800 November 14, 2012 12:00am November 29, 2012 2:01pm 24 hr diclofenac sodium 100 mg extended release oral tablet (9 sources) Nonsteroidal Anti-inflammatory Drug Start: 11-14-2012 End: 11-29-2012 take 1 tablet by mouth once daily Diclofenac Sodium (Voltaren-Xr) 100 MG Tab.Er.24h Discontinued 75 mg PO DAILY November 14, 2012 12:00am November 29, 2012 2:01pm docusate sodium 50 mg / sennosides, intermediate 8.6 mg oral tablet (3 sources) Start: 06-12-2024 End: 07-23-2024 Sennosides-Docusate Sodium (Stimulant Laxative Plus) 8.6-50 mg Tablet Discontinued 2 {tbl} PO TWICE A DAY 0 June 12, 2024 12:00am July 23, 2024 12:07pm Take until first bowel movement and then as needed. doxycycline monohydrate 100 mg oral capsule (3 sources) Tetracycline-class Drug Start: 06-12-2024 End: 07-23-2024 take 1 capsule by mouth twice daily Doxycycline Monohydrate 100 mg Capsule Discontinued 100 mg PO TWICE A DAY June 12, 2024 12:00am July 23, 2024 12:07pm famotidine 20 mg oral tablet (3 sources) Histamine-2 Receptor Antagonist Start: 06-12-2024 End: 07-23-2024 take 1 tablet by mouth once daily Famotidine 20 mg Tablet Discontinued 20 mg PO DAILY June 12, 2024 12:00am July 23, 2024 12:07pm hydroCHLOROthiazide 25 mg oral tablet (18 sources) Thiazide Diuretic Start: 02-04-2016 End: 12-25-2018 take 1 tablet by mouth once daily Hydrochlorothiazide 25 MG tablet Discontinued 25 mg PO DAILY February 04, 2016 1:00am December 25, 2018 4:03pm Start: 07-08-2013 End: 07-09-2013 take 1 tablet by mouth once daily Hydrochlorothiazide 25 MG tablet Discontinued 25 mg PO DAILY July 08, 2013 12:00am July 09, 2013 2:11pm hydrocortisone 25 mg/ml topical lotion (6 sources) Corticosteroid Start: 10-04-2022 End: 11-01-2022 Hydrocortisone 2.5 % lotion Discontinued 1 NMA TOPICAL DAILY as needed October 04, 2022 12:00am November 01, 2022 1:14pm Multivitamin With Folic Acid 1 TABLET tablet (5 sources) Start: 11-14-2012 End: 11-01-2022 take 1 tablet by mouth every other day Multivitamin With Folic Acid 1 TABLET tablet Discontinued 1 {tbl} PO EVERY OTHER DAY November 14, 2012 12:00am November 01, 2022 1:14pm oxyCODONE hydrochloride 5 mg oral tablet (12 sources) Opioid Agonist Start: 06-12-2024 End: 07-23-2024 take 5-10 mg by mouth every four hours as needed for pain Oxycodone 5 mg Tablet Discontinued 5 - 10 mg PO EVERY 4 HOURS NEEDED as needed for As needed for pain. 10 09June 12, 2024 July 23, 2024 12:07pm Start: 02-16-2017 End: 12-25-2018 take 5-10 mg by mouth every four hours as needed for pain Oxycodone 5 MG tablet Discontinued 5 - 10 mg PO EVERY 4 HOURS NEEDED as needed for Pain 80 February 16, 2017 1:00am December 25, 2018 4:05pm traMADol hydrochloride 50 mg oral tablet (9 sources) Opioid Agonist Start: 11-14-2012 End: 11-29-2012 take 50 mg by mouth every four hours as needed for pain Tramadol HCl Discontinued 50 mg PO EVERY 4 HOURS NEEDED as needed for Pain November 14, 2012 12:00am November 29, 2012 2:01pm Tylenol Extra Strength (9 sources) Start: 11-14-2012 End: 11-29-2012 take 500 mg by mouth three times daily Tylenol Extra Strength Discontinued 500 mg PO THREE TIMES A DAY November 14, 2012 12:00am November 29, 2012 2:01pm Start: 11-14-2012 End: 11-29-2012 take 500 mg by mouth three times daily Tylenol Extra Strength Discontinued 500 MG PO THREE TIMES A DAY November 14, 2012 12:00am November 29, 2012 2:01pm Problems Active Problems Problem Classification Problem Date Documented Da te Episodic/Chronic Acute and unspecified renal failure (9 sources) Prerenal renal failure; Translations: [Acute kidney failure, unspecified] 12-25-2018 Episodic Cardiac dysrhythmias (9 sources) Nonsustained ventricular tachycardia ; Translations: [Nonsustained ventricular tachycardia] 12-25-2018 Chronic Chronic kidney disease (1 source) Chronic kidney disease; Translations: [Chronic kidney disease, stage 3 unspecified] Onset: 10-20-2023 Essential hypertension (11 sources) Hypertensive disorder; Translations: [Essential (primary) hypertension] 06-21-2017 Chronic Comment on above: CONTROLLED WITH MED Fluid and electrolyte disorders (18 sources) Dehydration; Translations: [Dehydration] 12-25-2018 Episodic Heart valve disorders (9 sources) Mitral valve prolapse; Translations: [Nonrheumatic mitral (valve) prolapse] 12-25-2018 Chronic Heart valve disorders (6 sources) Heart murmur; Translations: [Cardiac murmur, unspecified] Onset: 08-22-2023 07-05-2023 Episodic Occlusion or stenosis of precerebral arteries (5 sources) Carotid artery stenosis; Translations: [Occlusion and stenosis of unspecified carotid artery] 12-14-2023 Chronic Osteoarthritis (1 source) Primary osteoarthritis, right shoulder; Translations: [Primary osteoarthritis, right shoulder] Onset: 06-22-2024 Chronic Other connective tissue disease (2 sources) Presence of left artificial shoulder joint; Translations: [Presence of left artificial shoulder joint] Onset: 11-16-2023 Chronic Other connective tissue disease (6 sources) History of operative procedure on shoulder; Translations: [Presence of unspecified artificial shoulder joint] 06-12-2024 Chronic Other connective tissue disease (1 source) Presence of unspecified artificial shoulder joint; Translations: [Presence of unspecified artificial shoulder joint] Onset: 06-14-2024 Chronic Other connective tissue disease (7 sources) Pain in left arm; Translations: [Pain in left arm] 09-18-2022 Episodic Other non-traumatic joint disorders (4 sources) Pain in left shoulder; Translations: [Pain in joint, shoulder region] Onset: 11-16-2023 Episodic Other non-traumatic joint disorders (1 source) Pain in right shoulder; Translations: [Pain in right shoulder] Onset: 05-12-2024 Episodic Other nutritional; endocrine; and metabolic disorders (1 source) Hypercalcemia; Translations: [Hypercalcemia] Onset: 10-21-2023 Chronic Other upper respiratory disease (18 sources) Bleeding from nose; Translations: [Epistaxis] 06-21-2017 Episodic Peripheral and visceral atherosclerosis (5 sources) Intermittent claudication; Translations: [Peripheral vascular disease, unspecified] 07-05-2023 Chronic Skin and subcutaneous tissue infections (4 sources) Cellulitis; Translations: [Cellulitis, unspecified] 07-23-2024 Episodic Syncope (9 sources) Syncope; Translations: [Syncope and collapse] 12-25-2018 Episodic Unclassified (1 source) Acute cough; Translations: [Acute cough] Onset: 05-24-2024 Past or Other Problems Problem Classification Problem Date Documented Da te Episodic/Chronic Complication of device; implant or graft (1 source) Pain due to internal orthopedic prosthetic devices, implants and grafts, subsequent encounter; Translations: [Pain due to internal orthopedic prosthetic devices, implants and grafts, subsequent encounter] Onset: 10-19-2023 Episodic Other circulatory disease (1 source) Other specified symptoms and signs involving the circulatory and respiratory systems; Translations: [Other specified symptoms and signs involving the circulatory and respiratory systems] Onset: 11-21-2023 Episodic Results Test Name Value Interpretation Reference Range Facility Absolute lymphocyte countOrd ered By: Rem Doreen on 07-26-2024 Lymphocytes Auto (Unsp spec) [#/Vol] 1.24 10*3/uL 0.83-4.51 [facility] Absolute neutrophil countOrd ered By: Remus Ungur on 07-26-2024 Neutrophils (Bld) [#/Vol] 3.1 10*3/uL 2.0-7.7 [facility] Anion gap in Serum or Plasma Ordered By: Remus Ungur on 07-26-2024 Anion gap [Moles/Vol] 16 mmol/L High 5-15 [facility] Automated lymphocyte count a s percentage of total leukocytesOrdered By: Remus Logan on 07-26-2024 Lymphocytes/100 WBC Auto (Unsp spec) 20.1 % 19-41 [facility] BUN/creatinine ratioOrdered By: Remus Logan on 07-26-2024 Urea nitrogen/Creatinine [Mass ratio] 13.1 mg/mg 10-20 [facility] Basophil percentageOrdered B y: Remus Logan on 07-26-2024 Basophils/100 WBC (Bld) 1.0 % 0-1 [facility] Carbon dioxide, total [Moles /volume] in Central venous bloodOrdered By: Rem Ungflaquita on 07-26-2024 CO2 [Moles/Vol] 18.5 mmol/L Low 21.0-32.0 [facility] Chloride assayOrdered By: Re aydee Logan on 07-26-2024 Chloride [Moles/Vol] 100 mmol/L 98-108 [facility] Eosinophil percentageOrdered By: Rem Ungur on 07-26-2024 Eosinophils/100 WBC (Bld) 4.1 % 0-5 [facility] Erythrocyte distribution wid th ratioOrdered By: Remus Ungur on 07-26-2024 Erythrocyte distribution width (RBC) [Ratio] 13.9 % 11.6-14.6 [facility] Erythrocyte distribution wid th standard deviationOrdered By: Remus Ungur on 07-26-2024 Erythrocyte distribution width (RBC) [Ratio] 46.9 fl High 35.1-43.9 [facility] Glomerular filtration rate ( GFR) estimation/1.73 sq m using serum, plasma, or whole bOrdered By: Madeleine Logan on 07-26-2024 GFR/1.73 sq M.predicted among non-blacks MDRD (S/P/Bld) [Vol rate/Area] 31 mL/min/{1.73_m2} Low >60 [facility] Comment on above: mL/min/1.73m2 CKD-EP I Creatinine Equation (2020) Hematocrit Auto (Bld) [Volum e fraction]Ordered By: Madeleine Logan on 07-26-2024 Hematocrit (Bld) [Volume fraction] 34.8 % Low 37-47 [facility] Hemoglobin measurementOrdere d By: Madeleine Logan on 07-26-2024 Hemoglobin (Bld) [Mass/Vol] 12.0 g/dL 12.0-15.0 [facility] Immature granulocytes/100 WB C Auto (Bld)Ordered By: Madeleine Logan on 07-26-2024 Immature granulocytes/100 WBC (Bld) 0.500 % 0.0-0.9 [facility] Comment on above: IG% - Immature Granu locytes (promyelocytes, myelocytes and metamyelocytes) > 1% indicates that a LEFT SHIFT is Present. Lactic acid measurementOrder ed By: Madeleine Logan on 07-26-2024 Lactate [Moles/Vol] 1.7 mmol/L 0.0-2.0 [facility] MCV (mean corpuscular volume ) determinationOrdered By: Madeleine Logan on 07-26-2024 MCV (RBC) [Entitic vol] 92.1 fL 81-99 [facility] Mean corpuscular hemoglobin (MCH) determinationOrdered By: Madeleine Logan on 07-26-2024 MCH (RBC) [Entitic mass] 31.7 pg 27.0-32.0 [facility] Mean corpuscular hemoglobin concentration (MCHC) determinationOrdered By: Madeleine Logan on 07-26-2024 MCHC (RBC) [Mass/Vol] 34.5 g/dL 32-36 [facility] Mean platelet volume determi nationOrdered By: Madeleine Logan on 07-26-2024 Platelet mean volume (Bld) [Entitic vol] 9.1 fL 6.2-12.0 [facility] Monocyte percentageOrdered B y: Madeleine Logan on 07-26-2024 Monocytes/100 WBC (Bld) 24.0 % High 0-10 [facility] Neutrophil percentageOrdered By: Madeleine Logan on 07-26-2024 Neutrophils/100 WBC (Bld) 50.3 % 47-70 [facility] Nucleated red blood cell per centageOrdered By: Madeleine Logan on 07-26-2024 Nucleated RBC/100 WBC (Bld) [Ratio] 0 % 0-5 [facility] Platelet countOrdered By: Michela Logan on 07-26-2024 Platelets (Bld) [#/Vol] 404 10*3/uL 150-450 [facility] Potassium measurement (mass/ volume)Ordered By: Madeleine Logan on 07-26-2024 Potassium (Unsp spec) [Mass/Vol] 4.0 mmol/L 3.3-5.1 [facility] RBC Auto (Bld) [#/Vol]Ordere d By: Madeleine Logan on 07-26-2024 RBC (Bld) [#/Vol] 3.78 10*6/uL Low 4.2-5.4 [facility] Serum creatinine measurement (mass/volume)Ordered By: Madeleine Logan on 07-26-2024 Creatinine [Mass/Vol] 1.63 mg/dL High 0.70-1.20 [facility] Serum glucose measurement (m ass/volume)Ordered By: Madeleine Logan on 07-26-2024 Glucose [Mass/Vol] 109 mg/dL High 70-99 [facility] Serum or plasma calcium josefa urement (mass/volume)Ordered By: Madeleine Logan on 07-26-2024 Calcium [Mass/Vol] 9.8 mg/dL 7.6-11.0 [facility] Serum or plasma urea nitroge n measurement (mass/volume)Ordered By: Madeleine Logan on 07-26-2024 Urea nitrogen [Mass/Vol] 21 mg/dL High 4-19 [facility] Sodium levelOrdered By: Jarred Logan on 07-26-2024 Sodium [Moles/Vol] 135 mmol/L 133-145 [facility] White blood cell (WBC) count Ordered By: Madeleine Logan on 07-26-2024 WBC (Bld) [#/Vol] 6.2 10*3/uL 4.4-11.0 [facility] Absolute lymphocyte countOrd ered By: Usmanshoshana Ramirez on 07-23-2024 Lymphocytes Auto (Unsp spec) [#/Vol] 1.16 10*3/uL 0.83-4.51 [facility] Absolute neutrophil countOrd ered By: Usman Tank on 07-23-2024 Neutrophils (Bld) [#/Vol] 5.5 10*3/uL 2.0-7.7 [facility] Anion gap in Serum or Plasma Ordered By: Usmanshoshana Ramirez on 07-23-2024 Anion gap [Moles/Vol] 13 mmol/L 5-15 [facility] Automated lymphocyte count a s percentage of total leukocytesOrdered By: Usman Ramirez on 07-23-2024 Lymphocytes/100 WBC Auto (Unsp spec) 12.7 % Low 19-41 [facility] BUN/creatinine ratioOrdered By: [place] on 07-23-2024 Urea nitrogen/Creatinine [Mass ratio] 13.9 mg/mg 10-20 [facility] Basic Metabolic Profile (BMP )on 07-23-2024 BUN/CRE 13.9 RATIO Normal 10-20 [facility] Comment on above: Performed By: #### L 503.6005, L100.0100, L500.2500 ####[facility] [address] [place], [address] Calcium [Mass/Vol] 10.0 mg/dL Normal 7.6-11.0 [facility] Comment on above: Performed By: #### L 503.6005, L100.0100, L500.2500 ####[facility] [address] [place], [address] Chloride [Moles/Vol] 97 mmol/L Low 98-108 [facility] Comment on above: Performed By: #### L 503.6005, L100.0100, L500.2500 ####[facility] [address] [place], [address] CO2 [Moles/Vol] 23.0 mmol/L Normal 21.0-32.0 [facility] Comment on above: Performed By: #### L 503.6005, L100.0100, L500.2500 ####[facility] [address] [place], [address] Creatinine [Mass/Vol] 1.34 mg/dL High 0.70-1.20 [facility] Comment on above: Performed By: #### L 503.6005, L100.0100, L500.2500 ####[facility] [address] [place], [address] ECRCL 31.57 ml/min Low 50-250 [facility] Comment on above: Performed By: #### L 503.6005, L100.0100, L500.2500 ####[facility] [address] [place], [address] GAP 13 Normal 5-15 [facility] Comment on above: Performed By: #### L 503.6005, L100.0100, L500.2500 ####[facility] [address] [place], [address] GFR/1.73 sq M.predicted among non-blacks MDRD (S/P/Bld) [Vol rate/Area] 40 mL/min/{1.73_m2} Low >60 [facility] Comment on above: Result Comment: mL/m in/1.73m2 CKD-EPI Creatinine Equation (2020) Performed By: #### L 503.6005, L100.0100, L500.2500 ####[facility] [address] [place], [address] Glucose [Mass/Vol] 105 mg/dL High 70-99 [facility] Comment on above: Performed By: #### L 503.6005, L100.0100, L500.2500 ####[facility] [address] [place], [address] Potassium [Moles/Vol] 4.1 mmol/L Normal 3.3-5.1 [facility] Comment on above: Performed By: #### L 503.6005, L100.0100, L500.2500 ####[facility] [address] [place], [address] Sodium [Moles/Vol] 133 mmol/L Normal 133-145 [facility] Comment on above: Performed By: #### L 503.6005, L100.0100, L500.2500 ####[facility] [address] [place], [address] Urea nitrogen [Mass/Vol] 19 mg/dL Normal 4-19 [facility] Comment on above: Performed By: #### L [id number], L100.0100, L500.2500 ####[facility] [address] [place], [address] Basophil percentageOrdered B y: Usman Ramirez on 07-23-2024 Basophils/100 WBC (Bld) 0.7 % 0-1 [facility] CBC W/Diff, Automatedon Absolute Lymph 1.16 X10 3/uL Normal 0.83-4.51 [facility] Comment on above: Performed By: #### L 503.6005, L100.0100, L500.2500 ####[facility] [address] [place], [address] Absolute Neut 5.5 X10 3/uL Normal 2.0-7.7 [facility] Comment on above: Performed By: #### L 503.6005, L100.0100, L500.2500 ####[facility] [address] [place], [address] Basophils/100 WBC (Bld) 0.7 % Normal 0-1 [facility] Comment on above: Performed By: #### L 503.6005, L100.0100, L500.2500 ####[facility] [address] [place], [address] Eosinophils/100 WBC (Bld) 0.7 % Normal 0-5 [facility] Comment on above: Performed By: #### L 503.6005, L100.0100, L500.2500 ####[facility] [address] [place], [address] Erythrocyte distribution width (RBC) [Ratio] 14.0 % Normal 11.6-14.6 [facility] Comment on above: Performed By: #### L 503.6005, L100.0100, L500.2500 ####[facility] [address] [place], [address] Hematocrit (Bld) [Volume fraction] 36.2 % Low 37-47 [facility] Comment on above: Performed By: #### L 503.6005, L100.0100, L500.2500 ####[facility] [address] [place], [address] Hemoglobin (Bld) [Mass/Vol] 12.3 g/dL Normal 12.0-15.0 [facility] Comment on above: Performed By: #### L 503.6005, L100.0100, L500.2500 ####[facility] [address] [place], [address] IG% 1.900 High 0.0-0.9 [facility] Comment on above: Result Comment: IG% - Immature Granulocytes (promyelocytes, myelocytes and metamyelocytes) > 1% indicates that a LEFT SHIFT is Present. Performed By: #### L 503.6005, L100.0100, L500.2500 ####[facility] [address] [place], [address] Lymphocytes/100 WBC (Bld) 12.7 % Low 19-41 [facility] Comment on above: Performed By: #### L 503.6005, L100.0100, L500.2500 ####[facility] [address] [place], [address] MCH (RBC) [Entitic mass] 31.7 pg Normal 27.0-32.0 [facility] Comment on above: Performed By: #### L 503.6005, L100.0100, L500.2500 ####[facility] [address] [place], [address] MCHC (RBC) [Mass/Vol] 34.0 g/dL Normal 32-36 [facility] Comment on above: Performed By: #### L 503.6005, L100.0100, L500.2500 ####[facility] [address] [place], [address] MCV (RBC) [Entitic vol] 93.3 fL Normal 81-99 [facility] Comment on above: Performed By: #### L 503.6005, L100.0100, L500.2500 ####[facility] [address] [place], [address] Monocytes/100 WBC (Bld) 24.5 % High 0-10 [facility] Comment on above: Performed By: #### L 503.6005, L100.0100, L500.2500 ####[facility] [address] [place], [address] Neutrophils/100 WBC (Bld) 59.5 % Normal 47-70 [facility] Comment on above: Performed By: #### L 503.6005, L100.0100, L500.2500 ####[facility] [address] [place], [address] Nucleated RBC (Bld) [#/Vol] 0 10*3/uL Normal 0-5 [facility] Comment on above: Performed By: #### L 503.6005, L100.0100, L500.2500 ####[facility] [address] [place], [address] Platelet mean volume (Bld) [Entitic vol] 8.9 fL Normal 6.2-12.0 [facility] Comment on above: Performed By: #### L 503.6005, L100.0100, L500.2500 ####[facility] [address] [place], [address] Platelets (Bld) [#/Vol] 353 10*3/uL Normal 150-450 [facility] Comment on above: Performed By: #### L 503.6005, L100.0100, L500.2500 ####[facility] [address] [place], [address] RBC (Bld) [#/Vol] 3.88 10*6/uL Low 4.2-5.4 [facility] Comment on above: Performed By: #### L 503.6005, L100.0100, L500.2500 ####[facility] [address] [place], [address] RDW SD 48.1 fl High 35.1-43.9 [facility] Comment on above: Performed By: #### L 503.6005, L100.0100, L500.2500 ####[facility] [address] [place], [address] WBC (Bld) [#/Vol] 9.2 10*3/uL Normal 4.4-11.0 [facility] Comment on above: Performed By: #### L 503.6005, L100.0100, L500.2500 ####[facility] [address] [place], [address] Carbon dioxide, total [Moles /volume] in Central venous bloodOrdered By: Usman Ramirez on 07-23-2024 CO2 [Moles/Vol] 23.0 mmol/L 21.0-32.0 [facility] Chloride assayOrdered By: Miguel Ramirez on 07-23-2024 Chloride [Moles/Vol] 97 mmol/L Low 98-108 [facility] Emergency Department Summary on 07-23-2024 Emergency Department Summary [facility] Medical Records Department [address] [place] [address] Emergency Department Summary 07/23/24 MR#: [id number] Acct: [id number] Name: YIN WU Rep #: [id number] : 1940 84 From: Usman Ramirez DO PCP: Dr. Shavon Pitts MD Status:DEP ER Location: ED HPI History of Present Illness Chief Complaint: Bite Narrative Narrative: Chief complaint and HPI: Bites. 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 Patient states that she occasionally gets what she thinks are bites to her body periodically over the past several years. She states when she gets them it takes several weeks for them to heal. She denies history of abscesses or MRSA. She has not seen a recent spider or bug. Patient states several weeks ago she developed a small area of redness to her right lateral thigh as well as right upper arm which is consistent with her typical bites. She states over the past several weeks they have become more red and warm. States that the upper arm is now developing a blister over the area. She denies any significant pain. Denies any fever, chills, body aches, nausea, vomiting. Denies any purulence. Denies rash elsewhere. Review of systems: See HPI Medications: As listed on the chart Allergies: As listed on the chart PFSH: Per chart Vital signs: As listed on the chart. Reviewed. Physical exam: Gen: A O x3, NAD Head: Normocephalic, atraumatic Eyes: No sclera icterus, conjunctiva clear ENT: Moist mucous membranes Neck: Trachea midline, No JVD, full range of motion CV: RRR, no murmurs, no peripheral edema Resp: Lungs CTA BL, no w/r/c GI: Abd soft, non-distended, non-tender, no r/r/g Musc: Full ROM of all extremities, patient has an approximately 2 x 2 cm erythematous patch to the right upper arm with surrounding erythema-indurated and warm-not significantly painful-1 small clear blister-no skin sloughing-no purulence or fluctuance, no tenderness/warmth/kelsie thema over any of the upper extremity joints, no lymphatic streaking, radial pulse +2, sensation intact, compartments soft. Patient has an approximately 3 x 3 cm erythematous patch to the right upper thigh with surrounding erythema-indurated and warm-not significantly painful-no blisters-no skin sloughing-no purulence or fluctuance, no tenderness/warmth/kelsie thema over any of the lower extremity joints, no lymphatic streaking, DP/PT pulse +2 , sensation intact, compartments soft. Both areas are blanchable. No crepitus. No weeping or drainage. Skin: Warm, dry Neuro: Alert, oriented, grossly intact, sensation intact Psych: Cooperative, appropriate mood and affect [facility] Medical History Wears glasses Post-menopausal Low iron Migraine headache Syncope Non-smoker Shortness of breath on exertion History of echocardiogram History of stress test Cardiology follow-up encounter MRSA (methicillin resistant staph aureus) culture positive Skin cancer Chronic renal disease, stage 3, moderately decreased glomerular filtration rate (GFR) between 30-59 mL/min/1.73 square meter Vitamin D deficiency Essential hypertension Arthritis Multinodular goiter NSVT (nonsustained ventricular tachycardia) Hypokalemia Dehydration MVP (mitral valve prolapse) Syncope Prerenal azotemia Home Medications ???Medication ???Instructions ???Recorded ???Last Taken ???Type amlodipine 10 mg tablet 10 mg PO DAILY 10/04/22 07/23/24 H istory calcium 600 mg (as 1 tab PO DAILY 10/04/22 07/23/24 H istory carbonate)-vitamin D3 10 mcg (400 unit) tablet fluticasone propionate 50 1 spray NASAL DAILY ALLERGIES 09/1507/23/24 History mcg/actuation nasal spray,suspension metoprolol succinate 50 mg 50 mg PO DAILY 10/04/22 07/23/24 H istory tablet,extended release 24 hr losartan 100 mg tablet 100 mg PO DAILY #90 tabs 11/01/22 07/23/24 Rx multivitamin with folic acid 400 1 tab PO DAILY SUPPLEMENT 11/01/22 07/23/24 History mcg tablet loratadine 10 mg tablet (Claritin) 10 mg PO DAILY 05/09/24 07/23/24 History acetaminophen 500 mg tablet 1,000 mg (2 x 500 mg) PO TID #0 Unknown Rx tabs cephalexin 500 mg capsule 500 mg PO BID 7 days #14 caps 11/08 Unknown Rx sulfamethoxazole 800 1 tab PO BID 7 days #14 tabs 07/23 Unknown Rx mg-trimethoprim 160 mg tablet (Bactrim DS) Allergy/AdvReac Type Severity Reaction Status Date / Time No Known Allergies Allergy Verified 07/23/24 10:47 Family History Father CAD (coronary artery disease) Surgical History Hx of colonoscopy History of lumbar laminectomy (more content not included)... Normal [facility] Eosinophil percentageOrdered By: Usman Ramirez on 07-23-2024 Eosinophils/100 WBC (Bld) 0.7 % 0-5 [facility] Erythrocyte distribution wid th ratioOrdered By: Usman Ramirez on 07-23-2024 Erythrocyte distribution width (RBC) [Ratio] 14.0 % 11.6-14.6 [facility] Erythrocyte distribution wid th standard deviationOrdered By: Usman Murphy on 07-23-2024 Erythrocyte distribution width (RBC) [Ratio] 48.1 fl High 35.1-43.9 [facility] Glomerular filtration rate ( GFR) estimation/1.73 sq m using serum, plasma, or whole bOrdered By: Usman Ramirez on 07-23-2024 GFR/1.73 sq M.predicted among non-blacks MDRD (S/P/Bld) [Vol rate/Area] 40 mL/min/{1.73_m2} Low >60 [facility] Comment on above: mL/min/1.73m2 CKD-EP I Creatinine Equation (2020) Hematocrit Auto (Bld) [Volum e fraction]Ordered By: Usman Ramirez on 07-23-2024 Hematocrit (Bld) [Volume fraction] 36.2 % Low 37-47 [facility] Hemoglobin measurementOrdere d By: Usman Ramirez on 07-23-2024 Hemoglobin (Bld) [Mass/Vol] 12.3 g/dL 12.0-15.0 [facility] Immature granulocytes/100 WB C Auto (Bld)Ordered By: Usman Ramirez on 07-23-2024 Immature granulocytes/100 WBC (Bld) 1.900 % High 0.0-0.9 [facility] Comment on above: IG% - Immature Granu locytes (promyelocytes, myelocytes and metamyelocytes) > 1% indicates that a LEFT SHIFT is Present. Lactic Acidon 07-23-2024 Lactate [Moles/Vol] 1.1 mmol/L Normal 0.0-2.0 [facility] Comment on above: Order Comment: Y Performed By: #### L 503.6005, L100.0100, L500.2500 ####[facility] [address] [place], [address] Lactic acid measurementOrder ed By: Usman Ramirez on 07-23-2024 Lactate [Moles/Vol] 1.1 mmol/L 0.0-2.0 [facility] MCV (mean corpuscular volume ) determinationOrdered By: Usman Ramirez on 07-23-2024 MCV (RBC) [Entitic vol] 93.3 fL 81-99 [facility] Mean corpuscular hemoglobin (MCH) determinationOrdered By: Usman Ramirez on 07-23-2024 MCH (RBC) [Entitic mass] 31.7 pg 27.0-32.0 [facility] Mean corpuscular hemoglobin concentration (MCHC) determinationOrdered By: Usman Ramirez on 07-23-2024 MCHC (RBC) [Mass/Vol] 34.0 g/dL 32-36 [facility] Mean platelet volume determi nationOrdered By: Usman Ramirez on 07-23-2024 Platelet mean volume (Bld) [Entitic vol] 8.9 fL 6.2-12.0 [facility] Monocyte percentageOrdered B y: Usman Ramirez on 07-23-2024 Monocytes/100 WBC (Bld) 24.5 % High 0-10 [facility] Neutrophil percentageOrdered By: Usman Ramirez on 07-23-2024 Neutrophils/100 WBC (Bld) 59.5 % 47-70 [facility] Nucleated red blood cell per centageOrdered By: Usman Ramirez on 07-23-2024 Nucleated RBC/100 WBC (Bld) [Ratio] 0 % 0-5 [facility] Platelet countOrdered By: Miguel Ramirez on 07-23-2024 Platelets (Bld) [#/Vol] 353 10*3/uL 150-450 [facility] Potassium measurement (mass/ volume)Ordered By: Usman Ramirez on 07-23-2024 Potassium (Unsp spec) [Mass/Vol] 4.1 mmol/L 3.3-5.1 [facility] RBC Auto (Bld) [#/Vol]Ordere d By: sUman Ramirez on 07-23-2024 RBC (Bld) [#/Vol] 3.88 10*6/uL Low 4.2-5.4 [facility] Serum creatinine measurement (mass/volume)Ordered By: Usman Ramirez on 07-23-2024 Creatinine [Mass/Vol] 1.34 mg/dL High 0.70-1.20 [facility] Serum glucose measurement (m ass/volume)Ordered By: Usman Ramirez on 07-23-2024 Glucose [Mass/Vol] 105 mg/dL High 70-99 [facility] Serum or plasma calcium josefa urement (mass/volume)Ordered By: Usman Murphy on 07-23-2024 Calcium [Mass/Vol] 10.0 mg/dL 7.6-11.0 [facility] Serum or plasma urea nitroge n measurement (mass/volume)Ordered By: Usman Ramirez on 07-23-2024 Urea nitrogen [Mass/Vol] 19 mg/dL 4-19 [facility] Sodium levelOrdered By: Elias Ramirez on 07-23-2024 Sodium [Moles/Vol] 133 mmol/L 133-145 [facility] White blood cell (WBC) count Ordered By: Usman Ramirez on 07-23-2024 WBC (Bld) [#/Vol] 9.2 10*3/uL 4.4-11.0 [facility] Anion gap in Serum or Plasma Ordered By: Silverio Ruiz on 06-12-2024 Anion gap [Moles/Vol] 14 mmol/L 5- [facility] BUN/creatinine ratioOrdered By: Silverio Ruiz on 06-12-2024 Urea nitrogen/Creatinine [Mass ratio] 15.7 mg/mg - [facility] Basic Metabolic Profile (BMP )on 06-12-2024 BUN/CRE 15.7 RATIO Normal - [facility] Comment on above: Performed By: #### L 100.0500, L500.2500 ####[facility] [address] [place], [address] Calcium [Mass/Vol] 9.3 mg/dL Normal 7.6-11.0 [facility] Comment on above: Performed By: #### L 100.0500, L500.2500 ####[facility] [address] [place], [address] Chloride [Moles/Vol] 100 mmol/L Normal 98-108 [facility] Comment on above: Performed By: #### L 100.0500, L500.2500 ####[facility] [address] [place], [address] CO2 [Moles/Vol] 20.9 mmol/L Low 21.0-32.0 [facility] Comment on above: Performed By: #### L 100.0500, L500.2500 ####[facility] [address] [place], [address] Creatinine [Mass/Vol] 1.02 mg/dL Normal 0.70-1.20 [facility] Comment on above: Performed By: #### L 100.0500, L500.2500 ####[facility] [address] [place], [address] ECRCL 41.62 ml/min Low 50-250 [facility] Comment on above: Performed By: #### L 100.0500, L500.2500 ####[facility] [address] [place], [address] GAP 14 Normal 5-15 [facility] Comment on above: Performed By: #### L 100.0500, L500.2500 ####[facility] [address] [place], [address] GFR/1.73 sq M.predicted among non-blacks MDRD (S/P/Bld) [Vol rate/Area] 55 mL/min/{1.73_m2} Low >60 [facility] Comment on above: Result Comment: mL/m in/1.73m2 CKD-EPI Creatinine Equation (2020) Performed By: #### L 100.0500, L500.2500 ####[facility] [address] [place], [address] Glucose [Mass/Vol] 133 mg/dL High 70-99 [facility] Comment on above: Performed By: #### L 100.0500, L500.2500 ####[facility] [address] [place], [address] Potassium [Moles/Vol] 4.1 mmol/L Normal 3.3-5.1 [facility] Comment on above: Result Comment: Hemo lysis present, Results??could be affected. ?? Performed By: #### L 100.0500, L500.2500 ####[facility] [address] [place], [address] Sodium [Moles/Vol] 135 mmol/L Normal 133-145 [facility] Comment on above: Performed By: #### L 100.0500, L500.2500 ####[facility] [address] [place], [address] Urea nitrogen [Mass/Vol] 16 mg/dL Normal 4-19 [facility] Comment on above: Performed By: #### L 100.0500, L500.2500 ####[facility] [address] [place], [address] CBC-Complete Blood Cnt No Di ffon 06-12-2024 Erythrocyte distribution width (RBC) [Ratio] 14.2 % Normal 11.6-14.6 [facility] Comment on above: Performed By: #### L 100.0500, L500.2500 ####[facility] [address] [place], [address] Hematocrit (Bld) [Volume fraction] 37.2 % Normal 37-47 [facility] Comment on above: Performed By: #### L 100.0500, L500.2500 ####[facility] [address] [place], [address] Hemoglobin (Bld) [Mass/Vol] 13.0 g/dL Normal 12.0-15.0 [facility] Comment on above: Performed By: #### L 100.0500, L500.2500 ####[facility] [address] [place], [address] MCH (RBC) [Entitic mass] 32.5 pg High 27.0-32.0 [facility] Comment on above: Performed By: #### L 100.0500, L500.2500 ####[facility] [address] [place], [address] MCHC (RBC) [Mass/Vol] 34.9 g/dL Normal 32-36 [facility] Comment on above: Performed By: #### L 100.0500, L500.2500 ####[facility] [address] [place], [address] MCV (RBC) [Entitic vol] 93.0 fL Normal 81-99 [facility] Comment on above: Performed By: #### L 100.0500, L500.2500 ####[facility] [address] [place], [address] Platelet mean volume (Bld) [Entitic vol] 9.9 fL Normal 6.2-12.0 [facility] Comment on above: Performed By: #### L 100.0500, L500.2500 ####[facility] [address] [place], [address] Platelets (Bld) [#/Vol] 339 10*3/uL Normal 150-450 [facility] Comment on above: Performed By: #### L 100.0500, L500.2500 ####[facility] [address] [place], [address] RBC (Bld) [#/Vol] 4.00 10*6/uL Low 4.2-5.4 [facility] Comment on above: Performed By: #### L 100.0500, L500.2500 ####[facility] [address] [place], [address] RDW SD 48.6 fl High 35.1-43.9 [facility] Comment on above: Performed By: #### L 100.0500, L500.2500 ####[facility] [address] [place], [address] WBC (Bld) [#/Vol] 15.0 10*3/uL High 4.4-11.0 [facility] Comment on above: Performed By: #### L 100.0500, L500.2500 ####[facility] [address] [place], [place], [id number] Carbon dioxide, total [Moles /volume] in Central venous bloodOrdered By: Silverio Ruiz on 06-12-2024 CO2 [Moles/Vol] 20.9 mmol/L Low 21.0-32.0 [facility] Chloride assayOrdered By: St lilly Ruiz on 06-12-2024 Chloride [Moles/Vol] 100 mmol/L 98-108 [facility] Discharge Instructionon 05-16 Discharge Instruction [facility] Medical Records Department [address] [place] [address] Instructions for Home/Discharge Instructions 06/12/24 0831 MR#: [id number] Acct: [id number] Name: YIN WU Rep #: [id number] : 1940 84 From: Samantha BRANNON PCP: Dr. Shavon Pitts MD Status:ADM YONIS Discharge Instructions Diet Discharge Diet: No restrictions DC O2, CPAP, BIPAP needs Home O2 Discharge instructions: No Dressing / Incision Discharge Activity: May Shower (Patient may shower over waterproof dressing on postop day 1. Patient was encouraged to not let water directly hit dressing.) Dressing / Incision Call your doctor if your incision/area has: Continuous Slow Oozing, Sudden Increased Bleeding, Increased Pain/ Swelling, Increased Redness, Foul Smelling Discharge and Swelling at the incision site Call your doctor if you observe: Fever of 101 or Higher, Coldness, Increased Pain, Numbness or Tingling, Change in Color, Inability to urinate, Inability to have a bowel movement, Using more than 1 pad per hour, Shortness of breath, Dizziness, Fainting spells, Swelling in the ankles, Chest pain, Prolonged hiccupping, Increased palpitations (irregular heartbeat), Calf discomfort and Uncontrolled pain Remove Dressing in: 5 days (Patient was encouraged she can remove her dressing on postop day 5. Which will be 06/16/2024. Patient was encouraged when her dressing is removed there will be Steri- Strips underneath. Patient was encouraged to leave Steri-Strips alone and allow it to fall off on their own.) Cleanse incision/area with: Soap Water Additional Dressing/Incision Instructions:: Patient was encouraged no soaking, submerging of incision until 6 weeks postoperatively. Patient was encouraged no lotions, salves, oils on incision until 6 weeks postoperatively. Patient was encouraged no motion of operative shoulder until 2 weeks postoperatively. Patient will then begin physical therapy following her 2-week follow-up appointment. Patient was encouraged she could remove sling for gentle range of motion of elbow, hand. Patient was educated on the increased risk of sunburn with taking doxycycline. Patient voiced understanding. Patient was encouraged to take probiotic while taking doxycycline. OARRS report was checked today. Follow Up Care Test Results: Test results from this visit will be discussed in further detail at your follow-up appointment, if applicable. Discharge Plan Admission Admit Date/Time: 06/11/24 07:37 Attending Provider: Silverio Ruiz Primary Care Provider: Shavon Pitts Consulting Providers: Macario Kilgore; Kelvin Almnote Discharge Orders/Prescriptions Prescriptions: New acetaminophen 500 mg Tablet 1,000 mg PO TID Qty: 0 0RF aspirin 81 mg capsule 81 mg PO BID Qty: 0 0RF sennosides-docusate sodium [Stimulant Laxative Plus] 8.6-50 mg Tablet 2 tab PO BID Qty: 0 0RF Rx Instructions: Take until first bowel movement and then as needed. famotidine 20 mg Tablet 20 mg PO DAILY 14 Days Qty: 14 0RF doxycycline monohydrate 100 mg Capsule 100 mg PO BID 14 Days Qty: 28 0RF oxycodone 5 mg Tablet 5 - 10 mg PO Q4H PRN PRN (Reason: As needed for pain.) 7 Days Qty: 28 0RF Continued amlodipine 10 mg tablet 10 mg PO DAILY metoprolol succinate 50 mg tablet extended release 24 hr 50 mg PO DAILY calcium carbonate-vitamin D3 600 mg-10 mcg (400 unit) tablet 1 tab PO DAILY losartan 100 mg tablet 100 mg PO DAILY Qty: 90 3RF multivitamin with folic acid 400 mcg tablet 1 tab PO DAILY Patient Comments: vitamin fluticasone propionate 50 mcg/actuation spray,suspension 1 spray NASAL DAILY loratadine [Claritin] 10 mg tablet 10 mg PO DAILY Referrals / Follow Up: Shavon Pitts MD [Primary Care Provider] - Disposition Disposition (needs filled in before D/C Order can be placed): Home, Self Care 06/12/24 1141 Samantha BRANNON CC: Dr. Kelvin Almonte DO; Dr. Shavon Pitts MD; Dr. Macario Kilgore MD Signed Normal [facility] Erythrocyte distribution wid th (RBC) [Ratio]Ordered By: Silverio Ruiz on 06-12-2024 Erythrocyte distribution width (RBC) [Entitic vol] 48.6 fL High 35.1-43.9 [facility] Erythrocyte distribution wid th ratioOrdered By: Silverio Ruiz on 06-12-2024 Erythrocyte distribution width (RBC) [Ratio] 14.2 % 11.6-14.6 [facility] Erythrocyte distribution wid th standard deviationOrdered By: Silverio Ruiz on 06-12-2024 Erythrocyte distribution width (RBC) [Ratio] 48.6 fl High 35.1-43.9 [facility] Estimation of creatinine yao aranceOrdered By: Silverio Ruiz on 06-12-2024 Estimated Creatinine Clearance Calc 41.62 ml/min Low 50-250 [facility] GFR/1.73 sq M.predicted mo g non-blacks MDRD (S/P/Bld) [Vol rate/Area]Ordered By: Silverio Ruiz on 06-12-2024 Estimated GFR (MDRD) Non-Af Amer 55 Low >60 [facility] Comment on above: mL/min/1.73m2 CKD-EP I Creatinine Equation (2020) Glomerular filtration rate ( GFR) estimation/1.73 sq m using serum, plasma, or whole bOrdered By: Silverio Ruiz on 06-12-2024 GFR/1.73 sq M.predicted among non-blacks MDRD (S/P/Bld) [Vol rate/Area] 55 mL/min/{1.73_m2} Low >60 [facility] Comment on above: mL/min/1.73m2 CKD-EP I Creatinine Equation (2020) Hematocrit Auto (Bld) [Volum e fraction]Ordered By: Silverio Ruiz on 06-12-2024 Hematocrit (Bld) [Volume fraction] 37.2 % 37-47 [facility] Hemoglobin measurementOrdere d By: Silverio Ruiz on 06-12-2024 Hemoglobin (Bld) [Mass/Vol] 13.0 g/dL 12.0-15.0 [facility] MCV (mean corpuscular volume ) determinationOrdered By: Silverio Ruiz on 06-12-2024 MCV (RBC) [Entitic vol] 93.0 fL 81-99 [facility] Mean corpuscular hemoglobin (MCH) determinationOrdered By: Silverio Ruiz on 06-12-2024 MCH (RBC) [Entitic mass] 32.5 pg High 27.0-32.0 [facility] Mean corpuscular hemoglobin concentration (MCHC) determinationOrdered By: Silverio Ruiz on 06-12-2024 MCHC (RBC) [Mass/Vol] 34.9 g/dL 32-36 [facility] Mean platelet volume determi nationOrdered By: Silverio Ruiz on 06-12-2024 Platelet mean volume (Bld) [Entitic vol] 9.9 fL 6.2-12.0 [facility] Platelet countOrdered By: St lilly Ruiz on 06-12-2024 Platelets (Bld) [#/Vol] 339 10*3/uL 150-450 [facility] Potassium (Unsp spec) [Mass/ Vol]Ordered By: Silverio Ruiz on 06-12-2024 Potassium [Moles/Vol] 4.1 mmol/L 3.3-5.1 [facility] Comment on above: Hemolysis present, R esults could be affected. Potassium measurement (mass/ volume)Ordered By: Silverio Ruiz on 06-12-2024 Potassium (Unsp spec) [Mass/Vol] 4.1 mmol/L 3.3-5.1 [facility] Comment on above: Hemolysis present, R esults could be affected. RBC Auto (Bld) [#/Vol]Ordere d By: Silverio Ruiz on 06-12-2024 RBC (Bld) [#/Vol] 4.00 10*6/uL Low 4.2-5.4 [facility] Serum creatinine measurement (mass/volume)Ordered By: Silverio Ruiz on 06-12-2024 Creatinine [Mass/Vol] 1.02 mg/dL 0.70-1.20 [facility] Serum glucose measurement (m ass/volume)Ordered By: Silverio Ruiz on 06-12-2024 Glucose [Mass/Vol] 133 mg/dL High 70-99 [facility] Serum or plasma calcium josefa urement (mass/volume)Ordered By: Silverio Ruiz on 06-12-2024 Calcium [Mass/Vol] 9.3 mg/dL 7.6-11.0 [facility] Serum or plasma urea nitroge n measurement (mass/volume)Ordered By: Silverio Ruiz on 06-12-2024 Urea nitrogen [Mass/Vol] 16 mg/dL 4-19 [facility] Sodium levelOrdered By: Buddy Ruiz on 06-12-2024 Sodium [Moles/Vol] 135 mmol/L 133-145 [facility] White blood cell (WBC) count Ordered By: Silverio Ruiz on 06-12-2024 WBC (Bld) [#/Vol] 15.0 10*3/uL High 4.4-11.0 [facility] Bedside Glucoseon 06-11-2024 FINGERSTICK GLU 117 mg/dL High 74-106 [facility] Comment on above: Result Comment: ELVER ZHANG OF PATIENT CARE PER NURSING PROTOCOL Performed By: #### L 501.080 #### [facility] [address] [place], [place], [id number] Decalcification bone/plaqueo n 06-11-2024 Decalcification bone/plaque -------- Patient Age/Sex Location Account Attending Physician -------- YIN WU 84/F MS3 [id number] Dr. Silverio Ruiz MD -------- Specimen: [id number] Received: 06/11/24 Status: KRISTEN Dominguez Num: [id number] Spec Type: HUMERUS Subm Dr: Dr. Silverio Ruiz MD HEADER OPERATION: ERAS, reverse total shoulder arthroplasty PRE-OP DIAGNOSIS: Severe right shoulder glenohumeral osteoarthritis TISSUE SUBMITTED: A- Right humeral head -------- MICROSCOPIC DIAGNOSIS A. Right shoulder, humeral head, total arthroplasty: * Benign cartilage and bone with degenerative changes MICROSCOPIC DESCRIPTION Slides are reviewed. GROSS DESCRIPTION A. Received in formalin in a container labeled with the patient's name, date of , and right humeral head is a 5.0 x 4.8 x 0.2 cm semispherical fragment of firm bone. The resection margin is smooth and firm and the cortical surface is pitted and granular with smooth eburnation. Sectioning reveals firm and unremarkable surfaces. There are multiple soft tissue and bone fragments measuring 4.8 x 4.0 x 1.2 cm in aggregate. Sectioning reveals unremarkable bill-pink surfaces. Marking Stitcher sections of bone and soft tissue are submitted in A1 following decalcification. [facility] 06-11-2024 CPT:69032,32186 -------- Patient Age/Sex Location Account Attending Physician -------- YIN WU 84/F MS3 [id number] Dr. Silverio Ruiz MD -------- Signed (signature on file) Dr. Ramona Saleem, 06/14/24 1534 -------- [facility] Comment on above: Performed By: #### L 500.4050, L501.9520, L400.2010 #### [facility] [address] [place], [address] [facility] deOrdered By: Silverio Ruiz on 06-11-2024 Bedside Glucose ([facility] Panel) 117 mg/dL High 74-106 [facility] Comment on above: MANAGEMENT OF PATIEN T CARE PER NURSING PROTOCOL Glucose [Mass/Vol] 117 mg/dL High 74-106 [facility] Comment on above: MANAGEMENT OF PATIEN T CARE PER NURSING PROTOCOL MR/POSTOP.ANEon 06-11-2024 MR/POSTOP.[facility] Medical Records Department [address] [place] [address] Anesthesia Postop Eval I 06/11/24 1300 MR#: [id number] Acct: [id number] Name: YIN WU Rep #: [id number] : 1940 84 From: Monico Cardona CRNA PCP: Dr. Shavon Pitts MD Status:REG AZC Y Race: C Location: [place] [address] Anesthesia: Postop Eval I Current Vital Signs Temperature: 97.5 F Pulse Rate: 63 Blood Pressure: 121/51 Respiratory Rate: 16 Pulse Ox: 93 Oxygen Delivery Method: Nasal Cannula Oxygen Flow Rate (L/min): 3 Assessment Airway patent: Yes Spontaneous unlabored respirations: Yes Mental status: Awake and Calm nausea: No Vomiting: No Anesthesia Complication: No Fluid Hydration Crystalloid volume administer (ml): 1,000 Total IV fluid infused: 1,000 Progress Note Anesthesia document: Postop Eval 1 completed: Yes 06/11/24 1301 Date Monico Cardona WAIVER ANALYST Cosigner Signature: Date CC: Signed Normal [facility] MR/[id number] 06-11-2024 MR/POSTOPAN2 [facility] Medical Records Department [address] [place] [address] Anesthesia Postop Eval II 06/11/24 1401 MR#: [id number] Acct: [id number] Name: YIN WU Rep #: [id number] : 1940 84 From: Glen Puga MD PCP: Dr. Shavon Pitts MD Status:REG SDC Y Race: C Location: [place] [address]- Anesthesia Postop Eval I Sum Postop Eval Completion status Anesthesia document: Postop Eval 1 completed: Yes Anesthesia Postop Eval I Summary Anesthesia Postop Eval I Summary: Anesthesia Postop Eval I: Assessment Summary Airway patent Yes 06/11/24 13:01 WAIVER ANALYST.SOBR Spontaneous unlabored Yes 06/11/24 13:01 WAIVER ANALYST.SOBR respirations Mental status Awake,Calm 06/11/24 13:01 WAIVER ANALYST.SOBR nausea No 06/11/24 13:01 WAIVER ANALYST.SOBR Vomiting No 06/11/24 13:01 WAIVER ANALYST.SOBR Anesthesia Postop Eval I: Fluid Summary Crystalloid volume administer 1,000 06/11/24 13:01 WAIVER ANALYST.SOBR (ml) Colloids volume administered ( ml) Blood Product volume administered (ml) Total IV fluid infused 1,000 06/11/24 13:01 WAIVER ANALYST.SOBR Anesthesia Postop Eval I: Summary Notes Anesthesia Complication No 06/11/24 13:01 WAIVER ANALYST.SOBR Anesthesia Complication Comment: Post-operative progress note Anesthesia: Postop Eval II Evaluation Mental status: Awake Pain Level: 1 nausea: No Vomiting: No 06/11/24 1402 Date Glen Puga MD Cosigner Signature: Date CC: Signed Normal [facility] Operative Reporton Operative Report [facility] Medical Records Department [address] [place] [address] Operative Report 06/11/24 1146 MR#: [id number] Acct: [id number] Name: YIN WU Rep #: [id number] : 1940 84 From: Silverio Ruiz MD PCP: Dr. Shavon Pitts MD Status:REG 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 Post-Operative Diagnosis: Right reverse total shoulder replacement Surgery/Procedure Performed: Right reverse total shoulder replacement district administrative assistant: Yes Breaking Machine Operator: Samantha Hong Tasks completed by underwriting assistant: Other (See body of operative report) Additional resident care assistant?: No Type of Anesthesia: General RN Documented Start/Stop Times: Operation Date: 06/11/24 10:30 Case Time Into Pre-Op 06/11/24 08:30 Anesthesia Start 06/11/24 10:30 Into Room 06/11/24 10:30 Out of Pre-Op 06/11/24 10:30 Procedure Start 06/11/24 10:57 Procedure End 06/11/24 12:45 Anesthesia End 06/11/24 12:52 Out of Room 06/11/24 12:52 Into Recovery 06/11/24 12:55 Procedure Start Time: 10:57 Procedure Stop Time: 12:45 Select all DRAINS/GRAFTS/IMPLANT S that apply: Prosthetic device Prosthetic device details: See body of operative report Special Medications: Ancef, vancomycin, TXA Estimated Blood Loss: 100 mL Fluids Replaced: 1000 L crystalloid Specimen collected: Yes Description of specimen(s) removed: Bony cuts Description of surgery: Components used 1. Tournier perform glenoid full wedge, 25 mm baseplate 2. Tournier perform 36 mm, 0 mm Glenosphere 3. Tournier perform 36 mm, 0 mm humeral liner retentive 4. 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 Patient failed conservative measures as mentioned in the H P. After discussion of risk and benefits of reverse total shoulder replacement including but not limited to blood loss, DVTs, PEs, nerve vessel damage, infection, general risk of anesthesia including loss of life, instability and stiffness patient demonstrating understanding wish to proceed was able to sign informed consent. Medical clearance was obtained. Procedure: On the date of the procedure, patient's R upper extremity was marked in the preoperative area. Patient was taken back to the operating room where they were placed on the table in the supine position. Anesthesia assumed control of the C-spine and airway, then administered anesthetic. All bony prominences were identified well-padded, the head was secured and the patient was placed in the beachchair position at about 35??? inclination. Anesthesia remained in control of the C-spine airway throughout the remainder of the procedure. Patient was then appropriately fastened to the table and the R upper extremity was prepped in a sterile fashion. The surgeons then scrubbed. Upon reentering the room, the R upper extremity was draped in a sterile fashion and the incision was marked out. Timeout was called, everyone agreed upon the side, the site, the procedure to be performed, patient identity and antibiotics given. Incision was taken down through skin and subcutaneous tissue, fat down to fascia. The stripe of the deltopectoral interval and cephalic vein were identified and blunt dissection was used to retract the deltoid. The cephalic vein was retracted laterally. Clavipectoral fascia was then incised and a cobra retractor was placed in the wound. The proximal one third of the pectoralis major insertion was released. Pectoralis tendon insertion was used to tenodesed the biceps tendon which was identified in the bicipital groove. Tenodesis was done with #1 Vicryl. Proximally we followed the biceps tendon after transecting it into the rotator interval. The rotator interval was split and the arm was externally rotated. The split was 1 cm medial to the bicipital groove. Subscapularis tendon was released. We released down the anterior portion of the humeral head and a rodriguez elevator was used to release the inferior portion of the humeral head. The arm was externally rotated and the shoulder was dislocated. The humeral head was then cut at its natural retroversion. Once his humeral head cut was made humerus was retracted out of the way and the glenoid was exposed. After exposing the glenoid, the labrum and the remaining proximal biceps were debrided. At this time we are able to view the entire outer edge of the glenoid. A central pin was placed we sequentially reamed over this central pin to 25mm. Once this was completed the central screw was measured and found to be. The glenoid baseplate was screwed into place. Wound was closely irrigated out with normal saline we then drilled sequentially fo (more content not included)... Normal [facility] Shoulder min 2 Viewson 06-11 Shoulder min 2 Views [facility] Imaging Services [address] [place], [place] [id number] Shoulder min 2 Views MR#: [id number] Acct: [id number] Name: YIN WU Rep #: [id number] : 1940 F 84 From: Marvin Arevalo MD PCP: Dr. Shavon Pitts MD Status: REG AZC Study: Shoulder min 2 Views Date of Exam: 06/11/24 Exam# [id number] Ordering Dr: Silverio Ruiz MD PROCEDURE: SHOULDER MIN 2 VIEWS 06/11/2024 REASON FOR EXAM: TSA TECHNIQUE: Two views of the right shoulder COMPARISON: None FINDINGS: There is a reverse shoulder prosthesis in position. The AC joint is aligned. There is no fracture or dislocation. RAD/Shoulder min 2 Views IMPRESSION: Hardware in position. Reading Location: [facility] CC: Dr. Shavon Pitts MD; Dr. Silverio Ruiz MD Documentation Writer: Signed Normal [facility] Chest PA and Lateralon 05-21 Chest PA and Lateral [facility] Imaging Services [address] [place], [place] [id number] Chest PA and Lateral MR#: [id number] Acct: [id number] Name: YIN WU Rep #: [id number] : 1940 F 84 From: Arnoldo Contreras i, DO PCP: Dr. Shavon Pitts MD Status: REG CLI Study: Chest PA and Lateral Date of Exam: 05/21/24 Exam# [id number] Ordering Dr: Antolin Paul PA-C PROCEDURE: PA and lateral chest radiographs, two views 05/21/2024 REASON FOR EXAM: Cough for 6 weeks TECHNIQUE: PA and lateral views of the chest. FINDINGS: The cardiomediastinal silhouette is within normal limits. Thoracic aorta is tortuous. Bones are osteopenic with degenerative changes in the spine. Partially included left total shoulder arthroplasty. 3 mm tiny calcified granuloma projects over the lower left lung on the PA view. Lungs are hyperinflated, without focal airspace consolidation or pleural effusion. RAD/Chest PA and Lateral IMPRESSION: Pulmonary hyperinflation. No acute cardiopulmonary process is demonstrated. If there are persistent symptoms or clinical concern, short-term follow-up CT evaluation may be considered. Reading Location: [facility] CC: PA-C Antolin Paul; Dr. Shavon Pitts MD Documentation Writer: Signed [facility] MR/PAT.ANDERSon 05-09-2024 MR/PAT.[facility] Medical Records Department [address] [place] [address] PAT - Anesthesia 05/09/24 1151 MR#: [id number] Acct: [id number] Name: YIN WU Rep #: [id number] : 1940 84 From: Glen Puga MD PCP: Dr. Shavon Pitts MD Status:PRE [facility] Y Race: C Location: 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 When Was Last Pacemaker Check QUESTION #4 FULL TEXT: You/Your Family Experience fever (hyperthermia) with Anesthesia Last Oral Intake Last Oral intake: Last Oral Intake NPO since Meds taken in AM with sips of water? Meds patient instructed to take am of surgery PONV PONV - highway engineering technician: PONV - highway engineering technician Female Yes 05/09/24 11:32 HX of Motion Sickness No 05/09/24 11:32 HX of N/V After Surgery No 05/09/24 11:32 Non-Smoker Yes 05/09/24 11:32 Duration of Surgery greater Yes 05/09/24 11:32 than 60 minutes Number of Risk Factors 3 05/09/24 11:32 PONV Score Moderate Risk 05/09/24 11:32 Height Weight Height Weight: Anesthesia: Height Weight Height 5 ft 5 in 07/01/23 14:54 Respiratory Assessment Respiratory Assessment - highway engineering technician: Respiratory Tract Infection Hx - highway engineering technician Hx Respiratory Tract Infection Yes: SINUS INFECTION/TREATED 05/09/24 11:32 STOP Sleep Apnea STOP Sleep Apnea - highway engineering technician: STOP Sleep Apnea - highway engineering technician Hx Hypertension Yes: CONTROLLED WITH MED 05/09/24 11:32 Hx Sleep Apnea No 05/09/24 11:32 CPAP No 06/21/17 07:39 BIPAP No 06/15/17 15:23 Do you snore loudly (louder No 05/09/24 11:32 than talking or can be heard Do you often feel tired/ No 05/09/24 11:32 fatigued/ sleepy during daytime? Has anyone observed you stop No 05/09/24 11:32 breathing during sleep? STOP Results Negative 05/09/24 11:32 QUESTION #5 FULL TEXT : Do you snore loudly (louder than talking or can be heard through closed doors)? 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 Specify any problems Hx of Preganancy in last 3 No 05/09/24 11:32 Months Nurse Filling Out Transfusion DSCHRIBER 05/09/24 11:32 Questions: Date: 05/09/24 05/09/24 11:32 Time: 11:35 05/09/24 11:32 Patient unable to answer at this time (ie. confused, unrespo /Reproductio n History /Reproductiv e History - highway engineering technician: /Reproductiv e Hx- highway engineering technician Hx Now No 05/09/24 11:32 Gestational Age (in weeks): EDC: Hx Hx Para Hx Section SAB No 05/09/24 11:32 [facility] Medical History (Updated 05/09/24 @ 11:48 by Madalyn Hill) Wears glasses Post-menopausal Low iron Migraine headache Syncope Non-smoker Shortness of breath on exertion History of echocardiogram History of stress test Cardiology follow-up encounter MRSA (methicillin resistant staph aureus) culture positive Skin cancer Chronic renal disease, stage 3, moderately decreased glomerular filtration rate (GFR) between 30-59 mL/min/1.73 square meter Vitamin D deficiency Essential hypertension Arthritis Multinodular goiter NSVT (nonsustained ventricular tachycardia) Hypokalemia Dehydration MVP (mitral valve prolapse) Syncope Prerenal azotemia Home Medications ???Medication ???Instructions ???Recorded ???Last Taken ???Type amlodipine 10 mg tablet 10 mg PO DAILY 10/04/22 Un (more content not included)... Normal [facility] Magnesiumon 05-09-2024 Magnesium [Mass/Vol] 2.1 mg/dL Normal 1.5-2.2 [facility] Comment on above: Performed By: #### L 501.5200 #### [facility] [address] [place], [place], [id number] MRSA/SAID NASAL SCREENon MRSA+SAID SCRN Negative Normal [facility] Comment on above: Performed By: #### L 500.4050, L501.9520, L400.2010 #### [facility] [address] [place], [address] 12 Lead EKGon 03-24-2025 12 Lead EKG [facility] Cardiovascular Services [address] [place] [address] 12 Lead EKG 05/07/24 0829 MR#: [id number] Acct: [id number] Name: YIN WU Rep #: [id number] : 1940 84 From: Teddy Ochoa MD Attending Dr: Dr. Silverio Ruiz MD Status: PRE SDC Ordering Dr: Silverio Ruiz MD Date: 05/07/24 Location: [facility] Sex: F C Admitted: Test Reason : PRE OP Blood Pressure : */* mmHG Vent. Rate : 64 BPM Atrial Rate : 64 BPM P-R Int : 184 ms QRS Dur : 86 ms QT Int : 410 ms P-R-T Axes : 46 50 61 degrees QTcB Int : 422 ms Normal sinus rhythm Normal ECG Confirmed by SHRUTHI HERNANDEZ, TEDDY ([id number]), school photograph editor LG HOYOS ([id number]) on 05/07/2024 10:29:55 AM Referred By: SARA Confirmed By: TEDDY OCHOA MD 05/07/24 102 Date Teddy Ochoa MD CC: Dr. Shavon Pitts MD; Dr. Silverio Ruiz MD Signed Normal [facility] Albumin, Serumon 05-07-2024 Albumin [Mass/Vol] 4.4 g/dL Normal 3.4-4.8 [facility] Comment on above: Performed By: #### L 500.4050, L501.9520, L4 #### [facility] [address] [place], [address] Basic Metabolic Profile (BMP )on 05-07-2024 BUN/CRE 19.1 RATIO Normal 10-20 [facility] Comment on above: Performed By: #### L 500.4050, L501.9520, L400 #### [facility] [address] [place], [address] Calcium [Mass/Vol] 10.4 mg/dL Normal 7.6-11.0 [facility] Comment on above: Performed By: #### L 500.4050, L501.9520, L4.2010 #### [facility] [address] [place], [address] Chloride [Moles/Vol] 99 mmol/L Normal 98-108 [facility] Comment on above: Performed By: #### L 500.4050, L501.9520, L4.2010 #### [facility] [address] [place], [address] CO2 [Moles/Vol] 22.2 mmol/L Normal 21.0-32.0 [facility] Comment on above: Performed By: #### L 500.4050, L501.9520, L4.2010 #### [facility] [address] [place], [address] Creatinine [Mass/Vol] 1.24 mg/dL High 0.70-1.20 [facility] Comment on above: Performed By: #### L 500.4050, L501.9520, L4.2010 #### [facility] [address] [place], [address] GAP 13 Normal 5-15 [facility] Comment on above: Performed By: #### L 500.4050, L501.9520, L4.2010 #### [facility] [address] [place], [address] GFR/1.73 sq M.predicted among non-blacks MDRD (S/P/Bld) [Vol rate/Area] 43 mL/min/{1.73_m2} Low >60 [facility] Comment on above: Result Comment: mL/m in/1.73m2 CKD-EPI Creatinine Equation (2020) Performed By: #### L 500.4050, L501.9520, L4.2010 #### [facility] [address] [place], [address] Glucose [Mass/Vol] 109 mg/dL High 70-99 [facility] Comment on above: Performed By: #### L 500.4050, L501.9520, L400.2010 #### [facility] [address] [place], [address] Potassium [Moles/Vol] 4.3 mmol/L Normal 3.3-5.1 [facility] Comment on above: Performed By: #### L 500.4050, L501.9520, L400.2010 #### [facility] [address] [place], [address] Sodium [Moles/Vol] 134 mmol/L Normal 133-145 [facility] Comment on above: Performed By: #### L 500.4050, L501.9520, L4.2010 #### [facility] [address] [place], [address] Urea nitrogen [Mass/Vol] 24 mg/dL High 4-19 [facility] Comment on above: Performed By: #### L 500.4050, L501.9520, L400.2010 #### [facility] [address] [place], [address] CBC W/Diff, Automatedon 03-2 Absolute Lymph 2.15 X10 3/uL Normal 0.83-4.51 [facility] Comment on above: Performed By: #### L 500.4050, L501.9520, L400.2010 #### [facility] [address] [place], [address] Absolute Neut 4.8 X10 3/uL Normal 2.0-7.7 [facility] Comment on above: Performed By: #### L 500.4050, L501.9520, L400.2010 #### [facility] [address] [place], [address] Basophils/100 WBC (Bld) 0.8 % Normal 0-1 [facility] Comment on above: Performed By: #### L 500.4050, L501.9520, #### [facility] [address] [place], [address] Eosinophils/100 WBC (Bld) 4.2 % Normal 0-5 [facility] Comment on above: Performed By: #### L 500.4050, L501.9520, #### [facility] [address] [place], [address] Erythrocyte distribution width (RBC) [Ratio] 14.3 % Normal 11.6-14.6 [facility] Comment on above: Performed By: #### L 500.4050, L501.9520, #### [facility] [address] [place], [address] Hematocrit (Bld) [Volume fraction] 39.5 % Normal 37-47 [facility] Comment on above: Performed By: #### L 500.4050, L501.95, #### [facility] [address] [place], [address] Hemoglobin (Bld) [Mass/Vol] 13.5 g/dL Normal 12.0-15.0 [facility] Comment on above: Performed By: #### L 500.4050, L501.9520, L4 #### [facility] [address] [place], [address] IG% 0.800 Normal 0.0-0.9 [facility] Comment on above: Result Comment: IG% - Immature Granulocytes (promyelocytes, myelocytes and metamyelocytes) > 1% indicates that a LEFT SHIFT is Present. Performed By: #### L 500.4050, L501.9520, #### [facility] [address] [place], [address] Lymphocytes/100 WBC (Bld) 24.3 % Normal 19-41 [facility] Comment on above: Performed By: #### L 500.4050, L501.9520, L400.2010 #### [facility] [address] [place], [address] MCH (RBC) [Entitic mass] 31.9 pg Normal 27.0-32.0 [facility] Comment on above: Performed By: #### L 500.4050, L501.9520, L400.2010 #### [facility] [address] [place], [address] MCHC (RBC) [Mass/Vol] 34.2 g/dL Normal 32-36 [facility] Comment on above: Performed By: #### L 500.4050, L501.9520, L4.2010 #### [facility] [address] [place], [address] MCV (RBC) [Entitic vol] 93.4 fL Normal 81-99 [facility] Comment on above: Performed By: #### L 500.4050, L501.9520, L400.2010 #### [facility] [address] [place], [address] Monocytes/100 WBC (Bld) 15.8 % High 0-10 [facility] Comment on above: Performed By: #### L 500.4050, L501.9520, L400 #### [facility] [address] [place], [address] Neutrophils/100 WBC (Bld) 54.1 % Normal 47-70 [facility] Comment on above: Performed By: #### L 500.4050, L501.9520, L400.2010 #### [facility] [address] [place], [address] Nucleated RBC (Bld) [#/Vol] 0 10*3/uL Normal 0-5 [facility] Comment on above: Performed By: #### L 500.4050, L501.9520, L4.2010 #### [facility] [address] [place], [address] Platelet mean volume (Bld) [Entitic vol] 9.2 fL Normal 6.2-12.0 [facility] Comment on above: Performed By: #### L 500.4050, L501.9520, L4 #### [facility] [address] [place], [address] Platelets (Bld) [#/Vol] 382 10*3/uL Normal 150-450 [facility] Comment on above: Performed By: #### L 500.4050, L501.9520, L4 #### [facility] [address] [place], [address] RBC (Bld) [#/Vol] 4.23 10*6/uL Normal 4.2-5.4 [facility] Comment on above: Performed By: #### L 500.4050, L501.9520, L4 #### [facility] [address] [place], [address] RDW SD 49.3 fl High 35.1-43.9 [facility] Comment on above: Performed By: #### L 500.4050, L501.9520, L400 #### [facility] [address] [place], [address] WBC (Bld) [#/Vol] 8.8 10*3/uL Normal 4.4-11.0 [facility] Comment on above: Performed By: #### L 500.4050, L501.9520, L400 #### [facility] [address] [place], [address] Extremity Upper without Cont raon 05-07-2024 Extremity Upper without Contra [facility] [address] [place], [place] [id number] Extremity Upper without Contra MR#: [id number] Acct: [id number] Name: YIN WU Rep #: [id number] : 1940 F 84 From: Jai patel MD PCP: Dr. Shavon Pitts MD Status: DEP CLI Study: Extremity Upper without Contra Date of Exam: 0 05/07/24 Exam# [id number] Ordering Dr: Silverio Ruiz MD PROCEDURE: EXTREMITY UPPER WITHOUT CONTRA 05/07/2024 REASON FOR EXAM: PAIN IN RIGHT SHOULDER TECHNIQUE: Axial CT images of the right shoulder obtained without intravenous contrast. Coronal and Sagittal reconstruction series were provided. One or more dose reduction techniques were used (e.g., Automated exposure control, adjustment of the mA and/or kV according to patient size, use of iterative reconstruction technique RADIATION DOSE SUMMARY: CTDlvol: 22.17 mGy DLP: 437.59 mGycm COMPARISON: None FINDINGS: Bones: Degenerative spur formation of the medial inferior aspect of the humeral head. Joints: Marked degree of joint space narrowing of the glenohumeral joint with decreased distance between the humeral head and acromion suggestive of rotator cuff pathology. Moderate degree of hypertrophic osteoarthritis of the right acromioclavicular joint. Soft Tissues: Calcific tendinitis. CT/Extremity Upper without Contra IMPRESSION: Marked degree of osteoarthritis with joint space narrowing and degenerative spur formation of the glenoid humeral joint with findings suggestive of rotator cuff pathology. 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 Reading Location: [facility] CC: Dr. Shavon Pitts MD; Dr. Silverio Ruiz MD Documentation Writer: Signed Normal [facility] MR/BMS.Pavel 12-14-2023 MR/BMS.BVS [facility] [address] [place] [address] OFFICE VISIT Date of Service: 12/14/23 MR#: [id number] Acct: [id number] Name: YIN WU Rep #: [id number] : 1940 Provider: CLOVIS Arizmendi Age/Sex: 83/F Location: [facility] [place] Status: Signed Intake Vital Signs 07/01/23 14:54 12/14/23 13:10 Height 5 ft 5 in Weight: 155 lb BP 145/73 H Blood Pressure Location Lt brachial Position Sitting Respiration 16 Pulse 73 Pulse Source Monitor Temp 97.5 F L Temp Source Temporal Pulse Oximetry (%) 95 Oxygen Delivery Method room air Intake Visit Reasons: SYMPTOMATIC CAROTID STENOSIS Chief Complaint: establish care Is patient in pain?: No Allergies No Known Allergies Allergy (Verified 12/14/23 13:11) Medications ???Medication ???Instructions ???Recorded ???Confirmed ???Type amlodipine 10 mg tablet 10 mg PO DAILY 10/04/22 12/14/23 History calcium 600 mg (as 1 tab PO DAILY 10/04/22 12/14/23 History carbonate)-vitamin D3 10 mcg (400 unit) tablet fluticasone propionate 50 1 spray NASAL DAILY ALLERGIES 10/04/22 12/14/23 History mcg/actuation nasal spray,suspension metoprolol succinate 50 mg 50 mg PO DAILY 10/04/22 12/14/23 History tablet,extended release 24 hr losartan 100 mg tablet 100 mg PO DAILY #90 tabs 11/01/22 12/14/23 Rx multivitamin with folic acid 400 1 tab PO DAILY SUPPLEMENT 11/01/22 12/14/23 History mcg tablet Is last menstrual period known: No Post menopausal: Yes Patient : No Have you fallen in the past year?: No PFSH Medical History Skin cancer Chronic renal disease, stage 3, moderately decreased glomerular filtration rate (GFR) between 30-59 mL/min/1.73 square meter COVID-19 Actinic keratosis Vitamin D deficiency Essential hypertension Arthritis Multinodular goiter NSVT (nonsustained ventricular tachycardia) Hypokalemia Dehydration MVP (mitral valve prolapse) Syncope Prerenal azotemia Surgical History History of vein stripping History of spinal fusion History of carpal tunnel surgery of right wrist Status post biopsy of thyroid gland ( 12/2018) History of tonsillectomy History of tubal ligation History of total replacement of left shoulder joint History of total replacement of both hip joints Family History Father CAD (coronary artery disease) Social History Smoking Status: Never smoker alcohol intake: never substance use type: does not use HPI HPI HPI: YIN WU, is a 83 F who presents to the office today for evaluation of carotid artery stenosis as referred by her PCP Dr. Pitts. She is accompanied to her appointment today by her . She recently completed a carotid duplex which showed <50% R ICA stenosis and 50-69% L ICA stenosis with max PSV at the carotid bulb 154.3/20.4 cm/sec. She does not have any history of known or documented CVA/TIA. She does report an 8 year history of sporadic episodes of very vague symptoms including being conscious but unresponsive to family members speaking to her, feeling very off or dazed, but unable to describe any more focal symptoms. She reports she can go several months at a time without these episodes. She thinks they are related to hydration, she has noticed when they do happen she improves after drinking a few glasses of water. She reports she is not very good at staying hydrated typically though she is making an effort now. She denies any facial drooping, dysarthria, vision changes, unilateral weakness or numbness/paresthesias , or other focal neurologic deficits with these episodes. ROS General General: No weight change, appetite, fatigue, colon cancer, breast cancer or weakness HEENT HEENT: No difficulty swallowing, eye injury, eye surgery, swollen glands or hoarseness Endo Endocrine: No thyroid disease, diabetes mellitus, thyroid cancer, Hair loss, heat intolerance or cold intolerance Skin Skin: No rash or changing moles Musc Musculoskeletal: Yes arthritis; No back problems, rheumatoid arthritis, gout or joint pain Cardio Cardiovascular: Yes high blood pressure; No murmur, pacemaker, heart disease, atrial fibrillation, heart attack, heart stent, palpitations, shortness of breat with exertion or chest pain Psych Psychiatric: No depression, anxiety or hearing voices Resp Respiratory: No shortness of breath, No sleep apnea, No cough, No COPD, No asthma, No emphysema and No wheezing Gastro Gastrointestinal: No abdominal pain, No nausea or vomiting, No diarrhea, No constipation, No blood in stool, No acid reflux, No hemorrhoids, (more content not included)... Normal [facility] XR SHOULDER LEFT 2+ VIEWSon 11-16-2023 XR SHOULDER LEFT 2+ VIEWS EXAM: XR SHOULDER LEFT 2+ VIEWS, 11/16/2023 10:55 AM CLINICAL INDICATIONS: left shoulder pain RELEVANT CLINICAL HISTORY: M25.512:Left shoulder pain, unspecified chronicity Shoulder Complete-AP, Outlet, AC Joint, Axillary; COMPARISON: No prior studies available for comparison. FINDINGS: 4 images obtained. Soft Tissue: No soft tissue swelling evident. Bone: No acute osseous abnormality is identified. Joint: Intact total left hip arthroplasty hardware with superior subluxation of the humeral head component, concerning for a rotator cuff tear. The acromioclavicular joint is anatomically aligned with degenerative changes. IMPRESSION: Intact total left hip arthroplasty hardware with superior subluxation of the humeral head component, concerning for a rotator cuff tear. [facility] XR Shoulder - left 2 Viewson 11-16-2023 IMPRESSION: Intact total left hip arthroplasty hardware with superior subluxation of the humeral head component, concerning for a rotator cuff tear. OLOGY EXAM: XR SHOULDER LEFT 2+ VIEWS, 11/16/2023 10:55 AM CLINICAL INDICATIONS: left shoulder pain RELEVANT CLINICAL HISTORY: M25.512:Left shoulder pain, unspecified chronicity Shoulder Complete-AP, Outlet, AC Joint, Axillary; COMPARISON: No prior studies available for comparison. FINDINGS: 4 images obtained. Soft Tissue: No soft tissue swelling evident. Bone: No acute osseous abnormality is identified. Joint: Intact total left hip arthroplasty hardware with superior subluxation of the humeral head component, concerning for a rotator cuff tear. The acromioclavicular joint is anatomically aligned with degenerative changes. RADIOLOGY Alfonso Tsang MD - 11/16/2023 EXAM: XR SHOULDER LEFT 2+ VIEWS, 11/16/2023 10:55 AM CLINICAL INDICATIONS: left shoulder pain RELEVANT CLINICAL HISTORY: M25.512:Left shoulder pain, unspecified chronicity Shoulder Complete-AP, Outlet, AC Joint, Axillary; COMPARISON: No prior studies available for comparison. FINDINGS: 4 images obtained. Soft Tissue: No soft tissue swelling evident. Bone: No acute osseous abnormality is identified. Joint: Intact total left hip arthroplasty hardware with superior subluxation of the humeral head component, concerning for a rotator cuff tear. The acromioclavicular joint is anatomically aligned with degenerative changes. IMPRESSION IMPRESSION: Intact total left hip arthroplasty hardware with superior subluxation of the humeral head component, concerning for a rotator cuff tear. [facility] Radiology Study observation (narrative) [facility] XR Shoulder - left 2 ViewsOr dered By: Alfonso Tsang on 11-16-2023 [facility] Work Phone: Miscellaneous Lab Procedureo n 10-31-2023 [facility] LAB TEST Normal [facility] Comment on above: Order Comment: CHILL ED EDTA [id number] PTH-RP Result Comment: TEST RESULTS LIMITS PTHrP(PTH-Related Peptide) <2.0 pmol/L This test was developed and its performance characteristics determined by [facility]. It has not been cleared or approved by the Food and Drug Administration. Reference Range: All Ages: <2.0 The PTHrP assay should not be used to exclude cancer or screen tumor patients for humoral hypercalcemia of malignancy (HHM). The results should always be assessed in conjunction with the patient's medical history, clinical examination, and other findings. If test results are clinically discordant, please contact the laboratory. TESTING PERFORMED AT [facility]. ORIGINAL REPORT ON FILE IN LAB CONTAINS ADDITIONAL TEST SITE INFORMATION. Performed By: #### L 3300.0960, L506.1000, L509.1000, L801.1541 ####[facility] [id number] [place], [address] Vitamin D 1,25-Dihydroxyon 0 10-24-2023 VIT D 1,25 DIHY 27.1 pg/mL Normal 24.8-81.5 [facility] Comment on above: Result Comment: Perf ormed at: - [facility] [id number] Mobile Sales Assistant: Marck Elkins MD, Phone: [phone] Performed By: #### L 3300.0960, L506.1000, L509.1000, L801.1541 #### [facility] [address] [place], [place], [address] Carotid Duplex Ultrasoundon 10-21-2023 Carotid Duplex Ultrasound [facility] [address] [place] [address] Carotid Duplex Ultrasound 10/21/23 0856 MR#: [id number] Acct: [id number] Name: YIN WU Rep #: [id number] : 1940 83 From: Sal Doran MD Attending Dr: Dr. Shavon Pitts MD Status: REG CLI Ordering Dr: Shavon Pitts MD Date: 10/21/23 Location: [facility] Sex: F C Admitted: Reason For Study: Left carotid bruit Rt. Velocities/BP Lt. Velocities/BP Prox CCA 79.6/10.7 cm/sec. Prox CCA 68.3/12.6 cm/sec. Mid CCA 81.5/12.6 cm/sec. Mid CCA 75.9/14.5 cm/sec. Dist CCA 63.6/12.6 cm/sec. Dist CCA 67.4/11.6 cm/sec. Prox ICA 54.1/9.7 cm/sec. Bulb, 154.3/20.4 cm/sec. Mid ICA 63.6/17.3 cm/sec. Prox ICA 67.9/15.1 cm/sec. Dist ICA 68.3/21.1 cm/sec. Mid ICA 72.8/16.3 cm/sec. Rt. ICA/CCA = 0.84. Dist ICA 59.9/17 cm/sec. Prox ECA 93.8/5.8 cm/sec. Lt. ICA/CCA = 2.03. Rt. Vert. 57.9/11.6 cm/sec. Prox ECA 226.3/8.6 cm/sec. Lt. Vert. 26.8 cm/sec. Right Extracranial There is homogeneous, smooth atherosclerotic plaque noted in the right common carotid artery. There is heterogeneous, irregular atherosclerotic plaque noted in the right internal carotid artery. There is heterogeneous, irregular atherosclerotic plaque noted in the right external carotid artery. Antegrade flow is noted in the right vertebral artery. Left Extracranial There is homogeneous, irregular atherosclerotic plaque noted in the left common carotid artery. There is heterogeneous, irregular atherosclerotic plaque noted in the left internal carotid artery. There is heterogeneous, irregular atherosclerotic plaque noted in the left external carotid artery. Antegrade flow is noted in the left vertebral artery. Procedure Carotid Duplex 84623. This is a Carotid Duplex examination using B-mode, color flow and specral Doppler. Exam performed in department. VL/Carotid Duplex Ultrasound Interpretation Summary Mild (<50%) stenosis right extracranial internal carotid. Moderate (50-69%) stenosis left extracranial internal carotid. Patent and antegrade vertebrals bilaterally. Ordering Physician: Shavon Pitts Referring Physician: Shavon Pitts Performed By: Maddi Kapoor RVT 10/24/23 1739 Date Sal Doran MD CC: Dr. Shavon Pitts MD Date Dictated: 10/21/23855 Date Transcribed: 10/24/231738 Documentation Writer: Signed Normal [facility] L501.2276on 10-21-2023 Ionized Calcium 5.02 mg/dL Normal 4.36-5.20 [facility] Comment on above: Performed By: #### L 501.2276 ####[facility] [address] [place], [address] PTHINon 10-21-2023 PTH 39.3 pg/mL Normal 18.4-80.1 [facility] Comment on above: Performed By: #### L 3300.0960, L506.1000, L509.1000, L801.1541 #### [facility] [address] [place], [address] Vitamin D,25 Hydroxyon 10-20 Vitamin D 25-OH 46.5 ng/mL Normal [facility] Comment on above: Result Comment: Criselda min D 25(OH) Status Range Deficiency <20 ng/mL (50nmol/L) Insufficiency 20 - 30 ng/mL (50 - 75 nmol/L) Sufficiency 30 - 100 ng/mL (75 - 250 nmol/L) Toxicity >100 ng/mL (>250 nmol/L) Performed By: #### L 3300.0960, L506.1000, L509.1000, L801.1541 #### [facility] [address] [place], [address] Comprehensive Metabolic Prof ilon 10-13-2023 Albumin [Mass/Vol] 3.9 g/dL Normal 3.2-5.0 [facility] Comment on above: Performed By: #### L 500.4050, L501.9520, L400.2010 #### [facility] [address] [place], [address] Albumin/Globulin [Mass ratio] 0.9 {ratio} Normal 0.9-2.4 [facility] Comment on above: Performed By: #### L 500.4050, L501.9520, L400.2010 #### [facility] [address] [place], [address] ALK P 80 U/L Normal 45-117 [facility] Comment on above: Performed By: #### L 500.4050, L501.9520, L4.2010 #### [facility] [address] [place], [address] ALT [Catalytic activity/Vol] 26 U/L Normal 13-56 [facility] Comment on above: Performed By: #### L 500.4050, L501.9520, L4.2010 #### [facility] [address] [place], [address] AST [Catalytic activity/Vol] 23 U/L Normal 15-37 [facility] Comment on above: Performed By: #### L 500.4050, L501.9520, L4 #### [facility] [address] [place], [address] Bilirubin [Mass/Vol] 0.50 mg/dL Normal 0.20-1.00 [facility] Comment on above: Result Comment: For patients on eltrombopag therapy, use of Dimension Aurora TBIL is not recommended. Performed By: #### L 500.4050, L501.9520, L4.2010 #### [facility] [address] [place], [address] BUN/CRE 19.2 RATIO Normal 10-20 [facility] Comment on above: Performed By: #### L 500.4050, L501.9520, L400.2010 #### [facility] [address] [place], [address] CA,Total 10.6 mg/dL High 8.5-10.1 [facility] Comment on above: Performed By: #### L 500.4050, L501.9520, L4.2010 #### [facility] [address] [place], [address] Chloride [Moles/Vol] 102 mmol/L Normal 98-107 [facility] Comment on above: Performed By: #### L 500.4050, L501.9520, L4 #### [facility] [address] [place], [address] CO2 [Moles/Vol] 26.0 mmol/L Normal 21.0-32.0 [facility] Comment on above: Performed By: #### L 500.4050, L501.9520, L4 #### [facility] [address] [place], [address] Creatinine [Mass/Vol] 1.20 mg/dL High 0.55-1.02 [facility] Comment on above: Result Comment: The validity of the calculated GFR GFRAA in patients over 70 years has not been determined. Clinical correlation is essential. Performed By: #### L 500.4050, L501.9520, L4 #### [facility] [address] [place], [address] EST GFR - AA 55 mL/min Low >60 [facility] Comment on above: Result Comment: Afri can Kyrgyz GFR Calc Performed By: #### L 500.4050, L501.9520, L400 #### [facility] [address] [place], [address] GAP 7 Normal 5-15 [facility] Comment on above: Performed By: #### L 500.4050, L501.9520, L400 #### [facility] [address] [place], [address] GFR/1.73 sq M.predicted among non-blacks MDRD (S/P/Bld) [Vol rate/Area] 46 mL/min/{1.73_m2} Low >60 [facility] Comment on above: Result Comment: Non- GFR Calc Performed By: #### L 500.4050, L501.9520, L400.2010 #### [facility] [address] [place], [address] Globulin (S) [Mass/Vol] 4.2 g/dL Normal 2.2-4.2 [facility] Comment on above: Performed By: #### L 500.4050, L501.9520, L400.2010 #### [facility] [address] [place], [address] Glucose [Mass/Vol] 104 mg/dL Normal 74-106 [facility] Comment on above: Result Comment: Fast ing Glucose result from 100 to 125 mg/dL suggests IMPAIRED HOMEOSTASIS per A.D.A. criteria. Performed By: #### L 500.4050, L501.9520, L400.2010 #### [facility] [address] [place], [address] Potassium [Moles/Vol] 4.4 mmol/L Normal 3.5-5.1 [facility] Comment on above: Performed By: #### L 500.4050, L501.9520, L4.2010 #### [facility] [address] [place], [address] Sodium [Moles/Vol] 135 mmol/L Low 136-145 [facility] Comment on above: Performed By: #### L 500.4050, L501.9520, L400.2010 #### [facility] [address] [place], [address] T PROT 8.1 g/dL Normal 6.4-8.2 [facility] Comment on above: Performed By: #### L 500.4050, L501.9520, L400.2010 #### [facility] [address] [place], [address] Urea nitrogen [Mass/Vol] 23 mg/dL High 7-18 [facility] Comment on above: Performed By: #### L 500.4050, L501.9520, L400.2010 #### [facility] [address] [place], [address] Thyroid Stim Hormone (TSH)on 10-13-2023 TSH 4.640 uIU/mL High 0.358-3.740 [facility] Comment on above: Performed By: #### L 500.4050, L501.9520, L400.2010 #### [facility] [address] [place], [address] Urinalysis, Routine (Dipstic k)on 10-13-2023 BILIRUBIN URINE Negative Normal Negative [facility] Comment on above: Order Comment: Urine , Random Performed By: #### L 500.4050, L501.9520, L400.2010 #### [facility] [address] [place], [address] Clarity (U) Clear Normal Clear [facility] Comment on above: Order Comment: Urine , Random Performed By: #### L 500.4050, L501.9520, L400.2010 #### [facility] [address] [place], [address] Color (U) Yellow Normal Yellow [facility] Comment on above: Order Comment: Urine , Random Performed By: #### L 500.4050, L501.9520, L400.2010 #### [facility] [address] [place], [address] GLUCOSE, UR Normal Normal Normal [facility] Comment on above: Order Comment: Urine , Random Performed By: #### L 500.4050, L501.9520, L400.2010 #### [facility] [address] [place], [address] KETONE UR Negative Normal Negative [facility] Comment on above: Order Comment: Urine , Random Performed By: #### L 500.4050, L501.9520, L400.2010 #### [facility] [address] [place], [address] LEUK ESTERASE Negative Normal Negative [facility] Comment on above: Order Comment: Urine , Random Performed By: #### L 500.4050, L501.9520, L400 #### [facility] [address] [place], [address] Nitrite Ql (U) Negative Normal Negative [facility] Comment on above: Order Comment: Urine , Random Performed By: #### L 500.4050, L501.9520, L400 #### [facility] [address] [place], [address] OCCULT BLOOD-UR Negative Normal Negative [facility] Comment on above: Order Comment: Urine , Random Performed By: #### L 500.4050, L501.9520, L400.2010 #### [facility] [address] [place], [address] pH UR 7.0 Normal 5.0 - 8.0 [facility] Comment on above: Order Comment: Urine , Random Performed By: #### L 500.4050, L501.9520, L400.2010 #### [facility] [address] [place], [address] PROT DIPSTX Negative Normal Negative [facility] Comment on above: Order Comment: Urine , Random Performed By: #### L 500.4050, L501.9520, L400 #### [facility] [address] [place], [address] SP.GR. DIPSTX 1.005 Normal 1.002-1.030 [facility] Comment on above: Order Comment: Urine , Random Performed By: #### L 500.4050, L501.9520, L4.2010 #### [facility] [address] [place], [address] UROBILI Normal Normal Normal [facility] Comment on above: Order Comment: Urine , Random Performed By: #### L 500.4050, L501.9520, L4.2010 #### [facility] [address] [place], [address] CBC W/Diff, Automatedon 09-15-2023 Absolute Lymph 1.70 X10 3/uL Normal 0.83-4.51 [facility] Comment on above: Performed By: #### L 101.9900, L100.0100, L501.6710 ####[facility] [facility] [address] [place], [address] Absolute Neut 3.7 X10 3/uL Normal 2.0-7.7 [facility] Comment on above: Performed By: #### L 101.9900, L100.0100, L501.6710 ####[facility] [address] [place], [address] Basophils/100 WBC (Bld) 0.9 % Normal 0-1 [facility] Comment on above: Performed By: #### L 101.9900, L100.0100, L501.6710 ####[facility] [address] [place], [address] Eosinophils/100 WBC (Bld) 4.1 % Normal 0-5 [facility] Comment on above: Performed By: #### L 101.9900, L100.0100, L501.6710 ####[facility] [address] [place], [address] Erythrocyte distribution width (RBC) [Ratio] 14.6 % Normal 11.6-14.6 [facility] Comment on above: Performed By: #### L 101.9900, L100.0100, L501.6710 ####[facility] [address] [place], [address] Hematocrit (Bld) [Volume fraction] 39.5 % Normal 37-47 [facility] Comment on above: Performed By: #### L 101.9900, L100.0100, L5.6710 ####[facility] [address] [place], [address] Hemoglobin (Bld) [Mass/Vol] 13.3 g/dL Normal 12.0-15.0 [facility] Comment on above: Performed By: #### L 101.9900, L100.0100, L5.6710 ####[facility] [address] [place], [address] IG% 0.300 Normal 0.0-0.9 [facility] Comment on above: Result Comment: IG% - Immature Granulocytes (promyelocytes, myelocytes and metamyelocytes) > 1% indicates that a LEFT SHIFT is Present. Performed By: #### L 101.9900, L100.0100, L5.10 ####[facility] [address] [place], [address] Lymphocytes/100 WBC (Bld) 24.3 % Normal 19-41 [facility] Comment on above: Performed By: #### L 101.9900, L100.0100, L5.6710 ####[facility] [address] [place], [address] MCH (RBC) [Entitic mass] 31.5 pg Normal 27.0-32.0 [facility] Comment on above: Performed By: #### L 101.9900, L100.0100, L501.6710 ####[facility] [address] [place], [address] MCHC (RBC) [Mass/Vol] 33.7 g/dL Normal 32-36 [facility] Comment on above: Performed By: #### L 101.9900, L100.0100, L501.6710 ####[facility] [address] [place], [address] MCV (RBC) [Entitic vol] 93.6 fL Normal 81-99 [facility] Comment on above: Performed By: #### L 101.9900, L100.0100, L501.6710 ####[facility] [address] [place], [address] Monocytes/100 WBC (Bld) 17.1 % High 0-10 [facility] Comment on above: Performed By: #### L 101.9900, L100.0100, L501.6710 ####[facility] [address] [place], [address] Neutrophils/100 WBC (Bld) 53.3 % Normal 47-70 [facility] Comment on above: Performed By: #### L 101.9900, L100.0100, L501.6710 ####[facility] [address] [place], [address] Nucleated RBC (Bld) [#/Vol] 0 10*3/uL Normal 0-5 [facility] Comment on above: Performed By: #### L 101.9900, L100.0100, L501.6710 ####[facility] [address] [place], [address] Platelet mean volume (Bld) [Entitic vol] 9.8 fL Normal 6.2-12.0 [facility] Comment on above: Performed By: #### L 101.9900, L100.0100, L501.6710 ####[facility] [address] [place], [address] Platelets (Bld) [#/Vol] 368 10*3/uL Normal 150-450 [facility] Comment on above: Performed By: #### L 101.9900, L100.0100, L501.6710 ####[facility] [address] [place], [address] RBC (Bld) [#/Vol] 4.22 10*6/uL Normal 4.2-5.4 [facility] Comment on above: Performed By: #### L 101.9900, L100.0100, L501.6710 ####[facility] [address] [place], [address] RDW SD 50.3 fl High 35.1-43.9 [facility] Comment on above: Performed By: #### L 101.9900, L100.0100, L501.6710 ####[facility] [address] [place], [address] WBC (Bld) [#/Vol] 7.0 10*3/uL Normal 4.4-11.0 [facility] Comment on above: Performed By: #### L 101.9900, L100.0100, L501.6710 ####[facility] [address] [place], [address] CRPon 10-07-2023 C-REACTIVE PROT < 2.90 Normal 0.0-3.0 [facility] Comment on above: Result Comment: C-Re active Protein (CRP) provides useful information for the diagnosis, therapy and monitoring of inflammatory processes and associated diseases. For the evaluation of Relative Risk for Cardiovascular Disease, a High Sensitivity CRP (HSCRP) should be ordered. Performed By: #### L 101.9900, L100.0100, L501.6710 ####[facility] [address] [place], [address] Erythrocyte Sed Rateon 10-06 SED RATE 24 mm/hr Normal 0-30 [facility] Comment on above: Performed By: #### L 101.9900, L100.0100, L501.6710 ####[facility] [address] [place], [address] Ankle Brachial Indexon 08-08 Ankle Brachial Index [facility] [address] [place] [address] Ankle Brachial Index 08/09/23 0931 MR#: [id number] Acct: [id number] Name: YIN WU Rep #: [id number] : 1940 83 From: Haider Dasilva MD Attending Dr: Shannan Spann, NANOTECHNOLOGIST-C Status: KURT AGARWAL Ordering Dr: Shannan Spann NANOTECHNOLOGIST NANOTECHNOLOGIST-C Date: 08/09/23 Location: [facility] Sex: F C Admitted: Reason For Study: claudication Procedure A bilateral lower extremity continuous wave Doppler with analog waveform analysis and ankle brachial indexes. Left Segmental Pressures Left brachial= 155mmHg. Left posterior tibial artery = 154mmHg. Left dorsalis pedis artery = 160mmHg. The left dorsalis pedis waveforms are triphasic. The left posterior tibial artery waveforms are triphasic. Right Segmental Pressures Right brachial= 157mmHg. Right posterior tibial artery = 146mmHg. Right dorsalis pedis artery = 138mmHg. The right dorsalis pedis waveforms are triphasic. The right posterior tibial artery waveforms are triphasic. Indices The right ankle brachial index by the dorsalis pedis is .88. The right ankle brachial index by the posterior tibial artery is .93. The left ankle brachial index by the posterior tibial artery is .98. The left ankle brachial index by the dorsalis pedis is 1.02. VL/Ankle Brachial Index Interpretation Summary Triphasic Doppler waveforms are noted at ankle level bilaterally. Pulse-volume recordings appear satisfactory at ankle level bilaterally. The resting right ankle-brachial index demonstrates minimal arterial disease. The resting left ankle-brachial index is normal. There is evidence of minimal arterial occlusive disease at ankle level on the right. There is no evidence of significant arterial occlusive disease on the left. Ordering Physician: Shannan Spann Referring Physician: SHANNAN SPANNC Performed By: Patricio Angel, RVT 08/09/232034 Date Haider Dasilva MD CC: NANOTECHNOLOGIST-C Shannan Spann; Dr. Shavon Pitts MD Date Dictated: 08/09/23930 Date Transcribed: 08/09/232034 Documentation Writer: Signed Normal [facility] Echo Completeon 08-09-2023 Echo Complete [facility] [address] [place] [address] Echo Complete 08/09/23856 MR#: [id number] Acct: [id number] Name: YIN WU Rep #: [id number] : 1940 83 From: Teddy Ochoa MD Attending Dr: MARLY [place] Status: [facility] C Ordering Dr: Shannan Spann NP NANOTECHNOLOGIST-C Date: 08/09/23 Location: [facility] Sex: F C Admitted: Reason For Study: MURMUR Procedure This was a 2D Doppler, Color Flow transthoracic echocardiogram. Exam performed in department. Left Ventricle Normal LV size. Left ventricular systolic function is normal. The left ventricular ejection fraction is 60 %. Stage 1 diastolic dysfunction. No regional wall motion abnormalities noted. Right Ventricle Normal right ventricle. Normal systolic function. Atria Normal left atrium. Normal right atrium. Mitral Valve Bileaflet diffuse mitral valve thickening. Tricuspid Valve Normal tricuspid valve. Mild (1+) tricuspid valve insufficiency. Pulmonary artery systolic pressure is 41 mmHg. Aortic Valve Trisinus/trileaflet aortic valve. Mild focal aortic valve calcification. Pulmonic Valve Normal pulmonic valve. Great Vessels Normal aortic root. The pulmonary artery is normal size. Inferior vena cava collapse with sniff. Pericardium/Pleural No pericardial effusion. MMode/2D Measurements Calculations LVIDd: 4.3 cm IVSd: 1.1 cm LVOT diam: 1.9 cm LVIDs: 2.4 cm LVPWd: 0.84 cm LVOT area: 2.9 cm2 RVDd: 3.2 cm FS: 45.5 % Ao root diam: 3.1 cm LAV(MOD-bp): 53.0 ml LVAd ap4: 20.3 cm2 LAV(MOD-bp) Indexed: 30.1 ml/m2 LVLd ap4: 6.7 cm LAV(MOD-sp2): 46.7 ml EDV(MOD-sp4): 50.3 ml LAV(MOD-sp4): 55.5 ml EDV(sp4-el): 52.6 ml LVAs ap4: 9.7 cm2 LVLs ap4: 5.4 cm ESV(MOD-sp4): 14.9 ml ESV(sp4-el): 14.7 ml EF(MOD-sp4): 70.3 % EF(sp4-el): 72.1 % LVAd ap2: 17.2 cm2 SV(MOD-sp4): 35.4 ml SV(MOD-sp2): 25.3 ml LVLd ap2: 6.5 cm EDV(MOD-sp2): 36.9 ml EDV(sp2-el): 38.7 ml LVAs ap2: 8.6 cm2 LVLs ap2: 5.7 cm ESV(MOD-sp2): 11.6 ml ESV(sp2-el): 11.1 ml EF(MOD-sp2): 68.5 % SV(sp4-el): 37.9 ml LA dimension(2D): 3.7 cm LA A4 area: 19.1 cm2 RA A4 area: 15.1 cm2 TAPSE: 2.2 cm Time Measurements MV dec time: 0.29 sec Doppler Measurements Calculations MV E max chris: 89.3 cm/sec Lat Peak E' Chris: 6.7 cm/sec Med Peak E' Chris: 7.7 cm/sec MV A max chris: 118.5 cm/sec E/E' lat: 13.4 E/E' med: 11.6 MV E/A: 0.75 Ao V2 max: 175.7 cm/sec LV V1 max: 95.5 cm/sec MV dec slope: 305.8 cm/sec2 Ao max P.3 mmHg LV V1 max P.6 mmHg Ao V2 mean: 129.0 cm/sec LV V1 mean P.2 mmHg Ao mean P.2 mmHg LV V1 mean: 72.0 cm/sec Ao V2 VTI: 41.6 cm LV V1 VTI: 23.6 cm AV (velocity ratio): 0.57 INDIRA(I,D): 1.6 cm2 INDIRA(V,D): 1.6 cm2 SV(LVOT): 68.2 ml PA V2 max: 77.7 cm/sec TR max chris: 303.5 cm/sec PA max PG (full): 0.81 mmHg TR max P.9 mmHg ECHO/Echo Complete Interpretation Summary Normal LV size. Left ventricular systolic function is normal. The left ventricular ejection fraction is 60 %. Stage 1 diastolic dysfunction. Pulmonary artery systolic pressure is 41 mmHg. Ordering Physician: Shannan Spann Referring Physician: Shannan Spann Performed By: Consuelo Doll RDCS 08/09/23 1019 Date Teddy Ochoa MD CC: NANOTECHNOLOGIST-Whitley Spann; Dr. Shavon Pitts MD Date Dictated: 08/09/23 0857 Date Transcribed: 08/09/23 1019 Documentation Writer: Signed Normal [facility] Absolute lymphocyte countOrd ered By: Anusha Guzman on 09-10-2022 Lymphocytes Auto (Unsp spec) [#/Vol] 1.96 10*3/uL 0.83-4.51 [facility] Basophil percentageOrdered B y: Anusha Guzman on 09-10-2022 Basophils/100 WBC (Bld) 0.5 % 0-1 [facility] Chloride [Moles/Vol] 105 mmol/L 98-107 [facility] Eosinophils/100 WBC (Bld) 1.8 % 0-5 [facility] Glucose [Mass/Vol] 115 mg/dL 74-106 [facility] Comment on above: Fasting Glucose resu lt from 100 to 125 mg/dL suggests IMPAIRED HOMEOSTASIS per A.D.A. criteria. Neutrophils (Bld) [#/Vol] 5.8 10*3/uL 2.0-7.7 [facility] Neutrophils/100 WBC (Bld) 62.0 % 47-70 [facility] Potassium [Moles/Vol] 4.1 mmol/L 3.5-5.1 [facility] Sodium [Moles/Vol] 137 mmol/L 136-145 [facility] WBC (Bld) [#/Vol] 9.3 10*3/uL 4.4-11.0 [facility] Blood erythrocytes count (nu mber/volume)Ordered By: Anusha Guzman on 09-10-2022 RBC (Bld) [#/Vol] 3.87 10*6/uL 4.2-5.4 [facility] Blood hemoglobin measurement (mass/volume)Ordered By: Anusha Guzman on 09-10-2022 Hemoglobin (Bld) [Mass/Vol] 12.3 g/dL 12.0-15.0 [facility] Blood lymphocytes/100 leukoc ytesOrdered By: Anusha Guzman on 09-10-2022 Lymphocytes/100 WBC (Bld) 21.0 % 19-41 [facility] Blood monocytes/100 leukocyt esOrdered By: Anusha Guzman on 09-10-2022 Monocytes/100 WBC (Bld) 14.5 % 0-10 [facility] Blood platelet mean volumeOr dered By: Anusha Guzman on 09-10-2022 Platelet mean volume (Bld) [Entitic vol] 9.2 fL 6.2-12.0 [facility] Determination of erythrocyte mean corpuscular volume (MCV)Ordered By: Anusha Guzman on 09-10-2022 MCV (RBC) [Entitic vol] 95.1 fL 81-99 [facility] Hematocrit Auto (Bld) [Volum e fraction]Ordered By: Anusha Guzman on 09-10-2022 Hematocrit (Bld) [Volume fraction] 36.8 % 37-47 [facility] Laboratory - Chemistry and C hemistry - challengeOrdered By: Anusha Guzman on 09-10-2022 CO2 [Moles/Vol] 25.0 mmol/L 21.0-32.0 [facility] Urea nitrogen/Creatinine [Mass ratio] 19.4 mg/mg 10-20 [facility] - Hematology and Cell countsOrdered By: Anusha Guzman on 09-10-2022 Erythrocyte distribution width (RBC) [Entitic vol] 49.2 fL 35.1-43.9 [facility] Erythrocyte distribution width (RBC) [Ratio] 14.2 % 11.6-14.6 [facility] Immature granulocytes/100 WBC (Bld) 0.200 % 0.0-0.9 [facility] Comment on above: IG% - Immature Granu locytes (promyelocytes, myelocytes and metamyelocytes) > 1% indicates that a LEFT SHIFT is Present. MCH (RBC) [Entitic mass] 31.8 pg 27.0-32.0 [facility] Nucleated RBC/100 WBC (Bld) [Ratio] 0 % 0-5 [facility] MCHC Auto (RBC) [Mass/Vol]Or dered By: Anusha Guzman on 09-10-2022 MCHC (RBC) [Mass/Vol] 33.4 g/dL 32-36 [facility] No Panel InformationOrdered By: Anusha Guzman on 09-10-2022 Troponin I High Sensitivity 8 pg/mL 3.0-54.0 [facility] Comment on above: Please Note: New Edith t Units and Gender Specific Reference Ranges. For more information see Policy Stat Procedure [facility] High Sensitivity Troponin (TNIH) and attachments. Estimated Creatinine Clearance Calc 30.13 ml/min [facility] Estimated GFR (MDRD) Amer 49 mL/min >60 [facility] Comment on above: GFR Calc Estimated GFR (MDRD) Non-Af Amer 40 mL/min >60 [facility] Comment on above: Non- GFR Calc Platelets bldOrdered By: Roberto Carlos Guzman on 09-10-2022 Platelets (Bld) [#/Vol] 330 10*3/uL 150-450 [facility] Serum or plasma calcium josefa urement (mass/volume)Ordered By: Anusha Guzman on 09-10-2022 Calcium [Mass/Vol] 9.1 mg/dL 8.5-10.1 [facility] Serum or plasma creatinine m easurement (mass/volume)Ordered By: Anusha Guzman on 09-10-2022 Creatinine [Mass/Vol] 1.34 mg/dL 0.55-1.02 [facility] Comment on above: The validity of the calculated GFR & GFRAA in patients over 70 years has not been determined. Clinical correlation is essential. Serum or plasma urea nitroge n measurement (mass/volume)Ordered By: Anusha Guzman on 09-10-2022 Urea nitrogen [Mass/Vol] 26 mg/dL 7-18 [facility] Thin prep Papanicolaou smear with manual screeningOrdered By: Anusha Guzman on 09-10-2022 Thin prep Papanicolaou smear with manual screening 7 5-15 [facility] Absolute lymphocyte counton 11-27-2021 Lymphocytes Auto (Unsp spec) [#/Vol] 1.56 10*3/uL 0.83-4.51 [facility] Work Phone: Basophil percentageon 2021 Basophils/100 WBC (Bld) 0.6 % 0-1 [facility] Work Phone: [phone] Eosinophils/100 WBC (Bld) 1.7 % 0-5 [facility] Work Phone: Neutrophils (Bld) [#/Vol] 4.3 10*3/uL 2.0-7.7 [facility] Work Phone: Neutrophils/100 WBC (Bld) 53.8 % 47-70 [facility] Work Phone: WBC (Bld) [#/Vol] 8.0 10*3/uL 4.4-11.0 [facility] Work Phone: Blood erythrocytes count (nu mber/volume)on 11-27-2021 RBC (Bld) [#/Vol] 4.30 10*6/uL 4.2-5.4 [facility] Work Phone: Blood hemoglobin measurement (mass/volume)on 11-27-2021 Hemoglobin (Bld) [Mass/Vol] 13.6 g/dL 12.0-15.0 [facility] Work Phone: Blood lymphocytes/100 leukoc yteson 11-27-2021 Lymphocytes/100 WBC (Bld) 19.4 % 19-41 [facility] Work Phone: Blood manual differential co mment interpretation (narrative result)on 11-27-2021 Manual differential comment Ronny (Bld) [Interp] COMMENT [facility] Work Phone: Comment on above: MONOCYTOSIS. Blood monocytes/100 leukocyt eson 11-27-2021 Monocytes/100 WBC (Bld) 24.0 % 0-10 [facility] Work Phone: Blood platelet mean volumeon 11-27-2021 Platelet mean volume (Bld) [Entitic vol] 9.7 fL 6.2-12.0 [facility] Work Phone: Determination of erythrocyte mean corpuscular volume (MCV)on 11-27-2021 MCV (RBC) [Entitic vol] 94.2 fL 81-99 [facility] Work Phone: Hematocrit Auto (Bld) [Volum e fraction]on 11-27-2021 Hematocrit (Bld) [Volume fraction] 40.5 % 37-47 [facility] Work Phone: Laboratory - Chemistry and C hemistry - challengeon 11-27-2021 Free T4 [Mass/Vol] 0.96 ng/dL 0.76-1.46 [facility] Work Phone: Laboratory - Hematology and Cell countson 11-27-2021 Erythrocyte distribution width (RBC) [Entitic vol] 52.5 fL 35.1-43.9 [facility] Work Phone: Erythrocyte distribution width (RBC) [Ratio] 15.1 % 11.6-14.6 [facility] Work Phone: Immature granulocytes/100 WBC (Bld) 0.500 % 0.0-0.9 [facility] Work Phone: Comment on above: IG% - Immature Granu locytes (promyelocytes, myelocytes and metamyelocytes) > 1% indicates that a LEFT SHIFT is Present. MCH (RBC) [Entitic mass] 31.6 pg 27.0-32.0 [facility] Work Phone: Nucleated RBC/100 WBC (Bld) [Ratio] 0 % 0-5 [facility] Work Phone: MCHC Auto (RBC) [Mass/Vol]on 11-27-2021 MCHC (RBC) [Mass/Vol] 33.6 g/dL 32-36 [facility] Work Phone: No Panel Informationon 11-27 Thyroid Stimulating Hormone (TSH) 1.23 uIU/mL 0.358-3.74 [facility] Work Phone: Platelets bldon 11-27-2021 Platelets (Bld) [#/Vol] 286 10*3/uL 150-450 [facility] Work Phone: Serum or plasma ferritin howard surement (mass/volume)on 11-27-2021 Ferritin [Mass/Vol] 287 ng/mL 8-252 [facility] Work Phone: Surgical Pathologyon 022 Surgical Pathology Report SEE BELOW [facility] 1 [id number] [facility] LABORATORY MEDICINE [facility] [address] [place] [address] FINAL SURGICAL PATHOLOGY REPORT NAME: YIN WU : 1940 81 Y F BILLLIZETTE NO.: [id number] LOCATION: 1SPO PROCEDURE 07/01/2021 DATE: SURGEON: BEVERLY WU MD RECEIVED 07/01/2021 DATE: ATTENDING: BEVERLY WU MD REPORT DATE: 07/01/2021 COPIES TO: DIAGNOSIS: SKIN, LEFT RIB CAGE - SKIN AND ENGORGED TICK MORPHOLOGICALLY COMPATIBLE WITH IXODES (GROSS DIAGNOSIS ONLY) JAW/JAW Signature> NIKHIL DUBON M.D. SPECIMEN: SKIN(DERM) GROSS DESCRIPTION: Received in formalin labeled left rib cage is an engorged tick and segment of skin. JAW/JAW Disclaimer: The following statement applies to all immunohistochemistry, in situ hybridization, molecular studies, and immunofluorescence testing. The use of one or more reagents in the above tests is regulated as an analyte specific reagent (ASR). These tests were developed and their performance characteristics determined by the clinical laboratories of [facility]. They have not been cleared by the US Food and Drug Administration (FDA). The FDA has determined that such clearance or approval is not necessary. All the above immunostains were performed on paraffin embedded tissue. Appropriate positive and negative controls (where applicable) were run in parallel with the patient's specimen; these controls showed expected staining pattern, with acceptable intensity of staining. Immunohistochemical assays have not been validated on decalcified tissues. Results should be interpreted with caution given the raised possibility of false negativity on decalcified specimens. Case reviewed at [facility] [address] [place] [address]. DEPARTMENT OF PATHOLOGY AND LABORATORY MEDICINE [place], [place] [address] [facility] Surgical Pathology [id number] DEPARTMENT OF PATHOLOGY AND [facility] LABORATORY MEDICINE [address] [place], [place] [id number] FINAL SURGICAL PATHOLOGY REPORT NAME: YIN WU : 1940 81 Y F BILLING NO.: [id number] LOCATION: 1SPO PROCEDURE 07/01/2021 DATE: SURGEON: BEVERLY WU MD RECEIVED 07/01/2021 DATE: ATTENDING: BEVERLY WU MD REPORT DATE: 07/01/2021 COPIES TO: DIAGNOSIS: SKIN, LEFT RIB CAGE - SKIN AND ENGORGED TICK MORPHOLOGICALLY COMPATIBLE WITH IXODES (GROSS DIAGNOSIS ONLY) JAW/JAW Signature> NIKHIL DUBON M.D. SPECIMEN: SKIN(DERM) GROSS DESCRIPTION: Received in formalin labeled left rib cage is an engorged tick and segment of skin. JAW/JAW Disclaimer: The following statement applies to all immunohistochemistry, in situ hybridization, molecular studies, and immunofluorescence testing. The use of one or more reagents in the above tests is regulated as an analyte specific reagent (ASR). These tests were developed and their performance characteristics determined by the clinical laboratories of [facility]. They have not been cleared by the [place] Food and Drug Administration (FDA). The FDA has determined that such clearance or approval is not necessary. All the above immunostains were performed on paraffin embedded tissue. Appropriate positive and negative controls (where applicable) were run in parallel with the patient's specimen; these controls showed expected staining pattern, with acceptable intensity of staining. Immunohistochemical assays have not been validated on decalcified tissues. Results should be interpreted with caution given the raised possibility of false negativity on decalcified specimens. [place] [address]. DEPARTMENT OF PATHOLOGY AND LABORATORY MEDICINE [place], [place] [address] [email or web address] Normal [facility] Vital Signs Date Time Vital Sign Value Performing Clinician Faci lity 07-26-2024 11:00-0400 Body temperature 97.8 [degF] Dr. Shavon Pitts MD Work Phone: [facility] 07-26-2024 11:00-0400 Diastolic blood pressure 73 mm[Hg] Dr. Shavon Pitts MD Work Phone: [facility] 07-26-2024 11:00-0400 Heart rate 73 /min Dr. Shavon Pitts MD Work Phone: [facility] 07-26-2024 11:00-0400 Respiratory rate 16 /min Dr. Shavon Pitts MD Work Phone: [facility] 07-26-2024 11:00-0400 SaO2% (BldA) [Mass fraction] 98 % Dr. Shavon Pitts MD Work Phone: [facility] 07-26-2024 11:00-0400 Systolic blood pressure 141 mm[Hg] Dr. Shavon Pitts MD Work Phone: [facility] 07-26-2024 08:53-0400 Body height 165.[address] Shavon Pitts MD Work Phone: [facility] 07-26-2024 08:53-0400 Body mass index (BMI) [Ratio] 25.2 kg/m2 Dr. Shavon Pitts MD Work Phone: [facility] 07-26-2024 08:53-0400 Body weight 68.[address] Shavon Pitts MD Work Phone: [facility] 07-23-2024 13:28-0400 Body temperature 97.6 [degF] Dr. Shavon Pitts MD Work Phone: [facility] 07-23-2024 13:28-0400 Diastolic blood pressure 64 mm[Hg] Dr. Shavon Pitts MD Work Phone: [facility] 07-23-2024 13:28-0400 Heart rate 92 /min Dr. Shavon Pitts MD Work Phone: [facility] 07-23-2024 13:28-0400 Respiratory rate 18 /min Dr. Shavon Pitts MD Work Phone: [facility] 07-23-2024 13:28-0400 SaO2% (BldA) [Mass fraction] 96 % Dr. Shavon Pitts MD Work Phone: [facility] 07-23-2024 13:28-0400 Systolic blood pressure 118 mm[Hg] Dr. Shavon Pitts MD Work Phone: [facility] 07-23-2024 10:47-0400 Body height 165.[address] Shavon Pitts MD Work Phone: [facility] 07-23-2024 10:47-0400 Body mass index (BMI) [Ratio] 25.2 kg/m2 Dr. Shavon Pitts MD Work Phone: [facility] 07-23-2024 10:47-0400 Body weight 68.[address] Shavon Pitts MD Work Phone: [facility] 06-12-2024 11:24-0400 Body temperature 97.8 [degF] Dr. Shavon Pitts MD Work Phone: [facility] 06-12-2024 11:24-0400 Diastolic blood pressure 64 mm[Hg] Dr. Shavon Pitts MD Work Phone: [facility] 06-12-2024 11:24-0400 Heart rate 79 /min Dr. Shavon Pitts MD Work Phone: [facility] 06-12-2024 11:24-0400 Respiratory rate 16 /min Dr. Shavon Pitts MD Work Phone: [facility] 06-12-2024 11:24-0400 SaO2% (BldA) [Mass fraction] 98 % Dr. Shavon Pitts MD Work Phone: [facility] 06-12-2024 11:24-0400 Systolic blood pressure 127 mm[Hg] Dr. Shavon Pitts MD Work Phone: [facility] 06-11-2024 14:51-0400 Body height 165.[address] Shavon Pitts MD Work Phone: [facility] 06-11-2024 14:51-0400 Body mass index (BMI) [Ratio] 25.4 kg/m2 Dr. Shavon Pitts MD Work Phone: [facility] 06-11-2024 14:51-0400 Body weight 69.[address] Shavon Pitts MD Work Phone: [facility] 06-11-2024 14:00-0400 Inhaled oxygen flow rate 3 L/min Dr. Shavon Pitts MD Work Phone: [facility] 09-10-2022 15:02-0400 Diastolic blood pressure 72 mm[Hg] [facility] 09-10-2022 15:02-0400 Heart rate 75 /min [facility] 09-10-2022 15:02-0400 Respiratory rate 16 /min [facility] 09-10-2022 15:02-0400 SaO2% (BldA) [Mass fraction] 99 % [facility] 09-10-2022 15:02-0400 Systolic blood pressure 142 mm[Hg] [facility] 09-10-2022 13:03-0400 Body height 165.1 cm [facility] 09-10-2022 13:03-0400 Body mass index (BMI) [Ratio] 25.1 kg/m2 [facility] 09-10-2022 13:03-0400 Body temperature 98 [degF] [facility] 09-10-2022 13:03-0400 Body weight 68.5 kg [facility] Encounters Encounter Date Encounter Type Care Provider Facility Start: 07-26-2024 Evaluation and management of inpatient Dr. Ernie oHward DO [facility] 3 Work Phone: Start: 07-23-2024 End: 07-23-2024 Emergency department patient visit Dr. Shavon Pitts MD Work Phone: -Emergency Department Work Phone: Start: 06-12-2024 Non-patient / Non-visit Dr. Naylor [facility] Inpatient Physicians Work Phone: Start: 06-11-2024 End: 06-12-2024 ambulatory Macario Kilgore Facility:[facility] Start: 06-11-2024 End: 06-12-2024 Evaluation and management of inpatient Dr. Silverio Ruiz MD -Medical Surgical 3 Work Phone: Start: 06-11-2024 End: 06-12-[address] Shavon Pitts MD Work Phone: [facility] Work Phone: Start: 05-24-2024 Encounter for other preprocedural examination Silverio Ruiz [facility] Start: 05-21-2024 End: 05-21-[address] Shavon Pitts MD Work Phone: [facility] Work Phone: Start: 05-21-2024 End: 05-21-2024 Patient encounter procedure Antolin BRANNON-C -Radiology, [place] Work Phone: Start: 05-21-2024 End: 05-21-2024 ambulatory Antolin BRANNON Facility:[facility] Start: 05-07-2024 End: 05-07-2024 Non-patient / Non-visit Dr. Teddy Ochoa MD -[facility] Work Phone: Start: 05-07-2024 End: 05-07-[address] Shavon Pitts MD Work Phone: [facility] Work Phone: Start: 05-07-2024 End: 05-07-[address] Silverio Ruiz MD -Cat Scan, [facility] Work Phone: Start: 05-07-2024 End: 05-07-2024 ambulatory Shavon Pitts Facility:[facility] Start: 05-02-2024 ambulatory Shavon Hong Facility: [facility] Start: 12-14-2023 End: 12-14-2023 ambulatory [facility] Facility:[facility] Start: 11-16-2023 ambulatory SILVERIO RUIZ Facility: [facility] Start: 11-16-2023 End: 11-16-2023 Office outpatient new 45 minutes Dorcas Tavares MD Work Phone: Sports Medicine [facility] Comment on above: Left shoulder pain, unspecified chronicity (Primary Dx); History of left shoulder replacement Start: 11-16-2023 End: 11-16-2023 Subsequent hospital visit by physician Dorcas Tavares MD Work Phone: Imaging [facility] Comment on above: Arrived Start: 10-21-2023 ambulatory Sal Andreea Facility:[facility] Start: 10-21-2023 End: 10-21-20[facility] Start: 10-13-2023 End: 10-13-2023 ambulatory [facility] Facility:[facility] Start: 10-07-2023 End: 10-07-2023 ambulatory [facility] Facility:[facility] Start: 08-11-2023 ambulatory Shannan Spann NP Facili ty:[facility] Start: 08-09-2023 ambulatory Shavon Miconner Facility: [facility] Start: 08-09-2023 ambulatory [facility] Facility: [facility] Start: 08-09-2023 End: 08-09-2023 ambulatory [facility] Facility:[facility] Start: 10-18-2022 Non-patient / Non-visit Dr. Slava Pitts Work Phone: [facility] Start: 10-13-2022 End: 10-13-[address] Shavon Pitts Work Phone: [facility] Work Phone: Start: 10-13-2022 End: 10-13-[address] Shavon Pitts Work Phone: [facility]-Cardiovascul[facility] Services Work Phone: Start: 09-14-2022 End: 09-14-2022 ambulatory [facility] Work Phone: Start: 09-14-2022 End: 09-14-2022 Patient encounter procedure [facility]-Radiology, [place] Work Phone: Start: 09-10-2022 End: 09-10-2022 Emergency department patient visit [facility]-Emergency Department Work Phone: Start: 11-27-2021 End: 11-27-2021 ambulatory [facility] Work Phone: Start: 11-27-2021 End: 11-27-2021 Patient encounter procedure [facility]-Laboratory, Guilherme Rand [facility] Start: 11-12-2021 End: 11-12-2021 ambulatory [facility] Work Phone: Start: 11-12-2021 End: 11-12-2021 Patient encounter procedure [facility]-Cat Scan, [facility] Start: 07-01-2021 End: 07-01-2021 Subsequent hospital visit by physician Beverly Wu MD Work Phone: [facility] Laboratory Procedures Date Procedure Procedure Detail Performing Clinician Start: 07-26-[address] Shavon Pitts MD Work Phone: Start: 07-23-[address] Shavon Pitts MD Work Phone: Start: 06-12-[address] Shavon Pitts MD Work Phone: Start: 06-11-2024 Plain X-ray of shoulder Dr. Shavon mckeon MD Work Phone: Start: 06-11-2024 Reverse prosthetic total arthroplasty of right shoulder Dr. Shavon Pitts MD Work Phone: Start: 05-21-2024 X-ray of chest, PA and lateral views Dr. Shavon Pitts MD Work Phone: Start: 05-07-2024 CT of upper limb without contrast Dr. Shavon Pitts MD Work Phone: Start: 11-16-2023 Radex shoulder complete minimum 2 views Dorcas Tavares MD Work Phone: Start: 10-13-2022 Radionuclide imaging of perfusion of myocardium under exercise stress Dr. Shavon Pitts Work Phone: Start: 09-14-2022 X-ray of cervical spine Start: 09-10-2022 Plain chest X-ray Start: 11-12-2021 CT of upper limb without contrast Start: 07-01-2021 Level iv surg pathology gross&microscopic exam Beverly Wu MD Work Phone: H/O: artificial joint History of left shoulder replacement Dorcas Tavares MD Work Phone: Plan of Treatment Date Care Activity Detail Author Start: 07-26-2024 Verification routine [facility] Start: 07-26-2024 Admission procedure [facility] Start: 07-26-2024 Hospital admission, emergency, from emergency room, medical nature [facility] Start: 07-23-2024 Bacteria identified in Blood by Culture Blood Culture [facility] Start: 07-23-2024 Blood culture Blood Culture [facility] Start: 07-23-2024 [facility] Start: 07-23-2024 [facility] Start: 07-16-2024 Tetanus vaccination TETANUS [facility] Start: 06-12-2024 Patient discharge [facility] Start: 06-11-2024 Application of intermittent pneumatic compression device [facility] Start: 06-11-2024 Following clinical pathway protocol [facility] Start: 06-11-2024 Anes arthroscopic total shoulder replacement ANESTH SHOULDER REPLACEMENT [facility] Start: 06-11-2024 Arthroplasty glenohumeral joint total shoulder RECONSTRUCT SHOULDER JOINT [facility] Start: 06-11-2024 Recommendation to continue with treatment [facility] Start: 06-11-2024 Admission procedure [facility] Start: 06-11-2024 Ambulation therapy management [facility] Start: 06-11-2024 Application of device [facility] Start: 06-11-2024 Assessment of risk of venous thromboembolism [facility] Start: 06-11-2024 Catheterization of vein [facility] Start: 06-11-2024 Consultation [facility] Start: 06-11-2024 Following clinical pathway protocol [facility] Start: 06-11-2024 Incentive spirometry [facility] Start: 06-11-2024 Introduction of urinary catheter [facility] Start: 06-11-2024 Measuring intake and output [facility] Start: 06-11-2024 Neurovascular assessment [facility] Start: 06-11-2024 Patient education [facility] Start: 06-11-2024 Procedure discontinued [facility] Start: 06-11-2024 Provision of activity privileges [facility] Start: 06-11-2024 Referral to occupational therapist [facility] Start: 06-11-2024 Vital signs measurements [facility] Start: 06-11-2024 Wound care [facility] Start: 06-11-2024 [facility] Start: 05-07-2024 CT of upper limb without contrast Extremity Upper without Contra [facility] Start: 05-07-2024 CT Upper extremity WO contrast [facility] Start: 10-16-2023 COVID-19 VACCINE ( season) COVID-19 VACCINE ( season) [facility] Start: 10-16-2023 Influenza vaccination INFLUENZA VACCINE (#1) [facility] Start: 10-15-2021 Influenza vaccination Flu vaccine (Season Ended) [facility] Start: 2002 RSV VACCINE (1 - 1-dose 60+ series) RSV VACCINE (1 - 1-dose 60+ series) [facility] Start: 1992 Zoster vaccine hzv live for subcutaneous use ZOSTER (SHINGLES) VACCINE (1 of 2) [facility] Start: 1987 Screening for malignant neoplasm of colon COLORECTAL CANCER SCREENING DISCUSSION [facility] Start: 1982 Screening for malignant neoplasm of breast MAMMOGRAM SCREENING DISCUSSION [facility] Start: 1963 Screening for malignant neoplasm of cervix CERVICAL CANCER SCREENING DISCUSSION [facility] Start: 1961 DTaP/Tdap/Td vaccine (1 - Tdap) DTaP/Tdap/Td vaccine (1 - Tdap) [facility] Start: 1947 COVID-19 Vaccine (1) COVID-19 Vaccine (1) [facility] Start: 1942 Screening for osteoporosis DEXA SCAN DISCUSSION [facility] Patient Education [facility] Work Phone: Patient referral [facility] Work Phone: Immunizations Immunization Date Immunization Notes Care Provider Fa [facility] 12-14-2022 influenza virus vaccine, unspecified formulation Dorcas Tavares MD Work Phone: [facility] 11-23-2016 Influenza virus vaccine [facility] 11-13-2012 Influenza virus vaccine [facility] 11-28-2011 Pneumococcal Vaccine [facility] Work Phone: 11-28-2011 pneumococcal vaccine , unspecified formulation [facility] Payers Date Payer Category Payer Medicare MEDICARE MEDICAR E A AND B [id number] 2023-Present [address] [place] [address] [id number] 2023 Self-pay [id number] 2015 Unknown GENERIC PAYOR ME DICARE SUPPLEMENT [id number] 2015-Present [phone] [address] [address] [place] [address] [id number] 2015 Private Health Insurance [id number] 2007 Medicare [id number] 1940 Unknown [id number]. 2.594 1940 Unknown [id number] [id number]. 2.594 Unknown [id number] [id number]. 2.462 Unknown [id number] [id number]. 2.462 Unknown [id number] 2.16.840.1.074271.3.579. 2.462 Unknown [id number] 2.16840.1.648716.3.579. 2.462 Unknown [id number] 2.16840.1.855232.3.579. 2.462 Unknown [id number] 2.16840.1.405804.3.579. 2.462 Unknown [id number] 2.16840.1.346388.3.579. 2.462 Unknown [id number] 2.840.1.115005.3.579. 2.462 Unknown [id number] 2.840.1.901186.3.579. 2.462 Unknown [id number] 2.840.1.589701.3.579. 2.462 Unknown [id number] 2.16840.1.124379.3.579. 2.462 Unknown [id number] 2.16840.1.853537.3.579. 2.462 Unknown [id number] 2.16840.1.833029.3.579. 2.462 Unknown [id number] 2.16840.1.063061.3.579. 2.462 Unknown [id number] 2.16840.1.436620.3.579. 2.462 Unknown [id number] 2.16840.1.014025.3.579. 2.462 Unknown [id number] [id number]. 2.462 Social History Date Type Detail Facility Start: 01-13-2019 End: 11-16-2023 Tobacco smoking status NHIS Tobacco smoking consumption unknown [facility] Start: 1940 Sex Assigned At Not on file [employer] Work Phone: Start: 07-08-2013 None [facility] Start: 07-08-2013 Spouse/ Signif icant Other [facility] Start: 07-08-2013 Non-smoker [facility] Start: 1940 Sex Assigned At Female [facility] Gender identity Not on file [facility] Start: 05-09-2024 End: 07-26-2024 Tobacco smoking status NHIS Never smoked tobacco (finding) [facility] Start: 05-12-2024 End: 06-12-2024 Sex Female (finding) [facility] Medical Equipment Procedure Code Equipment Code Equipment Origin al Text Equipment Identifier Dates EQUINOXE 0MM KIT FDA Start: 02-15-2017 EQUINOXE CAGE GLENOID FDA Sta rt: 02-15-2017 EQUINOXE GLENOID K-WIRE FDA Start: 02-15-2017 EQUINOXE HUMERAL HEAD FDA Sta rt: 02-15-2017 EQUINOXE HUMERAL STEM FDA Sta rt: 02-15-2017 FWIRE,2 CUT 7202 FDA Start: 02-15-2017 FWIRE,2 CUT 7202 FDA Start: 02-15-2017 FWIRE,2 CUT 7202 FDA Start: 02-15-2017 EQUINOXE 0MM KIT FDA Start: 02-15-2017 EQUINOXE CAGE GLENOID FDA Sta rt: 02-15-2017 EQUINOXE GLENOID K-WIRE FDA Start: 02-15-2017 EQUINOXE HUMERAL HEAD FDA Sta rt: 02-15-2017 EQUINOXE HUMERAL STEM FDA Sta rt: 02-15-2017 FWIRE,2 CUT 7202 FDA Start: 02-15-2017 FWIRE,2 CUT 7202 FDA Start: 02-15-2017 FWIRE,2 CUT 7202 FDA Start: 02-15-2017 EQUINOXE 0MM KIT FDA Start: 02-15-2017 EQUINOXE CAGE GLENOID FDA Sta rt: 02-15-2017 EQUINOXE GLENOID K-WIRE FDA Start: 02-15-2017 EQUINOXE HUMERAL HEAD FDA Sta rt: 02-15-2017 EQUINOXE HUMERAL STEM FDA Sta rt: 02-15-2017 FWIRE,2 CUT 7202 FDA Start: 02-15-2017 FWIRE,2 CUT 7202 FDA Start: 02-15-2017 FWIRE,2 CUT 7202 FDA Start: 02-15-2017 EQUINOXE 0MM KIT FDA Start: 02-15-2017 EQUINOXE CAGE GLENOID FDA Sta rt: 02-15-2017 EQUINOXE GLENOID K-WIRE FDA Start: 02-15-2017 EQUINOXE HUMERAL HEAD FDA Sta rt: 02-15-2017 EQUINOXE HUMERAL STEM FDA Sta rt: 02-15-2017 FWIRE,2 CUT 7202 FDA Start: 02-15-2017 FWIRE,2 CUT 7202 FDA Start: 02-15-2017 FWIRE,2 CUT 7202 FDA Start: 02-15-2017 EQUINOXE 0MM KIT FDA Start: 02-15-2017 EQUINOXE CAGE GLENOID FDA Sta rt: 02-15-2017 EQUINOXE GLENOID K-WIRE FDA Start: 02-15-2017 EQUINOXE HUMERAL HEAD FDA Sta rt: 02-15-2017 EQUINOXE HUMERAL STEM FDA Sta rt: 02-15-2017 FWIRE,2 CUT 7202 FDA Start: 02-15-2017 FWIRE,2 CUT 7202 FDA Start: 02-15-2017 FWIRE,2 CUT 7202 FDA Start: 02-15-2017 EQUINOXE 0MM KIT FDA Start: 02-15-2017 EQUINOXE CAGE GLENOID FDA Sta rt: 02-15-2017 EQUINOXE GLENOID K-WIRE FDA Start: 02-15-2017 EQUINOXE HUMERAL HEAD FDA Sta rt: 02-15-2017 EQUINOXE HUMERAL STEM FDA Sta rt: 02-15-2017 FWIRE,2 CUT 7202 FDA Start: 02-15-2017 FWIRE,2 CUT 7202 FDA Start: 02-15-2017 FWIRE,2 CUT 7202 FDA Start: 02-15-2017 EQUINOXE 0MM KIT FDA Start: 02-15-2017 EQUINOXE CAGE GLENOID FDA Sta rt: 02-15-2017 EQUINOXE GLENOID K-WIRE FDA Start: 02-15-2017 EQUINOXE HUMERAL HEAD FDA Sta rt: 02-15-2017 EQUINOXE HUMERAL STEM FDA Sta rt: 02-15-2017 FWIRE,2 CUT 7202 FDA Start: 02-15-2017 FWIRE,2 CUT 7202 FDA Start: 02-15-2017 FWIRE,2 CUT 7202 FDA Start: 02-15-2017 screw FDA Start: 06-11-2024 Polyethylene rev erse shoulder prosthesis cup [id number] FDA Start: 06-11-2024 Coated shoulder humeral stem prosthesis ()[id number] FDA Start: 06-11-2024 Reverse shoulder prosthesis head ()[id number] FDA Start: 06-11-2024 Reverse shoulder prosthesis base plate ()[id number] FDA Start: 06-11-2024 EQUINOXE 0MM KIT FDA Start: 02-15-2017 EQUINOXE CAGE GLENOID FDA Sta rt: 02-15-2017 EQUINOXE GLENOID K-WIRE FDA Start: 02-15-2017 EQUINOXE HUMERAL HEAD FDA Sta rt: 02-15-2017 EQUINOXE HUMERAL STEM FDA Sta rt: 02-15-2017 FWIRE,2 CUT 7202 FDA Start: 02-15-2017 FWIRE,2 CUT 7202 FDA Start: 02-15-2017 FWIRE,2 CUT 7202 FDA Start: 02-15-2017 screw FDA Start: 06-11-2024 EQUINOXE 0MM KIT FDA Start: 02-15-2017 EQUINOXE CAGE GLENOID FDA Sta rt: 02-15-2017 EQUINOXE GLENOID K-WIRE FDA Start: 02-15-2017 EQUINOXE HUMERAL HEAD FDA Sta rt: 02-15-2017 EQUINOXE HUMERAL STEM FDA Sta rt: 02-15-2017 FWIRE,2 CUT 7202 FDA Start: 02-15-2017 FWIRE,2 CUT 7202 FDA Start: 02-15-2017 FWIRE,2 CUT 7202 FDA Start: 02-15-2017 screw FDA Start: 06-11-2024 Goals Date Patient Goal Desired Activity /State Functional Status Date Assessment Result Facility 06-12-2024 Functional status Chair [facility] Work Phone: Mental Status Date Assessment Result Facility 07-23-2024 Cognitive function Level Of Cons ciousness Awake;Alert;Appropriate [facility] Work Phone: 06-12-2024 Cognitive function Voice/Name [facility] Work Phone: 09-10-2022 Cognitive function Voice/Name [facility] Work Phone: Clinical Notes 11-16-2023 to 06-12-2024 Note Date & Type Note Facility 06-12-2024 Consult note [facility] 06-12-2024 Discharge summary Note Date/Time June 12, 2024 11:41am [facility] Medical Records Department [address] [place] [address] Instructions for Home/Discharge Instructions 06/12/24 0831 MR#: [id number] Acct: [id number] Name: YIN WU Rep #:[id number] : 1940 84 From: Samantha BRANNON PCP: Dr. Shavon Pitts MD Status:ADM YONIS Discharge Instructions Diet Discharge Diet: No restrictions DC O2, CPAP, BIPAP needs Home O2 Discharge instructions: No Dressing / Incision Discharge Activity: May Shower (Patient may shower over waterproof dressing on postop day 1. Patient was encouraged to not let water directly hit dressing.) Dressing / Incision Call your doctor if your incision/area has: Continuous Slow Oozing, Sudden Increased Bleeding, Increased Pain/ Swelling, Increased Redness, Foul Smelling Discharge and Swelling at the incision site Call your doctor if you observe: Fever of 101 or Higher, Coldness, Increased Pain, Numbness or Tingling, Change in Color, Inability to urinate, Inability to have a bowel movement, Using more than 1 pad per hour, Shortness of breath, Dizziness, Fainting spells, Swelling in the ankles, Chest pain, Prolonged hiccupping, Increased palpitations (irregular heartbeat), Calf discomfort and Uncontrolled pain Remove Dressing in: 5 days (Patient was encouraged she can remove her dressing on postop day 5. Which will be 06/16/2024. Patient was encouraged when her dressing is removed there will be Steri-Strips underneath. Patient was encouraged to leave Steri-Strips alone and allow it to fall off on their own.) Cleanse incision/area with: Soap & Water Additional Dressing/Incision Instructions:: Patient was encouraged no soaking, submerging of incision until 6 weeks postoperatively. Patient was encouraged no lotions, salves, oils on incision until 6 weeks postoperatively. Patient was encouraged no motion of operative shoulder until 2 weeks postoperatively. Patient will then begin physical therapy following her 2-week follow-up appointment. Patient was encouraged she could remove sling for gentlerange of motion of elbow, hand. Patient was educated on the increased risk of sunburn with taking doxycycline. Patient voiced understanding. Patient was encouraged to take probiotic while taking doxycycline. OARRS report was checked today. Follow Up Care Test Results: Test results from this visit will be discussed in further detail at your follow-up appointment, if applicable. Discharge Plan Admission Admit Date/Time: 06/11/24 07:37 Attending Provider: Silverio Ruiz Primary Care Provider: Shavon Pitts Consulting Providers: Macario Kilgore; Kelvin Almonte Discharge Orders/Prescriptions Prescriptions: New acetaminophen 500 mg Tablet 1,000 mg PO TID Qty: 0 0RF aspirin 81 mg capsule 81 mg PO BID Qty: 0 0RF sennosides-docusate sodium [Stimulant Laxative Plus] 8.6-50 mg Tablet 2 tab PO BID Qty: 0 0RF Rx Instructions: Take until first bowel movement and then as needed. famotidine 20 mg Tablet 20 mg PO DAILY 14 Days Qty: 14 0RF doxycycline monohydrate 100 mg Capsule 100 mg PO BID 14 Days Qty: 28 0RF oxycodone 5 mg Tablet 5 - 10 mg PO Q4H PRN PRN (Reason: As needed for pain.) 7 Days Qty: 28 0RF Continued amlodipine 10 mg tablet 10 mg PO DAILY metoprolol succinate 50 mg tablet extended release 24 hr 50 mg PO DAILY calcium carbonate-vitamin D3 600 mg-10 mcg (400 unit) tablet 1 tab PO DAILY losartan 100 mg tablet 100 mg PO DAILY Qty: 90 3RF multivitamin with folic acid 400 mcg tablet 1 tab PO DAILY Patient Comments: vitamin fluticasone propionate 50 mcg/actuation spray,suspension 1 spray NASAL DAILY loratadine [Claritin] 10 mg tablet 10 mg PO DAILY Referrals / Follow Up: Shavon Pitts MD [Primary Care Provider] - Disposition Disposition (needs filled in before D/C Order can be placed): Home, Self Care 06/12/24 1141<Electronically signed by Samantha BRANNON>Samantha BRANNON CC: Dr. Kelvin Almonte DO; Dr. Shavon Pitts MD; Dr. Macario Kilgore MD ~ Signed [facility] Work Phone: 1(899) 642-591704-29-2025 Progress note [facility] Note Date/Time June 12, 2024 11: 02am [facility] Medical Records Department [address] [place] [address] Progress Note - Hospitalist 06/12/24 1039 MR#: [id number] Acct: [id number] Name: YIN WU Rep #:[id number] : 1940 84 From: Kelvin fonseca DO PCP: Dr. Shavon Pitts MD Status:ADM YONIS Location: [place] [address] Reason for Visit Reason for Visit: Diagnoses Presence of unspecified artificial shoulder joint (06/11/24) Subjective Subjective Patient is an orthopedic surgery primary patient. Had right reverse total shoulder replacement done with Dr. Ruiz on 06/11. Tolerated procedure well, nointraoperative complications noted. Medicine consulted postoperatively for medical management. I saw the patient at bedside this morning. Patient was sitting up comfortably in bedside chair, conversing normally, in no acute distress. Had mild shoulder pain this morning but stated it was very manageable. Was hoping to go home today, denied any other acute concerns currently. Objective Data Objective Data Vital Signs: Vital Signs Temp Pulse Resp BP Pulse Ox O2 Del Method O2 Flow Rate 97.5 F L 66 16 130/67 H 95 Room Air 3 06/12/24 05:24 06/12/24 05:24 06/12/24 05:24 06/12/24 05:24 06/12/24 05:24 06/12/24 05:24 06/11/24 14:00 Oxygen Flow Rate (L/min) 3 Oxygen Delivery Method Room Air Weight: 69.5 kg Body Mass Index (BMI) 25.4 Intake & Output: Intake and Output for Last 24 Hours 06/10/24 06/11/24 06/12/24 23:59 23:59 23:59 Intake Total 2592 / 2592 50 / 50 Balance 2592 / 2592 50 / 50 Lab / Micro Data 06/12/24 06:13 06/12/24 06:13 Labs: Laboratory Results - last 24 hr 06/12/24 06:13: WBC 15.0 H, RBC 4.00 L, Hgb 13.0, Hct 37.2, MCV 93.0, MCH 32.5 H, MCHC 34.9, RDW Std Deviation 48.6 H, RDW Coeff of Jennifer 14.2, Plt Count 339, MPV9.9, Sodium 135, Potassium 4.1, Chloride 100, Carbon Dioxide 20.9 L, Anion Gap 14, BUN 16, Creatinine 1.02, Estim Creat Clear Calc 41.62 L, Est GFR (MDRD) Non-Af 55 L, BUN/Creatinine Ratio 15.7, Glucose 133 H, Calcium 9.3 Radiography Diagnostic Testing: Radiology Impression Shoulder X-Ray 06/11/24 13:05 IMPRESSION: Hardware in position. Reading [facility] Physical Exam Const alert, oriented x3, no apparent distress and average body habitus Constitutional Narrative: Pleasant elderly female, sitting back comfortably in bedside chair, conversing normally, in no acute distress. General Appearance: cooperative and comfortable HEENT normocephalic, head/scalp atraumatic, hearing grossly normal bilaterally, nasal mucous membranes and turbinates normal and moist oral mucous membranes Eyes PERRL, EOMs intact bilaterally and conjunctivae normal Neck full ROM Chest inspection of chest normal Resp normal respiratory effort, normal air movement, no use of accessory muscles and clear to auscultation bilaterally Cardio regular rate, regular rhythm, no murmurs and peripheral pulses 2+ throughout GI normal to inspection, nondistended, normoactive bowel sounds, soft to palpation,non-tender and non-distended Back/Spine normal ROM Extremity Extremity Narrative: Right shoulder with dressing and sling in place. Skin no rashes or lesions noted Psych mental status grossly normal Assessment & Plan Assessment/Plan (1) Status post reverse total shoulder replacement: PLAN: Plan Patient is an 84-year-old female who presented to [facility] on 06/11/2024 for planned right total shoulder replacement. Medicine consulted postoperatively for medical management. 1. Right shoulder primary osteoarthritis ? Orthopedic surgery primary. S/p right reverse total shoulder replacement withDr. Ruiz on 06/11. Tolerated procedure well, no intraoperative complications. Postoperative care per orthopedics. 2. Mild leukocytosis ? WBC count 15 postoperatively. Presumed secondary to acute stress response from surgery. Afebrile and hemodynamically stable, very low concern for infection. Recommend repeat CBC in 5 to 7 days to ensure WBC count has normalized. 3. Hypertension ? Mildly hypertensive to the 130s systolic postoperatively. Continue home amlodipine, losartan and Toprol. 4. Seasonal allergies ? Stable. Continue home Claritin and Flonase. Total clinical time spent by myself addressing the patient's medical issues, reviewing all the data, and collaborating with patient's care team: 35 minutes. Charges/Coding Visit Charges Inpatient E&M: 56685 Subs Hosp L2 06/12/24 1102 <Electronically signed by Kelvin Almonte DO> Cosigner Signature (if applicable): CC: ~ Signed [facility] Work Phone: 1(780) 181-308004-29-2025 Discharge summary [facility] Medical Records Department [address] [address] Instructions for Home/Discharge Instructions 06/12/24 0831 MR#: [id number] Acct: [id number] Name: YIN WU Rep #:[id number] : 1940 84 From: Samantha BRANNON PCP: Dr. Shavon Pitts MD Status:ADM YONIS Discharge Instructions Diet Discharge Diet: No restrictions DC O2, CPAP, BIPAP needs Home O2 Discharge instructions: No Dressing / Incision Discharge Activity: May Shower (Patient may shower over waterproof dressing on postop day 1. Patient was encouraged to not let water directly hit dressing.) Dressing / Incision Call your doctor if your incision/area has: Continuous Slow Oozing, Sudden Increased Bleeding, Increased Pain/ Swelling, Increased Redness, Foul Smelling Discharge and Swelling at the incision site Call your doctor if you observe: Fever of 101 or Higher, Coldness, Increased Pain, Numbness or Tingling, Change in Color, Inability to urinate, Inability to have a bowel movement, Using more than 1 pad per hour, Shortness of breath, Dizziness, Fainting spells, Swelling in the ankles, Chest pain, Prolonged hiccupping, Increased palpitations (irregular heartbeat), Calf discomfort and Uncontrolled pain Remove Dressing in: 5 days (Patient was encouraged she can remove her dressing on postop day 5. Which will be 06/16/2024. Patient was encouraged when her dressing is removed there will be Steri-Strips underneath. Patient was encouraged to leave Steri-Strips alone and allow it to fall off on their own.) Cleanse incision/area with: Soap & Water Additional Dressing/Incision Instructions:: Patient was encouraged no soaking, submerging of incision until 6 weeks postoperatively. Patient was encouraged no lotions, salves, oils on incision until 6 weeks postoperatively. Patient was encouraged no motion of operative shoulder until 2 weeks postoperatively. Patient will then begin physical therapy following her 2-week follow-up appointment. Patient was encouraged she could remove sling for gentlerange of motion of elbow, hand. Patient was educated on the increased risk of sunburn with taking doxycycline. Patient voiced understanding. Patient was encouraged to take probiotic while taking doxycycline. OARRS report was checked today. Follow Up Care Test Results: Test results from this visit will be discussed in further detail at your follow- up appointment, if applicable. Discharge Plan Admission Admit Date/Time: 06/11/24 07:37 Attending Provider: Silverio Ruiz Primary Care Provider: Shavon Pitts Consulting Providers: Macario Kilgore Alexander Discharge Orders/Prescriptions Prescriptions: New acetaminophen 500 mg Tablet 1,000 mg PO TID Qty: 0 0RF aspirin 81 mg capsule 81 mg PO BID Qty: 0 0RF sennosides-docusate sodium [Stimulant Laxative Plus] 8.6-50 mg Tablet 2 tab PO BID Qty: 0 0RF Rx Instructions: Take until first bowel movement and then as needed. famotidine 20 mg Tablet 20 mg PO DAILY 14 Days Qty: 14 0RF doxycycline monohydrate 100 mg Capsule 100 mg PO BID 14 Days Qty: 28 0RF oxycodone 5 mg Tablet 5 - 10 mg PO Q4H PRN PRN (Reason: As needed for pain.) 7 Days Qty: 28 0RF Continued amlodipine 10 mg tablet 10 mg PO DAILY metoprolol succinate 50 mg tablet extended release 24 hr 50 mg PO DAILY calcium carbonate-vitamin D3 600 mg-10 mcg (400 unit) tablet 1 tab PO DAILY losartan 100 mg tablet 100 mg PO DAILY Qty: 90 3RF multivitamin with folic acid 400 mcg tablet 1 tab PO DAILY Patient Comments: vitamin fluticasone propionate 50 mcg/actuation spray,suspension 1 spray NASAL DAILY loratadine [Claritin] 10 mg tablet 10 mg PO DAILY Referrals / Follow Up: Shavon Pitts MD [Primary Care Provider] - Disposition Disposition (needs filled in before D/C Order can be placed): Home, Self Care 06/12/24 1141Bamadou BRANNON CC: Dr. Kelvin Almonte DO; Dr. Shavon Pitts MD; Dr. Macario Kilgore MD ~ Signed [facility]04-29-2025 Progress note [facility] Medical Records Department [address] [place] [address] Progress Note - Hospitalist 06/12/24 1039 MR#: [id number] Acct: [id number] Name: YIN WU Rep #:[id number] : 1940 84 From: Kelvin fonseca DO PCP: Dr. Shavon Pitts MD Status:ADM [facility] Location: [place] [address] Reason for Visit Reason for Visit: Diagnoses Presence of unspecified artificial shoulder joint (06/11/24) Subjective Subjective Patient is an orthopedic surgery primary patient. Had right reverse total shoulder replacement donewith Dr. Ruiz on 06/11. Tolerated procedure well, nointraoperative complications noted. Medicine consulted postoperatively for medical management. I saw the patient at bedside this morning. Patient was sitting up comfortably in bedside chair, conversing normally, in no acute distress. Had mild shoulder pain this morning but stated it was very manageable. Was hoping to go home today, denied any other acute concerns currently. Objective Data Objective Data Vital Signs: Vital Signs Temp Pulse Resp BP Pulse Ox O2 Del Method O2 Flow Rate 97.5 F L 66 16 130/67 H 95 Room Air 3 06/12/24 05:24 06/12/24 05:24 06/12/24 05:24 06/12/24 05:24 06/12/24 05:24 06/12/24 05:24 06/11/24 14:00 Oxygen Flow Rate (L/min) 3 Oxygen Delivery Method Room Air Weight: 69.5 kg Body Mass Index (BMI) 25.4 Intake & Output: Intake and Output for Last 24 Hours 06/10/24 06/11/24 06/12/24 23:59 23:59 23:59 Intake Total 2592 / 2592 50 / 50 Balance 2592 / 2592 50 / 50 Lab / Micro Data 06/12/24 06:13 06/12/24 06:13 Labs: Laboratory Results - last 24 hr 06/12/24 06:13: WBC 15.0 H, RBC 4.00 L, Hgb 13.0, Hct 37.2, MCV 93.0, MCH 32.5 H, MCHC 34.9, RDW Std Deviation 48.6 H, RDW Coeff of Jennifer 14.2, Plt Count 339, MPV9.9, Sodium 135, Potassium 4.1, Chloride 100, Carbon Dioxide 20.9 L, Anion Gap 14, BUN 16, Creatinine 1.02, Estim Creat Clear Calc 41.62 L,Est GFR (MDRD) Non-Af 55 L, BUN/Creatinine Ratio 15.7, Glucose 133 H, Calcium 9.3 Radiography Diagnostic Testing: Radiology Impression Shoulder X-Ray 06/11/24 13:05 IMPRESSION: Hardware in position. Reading Location: [place] Physical Exam Const alert, oriented x3, no apparent distress and average body habitus Constitutional Narrative: Pleasant elderly female, sitting back comfortably in bedside chair, conversing normally, in no acute distress. General Appearance: cooperative and comfortable HEENT normocephalic, head/scalp atraumatic, hearing grossly normal bilaterally, nasal mucous membranes and turbinates normal and moist oral mucous membranes Eyes PERRL, EOMs intact bilaterally and conjunctivae normal Neck full ROM Chest inspection of chest normal Resp normal respiratory effort, normal air movement, no use of accessory muscles and clear to auscultation bilaterally Cardio regular rate, regular rhythm, no murmurs and peripheral pulses 2+ throughout GI normal to inspection, nondistended, normoactive bowel sounds, soft to palpation,non-tender and non-distended Back/Spine normal ROM Extremity Extremity Narrative: Right shoulder with dressing and sling in place. Skin no rashes or lesions noted Psych mental status grossly normal Assessment & Plan Assessment/Plan (1) Status post reverse total shoulder replacement: PLAN: Plan Patient is an 84-year-old female who presented to [facility] on 06/11/2024 for planned right total shoulder replacement. Medicine consulted postoperatively for medical management. 1. Right shoulder primary osteoarthritis ? Orthopedic surgery primary. S/p right reverse total shoulder replacement withPako Ruiz on 06/11. Tolerated procedure well, no intraoperative complications. Postoperative care per orthopedics. 2. Mild leukocytosis ? WBC count 15 postoperatively. Presumed secondary to acute stress response from surgery. Afebrile and hemodynamically stable, very low concern for infection. Recommend repeat CBC in 5 to 7 days to ensure WBC count has normalized. 3. Hypertension ? Mildly hypertensive to the 130s systolic postoperatively. Continue home amlodipine, losartan and Toprol. 4. Seasonal allergies ? Stable. Continue home Claritin and Flonase. Total clinical time spent by myself addressing the patient's medical issues, reviewing all the data, and collaborating with patient's care team: 35 minutes. Charges/Coding Visit Charges Inpatient E&M: 59068 Subs Hosp L2 06/12/24 1102 Cosigner Signature (if applicable): CC: ~ Signed [facility]04-29-2025 Progress note Author Samantha Hong [facility] Note Date/Time June 12, 2024 8:3 0am [facility] Medical Records Department [address] [place] [address] Progress Note - Orthopedic 06/12/24 0818 MR#: [id number] Acct: [id number] Name: YIN WU Rep #:[id number] : 1940 84 From: Samantha BRANNON PCP: Dr. Shavon Pitts MD Status:ADM YONIS Location: [place] [address] Subjective Subjective Patient appears comfortable in bed. Patient states that she has not yet worked with physical therapy or occupational therapy. Patient states that she does feel safe going home and has her at home. Patient states that her pain is adequately controlled. Patient denies any numbness or tingling. Patient denies any fevers, chills, signs of infection. Patient denies any shortness of breath, chest pain, calf pain. Patient denies any nausea, vomiting, dizziness. Patient denies any adverse events overnight. Objective Data Objective Data Vital Signs: Vital Signs Temp Pulse Resp BP Pulse Ox O2 Del Method O2 Flow Rate 97.5 F L 66 16 130/67 H 95 Room Air 3 06/12/24 05:24 06/12/24 05:24 06/12/24 05:24 06/12/24 05:24 06/12/24 05:24 06/12/24 05:24 06/11/24 14:00 Oxygen Flow Rate (L/min) 3 Oxygen Delivery Method Room Air Weight: 69.5 kg Body Mass Index (BMI) 25.4 Intake & Output: Intake and Output for Last 24 Hours 06/10/24 06/11/24 06/12/24 23:59 23:59 23:59 Intake Total 2592 / 2592 50 / 50 Balance 2592 / 2592 50 / 50 Lab / Micro Data 06/12/24 06:13 06/12/24 06:13 Labs: Laboratory Results - last 24 hr 06/11/24 09:21: POC Glucose 117 H 06/12/24 06:13: WBC 15.0 H, RBC 4.00 L, Hgb 13.0, Hct 37.2, MCV 93.0, MCH 32.5 H, MCHC 34.9, RDW Std Deviation 48.6 H, RDW Coeff of Jennifer 14.2, Plt Count 339, MPV9.9, Sodium 135, Potassium 4.1, Chloride 100, Carbon Dioxide 20.9 L, Anion Gap 14, BUN 16, Creatinine 1.02, Estim Creat Clear Calc 41.62 L, Est GFR (MDRD) Non-Af 55 L, BUN/Creatinine Ratio 15.7, Glucose 133 H, Calcium 9.3 Radiography Diagnostic Testing: Radiology Impression Shoulder X-Ray 06/11/24 13:05 IMPRESSION: Hardware in position. Reading [facility] Exam Narrative Vital signs are stable and afebrile. Dressing is clean dry and intact. Ultrasound has been appropriately fitted. Sensation intact axillary, radial, median, ulnar nerve distribution. Motor intact with patient able to make okay sign, cross fingers, thumbs up. RANJIT hose in place bilaterally. SCDs in place bilaterally. Const alert, oriented x3 and no apparent distress Assessment & Plan Assessment/Plan (1) Status post reverse total shoulder replacement: PLAN: Status post right reverse total shoulder arthroplasty day 1. 1. Physical therapy. Patient will continue with UltraSling at all times. Patient is okay to take the sling off for range of motion of elbow and pendulum exercises 2-3 times daily. No range of motion of the operative shoulder. Will begin outpatient physical therapy after the 2-week follow-up at [facility] [place]. 2. DVT prophylaxis: Patient will be taking aspirin 81 mg twice daily for 2 weeks postoperatively. Patient was also educated to wear RANJIT hose for 2 weeks postoperatively. 3. Pain control: Patient was instructed to take Tylenol 1000 mg every 8 hours [id number] taking no more than 3000 mg in 24 hours. We will be avoiding anti-inflammatory medications in this patient due to chronic kidney disease. Patient was then instructed to take her oxycodone 1-2 every 4-6 hours as needed for breakthrough pain. OARRS report was reviewed today. The risk of abuse potential for narcotic pain medication was discussed and reviewed. Patient voiced understanding. 4. Constipation: Patient was instructed to take senna as instructed until her first bowel movement to decrease risk of infection following surgery. Patient was instructed if she has not had a bowel movement in 3 days contact our office. Patient states that she already has senna at home. 5. Labs: H&H: 13.0/37.2. Patient is afebrile and vital signs are stable. Hemoglobin is currently above the threshold of 10 and patient does not have to begin anemia protocol. 6. Reactive leukocytosis: White blood cell count is currently 15.0. Patient did receive intraoperative Decadron. Currently has stable vital signs and is afebrile. 7. Incentive spirometry: Patient was encouraged to use incentive spirometer every hour if she is awake for the first week to exercise the lungs and decreaserisk of postoperative lung infection. 8. Doxycycline: Patient will be on doxycycline for 2 weeks postoperatively due to positive MRSA screening prior to surgery. Patient was educated to be extra cautious in the sun as it can cause increased risk sunburn. Patient was encouraged to try taking a probiotic while taking doxycycline. 9. Patient is to follow-up per postoperative instructions. 10. Patient will be seen by medicine to evaluate chronic disease. Appreciate recommendations from medicine for safe and proper discharge. 11. Patient does have outpatient physical therapy and follow-up appointment scheduled. 12. Patient is okay for discharge if pain is adequately controlled, has worked with and is cleared by physical therapy and Occupational Therapy and is okay permedicine doctors instructions. 13. Disposition: At this time patient states that she does feel comfortable going home and that her is at home to help her. Patient also has kids that she may have help from. Patient does have follow-up scheduled for 2 weeks postoperatively and physical therapy to begin after. Patient's medications weresent to pharmacy of choice. Patient stated that she did have senna, Tylenol, aspirin at home. Patient was educated on UltraSling and physical therapy. At this time patient was encouraged to call with any questions, concerns, new problems. 06/12/24829 <Electronically signed by Samantha BRANNON> Cosigner Signature (if applicable): CC: ~ Signed [facility] Work Phone: [phone] Progress note [facility] Medical Records Department [address] [place] [address] Progress Note - Orthopedic 06/12/24817 MR#: [id number] Acct: [id number] Name: YIN WU Rep #:[id number] : 1940 84 From: Samantha BRANNON PCP: Dr. Shavon Pitts MD Status:ADM YONIS Location: [address] Subjective Subjective Patient appears comfortable in bed. Patient states that she has not yet worked with physical therapy or occupational therapy. Patient states that she does feel safe going home and has her at home. Patient states that her pain is adequately controlled. Patient denies any numbness or tingling. Patient denies any fevers, chills, signs of infection. Patient denies any shortness of breath, chest pain, calf pain. Patient denies any nausea, vomiting, dizziness. Patient denies any adverse events overnight. Objective Data Objective Data Vital Signs: Vital Signs Temp Pulse Resp BP Pulse Ox O2 Del Method O2 Flow Rate 97.5 F L 66 16 130/67 H 95 Room Air 3 06/12/24 05:24 06/12/24 05:24 06/12/24 05:24 06/12/24 05:24 06/12/24 05:24 06/12/24 05:24 06/11/24 14:00 Oxygen Flow Rate (L/min) 3 Oxygen Delivery Method Room Air Weight: 69.5 kg Body Mass Index (BMI) 25.4 Intake & Output: Intake and Output for Last 24 Hours 06/10/24 06/11/24 06/12/24 23:59 23:59 23:59 Intake Total 2592 / 2592 50 / 50 Balance 2592 / 259 50 / 50 Lab / Micro Data 06/12/24 06:13 06/12/24 06:13 Labs: Laboratory Results - last 24 hr 06/11/24 09:21: POC Glucose 117 H 06/12/24 06:13: WBC 15.0 H, RBC 4.00 L, Hgb 13.0, Hct 37.2, MCV 93.0, MCH 32.5 H, MCHC 34.9, RDW Std Deviation 48.6 H, RDW Coeff of Jennifer 14.2, Plt Count 339, MPV9.9, Sodium 135, Potassium 4.1, Chloride 100, Carbon Dioxide 20.9 L, Anion Gap 14, BUN 16, Creatinine 1.02, Estim Creat Clear Calc 41.62 L,Est GFR (MDRD) Non-Af 55 L, BUN/Creatinine Ratio 15.7, Glucose 133 H, Calcium 9.3 Radiography Diagnostic Testing: Radiology Impression Shoulder X-Ray 06/11/24 13:05 IMPRESSION: Hardware in position. Reading [facility] Physical Exam Narrative Vital signs are stable and afebrile. Dressing is clean dry and intact. Ultrasound has been appropriately fitted. Sensation intact axillary, radial, median, ulnar nerve distribution. Motor intact with patient able to make okay sign, cross fingers, thumbs up. RANJIT hose in place bilaterally. SCDs in place bilaterally. Const alert, oriented x3 and no apparent distress Assessment & Plan Assessment/Plan (1) Status post reverse total shoulder replacement: PLAN: Status post right reverse total shoulder arthroplasty day 1. 1. Physical therapy. Patient will continue with UltraSling at all times. Patient is okay to take the sling off for range of motion of elbow and pendulum exercises 2-3 times daily. No range of motion of the operative shoulder. Will begin outpatient physical therapy after the 2-week follow-up at [facility] [place]. 2. DVT prophylaxis: Patient will be taking aspirin 81 mg twice daily for 2 weeks postoperatively. Patient was also educated to wear RANJIT hose for 2 weeks postoperatively. 3. Pain control: Patient was instructed to take Tylenol 1000 mg every 8 hours [id number] taking no more than 3000 mg in 24 hours. We will be avoiding anti-inflammatory medications in this patient due to chronic kidney disease. Patient was then instructed to take her oxycodone 1-2 every 4-6 hours as needed for breakthrough pain. OARRS report was reviewed today. The risk of abuse potential for narcotic pain medication was discussed and reviewed. Patient voiced understanding. 4. Constipation: Patient was instructed to take senna as instructed until her first bowel movement to decrease risk of infection following surgery. Patient was instructed if she has not had a bowel movement in 3 days contact our office. Patient states that she already has senna at home. 5. Labs: H&H: 13.0/37.2. Patient is afebrile and vital signs are stable. Hemoglobin is currently above the threshold of 10 and patient does not have to begin anemia protocol. 6. Reactive leukocytosis: White blood cell count is currently 15.0. Patient did receive intraoperative Decadron. Currently has stable vital signs and is afebrile. 7. Incentive spirometry: Patient was encouraged to use incentive spirometer every hour if she is awake for the first week to exercise the lungs and decreaserisk of postoperative lung infection. 8. Doxycycline: Patient will be on doxycycline for 2 weeks postoperatively due to positive MRSA screening prior to surgery. Patient was educated to be extra cautious in the sun as it can cause increased risk sunburn. Patient was encouraged to try taking a probiotic while taking doxycycline. 9. Patient is to follow-up per postoperative instructions. 10. Patient will be seen by medicine to evaluate chronic disease. Appreciate recommendations from medicine for safe and proper discharge. 11. Patient does have outpatient physical therapy and follow-up appointment scheduled. 12. Patient is okay for discharge if pain is adequately controlled, has worked with and is cleared by physical therapy and Occupational Therapy and is okay permedicine doctors instructions. 13. Disposition: At this time patient states that she does feel comfortable going home and that herhusband is at home to help her. Patient also has kids that she may have help from. Patient does have follow-up scheduled for 2 weeks postoperatively and physical therapy to begin after. Patient's medications weresent to pharmacy of choice. Patient stated that she did have senna, Tylenol, aspirin athome. Patient was educated on UltraSling and physical therapy. At this time patient was encouraged to call with any questions, concerns, new problems. 06/12/24 0830 Cosigner Signature (if applicable): CC: ~ Signed [facility]04-28-2025 Consult note Author Glen Puga [facility] Note Date/Time June 11, 2024 2:0 2pm [facility] Medical Records Department [address] [place] [address] Anesthesia Postop Eval II 06/11/24 1401 MR#: [id number] Acct: [id number] Name: YIN WU Rep #:[id number] : 1940 84 From: Glen Puga MD PCP: Dr. Shavon Pitts MD Status:REG SD Y Race: C Location: [place] [address]- Anesthesia Postop Eval I Sum Postop Eval Completion status Anesthesia document: Postop Eval 1 completed: Yes Anesthesia Postop Eval I Summary Anesthesia Postop Eval I Summary: Anesthesia Postop Eval I: Assessment Summary Airway patent Yes 06/11/24 13:01 WAIVER [email or web address].SOBR Spontaneous unlabored Yes 06/11/24 13:01 WAIVER [email or web address].SOBR respirations Mental status Awake,Calm 06/11/24 13:01 WAIVER ANALYST.SOBR nausea No 06/11/24 13:01 WAIVER ANALYST.SOBR Vomiting No 06/11/24 13:01 WAIVER ANALYST.SOBR Anesthesia Postop Eval I: Fluid Summary Crystalloid volume administer 1,000 06/11/24 13:01 WAIVER ANALYST.SOBR (ml) Colloids volume administered ( ml) Blood Product volume administered (ml) Total IV fluid infused 1,000 06/11/24 13:01 WAIVER ANALYST.SOBR Anesthesia Postop Eval I: Summary Notes Anesthesia Complication No 06/11/24 13:01 WAIVER ANALYST.SOBR Anesthesia Complication Comment: Post-operative progress note Anesthesia: Postop Eval II Evaluation Mental status: Awake Pain Level: 1 nausea: No Vomiting: No 06/11/24 1402 <Electronically signed by Glen Puga MD > Date _ Glen Puga MD Cosigner Signature: Date CC: ~ Signed [facility] Work Phone: 1(455) 618-539804-28-2025 Consult note Author Monico Cardona [facility] Note Date/Time June 11, 2024 1:0 1pm [facility] Medical Records Department [address] [place] [id number] Anesthesia Postop Eval I 06/11/24 1300 MR#: [id number] Acct: [id number] Name: YIN WU Rep #:[id number] : 1940 84 From: Monico BELL NA PCP: Dr. Shavon Pitts MD Status:REG [facility] Y Race: C Location: [place] [address] Anesthesia: Postop Eval I Current Vital Signs Temperature: 97.5 F Pulse Rate: 63 Blood Pressure: 121/51 Respiratory Rate: 16 Pulse Ox: 93 Oxygen Delivery Method: Nasal Cannula Oxygen Flow Rate (L/min): 3 Assessment Airway patent: Yes Spontaneous unlabored respirations: Yes Mental status: Awake and Calm nausea: No Vomiting: No Anesthesia Complication: No Fluid Hydration Crystalloid volume administer (ml): 1,000 Total IV fluid infused: 1,000 Progress Note Anesthesia document: Postop Eval 1 completed: Yes 06/11/24 1301 <Electronically signed by Monico Cardona WAIVER ANALYST> Date _ Monico Cardona WAIVER ANALYST Cosigner Signature: Date CC: ~ Signed [facility] Work Phone: 1(412) 750-443504-28-2025 Consult note [facility] Medical Records Department [address] [place] [address] Anesthesia Postop Eval II 06/11/24 1401 MR#: [id number] Acct: [id number] Name: YIN WU Rep #:[id number] : 1940 84 From: Glen Puga MD PCP: Dr. Shavon Pitts MD Status:REG [facility] Y Race: C Location: [place] [address] Anesthesia Postop Eval I Sum Postop Eval Completion status Anesthesia document: Postop Eval 1 completed: Yes Anesthesia Postop Eval I Summary Anesthesia Postop Eval I Summary: Anesthesia Postop Eval I: Assessment Summary Airway patent Yes 06/11/24 13:01 WAIVER ANALYST.SOBR Spontaneous unlabored Yes 06/11/24 13:01 WAIVER ANALYST.SOBR respirations Mental status Awake,Calm 06/11/24 13:01 WAIVER ANALYST.SOBR nausea No 06/11/24 13:01 WAIVER ANALYST.SOBR Vomiting No 06/11/24 13:01 WAIVER ANALYST.SOBR Anesthesia Postop Eval I: Fluid Summary Crystalloid volume administer 1,000 06/11/24 13:01 WAIVER ANALYST.SOBR (ml) Colloids volume administered ( ml) Blood Product volume administered (ml) Total IV fluid infused 1,000 06/11/24 13:01 WAIVER ANALYST.SOBR Anesthesia Postop Eval I: Summary Notes Anesthesia Complication No 06/11/24 13:01 WAIVER ANALYST.SOBR Anesthesia Complication Comment: Post-operative progress note Anesthesia: Postop Eval II Evaluation Mental status: Awake Pain Level: 1 nausea: No Vomiting: No 06/11/24 1402 > Date _ Glen Valenzuelaigner Signature: Date CC: ~ Signed [facility]04-28-2025 Radiology Diagnostic study note [facility] Imaging Services [address] [place] [address] Shoulder min 2 Views MR#: [id number] Acct: [id number] Name: YIN WU Rep #: [id number] : 1940 F 84 From: Amari Arevalo MD PCP: Dr. Shavon Pitts MD Status: [facility] Study:Shoulder min 2 Views Date of Exam: 06/11/24 Exam# [id number] Ordering Dr: Glenroy Ruiz MD PROCEDURE: SHOULDER MIN 2 VIEWS 06/11/2024 REASON FOR EXAM: TSA TECHNIQUE: Two views of the right shoulder COMPARISON: None FINDINGS: There is a reverse shoulder prosthesis in position. The AC joint is aligned. There is no fracture or dislocation. RAD/Shoulder min 2 Views IMPRESSION: Hardware in position. Reading Location: [facility] CC: Dr. Shavon Pitts MD; Dr. Silverio Ruiz MD ~ Documentation Writer: Signed [facility]04-28-2025 Procedure note [facility] Medical Records Department [address] [place] [address] Operative Report 06/11/24 1146 MR#: [id number] Acct: [id number] Name: YIN WU Rep #:[id number] : 1940 84 From: Silverio Nunez PCP: Dr. 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 Post-Operative Diagnosis: Right reverse total shoulder replacement Surgery/Procedure Performed: Right reverse total shoulder replacement district administrative assistant: Yes Breaking Machine Operator: Samantha Hong Tasks completed by underwriting assistant: Other (See body of operative report) Additionalassistant?: No Type of Anesthesia: General RN Documented Start/Stop Times: Operation Date: 06/11/24 10:30 Case Time Into Pre-Op 06/11/24 08:30 Anesthesia Start 06/11/24 10:30 Into Room 06/11/24 10:30 Out of Pre-Op 06/11/24 10:30 Procedure Start 06/11/24 10:57 Procedure End 06/11/24 12:45 Anesthesia End 06/11/24 12:52 Out of Room 06/11/24 12:52 Into Recovery 06/11/24 12:55 Procedure Start Time: 10:57 Procedure Stop Time: 12:45 Select all DRAINS/GRAFTS/IMPLANTS that apply: Prosthetic device Prosthetic device details: See bodyof operative report Special Medications: Ancef, vancomycin, TXA Estimated Blood Loss: 100 mL Fluids Replaced: 1000 L crystalloid Specimen collected: Yes Description of specimen(s) removed: Bony cuts Description of surgery: Components used 1. Tournier perform glenoid full wedge, 25 mm baseplate 2. Tournier perform 36 mm, 0 mm Glenosphere 3. Tournier perform 36 mm, 0 mm humeral liner retentive 4. 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 Patient failed conservative measures as mentioned in the H&P. After discussion of risk and benefits of reverse total shoulder replacement including but not limited to blood loss, DVTs, PEs, nerve vessel damage, infection, general risk of anesthesia including loss of life, instability and stiffness patient demonstrating understanding wish to proceed was able to sign informed consent. Medical clearance was obtained. Procedure: On the date of the procedure, patient's R upper extremity was marked in the preoperative area. Patient was taken back to the operating room where they wereplaced on the table in the supine position. Anesthesia assumed control of the C-spine and airway, then administered anesthetic. All bony prominences were identified well-padded, the head was secured and the patient was placed in the beachchair position at about 35? inclination. Anesthesia remained in control ofthe C-spine airway throughout the remainder of the procedure. Patient was then appropriately fastened to the table and the R upper extremity was prepped in a sterile fashion. The surgeons then scrubbed. Upon reentering the room, the R upper extremity was draped in a sterile fashion and the incision was marked out. Timeout was called, everyone agreed upon the side, the site, the procedure to be performed, patient identity and antibiotics given. Incision was taken down through skin and subcutaneous tissue, fat down to fascia. The stripe of the deltopectoral interval and cephalic vein were identified and blunt dissection was used to retract the deltoid. The cephalic vein was retracted laterally. Clavipectoral fascia was then incised and a cobraretractor was placed in the wound. The proximal onethird of the pectoralis major insertion was released. Pectoralis tendon insertion was used to tenode sedthe biceps tendon which was identified in the bicipital groove. Tenodesis was done with #1 Vicryl. Proximally we followed the biceps tendon after transectingit into the rotator interval. The rotator interval was split and the arm was externally rotated. The split was 1 cm medial to the bicipitalgroove. Subscapularis tendon was released. We released down the anterior portion of thehumeral headand a rodriguez elevator was used to release the inferior portion of the humeral head. The arm was externally rotated and the shoulder was dislocated. The humeral head was then cut at its natural retroversion. Once his humeral head cut was made humerus was retracted out of the way and the glenoid was exposed. After exposing the glenoid, the labrum and the remaining proximal biceps were debrided. At this time we are able to view the entire outer edge ofthe glenoid. A central pin was placed we sequentially reamed over this central pin to 25mm. Once this was completed the central screw was measured and found to be. The glenoid baseplate was screwed into place. Wound was closely irrigated out with normal saline we then drilled sequentially for 2 screws. Screws were placed superiorly and inferiorly and tightened down the screws. Once the screws were appropriately tightened into place the glenoid baseplate was compressed against the exposed subchondral bone. A 36mm glenosphere was impacted into place engaging the Muniz taper. Attention was then turned towards the humerus. The humerus was again externallyrotated exposing theproximal portion of the humerus. Central canal finder was then used to open up the canal. We reamedto a 2 reamer. We then broached to asize 2+ stem. We trialed the 0 mm liner. We obtained an adequate reduction at this time with a nice stable shoulder. Good internal rotation to the gluteus, forwardelevation to 140?, external rotation to 20?. Final components were thenassembled on the back table,trials were removed and the wound was copiously irrigated with normal saline after dislocating the shoulder. Once the final components were assembled they were impacted into place. Shoulder was then reduced and found to be stable with good range of motion. Subscapularis tendon was repaired using #2FiberWire. The wound was with chlorhexidine solution thencopiously irrigated out with a 1 L normal saline lavage. The deltopectoral fascia was then closed using #1 Vicryl skin was closed using 2-0 Vicryl interrupted sutures and final skin closure was done with 3-0 stratafix. Steri- Strips are placedfor final skin closure. Sterile dressing was placed patient was then placed in a sling and awakenedby anesthesia. Patient was then transferred to the PACU for recovery. Postoperative plan: Patient will be admitted to the hospital overnight. They will get physical therapy starting in 2 weeks with normal postoperative regimen. Patient will be placed on aspirin 81 mg p.o. twice daily for DVT prophylaxis. The first postoperative appointment will be in 2 weeks for wound check and initiation of phase 1 physical therapy. During the course of the procedure the physician resident care assistant played a vital role. His intimate knowledge of my steps in the procedure aided in safe and expedient completion of the procedure. The PA played a vital rolls in positioning particularly in obtaining the appropriate beach chair position and securing the patient's body and head to the table. The PA was also vital in the retraction of soft tissues during the exposure and especially the glenoid work as this is abiola part of the procedure to prevent neurovascular damage. the PA was also vital and protecting soft tissues during times of bony cuts and reaming. He also played a vital role in closure with my direct supervision. The PA was also important during reduction and dislocation of the joint and trials intraoperatively. Surgical Findings: severe OA Complications Complications: No Admit VTE Documentation VTE Present on Admission: No VTE Mechan Device Prophylaxis: SCD's and Thigh High RANJIT Hose VTE Pharm Prophylaxis ordered?: Yes 06/11/24 1328 Cosigner Signature (if applicable): CC: Dr. Shavon Pitts MD; Dr. Silverio Ruiz MD~ Signed [facility]04-28-2025 Consult note [facility] Medical Records Department [address] [place] [address] Anesthesia Postop Eval I 06/11/24 1300 MR#: [id number] Acct: [id number] Name: YIN WU Rep #:[id number] : 1940 84 From: Monico BELL NA PCP: Dr. Shavon Pitts MD Status:REG [facility] Y Race: C Location: [place] [address] Anesthesia: Postop Eval I Current Vital Signs Temperature: 97.5 F Pulse Rate: 63 Blood Pressure: 121/51 Respiratory Rate: 16 Pulse Ox: 93 Oxygen Delivery Method: Nasal Cannula Oxygen Flow Rate (L/min): 3 Assessment Airway patent: Yes Spontaneous unlabored respirations: Yes Mental status: Awake and Calm nausea: No Vomiting: No Anesthesia Complication: No Fluid Hydration Crystalloid volume administer (ml): 1,000 Total IV fluid infused: 1,000 Progress Note Anesthesia document: Postop Eval 1 completed: Yes 06/11/24 1301 WAIVER ANALYST> Date _ Monico Cardona WAIVER ANALYST Cosigner Signature: Date CC: ~ Signed [facility]04-28-2025 History and physical note Author Antolin Paul [facility] Note Date/Time June 11, 2024 9:1 1am [facility] Medical Records Department [address] [place] [address] History & Physical Exam 06/07/24 0647 MR#: [id number] Acct: [id number] Name: YIN WU Rep #:[id number] : 1940 84 From: Antolin BRANNON PA-C PCP: Dr. Shavon Pitts MD Status:[facility] Location: [address] History and Physical History and Physical Patient Name: Yin Wu : 1940From:? ANTOLIN PAUL PA-C DATE OF PRE-OPERATIVE EXAM: 06/06/2024 DATE OF SURGERY:? 06/11/2024 SCHEDULED PROCEDURE:? Right reverse total shoulder arthroplasty HISTORY OF PRESENT ILLNESS: Preoperative history and physical exam was performed on June 06, 2024.? This isabelle 84-year-old female who is been having ongoing pain in the right shoulder for several years.? She is right-hand dominant.? She does have past history of a left reverse total shoulder arthroplasty by Dr. Silverio Ruiz on February 15, 2017.? She is doing well from that procedure.? The right shoulder gives her painthroughout the day with activities.? Pain is increased with overhead use.? She gets locking sensations in the shoulder and severe pain.? Patient has difficultyand at times unable to reach in high coverage due to the pain.? She has difficulty with getting dressed and doing hygiene activity with the right upper extremity.? Difficulty putting on her shirt and jacket.? She has increased pain Stanley on the right shoulder.? Patient recently was scheduled to undergo total shoulder arthroplasty however had upper respiratory symptoms.? She had chest x-ray which has been reviewed by the primary care provider.? Patient's symptoms have all resolved.? PCP was okay with patient proceeding forward with surgery.? Patient has medical history pertinent for chronic kidney disease, thyroid nodules, hypertension.? Denies past history of DVT or pulmonary embolism.? Afterfailing conservative measures and discussing all treatment options Dr. Silverio Ruiz, the patient does wish to proceed with a right reverse total shoulder arthroplasty.? She has obtain surgical clearance from the primary care provider Dr. Wagoner. ? REVIEW OF SYSTEMS: Review Of Systems: Constitutional: Denies anorexia, anxiety, change in appetite, fever and weight change,hard of hearing, and vision problems. Cardiovasular: Denies chest pain, heart murmur, irregular heartbeat and peripheral vascular disease. Respiratory: Denies asthma, cough, pneumonia, sleep apnea, shortness of breath, tuberculosis and wheezing. Gastrointestinal: Denies constipation, diarrhea, heartburn, nausea, bloody stools and vomiting, and difficulty swallowing. Genitourinary: Denies incontinence. Musculoskeletal: Reports pain and weakness, but denies gait disturbance, leg swelling and trouble walking. Skin: Denies Raynaud's, history of shingles and tattoo. Neurological: Denies tremor in R hand, ambulatory dysfunction, dizziness and numbness/tingling Psychiatric: Denies anxiety, depression, insomnia, mental illness and stress. Hematologic/Lymphatic: Denies anemia, bleeding/bruising tendency and past transfusion. Reviewed and updated. PAST MEDICAL HISTORY: Advance Care Plan: Other Directive, POA Effective Date: 11/15/2016 Past Medical History: Medical Problems: Arthritis, High Blood Pressure Kidney Disease/Renal Failure - stage 3 thyroid nodules syncope after surgery - if not enough fluids after surgery Covid- 19 - (2023) subclinical hypothyroidism, carotid stenosis left side, psoriasis on scalp Accidents: Sports Related Injury - (1979) TORN ACHILLES Surgical Hx: Tonsillectomy - Age 8 Tubal Ligation - 1971 Carpal Tunnel - RT- 2001 [facility]? Dr. James Laminectomy - 1971 [facility]? Dr. James LT THR - (08/19/2008) REMIAPISAAK @ [employer] [facility] RT THR - (11/27/2012) [email or web address] Shoulder Replacement LT - (02/15/2017) [email or web address] Carpal Tunnel Release LT - (06/21/2017) [email or web address] vein stripping - (1982) Anesthesia Complications: Takes awhile to wake up Assistive Devices: Glasses - readers Reviewed and updated. 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 Personal Habits:? Tobacco Use: Patient has never smoked.Cigarette Use: Never.Smokeless Tobacco: Never Used Smokeless Tobacco.E-Cigarette Use: Never used.Alcohol: Occasionally.Drug Use: Denies Use.Enjoy Exercising: Daily. Reviewed and updated. VITALS: Ht: 64.5 Wt: 150lb Wt k.040 BMI: 25.3 BP: 128/70 Pulse: 75 Resp: 17 T: 97.7 T: 36.5C Pain Level: 9 O2SatR: 95 ALLERGIES: No Known Drug Allergy MEDICATIONS: Mupirocin 2 % use qtip and apply inside each nostril twice a day until the day of surgery, Calcium Plus D3 600 mg 1 po qday, Losartan Potassium 50 mg 1 tab po daily, Metoprolol Succinate ER 50 mg twice daily po, Fluticasone Propionate 50 mcg/Act uad, Multivitamin? take one(1) tablet daily., Amlodipine Besylate 10 mg 1 by mouth every day, Calcium + D 500-1000-40 MG-Unt-mcg 1po qday PRE-OP EXAM: General appearance:NORMAL? Other: Eyes: Conjunctivae and lids: NORMAL? Pupils: ERR Ears, Nose, Mouth, and Throat: NORMAL? Other: Inspection of lips, teeth and gums: NORMAL?? Other: Neck: Examination of neck: no masses noted. Respiratory: Assessment of respiratory effort: NORMAL?? Other: ? Auscultation of lungs: clear to auscultation no wheezes, rhonchi or rales. Cardiovascular:? Auscultation of heart: regular rate and rhythm, no murmurs, gallops or rubs. PHYSICAL EXAMINATION: Patient's right shoulder is without erythema or signs of infection.? She has diffuse tenderness to palpation throughout the right shoulder.? Crepitus appreciated with range of motion.? Pain is increased with active motion.? Forward elevation 90, internal rotation L4, and external rotation 40.? 3/5 rightshoulder strength with increased pain.? Scapular dyskinesia with range of motion.? Sensation intact axillary, radial, median, ulnar nerve distribution. IMAGING STUDIES: Previous x-rays of the right shoulder reveal progression of the osteoarthritis from previous imaging in 2021.? Patient has joint space narrowing with large osteophytes with increased bony erosion in the glenohumeral joint.? Ulth-fd-tqqihafmg IV glenohumeral osteoarthritis. IMPRESSION: 1.? Severe right shoulder glenohumeral osteoarthritis 2.? 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 Hypertension 4.? Chronic kidney disease stage III 5.? Thyroid nodules with hypothyroidism 6.? Overweight with a BMI 25.3 PLAN: Dr. Silverio Ruiz did discuss and review with the patient all treatment options including surgical versus nonsurgical options.? I will continue plan establishedby Dr. Silverio Ruiz.? Patient does wish to proceed with the above-stated procedure.? Potential risks, benefits, and complications of the procedure were discussed in detail including but not limited to , infection, nerve and blood vessel damage, persistent pain, numbness, tingling, paresthesias, blood clot, pulmonary embolism, and requirement for possible further surgery.? The patient expressed full understanding and has no further questions for the doctor.? Patient does agree to proceed with the above-stated procedure and has signed the surgery consent form. POST-OP MEDICATION PLAN: Pain Medications: Postoperative pain regimen will be initiated by Dr. Silverio Ruiz in the hospital.? We are unable to use nonsteroidal anti-inflammatories due to chronic kidney disease.? Patient will be on doxycycline for 2 weeks postoperatively due to preoperative findings of positive MRSA.? Instructed the patient that she is more sensitive to this and my and should take appropriate precautions.? Also recommend using probiotics while on the antibiotic. DVT Prophylaxis Plan:? Aspirin 81 mg twice daily for 2 weeks postoperatively.? Denies past history of DVT or pulmonary embolism.? Patient will also use RANJIT hose for 2 weeks postoperatively. This dictation was created using voice recognition software. Phonetic and/or grammatical errors may exist. ___? I have re-examined the patient.? There are no clinical changes since date of exam. ___? See progress notes for changes. ___? Dictated on admission Date: ? Time: Signature: 06/07/24 0648 <Electronically signed by Antolin BRANNON PA-C> Cosigner Signature (if applicable): CC: LEAH Paul; Dr. Shavon Pitts MD; Dr. Silverio Ruiz MD~ Signed ADDENDUM by Dr. Silverio Ruiz MD on 06/11/24 at 0911 Addendum I have examined the patient and the H&P has been reviewed. There are no clinicalchanges since date of exam. 06/11/24 09<Electronically signed by Silverio Ruiz MD> Cosigner Signature (if applicable): cc: LEAH Paul; Dr. Shavon Pitts MD; Dr. Silverio Ruiz MD ~* Signed [facility] Work Phone: [phone]) 437-766504-28-2025 Consult note Author Glen Puga [facility] Note Date/Time June 11, 2024 8:4 9am [facility] Medical Records Department [address] [place] [address] Pre-Anesthesia Evaluation 06/11/24 08 MR#: [id number] Acct: [id number] Name: YIN WU Rep #:[id number] : 1940 84 From: Glen Puga MD PCP: Dr. Shavon Pitts MD Status:REG [facility] Y Race: C Location: [place] [address] Glen Puga MD on 06/11/24 at 0849 Addendum Also consented for Block 06/11/24 0849 <Electronically signed by Glen Puga MD > Date _ Glen Puga MD cc: ~* Signed ASA Classification* ASA Classification ASA Classification: 2 Assessment & Plan Anesthesia* Anesthesia Assessment Anesthesia Assessment: Discussed sedation and/or anesthesia options, risks, benefits, and alternatives with patient/parents/legal guardian/POA. Questions invited. The patient/parents/legal guardian/POA seems to understand and agrees to proceedwith anesthesia plan. Reviewed the physical assessment, medical history, allergy history and patient home medications list prior to surgery/procedure/anesthetic and documented any changes. Performed airway and anesthesia risk assessments. Anesthesia Type Anesthesia Type: General Anesthesia Focused Assessment* Airway Assessment Mouth opens: >3 cm Mallampati Score: II Focused Labs Anesthesia Preop lab: CBC WBC 8.8 K/mm3 (4.4-11.0) 05/07/24 08:40 05/07/24 RBC 4.23 M/mm3 (4.2-5.4) 05/07/24 08:40 05/07/24 Hgb 13.5 g/dL (12.0-15.0) 05/07/24 08:40 05/07/24 Hct 39.5 % (37-47) 05/07/24 08:40 05/07/24 Plt Count 382 K/mm3 (150-450) 05/07/24 08:40 05/07/24 CHEMISTRY Potassium 4.3 mmol/L (3.3-5.1) 05/07/24 08:40 05/07/24 Sodium 134 mmol/L (133-145) 05/07/24 08:40 05/07/24 Magnesium 2.1 mg/dL (1.5-2.2) 05/09/24 14:53 05/09/24 Phosphorus 3.3 mg/dL (2.5-4.9) 05/23/20 08:50 05/23/20 BUN 24 mg/dL (4-19) H 05/07/24 08:40 05/07/24 Creatinine 1.24 mg/dL (0.70-1.20) H 05/07/24 08:40 Glucose 109 mg/dL (70-99) H 05/07/24 08:40 05/07/24 TSH 4.640 uIU/mL (0.358-3.740) H 10/13/23 13:30 COAG Pre-Assessment Diagnosis/Proposed Procedure Planned Operative Procedure(s): Right Reverse Total shoulder Anesthesia History 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 When Was Last Pacemaker Check QUESTION #4 FULL TEXT: You/Your Family Experience fever (hyperthermia) with Anesthesia Last Oral Intake Last Oral intake: Last Oral Intake NPO since Meds taken in AM with sips of water? Meds patient instructed to take am of surgery PONV PONV - highway engineering technician: PONV - highway engineering technician Female HX of Motion Sickness HX of N/V After Surgery Non-Smoker Duration of Surgery greater than 60 minutes Number of Risk Factors PONV Score Height & Weight Height & Weight: Anesthesia: Height & Weight Height 5 ft 5 in 06/08/24 11:07 Weight: 68.039 kg 06/08/24 11:07 Respiratory Assessment Respiratory Assessment - highway engineering technician: Respiratory Tract Infection Hx - highway engineering technician Hx Respiratory Tract Infection Yes: SINUS INFECTION/TREATED 05/09/24 11:32 STOP Sleep Apnea STOP Sleep Apnea - highway engineering technician: STOP Sleep Apnea - highway engineering technician Hx Hypertension Yes: CONTROLLED WITH MED 05/09/24 11:32 Hx Sleep Apnea No 05/09/24 11:32 CPAP No 06/21/17 07:39 BIPAP No 06/15/17 15:23 Do you snore loudly (louder than talking or can be heard Do you often feel tired/ fatigued/ sleepy during daytime? Has anyone observed you stop breathing during sleep? STOP Results QUESTION #5 FULL TEXT : Do you snore loudly (louder than talking or can be heard through closed doors)? 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 Specify any problems Hx of Preganancy in last 3 Months Nurse Filling Out Transfusion & Questions: Date: Time: Patient unable to answer at this time (ie. confused, unrespo /Reproduction History /Reproductive History - highway engineering technician: /Reproductive Hx- highway engineering technician Hx Now Gestational Age (in weeks): EDC: Hx Hx Para Hx Section SAB No 05/09/24 11:32 Active Medications Active Medications: Current Medications Generic Name Dose Route Start Last Admin Trade Name Freq PRN Reason Stop Dose Admin Acetaminophen 1,000 mg 06/11/24 10:30 Acetaminophen 500 Mg Tablet PO 06/11/24 10:31 X1 ONE Acetaminophen 1,000 mg 06/11/24 14:00 Acetaminophen 500 Mg Tablet PO Q8 [facility] Aspirin 81 mg 06/11/24 10:00 Aspirin 81 Mg Tab.Chew PO BID [facility] Dexamethasone Sodium Phosphate 10 mg 06/11/24 10:30 Dexamethasone 10 Mg/Ml Vial IV 06/11/24 10:31 X1 ONE Doxycycline Monohydrate 100 mg 06/12/24 13:00 Doxycycline 100 Mg Capsule PO BID [facility] Enteral Nutritional Formula 237 ml 06/11/24 08:00 Ensure Surgery 237 Ml Liquid PO TIDCM [facility] Famotidine 20 mg 06/11/24 10:00 Famotidine 20 Mg Tablet PO DAILY [facility] Gabapentin 600 mg 06/11/24 10:30 Gabapentin 600 Mg Tablet PO 06/11/24 10:31 X1 ONE Lactated Ringer's 1,000 mls @ 999 mls/hr 06/11/24 10:30 IV 06/11/24 11:30 .Q1H1M [facility] Cefazolin Sodium 2 gm/ N/A 20 mls @ 400 mls/hr 06/11/24 10:30 IV 06/11/24 10:32 PREOP ONE Tranexamic Acid 1,000 mg/ 110 mls @ 660 mls/hr 06/11/24 10:30 Sodium Chloride IV 06/11/24 10:39 X1 ONE Tranexamic Acid 1,000 mg/ 110 mls @ 660 mls/hr 06/11/24 11:30 Sodium Chloride IV 06/11/24 11:39 X1 ONE Lactated Ringer's 1,000 mls @ 999 mls/hr 06/11/24 11:30 IV 06/11/24 12:30 .Q1H1M [facility] Lactated Ringer's 1,000 mls @ 125 mls/hr 06/11/24 12:30 IV 06/11/24 20:29 .Q8H [facility] Vancomycin HCl 1,000 mg in 200 mls @ 200 mls/hr 06/11/24 09:00 Vancomycin IV 06/11/24 09:59 PREOP ONE Magnesium Sulfate 1 gm/ 102 mls @ 408 mls/hr 06/11/24 10:30 Dextrose IV 06/11/24 10:44 X1 ONE Cefazolin Sodium 1 gm in 50 mls @ 150 mls/hr 06/11/24 07:40 IV 06/11/24 15:59 Q8H [facility] Insulin Human Lispro 1 - 6 unit 06/11/24 10:30 Insulin Lispro 100 Unit/Ml Insuln.Pen SC 06/11/24 16:30 Q4H PRN PRN BG>/= 180, SEE PROTOCOL Protocol Morphine Sulfate 2 - 4 mg 06/11/24 07:37 Morphine 2 Mg/Ml Syringe IV Q2H PRN PRN Pain Score 4-10 Ondansetron HCl 4 mg 06/11/24 07:37 Ondansetron 4 Mg/2 Ml Vial IV Q6H PRN PRN NAUSEA/VOMITING Oxycodone HCl 5 - 10 mg 06/11/24 07:37 Oxycodone 5 Mg Tablet PO Q4H PRN PRN Pain Score 4-10 Promethazine HCl 12.5 mg 06/11/24 07:37 Promethazine 25 Mg Tablet PO Q6H PRN PRN NAUSEA/VOMITING Promethazine HCl 12.5 mg 06/11/24 07:37 Promethazine 25 Mg/Ml Syringe IM Q6H PRN PRN NAUSEA/VOMITING Senna/Docusate Sodium 2 tablet 06/11/24 10:00 Senna/Docusate Sodium 1 Tablet PO BID [facility] Medical History Wears glasses Post-menopausal Low iron Migraine headache Syncope Non-smoker Shortness of breath on exertion History of echocardiogram History of stress test Cardiology follow-up encounter MRSA (methicillin resistant staph aureus) culture positive Skin cancer Chronic renal disease, stage 3, moderately decreased glomerular filtration rate (GFR) between 30-59 mL/min/1.73 square meter Vitamin D deficiency Essential hypertension Arthritis Multinodular goiter NSVT (nonsustained ventricular tachycardia) Hypokalemia Dehydration MVP (mitral valve prolapse) Syncope Prerenal azotemia Home Medications ?Medication ?Instructions ?Recorded ?Last Taken ?Type amlodipine 10 mg tablet 10 mg PO DAILY 10/04/22 Unkn own History calcium 600 mg (as 1 tab PO DAILY 10/04/22 Unkn own History carbonate)-vitamin D3 10 mcg (400 unit) tablet fluticasone propionate 50 1 spray NASAL DAILY ALLERGIE S 10/04/22 Unknown History mcg/actuation nasal spray,suspension metoprolol succinate 50 mg 50 mg PO DAILY 10/04/22 Unk nown History tablet,extended release 24 hr losartan 100 mg tablet 100 mg PO DAILY #90 tabs Unknown Rx multivitamin with folic acid 400 1 tab PO DAILY SUPPLE MENT 11/01/22 Unknown History mcg tablet loratadine 10 mg tablet (Claritin) 10 mg PO DAILY 04/15 08/08 Unknown History Allergy/AdvReac Type Severity Reaction Status Date / Time No Known Allergies Allergy Verified 05/09/24 11:23 Family History Father CAD (coronary artery disease) Surgical History Hx of colonoscopy History of lumbar laminectomy History of carpal tunnel surgery of left wrist Hx of total hip arthroplasty Hx of total hip arthroplasty History of vein stripping History of carpal tunnel surgery of right wrist Status post biopsy of thyroid gland (~12/2018) History of tonsillectomy History of tubal ligation History of total replacement of left shoulder joint Social History Smoking Status: Never smoker alcohol intake: never substance use type: does not use Review of Systems (Anesthesia) ROS Narrative System reviewed and no additional complaints, except as documented. 06/11/24 0849 <Electronically signed by Glen Puga MD > Date _ Glen Puga MD Cosigner Signature: Date CC: ~ Signed [facility] Work Phone: 1(619) 287-318904-28-2025 Evaluation note* Diagnosis Onset Date Resolution Status Admit Date Status post reverse total shoulder replacement acute June 11, 2024 7:37am [facility] Work Phone: 1(798) 364-480204-28-2025 Evaluation note* Diagnosis Onset Date Resolution Status Admit Date Status post reverse total shoulder replacement acute June 11, 2024 7:37am Cellulitis acute July 26 10:44am Hypertension chronic July 26 10:44am [facility] Work Phone: 1(721) 718-578804-28-2025 History and physical note [facility] Medical Records Department [address] [place] [address] History & Physical Exam 06/07/24 0647 MR#: [id number] Acct: [id number] Name: YIN WU Rep #:[id number] : 1940 84 From: Antolin BRANNON PA-C PCP: Dr. Shavon Pitts MD Status:[facility] Location: [place] [address] History and Physical History and Physical Patient Name: Yin Wu : 1940From:? ANTOLIN PAUL PA-C DATE OF PRE-OPERATIVE EXAM: 06/06/2024 DATE OF SURGERY:? 06/11/2024 SCHEDULED PROCEDURE:? Right reverse total shoulder arthroplasty HISTORY OF PRESENT ILLNESS: Preoperative history and physical exam was performed on June 06, 2024.? This isabelle 84-year-old female who is been having ongoing pain in the right shoulder for several years.? She is right-hand dominant.? She does have past history of a left reverse total shoulder arthroplasty by Dr. Silverio uRiz on February 15, 2017.? She is doing well from that procedure.? The right shoulder gives her painthroughout the day with activities.? Pain is increased with overhead use.? She gets locking sensations in the shoulder and severe pain.? Patient has difficultyand at times unable to reach in high coverage due to the pain.? She has difficulty with getting dressed and doing hygiene activity with the right upper extremity.? Difficulty putting on her shirt and jacket.? She has increased pain Stanley on the right shoulder.? Patient recently was scheduled to undergo total shoulder arthroplasty however had upperrespiratory symptoms.? She had chest x-ray which has been reviewed by the primary care provider.? Patient's symptoms have all resolved.? PCP was okay with patient proceeding forward with surgery.? Patient has medical history pertinent for chronic kidney disease, thyroid nodules, hypertension.? Denies past history of DVT or pulmonary embolism.? Afterfailing conservative measures and discussing alltreatment options Dr. Silverio Ruiz, the patient does wish to proceed with a right reverse total shoulder arthroplasty.? She has obtain surgical clearance from the primary care provider Dr. Wagoner. ? REVIEW OF SYSTEMS: Review Of Systems: Constitutional: Denies anorexia, anxiety, change in appetite, fever and weight change,hard of hearing, and vision problems. Cardiovasular: Denies chest pain, heart murmur, irregular heartbeat and peripheral vascular disease. Respiratory: Denies asthma, cough, pneumonia, sleep apnea, shortness of breath, tuberculosis and wheezing. Gastrointestinal: Denies constipation, diarrhea, heartburn, nausea, bloody stools and vomiting, anddifficulty swallowing. Genitourinary: Denies incontinence. Musculoskeletal: Reports pain and weakness, but denies gait disturbance, leg swelling and trouble walking. Skin: Denies Raynaud's, history of shingles and tattoo. Neurological: Denies tremor in R hand, ambulatory dysfunction, dizziness and numbness/tingling Psychiatric: Denies anxiety, depression, insomnia, mental illness and stress. Hematologic/Lymphatic: Denies anemia, bleeding/bruising tendency and past transfusion. Reviewed and updated. PAST MEDICAL HISTORY: Advance Care Plan: Other Directive, POA Effective Date: 11/15/2016 Past Medical History: Medical Problems: Arthritis, High Blood Pressure Kidney Disease/Renal Failure - stage 3 thyroid nodules syncope after surgery - if not enough fluids after surgery Covid- 19 - (2023) subclinical hypothyroidism, carotid stenosis left side, psoriasis on scalp Accidents: Sports Related Injury - (1979) TORN ACHILLES Surgical Hx: Tonsillectomy - Age 8 Tubal Ligation - 1971 Carpal Tunnel - RT- 2001 [facility]? Dr. James Laminectomy - 1971 [facility]? Dr. James LT THR - (08/19/2008) ROGER @ [employer] RT THR - (11/27/2012) [email or web address] Shoulder Replacement LT - (02/15/2017) [email or web address] Carpal Tunnel Release LT - (06/21/2017) [email or web address] vein stripping - (1982) Anesthesia Complications: Takes awhile to wake up Assistive Devices: Glasses - readers Reviewed and updated. 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 Personal Habits:? Tobacco Use: Patient has never smoked.Cigarette Use: Never.Smokeless Tobacco: Never Used Smokeless Tobacco.E-Cigarette Use: Never used.Alcohol: Occasionally.Drug Use: Denies Use.Enjoy Exercising: Daily. Reviewed and updated. VITALS: Ht: 64.5 Wt: 150lb Wt k.040 BMI: 25.3 BP: 128/70 Pulse: 75 Resp: 17 T: 97.7 T: 36.5C Pain Level: 9 O2SatR: 95 ALLERGIES: No Known Drug Allergy MEDICATIONS: Mupirocin 2 % use qtip and apply inside each nostril twice a day until the day of surgery, Calcium Plus D3 600 mg 1 po qday, Losartan Potassium 50 mg 1 tab po daily, Metoprolol Succinate ER 50 mg twice daily po, Fluticasone Propionate 50 mcg/Act uad, Multivitamin? take one(1) tablet daily., Amlodipine Besylate 10 mg 1 by mouth every day, Calcium + D 500-1000-40 MG-Unt-mcg 1po qday PRE-OP EXAM: General appearance:NORMAL? Other: Eyes: Conjunctivae and lids: NORMAL? Pupils: ERR Ears, Nose, Mouth, and Throat: NORMAL? Other: Inspection of lips, teeth and gums: NORMAL?? Other: Neck: Examination of neck: no masses noted. Respiratory: Assessment of respiratory effort: NORMAL?? Other: ? Auscultation of lungs: clear to auscultation no wheezes, rhonchi or rales. Cardiovascular:? Auscultation of heart: regular rate and rhythm, no murmurs, gallops or rubs. PHYSICAL EXAMINATION: Patient's right shoulder is without erythema or signs of infection.? She has diffuse tenderness to palpation throughout the right shoulder.? Crepitus appreciated with range of motion.? Pain is increased with active motion.? Forward elevation 90, internal rotation L4, and external rotation 40.? 3/5 r ightshoulder strength with increased pain.? Scapular dyskinesia with range of motion.? Sensation intact axillary, radial, median, ulnar nerve distribution. IMAGING STUDIES: Previous x-rays of the right shoulder reveal progression of the osteoarthritis from previous imaging in 2021.? Patient has joint space narrowing with large osteophytes with increased bony erosion in the glenohumeral joint.? [id number] IV glenohumeral osteoarthritis. IMPRESSION: 1.? Severe right shoulder glenohumeral osteoarthritis 2.? 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 Hypertension 4.? Chronic kidney disease stage III 5.? Thyroid nodules with hypothyroidism 6.? Overweight with a BMI 25.3 PLAN: Dr. Silverio Ruiz did discuss and review with the patient all treatment options including surgical versus nonsurgical options.? I will continue plan establishedby Dr. Silverio Ruiz.? Patient does wish to proceed with the above- stated procedure.? Potential risks, benefits, and complications of the procedure were discussed in detail including but not limited to , infection, nerve and blood vessel damage, persistent pain, numbness, tingling, paresthesias, blood clot, pulmonary embolism, and requirement for possible further surgery.? The patient expressed full understanding and has no further questions for the doctor.? Patient does agree to proceed with the above-stated procedure and has signed the surgery consent form. POST-OP MEDICATION PLAN: Pain Medications: Postoperative pain regimen will be initiated by Dr. Silverio Ruiz in the hospital.? We are unable to use nonsteroidal anti-inflammatories due to chronic kidney disease.? Patient will be on doxycycline for 2 weeks postoperatively due to preoperative findings of positive MRSA.? Instructed the patient that she is more sensitive to this and my and should take appropriate precautions.? Also recommend using probiotics while on the antibiotic. DVT Prophylaxis Plan:? Aspirin 81 mg twice daily for 2 weeks postoperatively.? Denies past history of DVT or pulmonary embolism.? Patient will also use RANJIT hose for 2 weeks postoperatively. This dictation was created using voice recognition software. Phonetic and/or grammatical errors mayexist. ___? I have re-examined the patient.? There are no clinical changes since date of exam. ___? See progress notes for changes. ___? Dictated on admission Date: ? Time: Signature: 06/07/24 0648 Cosigner Signature (if applicable): CC: LEAH Paul; Dr. Shavon Pitts MD; Dr. Silverio Ruiz MD~ Signed ADDENDUM by Dr. Silverio Ruiz MD on 06/11/24 at 0911 Addendum I have examined the patient and the H&P has been reviewed. There are no clinicalchanges since date of exam. 06/11/24 0911 Cosigner Signature (if applicable): cc: LEAH Paul; Dr. Shavon Pitts MD; Dr. Silverio Ruiz MD ~* Signed [facility]04-28-2025 Consult note [facility] Medical Records Department [address] [place] [address] Pre-Anesthesia Evaluation 06/11/24 0848 MR#: [id number] Acct: [id number] Name: YIN WU Rep #:[id number] : 1940 84 From: Glen Puga MD PCP: Dr. Shavon Pitts MD Status:REG [facility] Y Race: C Location: [place] [id number] Glen Puga MD on 06/11/24 at 0849 Addendum Also consented for Block 06/11/24 0849 > Date _ Glen Puga MD cc: ~* Signed ASA Classification* ASA Classification ASA Classification: 2 Assessment & Plan Anesthesia* Anesthesia Assessment Anesthesia Assessment: Discussed sedation and/or anesthesia options, risks, benefits, and alternatives with patient/parents/legal guardian/POA. Questions invited. The patient/parents/legal guardian/POA seems to understand and agrees to proceedwith anesthesia plan. Reviewed the physical assessment, medical history, allergy history and patient home medications list prior to surgery/procedure/anesthetic and documented any changes. Performed airway and anesthesia risk assessments. Anesthesia Type Anesthesia Type: General Anesthesia Focused Assessment* Airway Assessment Mouth opens: >3 cm Mallampati Score: II Focused Labs Anesthesia Preop lab: CBC WBC 8.8 K/mm3 (4.4-11.0) 05/07/24 08:40 05/07/24 RBC 4.23 M/mm3 (4.2-5.4) 05/07/24 08:40 05/07/24 Hgb 13.5 g/dL (12.0-15.0) 05/07/24 08:40 05/07/24 Hct 39.5 % (37-47) 05/07/24 08:40 05/07/24 Plt Count 382 K/mm3 (150-450) 05/07/24 08:40 05/07/24 CHEMISTRY Potassium 4.3 mmol/L (3.3-5.1) 05/07/24 08:40 05/07/24 Sodium 134 mmol/L (133-145) 05/07/24 08:40 05/07/24 Magnesium 2.1 mg/dL (1.5-2.2) 05/09/24 14:53 05/09/24 Phosphorus 3.3 mg/dL (2.5-4.9) 05/23/20 08:50 05/23/20 BUN 24 mg/dL (4-19) H 05/07/24 08:40 05/07/24 Creatinine 1.24 mg/dL (0.70-1.20) H 05/07/24 08:40 Glucose 109 mg/dL (70-99) H 05/07/24 08:40 05/07/24 TSH 4.640 uIU/mL (0.358-3.740) H 10/13/23 13:30 COAG Pre-Assessment Diagnosis/Proposed Procedure Planned Operative Procedure(s): Right Reverse Total shoulder Anesthesia History 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 When Was Last Pacemaker Check QUESTION #4 FULL TEXT: You/Your Family Experience fever (hyperthermia) with Anesthesia Last Oral Intake Last Oral intake: Last Oral Intake NPO since Meds taken in AM with sips of water? Meds patient instructed to take am of surgery PONV PONV - highway engineering technician: PONV - highway engineering technician Female HX of Motion Sickness HX of N/V After Surgery Non-Smoker Duration of Surgery greater than 60 minutes Number of Risk Factors PONV Score Height & Weight Height & Weight: Anesthesia: Height & Weight Height 5 ft 5 in 06/08/24 11:07 Weight: 68.039 kg 06/08/24 11:07 Respiratory Assessment Respiratory Assessment - highway engineering technician: Respiratory Tract Infection Hx - highway engineering technician Hx Respiratory Tract Infection Yes: SINUS INFECTION/TREATED 05/09/24 11:32 STOP Sleep Apnea STOP Sleep Apnea - highway engineering technician: STOP Sleep Apnea - highway engineering technician Hx Hypertension Yes: CONTROLLED WITH MED 05/09/24 11:32 Hx Sleep Apnea No 05/09/24 11:32 CPAP No 06/21/17 07:39 BIPAP No 06/15/17 15:23 Do you snore loudly (louder than talking or can be heard Do you often feel tired/ fatigued/ sleepy during daytime? Has anyone observed you stop breathing during sleep? STOP Results QUESTION #5 FULL TEXT : Do you snore loudly (louder than talking or can be heard through closeddoors)? 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 Specify any problems Hx of Preganancy in last 3 Months Nurse Filling Out Transfusion & Questions: Date: Time: Patient unable to answer at this time (ie. confused, unrespo /Reproduction History /Reproductive History - highway engineering technician: /Reproductive Hx- highway engineering technician Hx Now Gestational Age (in weeks): EDC: Hx Hx Para Hx Section SAB No 05/09/24 11:32 Active Medications Active Medications: Current Medications Generic Name Dose Route Start Last Admin Trade Name Freq PRN Reason Stop Dose Admin Acetaminophen 1,000 mg 06/11/24 10:30 Acetaminophen 500 Mg Tablet PO 06/11/24 10:31 X1 ONE Acetaminophen 1,000 mg 06/11/24 14:00 Acetaminophen 500 Mg Tablet PO Q8 [facility] Aspirin 81 mg 06/11/24 10:00 Aspirin 81 Mg Tab.Chew PO BID [facility] Dexamethasone Sodium Phosphate 10 mg 06/11/24 10:30 Dexamethasone 10 Mg/Ml Vial IV 06/11/24 10:31 X1 ONE Doxycycline Monohydrate 100 mg 06/12/24 13:00 Doxycycline 100 Mg Capsule PO BID [facility] Enteral Nutritional Formula 237 ml 06/11/24 08:00 Ensure Surgery 237 Ml Liquid PO TIDCM [facility] Famotidine 20 mg 06/11/24 10:00 Famotidine 20 Mg Tablet PO DAILY [facility] Gabapentin 600 mg 06/11/24 10:30 Gabapentin 600 Mg Tablet PO 06/11/24 10:31 X1 ONE Lactated Ringer's 1,000 mls @ 999 mls/hr 06/11/24 10:30 IV 06/11/24 11:30 .Q1H1M [facility] Cefazolin Sodium 2 gm/ N/A 20 mls @ 400 mls/hr 06/11/24 10:30 IV 06/11/24 10:32 PREOP ONE Tranexamic Acid 1,000 mg/ 110 mls @ 660 mls/hr 06/11/24 10:30 Sodium Chloride IV 06/11/24 10:39 X1 ONE Tranexamic Acid 1,000 mg/ 110 mls @ 660 mls/hr 06/11/24 11:30 Sodium Chloride IV 06/11/24 11:39 X1 ONE Lactated Ringer's 1,000 mls @ 999 mls/hr 06/11/24 11:30 IV 06/11/24 12:30 .Q1H1M [facility] Lactated Ringer's 1,000 mls @ 125 mls/hr 06/11/24 12:30 IV 06/11/24 20:29 .Q8H [facility] Vancomycin HCl 1,000 mg in 200 mls @ 200 mls/hr 06/11/24 09:00 Vancomycin IV 06/11/24 09:59 PREOP ONE Magnesium Sulfate 1 gm/ 102 mls @ 408 mls/hr 06/11/24 10:30 Dextrose IV 06/11/24 10:44 X1 ONE Cefazolin Sodium 1 gm in 50 mls @ 150 mls/hr 06/11/24 07:40 IV 06/11/24 15:59 Q8H [facility] Insulin Human Lispro 1 - 6 unit 06/11/24 10:30 Insulin Lispro 100 Unit/Ml Insuln.Pen SC 06/11/24 16:30 Q4H PRN PRN BG>/= 180, SEE PROTOCOL Protocol Morphine Sulfate 2 - 4 mg 06/11/24 07:37 Morphine 2 Mg/Ml Syringe IV Q2H PRN PRN Pain Score 4-10 Ondansetron HCl 4 mg 06/11/24 07:37 Ondansetron 4 Mg/2 Ml Vial IV Q6H PRN PRN NAUSEA/VOMITING Oxycodone HCl 5 - 10 mg 06/11/24 07:37 Oxycodone 5 Mg Tablet PO Q4H PRN PRN Pain Score 4-10 Promethazine HCl 12.5 mg 06/11/24 07:37 Promethazine 25 Mg Tablet PO Q6H PRN PRN NAUSEA/VOMITING Promethazine HCl 12.5 mg 06/11/24 07:37 Promethazine 25 Mg/Ml Syringe IM Q6H PRN PRN NAUSEA/VOMITING Senna/Docusate Sodium 2 tablet 06/11/24 10:00 Senna/Docusate Sodium 1 Tablet PO BID [facility] Medical History Wears glasses Post-menopausal Low iron Migraine headache Syncope Non-smoker Shortness of breath on exertion History of echocardiogram History of stress test Cardiology follow-up encounter MRSA (methicillin resistant staph aureus) culture positive Skin cancer Chronic renal disease, stage 3, moderately decreased glomerular filtration rate (GFR) between 30-59mL/min/1.73 square meter Vitamin D deficiency Essential hypertension Arthritis Multinodular goiter NSVT (nonsustained ventricular tachycardia) Hypokalemia Dehydration MVP (mitral valve prolapse) Syncope Prerenal azotemia Home Medications ?Medication ?Instructions ?Recorded ?Last Taken ?Type amlodipine 10 mg tablet 10 mg PO DAILY 10/04/22 Unkn own History calcium 600 mg (as 1 tab PO DAILY 10/04/22 Unkn own History carbonate)-vitamin D3 10 mcg (400 unit) tablet fluticasone propionate 50 1 spray NASAL DAILY ALLERGIE S 10/04/22 Unknown History mcg/actuation nasal spray,suspension metoprolol succinate 50 mg 50 mg PO DAILY 10/04/22 Unk nown History tablet,extended release 24 hr losartan 100 mg tablet 100 mg PO DAILY #90 tabs Unknown Rx multivitamin with folic acid 400 1 tab PO DAILY SUPPLE MENT 11/01/22 Unknown History mcg tablet loratadine 10 mg tablet (Claritin) 10 mg PO DAILY 04/15 08/08 Unknown History Allergy/AdvReac Type Severity Reaction Status Date / Time No Known Allergies Allergy Verified 05/09/24 11:23 Family History Father CAD (coronary artery disease) Surgical History Hx of colonoscopy History of lumbar laminectomy History of carpal tunnel surgery of left wrist Hx of total hip arthroplasty Hx of total hip arthroplasty History of vein stripping History of carpal tunnel surgery of right wrist Status post biopsy of thyroid gland (~12/2018) History of tonsillectomy History of tubal ligation History of total replacement of left shoulder joint Social History Smoking Status: Never smoker alcohol intake: never substance use type: does not use Review of Systems (Anesthesia) ROS Narrative System reviewed and no additional complaints, except as documented. 06/11/24 0849 > Date _ [place] Signature: Date CC: ~ Signed [facility]04-24-2025 [facility] Medical Records Department [address] [place] [address] History Physical Exam 06/07/24 0647 MR#: [id number] Acct: [id number] Name: YIN WU Rep #: [id number] : 1940 84 From: Antolin BRANNON PA-C PCP: Dr. Shavon Pitts MD Status:[facility] Location: [place] [address] History and Physical History and Physical Patient Name: Yin Wu : 1940From:??? ANTOLIN PAUL PA-C DATE OF PRE-OPERATIVE EXAM: 06/06/2024 DATE OF SURGERY:??? 06/11/2024 SCHEDULED PROCEDURE:??? Right reverse total shoulder arthroplasty HISTORY OF PRESENT ILLNESS: Preoperative history and physical exam was performed on June 06, 2024.??? This is a 84-year-old female who is been having ongoing pain in the right shoulder for several years.??? She is right-hand dominant.??? She does have past history of a left reverse total shoulder arthroplasty by Dr. Silverio Ruiz on February 15, 2017.??? She is doing well from that procedure.??? The right shoulder gives her pain throughout the day with activities.??? Pain is increased with overhead use.??? She gets locking sensations in the shoulder and severe pain.??? Patient has difficulty and at times unable to reach in high coverage due to the pain.??? She has difficulty with getting dressed and doing hygiene activity with the right upper extremity.??? Difficulty putting on her shirt and jacket.??? She has increasedpain Stanley on the right shoulder.??? Patient recently was scheduled to undergo total shoulder arthroplasty however had upper respiratory symptoms.??? She had chest x-ray which has been reviewed by the primary care provider.??? Patient's symptoms have all resolved.??? PCP was okay with patient proceeding forward with surgery.??? Patient has medical history pertinent for chronic kidney disease, thyroid nodules, hypertension.??? Denies past history of DVT or pulmonary embolism.??? After failing conservative measures and discussing all treatment options Dr. Silverio Ruiz, the patient does wish to proceed with a right reverse total shoulder arthroplasty.??? She has obtain surgical clearance from the primary care provider Dr. Wagoner. ??? REVIEW OF SYSTEMS: Review Of Systems: Constitutional: Denies anorexia, anxiety, change in appetite, fever and weight change,hard of hearing, and vision problems. Cardiovasular: Denies chest pain, heart murmur, irregular heartbeat and peripheral vascular disease. Respiratory: Denies asthma, cough, pneumonia, sleep apnea, shortness of breath, tuberculosis and wheezing. Gastrointestinal: Denies constipation, diarrhea, heartburn, nausea, bloody stools and vomiting, and difficulty swallowing. Genitourinary: Denies incontinence. Musculoskeletal: Reports pain and weakness, but denies gait disturbance, leg swelling and trouble walking. Skin: Denies Raynaud's, history of shingles and tattoo. Neurological: Denies tremor in R hand, ambulatory dysfunction, dizziness and numbness/tingling Psychiatric: Denies anxiety, depression, insomnia, mental illness and stress. Hematologic/Lymphatic: Denies anemia, bleeding/bruising tendency and past transfusion. Reviewed and updated. PAST MEDICAL HISTORY: Advance Care Plan: Other Directive, POA Effective Date: 11/15/2016 Past Medical History: Medical Problems: Arthritis, High Blood Pressure Kidney Disease/Renal Failure - stage 3 thyroid nodules syncope after surgery - if not enough fluids after surgery Covid- 19 - (2023) subclinical hypothyroidism, carotid stenosis left side, psoriasis on scalp Accidents: Sports Related Injury - (1979) TORN ACHILLES Surgical Hx: Tonsillectomy - Age 8 Tubal Ligation - 1971 Carpal Tunnel - RT- 2001 [facility]??? Dr. James Laminectomy - 1971 [facility]??? Dr. James LT THR - (08/19/2008) ROGER @ [facility] RT THR - (11/27/2012) [email or web address] Shoulder Replacement LT - (02/15/2017) [email or web address] Carpal Tunnel Release LT - (06/21/2017) [email or web address] vein stripping - (1982) Anesthesia Complications: Takes awhile to wake up Assistive Devices: Glasses - readers Reviewed and updated. 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 Personal Habits:??? Tobacco Use: Patient has never smoked.Cigarette Use: Never.Smokeless Tobacco: Never Used Smokeless Tobacco.E-Cigarette Use: Never used.Alcohol: Occasionally.Drug Use: Denies Use.Enjoy Exercising: Daily. Reviewed and updated. VITALS: Ht: 64.5 Wt: 150lb Wt k.040 BMI: 25.3 BP: 128/70 Pulse: 75 Resp: 17 T: 97.7 T: 36.5C Pain Level: 9 O2SatR: 95 ALLERGIES: No Known Drug Allergy MEDICATIONS: Mupirocin 2 % use qtip and apply inside each nostril twice a day until the day of surgery, Calcium Plus D3 600 mg 1 po qday, Losartan Potassium 50 mg 1 tab po daily, Metoprolol Succinate ER 50 mg twice daily po, Fluticaso (more content not included)...[facility]04-07-2025 Radiology Diagnostic study note [facility] Imaging Services [address] [place], [place] [id number] Chest PA and Lateral MR#: [id number] Acct: [id number] Name: YIN WU Rep #: [id number] : 1940 F 84 From: Obdulia Rojas DO PCP: Dr. Shavon Pitts MD Status: REG CLI Study:Chest PA and Lateral Date of Exam: 05/21/24 Exam# [id number] Ordering Dr: Antolin Paul PA-C PROCEDURE: PA and lateral chest radiographs, two views 05/21/2024 REASON FOR EXAM: Cough for 6 weeks TECHNIQUE: PA and lateral views of the chest. FINDINGS: The cardiomediastinal silhouette is within normal limits. Thoracic aorta is tortuous. Bones are osteopenic with degenerative changes in the spine. Partially included left total shoulder arthroplasty. 3 mm tiny calcified granuloma projects over the lower left lung on the PA view. Lungs are hyperinflated, without focal airspace consolidation or pleural effusion. RAD/Chest PA and Lateral IMPRESSION: Pulmonary hyperinflation. No acute cardiopulmonary process is demonstrated. If there are persistent symptoms or clinical concern, short-term follow-up CT evaluation may be considered. Reading Location: [facility] CC: LEAH Paul; Dr. Shavon Pitts MD ~ Documentation Writer: Signed [facility]10-02-2024 History of Present illness Narrative* Roe Christian MD - 11/16/2023 10:45 AM EDT Chief Complaint Patient presents with Left Shoulder - Pain XOA. 83 y/o RHD F presents for L shoulder eval. New pt. Pt states she had L TSA 7-8y ago w Dr. Ruiz in [place]. 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 Ruled out infection with labs. Has been going to PT but did not see any improvements. No other recent treatments. HPI: This is the initial visit to me for this 83 y.o. right hand dominant female who is here today for evaluation of her left shoulder pain. The patient noticed the gradual onset of left shoulder pain 9 months ago. She had a TSA 7-8 yrs ago - did great and then it started to hurt and now she has difficulty with ADL and reaching overhead. Hurts more with use. The patient states that the pain started asa result of no injury. The pain is located over globally. The pain does not radiate. The pain is better with rest. The pain is worse with activity. There is not a sense of instability. The patient does not have neurovascular complaints. Patient has had prior shoulder surgery 6-8 years ago with a TSA . She has been told she needs a revision TSA and thus why she is here today - but she feels - she could live with this and is not ready for a revision. Past History Past medical, surgical, family, and social histories have been reviewed and updated with the patient today and are located elsewhere in the medical record. Review of systems Pertinent items are noted in HPI, all other systems were queried and are negative.. Please see noteas documented below. PE: This is a well developed/well nourished 83 y.o. y/o female, who does appear their stated age and was cooperative today in the office. They are alert, oriented x 3, no defects noted in general exam., with normal gait. Neurovascular exam is intact Bilateral UE exam shows negative atrophy, negative deformity or skin changes. Incision well healed . There is no tenderness ROM of the affected shoulder is 40 / 140 / L3 versus the contralateral shoulder 50 / 120 / L3. negative Crepitus. No clunking or instability Strength on the affected side 5-/5 with ER, 5-/5 with FE and 5/5 with IR versus contralateral side abnormal. 5-/5 with ER, 4+/5 with FE and 5/5 with IR Affected shoulder Pain is present with resisted elevation. Drop arm testing negative . Escape negative. Pseudoparalysis negative. ER lag negative. Subscapularis signs negative with negative belly press. Unable to elevate hand offof the back on the left- thus more equiv subscap signs on left Radiographs: To our independent evaluation XR shoulder left: Superior and anterior displacement of humeral head prosthesis in relation to glenoid component - glenoid component with metallic pegs - appears to be loosening - long diaphyseal fithumeral stem Assessment: TSA failure with RTC tear Plan: We reviewed everything with Yin today. The diagnosis and treatment options were discussed with her in detail today. The decision was made to go forward with conservative management of the L TSA. Patient is living well with her shoulder at this point. She does not want a revision shoulder surgery. This would include transitioning to a rTSA. This is a big surgery and she is not ready for this and I reassured her there is no need to pursue this unless the pain and lack of function interferes with her quality of life. Thus - ok to use the arm to tolerance and if this worsens or changes - then we could always consider a revision. We will see patient back prn if symptoms worsen or fail to improve.. If there are any questions prior to this, the patient was instructed to contact the office. The patient needs new xray's upon arrival of her next appointment. Roe Christian MD Orthopaedic Surgery Resident * Dorcas Tavares MD - 11/16/2023 10:45 AM EDT Patient was seen and evaluated with the Sports Medicine Fellow/Resident at today's visit. I performed all essential elements of the history and physical exam at today's visit. I have confirmed the diagnosis at today's visit. I have determined the plan of care for today's visit. Please refer to the f [place]/resident's note for further details from today's visit. I have reviewed the note following the visit have added edits as appropriate to my evaluation and plan of care. The diagnoses for today'svisit include: left painful TSA with cuff failure - for conservative treatment [facility] Author Kay Issa [facility] Note Date/Time June 12, 2024 1:5 8pm [facility] Medical Records Department [address] [place] [id number] Counseling Note - Pharmacy 06/12/24 1357 MR#: [id number] Acct: [id number] Name: YIN WU Rep #:[id number] : 1940 84 From: Kay Issa PCP: Dr. Shavon Pitts MD Status:ADM YONIS Y Location: [place] [address] Pharmacy [facility] has performed discharge medication reconciliation and counseling for this patient. 1. Acetaminophen 1000mg PO Q8 2. Aspirin 81mg PO BID 3. Doxycycline 100mg PO BID x 14 days 4. Famotidine 20mg PO daily 5. Oxycodone 5-10mg PO Q4H PRN pain 6. Senna/docusate 2T PO BID until first BM, then PRN The patient's discharge medication list was reviewed for discrepancies and discrepancies were resolved. The patient was counseled on the following discharge medications and changes in medications for homegoing were reviewed. The Reason for Use, instructions for use, and potential side effects were reviewed for all new medications. The patient's questions regarding all of their medications were answered. The patient was able to verbally demonstrate an understanding of their dischargemedications. Patient counseled by student development advisor, Mat. Medications at Discharge Home Medications amlodipine 10 mg tablet 10 mg PO DAILY 10/04/22 calcium 600 mg (as carbonate)-vitamin D3 10 mcg (400 unit) tablet 1 tab PO DAILY10/04/22 fluticasone propionate 50 mcg/actuation nasal spray,suspension 1 spray NASAL DAILY ALLERGIES 10/04/22 metoprolol succinate 50 mg tablet,extended release 24 hr 50 mg PO DAILY 10/04/22 losartan 100 mg tablet 100 mg PO DAILY #90 tabs 11/01/22 multivitamin with folic acid 400 mcg tablet 1 tab PO DAILY SUPPLEMENT 11/01/22 loratadine 10 mg tablet (Claritin) 10 mg PO DAILY 05/09/24 acetaminophen 500 mg tablet 1,000 mg (2 x 500 mg) PO TID #0 tabs 06/12/24 aspirin 81 mg capsule 81 mg PO BID #0 caps 06/12/24 doxycycline monohydrate 100 mg capsule 100 mg PO BID 14 days #28 caps 06/12/24 famotidine 20 mg tablet 20 mg PO DAILY 14 days #14 tabs 06/12/24 oxycodone 5 mg tablet 5 - 10 mg (1 - 2 x 5 mg) PO Q4H PRN PRN As needed for pain. 7 days #28 tabs 06/12/24 sennosides 8.6 mg-docusate sodium 50 mg tablet (Stimulant Laxative Plus) 2 tab PO BID #0 tabs 06/12/24 06/12/24 1358 <Electronically signed by Kay Issa> Date _ Kay Issa Cosigner Signature (if applicable): Date CC: ~ Signed [facility] Work Phone: Evaluation noteNo assessment information available [facility] Work Phone: Evaluation note* Diagnosis Left shoulder pain, unspecified chronicity- Primary History of left shoulder replacement Left shoulder pain, unspecified chronicity documented [facility]* Diagnosis Left shoulder pain, unspecified chronicity [facility] Additional Instructions Follow-up with your primary care physician. Take all of your antibiotics. You received the first dose here in the emergency department. You need to return back to the ED if you developing worsening symptoms such as fever, chills, nausea, vomiting, spreading of the redness outside of the marker lines.[facility] Work Phone: Reason for referral (narrative)No reason for referral information availableWKettering Health Main Campus Work Phone: Summary Purpose Family History Relationship Condition Age at Onset Recorded Date/T cruz father Cardiac disease Unknown Relationship Condition Age at Onset Recorded Date/T cruz father Coronary artery disease Unknown Advance Directives Advance Directive Response Recorded Date/ Time Advance Directives Yes January 8:05pm Living Will Yes July 29, 2017 11:16pm Power of Project Superintendent Yes July 29 11:16pm Advance Directive Response Recorded Date/ Time Advance Directives Yes January 8:05pm Living Will No September 10, 2022 1:02pm Power of Project Superintendent No September 10 1:02pm Advance Directive Response Recorded Date/ Time Advance Directives Yes January 8:05pm Advance Directive Response Recorded Date/ Time Do you have a Healthcare Power of Project Superintendent? Yes June 11, 2024 2:51pm Name of Medical Power of Project Superintendent Victor Hugo June 11, 2024 2:51pm Advance Directives Yes January 8:05pm Advance Directive Response Recorded Date/ Time Do you have a Healthcare Power of Project Superintendent? Yes June 11, 2024 2:51pm Name of Medical Power of Project Superintendent Victor Hugo June 11, 2024 2:51pm Do you have a Healthcare Power of Project Superintendent? Yes July 23, 2024 11:26am Name of Medical Power of Project Superintendent Victor Hugo Wu July 23, 2024 11:26am Advance Directives Yes January 8:05pm Advance Directive Response Recorded Date/ Time Do you have a Healthcare Power of Project Superintendent? Yes June 11, 2024 2:51pm Name of Medical Power of Project Superintendent Aylin Gay June 11, 2024 2:51pm Do you have a Healthcare Power of Project Superintendent? Yes July 23, 2024 11:26am Name of Medical Power of Project Superintendent Victor Hugo Wu July 23, 2024 11:26am Do you have a Healthcare Power of Project Superintendent? No July 26, 2024 9:08am Advance Directives Yes January 8:05pm Chief Complaint and Reason for Visit Chief Complaint OSTEOARTHRITIS RIGHT SHOULDER *TRUSITE PROTOCOL* Chief Complaint CHEST LEFT ARM PAIN/ NECK PAIN Chief Complaint CHEST LEFT ARM PAIN/ NECK PAIN CHEST PAIN CHEST PAIN Chief Complaint Admit Date Primary osteoarthritis, right shoulder M arch 2024 7:58am Chief Complaint Admit Date Primary osteoarthritis, right shoulder M arch 2024 7:58am PREOP May 07, 2024 8:2 9am Cough May 21, 2024 4:07 pm Chief Complaint Admit Date Primary osteoarthritis, right shoulder M arch 2024 7:58am PREOP May 07, 2024 8:2 9am Cough May 21, 2024 4:07 pm RIGHT REVERSE TOTAL SHOULDER ARTHROPLAST Y, ERAS June 11, 2024 7:37am RIGHT REVERSE TOTAL SHOULDER ARTHROPLAST Y, ERAS June 12, 2024 10:39am Reason for Visit Admit Date Status post reverse total shoulder repla cement June 11, 2024 7:37am Chief Complaint Admit Date Primary osteoarthritis, right shoulder M arch 2024 7:58am PREOP May 07, 2024 8:2 9am Cough May 21, 2024 4:07 pm RIGHT REVERSE TOTAL SHOULDER ARTHROPLAST Y, ERAS June 11, 2024 7:37am RIGHT REVERSE TOTAL SHOULDER ARTHROPLAST Y, ERAS June 12, 2024 10:39am RASH VD BITES July 23, 2024 10:46 am Chief Complaint Admit Date Primary osteoarthritis, right shoulder M arch 2024 7:58am PREOP May 07, 2024 8:2 9am Cough May 21, 2024 4:07 pm RIGHT REVERSE TOTAL SHOULDER ARTHROPLAST Y, ERAS June 11, 2024 7:37am RIGHT REVERSE TOTAL SHOULDER ARTHROPLAST Y, ERAS June 12, 2024 10:39am RASH VD BITES July 23, 2024 10:46 am CELLULITIS July 26, 2024 10:4 4am Reason for Visit Admit Date Status post reverse total shoulder repla cement June 11, 2024 7:37am Cellulitis July 26, 2024 10:4 4am Hypertension July 26, 2024 10:4 4am Reason for Referral Specialty Diagnoses / Procedures Referred By Contac t Referred To Contact Diagnoses Left shoulder pain, unspecified chronicity Procedures XR SHOULDER LEFT 2+ VIEWS Dorcas Tavares MD [address] [place] [address] Referral ID Status Reason Start Date Expiration Date V isits Requested Visits Authorized [id number] New Request 11/14/2023 12/08/2024 1 1 Additional Source Comments INFORMATION SOURCE (unrecogn ized section and content) DATE CREATED AUTHOR 07/03/2021 [facility] DATE CREATED AUTHOR AUTHOR'S ORGANIZ ATION 11/18/2023 [facility] DATE CREATED AUTHOR AUTHOR'S ORGANIZ ATION 07/24/2024 [facility] Goals (unrecognized section and content) Goals may be documented in a n alternate sectionGoals may be documented in an alternate sectionGoals may be documented in an alternate sectionGoals may be documented in an alternate sectionGoals may be documented in an alternate sectionGoals may be documented in an alternate section Care Teams (unrecognized sec tion and content) Team Status: Active Member Role Status Dates Dr. Yannick De Jesus MD Family Provider Active Dr. Shavon Pitts MD Primary Care Provider Active Team Status: Inactive Member Role Status Dates Dr. Shavon Pitts MD Primary Care Provider Active Dr. Aiden Darling DO Attending Provider, Emergency Renetta bernardo Active Team Status: Inactive Member Role Status Dates Dr. Shavon Pitts MD Primary Care Prov ider, Attending Provider, Referring Provider Active Team Status: Active Member Role Status Dates Dr. Shavon Pitts MD Primary Care Prov ider, Referring Provider, Other Provider Active Dr. Micheal Pichardo MD Attending Provider Activ e Team Status: Active Member Role Status Dates Dr. Shavon Pitts MD Primary Care Provider Active Team Status: Inactive Member Role Status Dates Dr. Shavon Pitts MD Primary Care Provider Active Start: May 07, 2024 End: May 07, 2024 Dr. Silverio Ruiz MD Attending Provider Active Start: May 07, 2024 End: May 07, 2024 Dr. Silverio Ruiz MD Referring Provider Active Start: May 07, 2024 End: May 07, 2024 Team Status: Active Member Role Status Dates Dr. Shavon Pitts MD Primary Care Provider Active Start: May 07, 2024 End: May 07, 2024 Dr. Teddy Ochoa MD Attending Provider Active S tart: May 07, 2024 End: May 07, 2024 Dr. Silverio Ruiz MD Referring Provider Active Start: May 07, 2024 End: May 07, 2024 Team Status: Inactive Member Role Status Dates Dr. Shavon Pitts MD Primary Care Provider Active Start: May 21, 2024 End: May 21, 2024 Antolin BRANNON PA-C Attending Provider Active Start: May 21, 2024 End: May 21, 2024 Antolin BRANNON PA-C Referring Provider Active Start: May 21, 2024 End: May 21, 2024 Team Status: Inactive Member Role Status Dates Dr. Shavon Pitts MD Primary Care Provider Active Start: June 11, 2024 End: June 12, 2024 Dr. Silverio Ruiz MD Admit Provider Active Sta rt: June 11, 2024 End: June 12, 2024 Dr. Silverio Ruiz MD Attending Provider Active Start: June 11, 2024 End: June 12, 2024 Dr. Silverio Ruiz MD Referring Provider Active Start: June 11, 2024 End: June 12, 2024 Dr. Macario Kilgore MD Other Provider Active Start: June 11, 2024 End: June 12, 2024 Dr. Kelvin Almonte DO Other Provider Active Start: June 11, 2024 End: June 12, 2024 Team Status: Active Member Role Status Dates Dr. Shavon Pitts MD Primary Care Provider Active Start: June 12, 2024 Dr. Silverio Ruiz MD Admit Provider Active Sta rt: June 12, 2024 Dr. Silverio Ruiz MD Referring Provider Active Start: June 12, 2024 Dr. Silverio Ruiz MD Other Provider Active Sta rt: June 12, 2024 Dr. Macario Kilgore MD Other Provider Active Start: June 12, 2024 Dr. Kelvin Almonte , Attending Provider Active Start: June 12, 2024 Dr. Kelvin Almonte , DO Other Provider Active Start: June 12, 2024 Team Status: Inactive Member Role Status Dates Dr. Shavon Pitts MD Primary Care Provider Active Start: July 23, 2024 End: July 23, 2024 Dr. Usman Ramirez , Emergency Provider Activ e Start: July 23, 2024 End: July 23, 2024 Team Status: Active Member Role Status Dates Dr. Shavon Pitts MD Primary Care Provider Active Start: July 26, 2024 Dr. Madeleine Logan , Emergency Provider Active S tart: July 26, 2024 Dr. Ernie Howard , Admit Provider Active S tart: July 26, 2024 Dr. Ernie Howard , Attending Provider Active Start: July 26, 2024 Reason for Visit (unrecogniz ed section and content) Reason Comments Pain XOA. 83 y/o RHD F pr esents for L shoulder eval. New pt. Pt states she had L TSA 7-8y ago w Dr. Ruiz in [place]. 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 Ruled out infection with labs. Has been going to PT but did not see any improvements. No other recent treatments. Specialty Diagnoses / Procedures Referred By Rad t Referred To Contact Orthopaedic Surgery Diagnoses Pain due to internal orthopedic prosthetic devices, implants and grafts, subsequent encounter Strain of musc/tend the rotator cuff of left shoulder, subs Presence of left artificial shoulder joint Silverio Ruiz MD [address] [place] [address] [facility] [address] [place] [address] Referral ID Status Reason Start Date Expiration Date V isits Requested Visits Authorized [id number] Pending Review 10/12/2023 11/05/2024 1 1 Specialty Diagnoses / Procedures Referred By Rad t Referred To Contact Diagnoses Left shoulder pain, unspecified chronicity Procedures XR SHOULDER LEFT 2+ VIEWS Dorcas Tavares MD [address] [place] [address] Referral ID Status Reason Start Date Expiration Date V isits Requested Visits Authorized [id number] New Request 11/14/2023 12/08/2024 1 1 FOR RECORDS PERTAINING TO PATIENTS WHO ARE OR HAVE BEEN ENROLLED IN A CHEMICAL DEPENDENCY/SUBSTANCEABUSE PROGRAM, SOME INFORMATION MAY BE OMITTED. This clinical summary was aggregated from multiple sources. Caution should be exercised in using it in the provision of clinical care. This summary normalizes information from multiple sources, and as a consequence, information in this document may materially change the coding, format and clinical context of patient data. In addition, data may be omitted in some cases. CLINICAL DECISIONS SHOULD BE BASED ON THE PRIMARY CLINICAL RECORDS. [employer] [facility]. provides no warranty or guarantee of the accuracy or completeness of information in this document.
--- OUTSIDE RECORDS SUMMARY | 2024-07-26 20:47 | XMS RPT_ITS | CCD ---
Author Organization [facility] Team Providers Care Franchise Field Consultant Name Role Phone Unavailable Primary Care Provider Dr. Shavon Santos Primary Care Provider Dr. Shavon Pitts Referring Provider [phone] Shavon Pitts Other Provider [phone] Dr. Micheal Pichardo Attending Provider DORCAS TAVARES Referring Unavailable DORCAS TAVARES Attending Unavailable SILVERIO RUIZ Referring Unavailable DORCAS TAVARES Attending Unavailable Unavailable Primary Care Provider Dr. Shavon Santos MD Primary Care Provider [phone] Dr. Silverio Ruiz MD Attending Provider Dr. Silverio Ruiz MD Referring Provider Dr. Teddy Ochoa MD Attending Provider Antolin Paul PA-C Attending Provider Almaz LYNN Ray Referring Provider [phone] Silverio Ruiz MD Admit Provider Magui HERNANDEZ, Dr. Macario Mcdonald Other Provider Dr. Kelvin Almonte DO Other Provider Dr. Silverio uRiz MD Other Provider Dr. Kelvin Almonte DO Attending Provider Dr. Usman Ramirez DO Emergency Provider Shavon Pitts Primary Care Unavailable Silverio Ruiz Referring Unavailable Silverio Ruiz Attending Unavailable Antolin Cortez Referring Unavailable Antolin Cortez Attending Unavailable [facility], [place] Primary Care Unavailable M[place]el, [place] Primary [facility] Unavailable Sara, Silverio Referring Unavailable Teddy Ochoa Attending Unavailable Deed, [place] Primary [facility] Unavailable Teddy Ochoa Attending Unavailable [facility] [place] Primary Care Unavailable Terrell FLOYD, Shannan Attending Unavailable Sal Doran Attending Unavailable [facility] [place] Primary Care Unavailable Miedel, Shavon Referring Unavailable Terrell FLOYD, Shannan Attending Unavailable [facility], [place] Primary Care Unavailable Kelvin Almonte Attending Unavailable Macario Kilgore Consulting Unavailable Deed, [place] Primary Care Unavailable Silverio Ruiz Admitting Unavailable Sara Silverio Referring Unavailable Kelvin Almonte Consulting Unavailable Silverio Ruiz Consulting Unavailable [facility], [place] Primary Care Unavailable Sheila Hernandez Attending Unavailable Ernie Grubbs Referring Unavailable [facility] [place] Primary Care Unavailable Silverio Ruiz Attending Unavailable Usman Ramirze Attending Unavailabl e [facility], [place] Primary Care Unavailable [facility] [place] Primary Care Unavailable Shannan Spann NP Referring Unavailable Terrell FLOYD, Shannan Attending Unavailable [facility] [place] Primary Care Unavailable Miedel, Shavon Referring Unavailable Miedel, Shavon Attending Unavailable [facility], [place] Primary Care Unavailable Miedel, Shavon Referring Unavailable [facility], [place] Attending Unavailable Macario Kilgore Consulting Unavailable [facility], [place] Primary Care Unavailable Sara Silverio Admitting Unavailable Sara Silverio Referring Unavailable Silverio Ruiz Attending Unavailable Kelvin Almonte Consulting Unavailable Miedel, Shavon Attending Unavailable [facility], [place] Primary Care Unavailable Miedel, Shavon Primary Care Unavailable Sara Silverio Referring Unavailable Silverio Ruiz Attending Unavailable Dr. Madeleine Logan DO Emergency Provider Anita HERNÁNDEZ, Dr. Klein [facility] Dr. Klein Attending Provider Medications Current [...] 2:01pm docusate sodium 50 mg / sennosides, mcc 8.6 mg oral tablet (3 sources) Start: [...] Auto (Unsp spec) [#/Vol] 1.24 10*3/uL 0.83-4.51 [facility] Absolute neutrophil countOrd ered By: Remus Ungur on 07-26-2024 Neutrophils (Bld) [#/Vol] 3.1 10*3/uL 2.0-7.7 [facility] Anion gap in Serum or Plasma Ordered By: Remus Ungur on 07-26-2024 Anion gap [Moles/Vol] 16 mmol/L High 5-15 [facility] Automated lymphocyte count a s percentage of total leukocytesOrdered By: Remus Logan on 07-26-2024 Lymphocytes/100 WBC Auto (Unsp spec) 20.1 % 19-41 [facility] BUN/creatinine ratioOrdered By: Remus Logan on 07-26-2024 Urea nitrogen/Creatinine [Mass ratio] 13.1 mg/mg 10-20 [facility] Basophil percentageOrdered B y: Remus Logan on 07-26-2024 Basophils/100 WBC (Bld) 1.0 % 0-[address] [facility] Carbon dioxide, total [Moles /volume] in Central venous bloodOrdered By: Rem Ungflaquita on 07-26-2024 CO2 [Moles/Vol] 18.5 mmol/L Low 21.0-32.0 [facility] Chloride assayOrdered By: Re aydee Logan on 07-26-2024 Chloride [Moles/Vol] 100 mmol/L 98-108 [facility] Eosinophil percentageOrdered By: Rem Ungur on 07-26-2024 Eosinophils/100 WBC (Bld) 4.1 % 0-5 [facility] Erythrocyte distribution wid th ratioOrdered By: Remus Ungur on 07-26-2024 Erythrocyte distribution width (RBC) [Ratio] 13.9 % 11.6-14.6 [facility] Erythrocyte distribution wid th standard deviationOrdered By: Remus Ungur on 07-26-2024 Erythrocyte distribution width (RBC) [Ratio] 46.9 fl High 35.1-43.9 [facility] Glomerular filtration rate ( GFR) estimation/1.73 sq m using serum, plasma, or whole bOrdered By: Madeleine Logan on 07-26-2024 GFR/1.73 sq M.predicted among non-blacks MDRD (S/P/Bld) [Vol rate/Area] 31 mL/min/{1.73_m2} Low >60 [facility] Comment on above: mL/min/1.73m2 CKD-EP I Creatinine Equation (2020) Hematocrit Auto (Bld) [Volum e fraction]Ordered By: Madeleine Logan on 07-26-2024 Hematocrit (Bld) [Volume fraction] 34.8 % Low 37-47 [facility] Hemoglobin measurementOrdere d By: Madeleine Logan on 07-26-2024 Hemoglobin (Bld) [Mass/Vol] 12.0 g/dL 12.0-15.0 [facility] Immature granulocytes/100 WB C Auto (Bld)Ordered By: Madeleine Logan on 07-26-2024 Immature granulocytes/100 WBC (Bld) 0.500 % 0.0-0.9 [facility] Comment on above: IG% - Immature Granu locytes (promyelocytes, myelocytes and metamyelocytes) > 1% indicates that a LEFT SHIFT is Present. Lactic acid measurementOrder ed By: Madeleine Logan on 07-26-2024 Lactate [Moles/Vol] 1.7 mmol/L 0.0-2.0 [facility] MCV (mean corpuscular volume ) determinationOrdered By: Madeleine Logan on 07-26-2024 MCV (RBC) [Entitic vol] 92.1 fL 81-[address] [facility] Mean corpuscular hemoglobin (MCH) determinationOrdered By: Madeleine Logan on 07-26-2024 MCH (RBC) [Entitic mass] 31.7 pg 27.0-32.0 [facility] Mean corpuscular hemoglobin concentration (MCHC) determinationOrdered By: Madeleine Logan on 07-26-2024 MCHC (RBC) [Mass/Vol] 34.5 g/dL 32-36 [facility] Mean platelet volume determi nationOrdered By: Madeleine Logan on 07-26-2024 Platelet mean volume (Bld) [Entitic vol] 9.1 fL 6.2-12.0 [facility] Monocyte percentageOrdered B y: Madeleine Logan on 07-26-2024 Monocytes/100 WBC (Bld) 24.0 % High 0-[address] [facility] Neutrophil percentageOrdered By: Madeleine Logan on 07-26-2024 Neutrophils/100 WBC (Bld) 50.3 % 47-70 [facility] Nucleated red blood cell per centageOrdered By: Madeleine Logan on 07-26-2024 Nucleated RBC/100 WBC (Bld) [Ratio] 0 % 0-5 [facility] Platelet countOrdered By: Michela Logan on 07-26-2024 Platelets (Bld) [#/Vol] 404 10*3/uL 150-450 [facility] Potassium measurement (mass/ volume)Ordered By: Madeleine Logan on 07-26-2024 Potassium (Unsp spec) [Mass/Vol] 4.0 mmol/L 3.3-5.1 [facility] RBC Auto (Bld) [#/Vol]Ordere d By: Madeleine Logan on 07-26-2024 RBC (Bld) [#/Vol] 3.78 10*6/uL Low 4.2-5.4 [facility] Serum creatinine measurement (mass/volume)Ordered By: Madeleine Logan on 07-26-2024 Creatinine [Mass/Vol] 1.63 mg/dL High 0.70-1.20 [facility] Serum glucose measurement (m ass/volume)Ordered By: Madeleine Logan on 07-26-2024 Glucose [Mass/Vol] 109 mg/dL High 70-99 [facility] Serum or plasma calcium josefa urement (mass/volume)Ordered By: Madeleine Logan on 07-26-2024 Calcium [Mass/Vol] 9.8 mg/dL 7.6-11.0 [facility] Serum or plasma urea nitroge n measurement (mass/volume)Ordered By: Madeleine Logan on 07-26-2024 Urea nitrogen [Mass/Vol] 21 mg/dL High 4-19 [facility] Sodium levelOrdered By: Jarred Logan on 07-26-2024 Sodium [Moles/Vol] 135 mmol/L 133-145 [facility] White blood cell (WBC) count Ordered By: Madeleine Logan on 07-26-2024 WBC (Bld) [#/Vol] 6.2 10*3/uL 4.4-11.0 [facility] Absolute lymphocyte countOrd ered By: Usmanshoshana Ramirez on 07-23-2024 Lymphocytes Auto (Unsp spec) [#/Vol] 1.16 10*3/uL 0.83-4.51 [facility] Absolute neutrophil countOrd ered By: Usman Tank on 07-23-2024 Neutrophils (Bld) [#/Vol] 5.5 10*3/uL 2.0-7.7 [facility] Anion gap in Serum or Plasma Ordered By: Usmanshoshana Ramirez on 07-23-2024 Anion gap [Moles/Vol] 13 mmol/L 5-15 [facility] Automated lymphocyte count a s percentage of total leukocytesOrdered By: Usman Ramirez on 07-23-2024 Lymphocytes/100 WBC Auto (Unsp spec) 12.7 % Low 19-41 [facility] BUN/creatinine ratioOrdered By: Bagley Ashley on 07-23-2024 Urea nitrogen/Creatinine [Mass ratio] 13.9 mg/mg 10-20 [facility] Basic Metabolic Profile (BMP )on 07-23-2024 BUN/CRE 13.9 RATIO Normal 10-20 [facility] Comment on above: Performed By: #### L 503.6005, L100.0100, L500.2500 ####[facility] [address] [place], [address] Calcium [Mass/Vol] 10.0 mg/dL Normal 7.6-11.0 [facility] Comment on above: Performed By: #### L 503.6005, L100.0100, L500.2500 ####[facility] [address] [place], [address] Chloride [Moles/Vol] 97 mmol/L Low 98-108 [facility] Comment on above: Performed By: #### L 503.6005, L100.0100, L500.2500 ####[facility] [address] [place], [address] CO2 [Moles/Vol] 23.0 mmol/L Normal 21.0-32.0 [facility] Comment on above: Performed By: #### L 503.6005, L100.0100, L500.2500 ####[facility] [address] [place], [address] Creatinine [Mass/Vol] 1.34 mg/dL High 0.70-1.20 [facility] Comment on above: Performed By: #### L 503.6005, L100.0100, L500.2500 ####[facility] [address] [place], [address] ECRCL 31.57 ml/min Low 50-250 [facility] Comment on above: Performed By: #### L 503.6005, L100.0100, L500.2500 ####[facility] [address] [place], [address] GAP 13 Normal 5-15 [facility] Comment on above: Performed By: #### L 503.6005, L100.0100, L500.2500 ####[facility] [address] [place], [address] GFR/1.73 sq M.predicted among non-blacks MDRD (S/P/Bld) [Vol rate/Area] 40 mL/min/{1.73_m2} Low >60 [facility] Comment on above: Result Comment: mL/m in/1.73m2 CKD-EPI Creatinine Equation (2020) Performed By: #### L 503.6005, L100.0100, L500.2500 ####[facility] [address] [place], [address] Glucose [Mass/Vol] 105 mg/dL High 70-99 [facility] Comment on above: Performed By: #### L 503.6005, L100.0100, L500.2500 ####[facility] [address] [place], [address] Potassium [Moles/Vol] 4.1 mmol/L Normal 3.3-5.1 [facility] Comment on above: Performed By: #### L 503.6005, L100.0100, L500.2500 ####[facility] [address] [place], [address] Sodium [Moles/Vol] 133 mmol/L Normal 133-145 [facility] Comment on above: Performed By: #### L 503.6005, L100.0100, L500.2500 ####[facility] [address] [place], [address] Urea nitrogen [Mass/Vol] 19 mg/dL Normal 4-19 [facility] Comment on above: Performed By: #### L 503.6005, L100.0100, L500.2500 ####[facility] [address] [place], [address] Basophil percentageOrdered B y: Usman Ramirez on 07-23-2024 Basophils/100 WBC (Bld) 0.7 % 0-[address] [facility] CBC W/Diff, Automatedon Absolute Lymph 1.16 X10 3/uL Normal 0.83-4.51 [facility] Comment on above: Performed By: #### L 503.6005, L100.0100, L500.2500 ####[facility] [address] [place], [address] Absolute Neut 5.5 X10 3/uL Normal 2.0-7.7 [facility] Comment on above: Performed By: #### L 503.6005, L100.0100, L500.2500 ####[facility] [address] [place], [address] Basophils/100 WBC (Bld) 0.7 % Normal 0-[address] [facility] Comment on above: Performed By: #### L 503.6005, L100.0100, L500.2500 ####[facility] [address] [place], [address] Eosinophils/100 WBC (Bld) 0.7 % Normal 0-5 [facility] Comment on above: Performed By: #### L 503.6005, L100.0100, L500.2500 ####[facility] [address] [place], [address] Erythrocyte distribution width (RBC) [Ratio] 14.0 % Normal 11.6-14.6 [facility] Comment on above: Performed By: #### L 503.6005, L100.0100, L500.2500 ####[facility] [address] [place], [address] Hematocrit (Bld) [Volume fraction] 36.2 % Low 37-47 [facility] Comment on above: Performed By: #### L 503.6005, L100.0100, L500.2500 ####[facility] [address] [place], [address] Hemoglobin (Bld) [Mass/Vol] 12.3 g/dL Normal 12.0-15.0 [facility] Comment on above: Performed By: #### L 503.6005, L100.0100, L500.2500 ####[facility] [address] [place], [address] IG% 1.900 High 0.0-0.9 [facility] Comment on above: Result Comment: IG% - Immature Granulocytes (promyelocytes, myelocytes and metamyelocytes) > 1% indicates that a LEFT SHIFT is Present. Performed By: #### L 503.6005, L100.0100, L500.2500 ####[facility] [address] [place], [address] Lymphocytes/100 WBC (Bld) 12.7 % Low 19-41 [facility] Comment on above: Performed By: #### L 503.6005, L100.0100, L500.2500 ####[facility] [address] [place], [address] MCH (RBC) [Entitic mass] 31.7 pg Normal 27.0-32.0 [facility] Comment on above: Performed By: #### L 503.6005, L100.0100, L500.2500 ####[facility] [address] [place], [address] MCHC (RBC) [Mass/Vol] 34.0 g/dL Normal 32-36 [facility] Comment on above: Performed By: #### L 503.6005, L100.0100, L500.2500 ####[facility] [address] [place], [address] MCV (RBC) [Entitic vol] 93.3 fL Normal 81-99 [facility] Comment on above: Performed By: #### L 503.6005, L100.0100, L500.2500 ####[facility] [address] [place], [address] Monocytes/100 WBC (Bld) 24.5 % High 0-10 [facility] Comment on above: Performed By: #### L 503.6005, L100.0100, L500.2500 ####[facility] [address] [place], [address] Neutrophils/100 WBC (Bld) 59.5 % Normal 47-70 [facility] Comment on above: Performed By: #### L 503.6005, L100.0100, L500.2500 ####[facility] [address] [place], [address] Nucleated RBC (Bld) [#/Vol] 0 10*3/uL Normal 0-5 [facility] Comment on above: Performed By: #### L 503.6005, L100.0100, L500.2500 ####[facility] [address] [place], [address] Platelet mean volume (Bld) [Entitic vol] 8.9 fL Normal 6.2-12.0 [facility] Comment on above: Performed By: #### L 503.6005, L100.0100, L500.2500 ####[facility] [address] [place], [address] Platelets (Bld) [#/Vol] 353 10*3/uL Normal 150-450 [facility] Comment on above: Performed By: #### L 503.6005, L100.0100, L500.2500 ####[facility] [address] [place], [address] RBC (Bld) [#/Vol] 3.88 10*6/uL Low 4.2-5.4 [facility] Comment on above: Performed By: #### L 503.6005, L100.0100, L500.2500 ####[facility] [address] [place], [address] RDW SD 48.1 fl High 35.1-43.9 [facility] Comment on above: Performed By: #### L 503.6005, L100.0100, L500.2500 ####[facility] [address] [place], [address] WBC (Bld) [#/Vol] 9.2 10*3/uL Normal 4.4-11.0 [facility] Comment on above: Performed By: #### L 503.6005, L100.0100, L500.2500 ####[facility] [address] [place], [address] Carbon dioxide, total [Moles /volume] in Central venous bloodOrdered By: Usman Ramirez on 07-23-2024 CO2 [Moles/Vol] 23.0 mmol/L 21.0-32.0 [facility] Chloride assayOrdered By: Miguel Ramirez on 07-23-2024 Chloride [Moles/Vol] 97 mmol/L Low 98-108 [facility] Emergency Department Summary on 07-23-2024 Emergency Department Summary [facility] Medical Records Department [address] [place] [address] Emergency Department Summary 07/23/24 MR#: [id number] Acct: [id number] Name: YIN WU Rep #: [id number] : 1940 84 From: Usman Ramirez DO [...] intact Psych: Cooperative, appropriate mood and affect [facility] Medical History Wears glasses Post-menopausal Low iron [...] lumbar laminectomy (more content not included)... Normal [facility] Eosinophil percentageOrdered By: Usman Ramirez on 07-23-2024 Eosinophils/100 WBC (Bld) 0.7 % 0-5 [facility] Erythrocyte distribution wid th ratioOrdered By: Usman Ramirez on 07-23-2024 Erythrocyte distribution width (RBC) [Ratio] 14.0 % 11.6-14.6 [facility] Erythrocyte distribution wid th standard deviationOrdered By: Usman Murphy on 07-23-2024 Erythrocyte distribution width (RBC) [Ratio] 48.1 fl High 35.1-43.9 [facility] Glomerular filtration rate ( GFR) estimation/1.73 sq m using serum, plasma, or whole bOrdered By: Usman Ramirez on 07-23-2024 GFR/1.73 sq M.predicted among non-blacks MDRD (S/P/Bld) [Vol rate/Area] 40 mL/min/{1.73_m2} Low >60 [facility] Comment on above: mL/min/1.73m2 CKD-EP I Creatinine Equation (2020) Hematocrit Auto (Bld) [Volum e fraction]Ordered By: Usman Ramirez on 07-23-2024 Hematocrit (Bld) [Volume fraction] 36.2 % Low 37-47 [facility] Hemoglobin measurementOrdere d By: Usman Ramirez on 07-23-2024 Hemoglobin (Bld) [Mass/Vol] 12.3 g/dL 12.0-15.0 [facility] Immature granulocytes/100 WB C Auto (Bld)Ordered By: Usman Ramirez on 07-23-2024 Immature granulocytes/100 WBC (Bld) 1.900 % High 0.0-0.9 [facility] Comment on above: IG% - Immature Granu locytes (promyelocytes, myelocytes and metamyelocytes) > 1% indicates that a LEFT SHIFT is Present. Lactic Acidon 07-23-2024 Lactate [Moles/Vol] 1.1 mmol/L Normal 0.0-2.0 [facility] Comment on above: Order Comment: Y Performed By: #### L 503.6005, L100.0100, L500.2500 ####[facility] [address] [place], [address] Lactic acid measurementOrder ed By: Usman Ramirez on 07-23-2024 Lactate [Moles/Vol] 1.1 mmol/L 0.0-2.0 [facility] MCV (mean corpuscular volume ) determinationOrdered By: Usman Ramirez on 07-23-2024 MCV (RBC) [Entitic vol] 93.3 fL 81-[address] [facility] Mean corpuscular hemoglobin (MCH) determinationOrdered By: Usman Ramirez on 07-23-2024 MCH (RBC) [Entitic mass] 31.7 pg 27.0-32.0 [facility] Mean corpuscular hemoglobin concentration (MCHC) determinationOrdered By: Usman Ramirez on 07-23-2024 MCHC (RBC) [Mass/Vol] 34.0 g/dL 32-36 [facility] Mean platelet volume determi nationOrdered By: Usman Ramirez on 07-23-2024 Platelet mean volume (Bld) [Entitic vol] 8.9 fL 6.2-12.0 [facility] Monocyte percentageOrdered B y: Usman Ramirez on 07-23-2024 Monocytes/100 WBC (Bld) 24.5 % High 0-[address] [facility] Neutrophil percentageOrdered By: Usman Ramirez on 07-23-2024 Neutrophils/100 WBC (Bld) 59.5 % 47-70 [facility] Nucleated red blood cell per centageOrdered By: Usman Ramirez on 07-23-2024 Nucleated RBC/100 WBC (Bld) [Ratio] 0 % 0-5 [facility] Platelet countOrdered By: Miguel Ramirez on 07-23-2024 Platelets (Bld) [#/Vol] 353 10*3/uL 150-450 [facility] Potassium measurement (mass/ volume)Ordered By: Usman Ramirez on 07-23-2024 Potassium (Unsp spec) [Mass/Vol] 4.1 mmol/L 3.3-5.1 [facility] RBC Auto (Bld) [#/Vol]Ordere d By: Usman Ramirez on 07-23-2024 RBC (Bld) [#/Vol] 3.88 10*6/uL Low 4.2-5.4 [facility] Serum creatinine measurement (mass/volume)Ordered By: Usman Ramirez on 07-23-2024 Creatinine [Mass/Vol] 1.34 mg/dL High 0.70-1.20 [facility] Serum glucose measurement (m ass/volume)Ordered By: Usman Ramirez on 07-23-2024 Glucose [Mass/Vol] 105 mg/dL High 70-99 [facility] Serum or plasma calcium josefa urement (mass/volume)Ordered By: Usman Murphy on 07-23-2024 Calcium [Mass/Vol] 10.0 mg/dL 7.6-11.0 [facility] Serum or plasma urea nitroge n measurement (mass/volume)Ordered By: Usman Ramirez on 07-23-2024 Urea nitrogen [Mass/Vol] 19 mg/dL 4-19 [facility] Sodium levelOrdered By: Elias Ramirez on 07-23-2024 Sodium [Moles/Vol] 133 mmol/L 133-145 [facility] White blood cell (WBC) count Ordered By: Usman Ramirez on 07-23-2024 WBC (Bld) [#/Vol] 9.2 10*3/uL 4.4-11.0 [facility] Anion gap in Serum or Plasma Ordered By: Silverio Ruiz on 06-12-2024 Anion gap [Moles/Vol] 14 mmol/L 5- [facility] BUN/creatinine ratioOrdered By: Silverio Ruiz on 06-12-2024 Urea nitrogen/Creatinine [Mass ratio] 15.7 mg/mg - [facility] Basic Metabolic Profile (BMP )on 06-12-2024 BUN/CRE 15.7 RATIO Normal - [facility] Comment on above: Performed By: #### L 100.0500, L500.2500 ####[facility] [facility] [address] [place], [address] Calcium [Mass/Vol] 9.3 mg/dL Normal 7.6-11.0 [facility] Comment on above: Performed By: #### L 100.0500, L500.2500 ####[facility] [address] [place], [address] Chloride [Moles/Vol] 100 mmol/L Normal 98-108 [facility] Comment on above: Performed By: #### L 100.0500, L500.2500 ####[facility] [address] [place], [address] CO2 [Moles/Vol] 20.9 mmol/L Low 21.0-32.0 [facility] Comment on above: Performed By: #### L 100.0500, L500.2500 ####[facility] [address] [place], [address] Creatinine [Mass/Vol] 1.02 mg/dL Normal 0.70-1.20 [facility] Comment on above: Performed By: #### L 100.0500, L500.2500 ####[facility] [address] [place], [address] ECRCL 41.62 ml/min Low 50-250 [facility] Comment on above: Performed By: #### L 100.0500, L500.2500 ####[facility] [address] [place], [address] GAP 14 Normal 5-15 [facility] Comment on above: Performed By: #### L 100.0500, L500.2500 ####[facility] [address] [place], [address] GFR/1.73 sq M.predicted among non-blacks MDRD (S/P/Bld) [Vol rate/Area] 55 mL/min/{1.73_m2} Low >60 [facility] Comment on above: Result Comment: mL/m in/1.73m2 CKD-EPI Creatinine Equation (2020) Performed By: #### L 100.0500, L500.2500 ####[facility] [address] [place], [address] Glucose [Mass/Vol] 133 mg/dL High 70-99 [facility] Comment on above: Performed By: #### L 100.0500, L500.2500 ####[facility] [address] [place], [address] Potassium [Moles/Vol] 4.1 mmol/L Normal 3.3-5.1 [facility] Comment on above: Result Comment: Hemo lysis present, Results??could be affected. ?? Performed By: #### L 100.0500, L500.2500 ####[facility] [address] [place], [address] Sodium [Moles/Vol] 135 mmol/L Normal 133-145 [facility] Comment on above: Performed By: #### L 100.0500, L500.2500 ####[facility] [address] [place], [address] Urea nitrogen [Mass/Vol] 16 mg/dL Normal 4-19 [facility] Comment on above: Performed By: #### L 100.0500, L500.2500 ####[facility] [address] [place], [address] CBC-Complete Blood Cnt No Di ffon 06-12-2024 Erythrocyte distribution width (RBC) [Ratio] 14.2 % Normal 11.6-14.6 [facility] Comment on above: Performed By: #### L 100.0500, L500.2500 ####[facility] [address] [place], [address] Hematocrit (Bld) [Volume fraction] 37.2 % Normal 37-47 [facility] Comment on above: Performed By: #### L 100.0500, L500.2500 ####[facility] [address] [place], [address] Hemoglobin (Bld) [Mass/Vol] 13.0 g/dL Normal 12.0-15.0 [facility] Comment on above: Performed By: #### L 100.0500, L500.2500 ####[facility] [address] [place], [address] MCH (RBC) [Entitic mass] 32.5 pg High 27.0-32.0 [facility] Comment on above: Performed By: #### L 100.0500, L500.2500 ####[facility] [address] [place], [address] MCHC (RBC) [Mass/Vol] 34.9 g/dL Normal 32-36 [facility] Comment on above: Performed By: #### L 100.0500, L500.2500 ####[facility] [address] [place], [address] MCV (RBC) [Entitic vol] 93.0 fL Normal 81-[address] [facility] Comment on above: Performed By: #### L 100.0500, L500.2500 ####[facility] [address] [place], [address] Platelet mean volume (Bld) [Entitic vol] 9.9 fL Normal 6.2-12.0 [facility] Comment on above: Performed By: #### L 100.0500, L500.2500 ####[facility] [address] [place], [address] Platelets (Bld) [#/Vol] 339 10*3/uL Normal 150-450 [facility] Comment on above: Performed By: #### L 100.0500, L500.2500 ####[facility] [address] [place], [address] RBC (Bld) [#/Vol] 4.00 10*6/uL Low 4.2-5.4 [facility] Comment on above: Performed By: #### L 100.0500, L500.2500 ####[facility] [address] [place], [address] RDW SD 48.6 fl High 35.1-43.9 [facility] Comment on above: Performed By: #### L 100.0500, L500.2500 ####[facility] [address] [place], [address] WBC (Bld) [#/Vol] 15.0 10*3/uL High 4.4-11.0 [facility] Comment on above: Performed By: #### L 100.0500, L500.2500 ####[facility] [address] [place], [place], [address] Carbon dioxide, total [Moles /volume] in Central venous bloodOrdered By: Silverio Ruiz on 06-12-2024 CO2 [Moles/Vol] 20.9 mmol/L Low 21.0-32.0 [facility] Chloride assayOrdered By: St lilly Ruiz on 06-12-2024 Chloride [Moles/Vol] 100 mmol/L 98-108 [facility] Discharge Instructionon 05-16 Discharge Instruction [facility] Medical Records Department [address] [place] [address] Instructions for Home/Discharge Instructions 06/12/24 0831 MR#: [id number] Acct: [id number] Name: YIN WU Rep #: [id number] : 1940 84 From: Samantha BRANNON PCP: [...] MD; Dr. Macario Kilgore MD Signed Normal [facility] Erythrocyte distribution wid th (RBC) [Ratio]Ordered By: Silverio Ruiz on 06-12-2024 Erythrocyte distribution width (RBC) [Entitic vol] 48.6 fL High 35.1-43.9 [facility] Erythrocyte distribution wid th ratioOrdered By: Silverio Ruiz on 06-12-2024 Erythrocyte distribution width (RBC) [Ratio] 14.2 % 11.6-14.6 [facility] Erythrocyte distribution wid th standard deviationOrdered By: Silverio Ruiz on 06-12-2024 Erythrocyte distribution width (RBC) [Ratio] 48.6 fl High 35.1-43.9 [facility] Estimation of creatinine yao aranceOrdered By: Silverio Ruiz on 06-12-2024 Estimated Creatinine Clearance Calc 41.62 ml/min Low 50-250 [facility] GFR/1.73 sq M.predicted mo g non-blacks MDRD (S/P/Bld) [Vol rate/Area]Ordered By: Silverio Ruiz on 06-12-2024 Estimated GFR (MDRD) Non-Af Amer 55 Low >60 [facility] Comment on above: mL/min/1.73m2 CKD-EP I Creatinine Equation (2020) Glomerular filtration rate ( GFR) estimation/1.73 sq m using serum, plasma, or whole bOrdered By: Silverio Ruiz on 06-12-2024 GFR/1.73 sq M.predicted among non-blacks MDRD (S/P/Bld) [Vol rate/Area] 55 mL/min/{1.73_m2} Low >60 [facility] Comment on above: mL/min/1.73m2 CKD-EP I Creatinine Equation (2020) Hematocrit Auto (Bld) [Volum e fraction]Ordered By: Silverio Ruiz on 06-12-2024 Hematocrit (Bld) [Volume fraction] 37.2 % 37-47 [facility] Hemoglobin measurementOrdere d By: Silverio Ruiz on 06-12-2024 Hemoglobin (Bld) [Mass/Vol] 13.0 g/dL 12.0-15.0 [facility] MCV (mean corpuscular volume ) determinationOrdered By: Silverio Ruiz on 06-12-2024 MCV (RBC) [Entitic vol] 93.0 fL 81-[address] [facility] Mean corpuscular hemoglobin (MCH) determinationOrdered By: Silverio Ruiz on 06-12-2024 MCH (RBC) [Entitic mass] 32.5 pg High 27.0-32.0 [facility] Mean corpuscular hemoglobin concentration (MCHC) determinationOrdered By: Silverio Ruiz on 06-12-2024 MCHC (RBC) [Mass/Vol] 34.9 g/dL 32-36 [facility] Mean platelet volume determi nationOrdered By: Silverio Ruiz on 06-12-2024 Platelet mean volume (Bld) [Entitic vol] 9.9 fL 6.2-12.0 [facility] Platelet countOrdered By: St lilly Ruiz on 06-12-2024 Platelets (Bld) [#/Vol] 339 10*3/uL 150-450 [facility] Potassium (Unsp spec) [Mass/ Vol]Ordered By: Silverio Ruiz on 06-12-2024 Potassium [Moles/Vol] 4.1 mmol/L 3.3-5.1 [facility] Comment on above: Hemolysis present, R esults could be affected. Potassium measurement (mass/ volume)Ordered By: Silverio Ruiz on 06-12-2024 Potassium (Unsp spec) [Mass/Vol] 4.1 mmol/L 3.3-5.1 [facility] Comment on above: Hemolysis present, R esults could be affected. RBC Auto (Bld) [#/Vol]Ordere d By: Silverio Ruiz on 06-12-2024 RBC (Bld) [#/Vol] 4.00 10*6/uL Low 4.2-5.4 [facility] Serum creatinine measurement (mass/volume)Ordered By: Silverio Ruiz on 06-12-2024 Creatinine [Mass/Vol] 1.02 mg/dL 0.70-1.20 [facility] Serum glucose measurement (m ass/volume)Ordered By: Silverio Ruiz on 06-12-2024 Glucose [Mass/Vol] 133 mg/dL High 70-99 [facility] Serum or plasma calcium josefa urement (mass/volume)Ordered By: Silverio Ruiz on 06-12-2024 Calcium [Mass/Vol] 9.3 mg/dL 7.6-11.0 [facility] Serum or plasma urea nitroge n measurement (mass/volume)Ordered By: Silverio Ruiz on 06-12-2024 Urea nitrogen [Mass/Vol] 16 mg/dL 4-19 [facility] Sodium levelOrdered By: Buddy Ruiz on 06-12-2024 Sodium [Moles/Vol] 135 mmol/L 133-145 [facility] White blood cell (WBC) count Ordered By: Silverio Ruiz on 06-12-2024 WBC (Bld) [#/Vol] 15.0 10*3/uL High 4.4-11.0 [facility] Bedside Glucoseon 06-11-2024 FINGERSTICK GLU 117 mg/dL High 74-106 [facility] Comment on above: Result Comment: ELVER ZHANG OF PATIENT CARE PER NURSING PROTOCOL Performed By: #### L 501.080 #### [facility] Laboratory [facility] [address] [place], [place], [id number] Decalcification bone/plaqueo n 06-11-2024 Decalcification bone/plaque -------- Patient Age/Sex Location Account Attending Physician -------- YIN WU 84/F MS3 [id number] Dr. Silverio Ruiz MD -------- Specimen: [id number] Received: 06/11/24 Status: KRISTEN Dominguez Num: [id number] Spec Type: HUMERUS Subm Dr: Dr. Silverio [...] in aggregate. Sectioning reveals unremarkable bill-pink surfaces. Bronzer sections of bone and soft tissue are submitted in A1 following decalcification. [facility] 06-11-2024 CPT:60190,25890 -------- Patient Age/Sex Location Account Attending Physician -------- YIN WU 84/F MS3 [id number] Dr. Silverio Ruiz MD -------- Signed (signature on file) Dr. Ramona Saleem, 06/14/24 1534 -------- [facility] Comment on above: Performed By: #### L 500.4050, L501.9520, L400.2010 #### [facility] Laboratory [address] [place], [address] [facility] deOrdered By: Silverio Ruiz on 06-11-2024 Bedside Glucose ([facility] Panel) 117 mg/dL High 74-106 [facility] Comment on above: MANAGEMENT OF PATIEN T CARE PER NURSING PROTOCOL Glucose [Mass/Vol] 117 mg/dL High 74-106 [facility] Comment on above: MANAGEMENT OF PATIEN T CARE PER NURSING PROTOCOL MR/POSTOP.ANEon 06-11-2024 MR/POSTOP.[facility] Medical Records Department [address] [place] [address] Anesthesia Postop Eval I 06/11/24 1300 MR#: [id number] Acct: [id number] Name: YIN WU Rep #: [id number] : 1940 84 From: Monico Cardona CRNA PCP: Dr. Shavon Pitts MD Status:REG IAC Y Race: C Location: [place] [address] Anesthesia: Postop Eval I Current Vital Signs [...] completed: Yes 06/11/24 1301 Date Monico Cardona BLENDER / COOK Cosigner Signature: Date CC: Signed Normal [facility] MR/LBQGSCLK0by 06-11-2024 MR/POSTOPAN2 [facility] Medical Records Department [address] [place] [address] Anesthesia Postop Eval II 06/11/24 1401 MR#: [id number] Acct: [id number] Name: YIN WU Rep #: [id number] : 1940 84 From: Glen Puga MD PCP: Dr. Shavon Pitts MD Status:REG SDC Y Race: C Location: [place] [address]- Anesthesia Postop Eval I Sum Postop Eval Completion status Anesthesia document: Postop Eval 1 completed: Yes Anesthesia Postop Eval I Summary Anesthesia Postop Eval I Summary: Anesthesia Postop Eval I: Assessment Summary Airway patent Yes 06/11/24 13:01 BLENDER / COOK.SOBR Spontaneous unlabored Yes 06/11/24 13:01 BLENDER / COOK.SOBR respirations Mental status Awake,Calm 06/11/24 13:01 BLENDER / COOK.SOBR nausea No 06/11/24 13:01 BLENDER / COOK.SOBR Vomiting No 06/11/24 13:01 BLENDER / COOK.SOBR Anesthesia Postop Eval I: Fluid Summary Crystalloid volume administer 1,000 06/11/24 13:01 BLENDER / COOK.SOBR (ml) Colloids volume administered ( ml) Blood Product volume administered (ml) Total IV fluid infused 1,000 06/11/24 13:01 BLENDER / COOK.SOBR Anesthesia Postop Eval I: Summary Notes Anesthesia Complication No 06/11/24 13:01 BLENDER / COOK.SOBR Anesthesia Complication Comment: Post-operative progress note Anesthesia: Postop Eval II Evaluation Mental status: Awake Pain Level: 1 nausea: No Vomiting: No 06/11/24 1402 Date Glen Puga MD Cosigner Signature: Date CC: Signed Normal [facility] Operative Reporton Operative Report [facility] Medical Records Department [address] [place] [address] Operative Report 06/11/24 1146 MR#: [id number] Acct: [id number] Name: YIN WU Rep #: [id number] : 1940 84 From: Silverio Ruiz MD PCP: Dr. 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 Normal [facility] Shoulder min 2 Viewson 06-11 Shoulder min 2 Views [facility] Imaging Services [address] [place], [place] [id number] Shoulder min 2 Views MR#: [id number] Acct: [id number] Name: YIN WU Rep #: [id number] : 1940 F 84 From: Marvin Arevalo MD PCP: Dr. Shavon Pitts MD Status: REG IAC Study: Shoulder min 2 Views Date of Exam: 06/11/24 Exam# [id number] Ordering Dr: Silverio Ruiz MD PROCEDURE: SHOULDER [...] Shavon Pitts MD; Dr. Silverio Ruiz MD Toggle Press Folder And Feeder: Signed Normal [facility] Chest PA and Lateralon 05-21 Chest PA and Lateral [facility] Imaging Services [address] [place], [place] [id number] Chest PA and Lateral MR#: [id number] Acct: [id number] Name: YIN WU Rep #: [id number] : 1940 F 84 From: Arnoldo Contreras i, DO PCP: Dr. Shavon Pitts MD Status: REG CLI Study: Chest PA and Lateral Date of Exam: 05/21/24 Exam# [id number] Ordering Dr: Antolin Paul PA-C PROCEDURE: PA [...] PA-C Antolin Paul; Dr. Shavon Pitts MD Toggle Press Folder And Feeder: Signed [facility] MR/PAT.ANDERSon 05-09-2024 MR/PAT.[facility] Medical Records Department [address] [place] [address] PAT - Anesthesia 05/09/24 1151 MR#: [id number] Acct: [id number] Name: YIN WU Rep #: [id number] : 1940 84 From: Glen Puga MD PCP: Dr. 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 physician: Anesthesia History - athletic team physician Hx Hospitalization No 05/09/24 11:32 Any Problems [...] take am of surgery PONV PONV - athletic team physician: PONV - athletic team physician Female Yes 05/09/24 11:32 HX of Motion [...] 07/01/23 14:54 Respiratory Assessment Respiratory Assessment - athletic team physician: Respiratory Tract Infection Hx - athletic team physician Hx Respiratory Tract Infection Yes: SINUS INFECTION/TREATED 05/09/24 11:32 STOP Sleep Apnea STOP Sleep Apnea - athletic team physician: STOP Sleep Apnea - athletic team physician Hx Hypertension Yes: CONTROLLED WITH MED 05/09/24 [...] Tobacco Use History Tobacco Use History - athletic team physician: Tobacco Use History - athletic team physician Tobacco Use Smoking Status Never smoker 05/09/24 11:32 Hx Tobacco Use No 05/09/24 11:32 Years Smoking Packs Smoked per Day Smoking Cessation Date was within the last 15 years Hx Smoking Cessation Date Hx Smoking Cessation Counseling Hematologic Medial History Hematologic Hx - athletic team physician: 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 Normal [facility] Magnesiumon 05-09-2024 Magnesium [Mass/Vol] 2.1 mg/dL Normal 1.5-2.2 [facility] Comment on above: Performed By: #### L 501.5200 #### [facility] Laboratory [address] [place], [place], [address] MRSA/SAID NASAL SCREENon MRSA+SAID SCRN Negative Normal [facility] Comment on above: Performed By: #### L 500.4050, L501.9520, L400.2010 #### [facility] Laboratory [address] [place], [address] 12 Lead EKGon 03-24-2025 12 Lead EKG [facility] Cardiovascular Services [address] [place] [address] 12 Lead EKG 05/07/24 0829 MR#: [id number] Acct: [id number] Name: YIN WU Rep #: [id number] : 1940 84 From: Teddy Ochoa MD Attending Dr: Dr. Silverio Ruiz MD Status: PRE SDC Ordering Dr: Silverio Ruiz MD Date: 05/07/24 [place] [facility] [place]: F C Admitted: Test Reason : PRE OP Blood Pressure : */* mmHG Vent. Rate : 64 BPM Atrial Rate : 64 BPM P-R Int : 184 ms QRS Dur : 86 ms QT Int : 410 ms P-R-T Axes : 46 50 61 degrees QTcB Int : 422 ms Normal sinus rhythm Normal ECG Confirmed by SHRUTHI HERNANDEZ, TEDDY ([id number]), editor city LG HOYOS ([id number]) on 05/07/2024 10:29:55 AM Referred By: SARA Confirmed By: TEDDY OCHOA MD 05/07/24 102 Date Teddy Ochoa MD CC: Dr. Shavon Ptits MD; Dr. Silverio Ruiz MD Signed Normal [facility] Albumin, Serumon 05-07-2024 Albumin [Mass/Vol] 4.4 g/dL Normal 3.4-4.8 [facility] Comment on above: Performed By: #### L 500.4050, L501.9520, L4 #### [facility] Laboratory [address] [place], [address] Basic Metabolic Profile (BMP )on 05-07-2024 BUN/CRE 19.1 RATIO Normal 10-20 [facility] Comment on above: Performed By: #### L 500.4050, L501.9520, L400 #### [facility] Laboratory [address] [place], [address] Calcium [Mass/Vol] 10.4 mg/dL Normal 7.6-11.0 [facility] Comment on above: Performed By: #### L 500.4050, L501.9520, L4.2010 #### [facility] Laboratory [address] [place], [address] Chloride [Moles/Vol] 99 mmol/L Normal 98-108 [facility] Comment on above: Performed By: #### L 500.4050, L501.9520, L4.2010 #### [facility] Laboratory [address] [place], [address] CO2 [Moles/Vol] 22.2 mmol/L Normal 21.0-32.0 [facility] Comment on above: Performed By: #### L 500.4050, L501.9520, L4.2010 #### [facility] Laboratory [address] [place], [address] Creatinine [Mass/Vol] 1.24 mg/dL High 0.70-1.20 [facility] Comment on above: Performed By: #### L 500.4050, L501.9520, L4.2010 #### [facility] Laboratory [address] [place], [address] GAP 13 Normal 5-15 [facility] Comment on above: Performed By: #### L 500.4050, L501.9520, L4.2010 #### [facility] Laboratory [address] [place], [address] GFR/1.73 sq M.predicted among non-blacks MDRD (S/P/Bld) [Vol rate/Area] 43 mL/min/{1.73_m2} Low >60 [facility] Comment on above: Result Comment: mL/m in/1.73m2 CKD-EPI Creatinine Equation (2020) Performed By: #### L 500.4050, L501.9520, L4.2010 #### [facility] Laboratory [address] [place], [address] Glucose [Mass/Vol] 109 mg/dL High 70-99 [facility] Comment on above: Performed By: #### L 500.4050, L501.9520, L400.2010 #### [facility] Laboratory [address] [place], [address] Potassium [Moles/Vol] 4.3 mmol/L Normal 3.3-5.1 [facility] Comment on above: Performed By: #### L 500.4050, L501.9520, L400.2010 #### [facility] Laboratory [address] [place], [address] Sodium [Moles/Vol] 134 mmol/L Normal 133-145 [facility] Comment on above: Performed By: #### L 500.4050, L501.9520, L4.2010 #### [facility] Laboratory [address] [place], [address] Urea nitrogen [Mass/Vol] 24 mg/dL High 4-19 [facility] Comment on above: Performed By: #### L 500.4050, L501.9520, L400.2010 #### [facility] Laboratory [address] [place], [address] CBC W/Diff, Automatedon 03-2 Absolute Lymph 2.15 X10 3/uL Normal 0.83-4.51 [facility] Comment on above: Performed By: #### L 500.4050, L501.9520, L400.2010 #### [facility] Laboratory [address] [place], [address] Absolute Neut 4.8 X10 3/uL Normal 2.0-7.7 [facility] Comment on above: Performed By: #### L 500.4050, L501.9520, L400.2010 #### [facility] Laboratory [address] [place], [address] Basophils/100 WBC (Bld) 0.8 % Normal 0-[address] [facility] Comment on above: Performed By: #### L 500.4050, L501.9520, #### [facility] Laboratory [address] [place], [address] Eosinophils/100 WBC (Bld) 4.2 % Normal 0-5 [facility] Comment on above: Performed By: #### L 500.4050, L501.9520, #### [facility] Laboratory [address] [place], [address] Erythrocyte distribution width (RBC) [Ratio] 14.3 % Normal 11.6-14.6 [facility] Comment on above: Performed By: #### L 500.4050, L501.9520, #### [facility] Laboratory [address] [place], [address] Hematocrit (Bld) [Volume fraction] 39.5 % Normal 37-47 [facility] [facility] Comment on above: Performed By: #### L 500.4050, L501.95, #### [facility] [address] [place], [address] Hemoglobin (Bld) [Mass/Vol] 13.5 g/dL Normal 12.0-15.0 [facility] Comment on above: Performed By: #### L 500.4050, L501.9520, L4 #### [facility] [address] [place], [address] IG% 0.800 Normal 0.0-0.9 [facility] Comment on above: Result Comment: IG% - Immature Granulocytes (promyelocytes, myelocytes and metamyelocytes) > 1% indicates that a LEFT SHIFT is Present. Performed By: #### L 500.4050, L501.9520, #### [facility] [address] [place], [address] Lymphocytes/100 WBC (Bld) 24.3 % Normal 19-41 [facility] Comment on above: Performed By: #### L 500.4050, L501.9520, L400.2010 #### [facility] [address] [place], [address] MCH (RBC) [Entitic mass] 31.9 pg Normal 27.0-32.0 [facility] Comment on above: Performed By: #### L 500.4050, L501.9520, L400.2010 #### [facility] [address] [place], [address] MCHC (RBC) [Mass/Vol] 34.2 g/dL Normal 32-36 [facility] Comment on above: Performed By: #### L 500.4050, L501.9520, L4.2010 #### [facility] [address] [place], [address] MCV (RBC) [Entitic vol] 93.4 fL Normal 81-99 [facility] Comment on above: Performed By: #### L 500.4050, L501.9520, L400.2010 #### [facility] [address] [place], [address] Monocytes/100 WBC (Bld) 15.8 % High 0-10 [facility] Comment on above: Performed By: #### L 500.4050, L501.9520, L400 #### [facility] [address] [place], [address] Neutrophils/100 WBC (Bld) 54.1 % Normal 47-70 [facility] Comment on above: Performed By: #### L 500.4050, L501.9520, L400.2010 #### [facility] [address] [place], [address] Nucleated RBC (Bld) [#/Vol] 0 10*3/uL Normal 0-5 [facility] Comment on above: Performed By: #### L 500.4050, L501.9520, L4.2010 #### [facility] [address] [place], [address] Platelet mean volume (Bld) [Entitic vol] 9.2 fL Normal 6.2-12.0 [facility] Comment on above: Performed By: #### L 500.4050, L501.9520, L4 #### [facility] [address] [place], [address] Platelets (Bld) [#/Vol] 382 10*3/uL Normal 150-450 [facility] Comment on above: Performed By: #### L 500.4050, L501.9520, L4 #### [facility] [address] [place], [address] RBC (Bld) [#/Vol] 4.23 10*6/uL Normal 4.2-5.4 [facility] Comment on above: Performed By: #### L 500.4050, L501.9520, L4 #### [facility] [address] [place], [address] RDW SD 49.3 fl High 35.1-43.9 [facility] Comment on above: Performed By: #### L 500.4050, L501.9520, L400 #### [facility] [address] [place], [address] WBC (Bld) [#/Vol] 8.8 10*3/uL Normal 4.4-11.0 [facility] Comment on above: Performed By: #### L 500.4050, L501.9520, L400 #### [facility] [address] [place], [address] Extremity Upper without Cont raon 05-07-2024 Extremity Upper without Contra [facility] Imaging Services [address] [place], [place] [id number] Extremity Upper without Contra MR#: [id number] Acct: [id number] Name: YIN WU Rep #: [id number] : 1940 F 84 From: Jai patel MD PCP: Dr. Shavon Pitts MD Status: DEP CLI Study: Extremity Upper without Contra Date of Exam: 0 05/07/24 Exam# [id number] Ordering Dr: Silverio Ruiz MD PROCEDURE: EXTREMITY [...] of the right acromioclavicular joint. Reading Location: [facility] CC: Dr. Shavon Pitts MD; Dr. Silverio Ruiz MD Toggle Press Folder And Feeder: Signed Normal [facility] MR/BMS.Pavel 12-14-2023 MR/BMS.BVS [facility] Vascular Surgery [address] [place] [address] OFFICE VISIT Date of Service: 12/14/23 MR#: [id number] Acct: [id number] Name: YIN WU Rep #: [id number] : 1940 Provider: CLOVIS Arizmendi Age/Sex: 83/F Location[place] [facility] [place] [place] Status: Signed Intake Vital Signs 07/01/23 14:54 [...] No hemorrhoids, (more content not included)... Normal [facility] XR SHOULDER LEFT 2+ VIEWSon 11-16-2023 XR [...] concerning for a rotator cuff tear. Normal [facility] XR Shoulder - left 2 Viewson [...] component, concerning for a rotator cuff tear. [facility] Radiology Study observation (narrative) [facility] XR Shoulder - left 2 ViewsOr dered By: Alfonso Tsang on 11-16-2023 [facility] Work Phone: Miscellaneous Lab Procedureo n 10-31-2023 [facility] TEST Normal [facility] Comment on above: Order Comment: CHILL ED EDTA [id number] PTH-RP Result Comment: TEST RESULTS LIMITS PTHrP(PTH-Related [...] please contact the laboratory. TESTING PERFORMED AT [facility]. ORIGINAL REPORT ON FILE IN LAB CONTAINS ADDITIONAL TEST SITE INFORMATION. Performed By: #### L 3300.0960, L506.1000, L509.1000, L801.1541 ####[facility] [address] [place], [address] Vitamin D 1,25-Dihydroxyon 0 10-24-2023 VIT D 1,25 DIHY 27.1 pg/mL Normal 24.8-81.5 [facility] Comment on above: Result Comment: Perf ormed at: - [facility] [id number] Sewing Machine Tester: Marck Elkins MD, Phone: [phone] Performed By: #### L 3300.0960, L506.1000, L509.1000, L801.1541 #### [facility] [address] [place], [place], [address] Carotid Duplex Ultrasoundon 10-21-2023 Carotid Duplex Ultrasound [facility] Cardiovascular Services [address] [address] Carotid Duplex Ultrasound 10/21/23 0856 MR#: [id number] Acct: [id number] Name: YIN WU Rep #: [id number] : 1940 83 From: Sal Doran MD Attending Dr: Dr. Shavon Pitts MD Status: REG CLI Ordering Dr: Shavon Pitts MD Date: 10/21/23 Location: [facility] Sex: F C Admitted: Reason For Study: [...] the left vertebral artery. Procedure Carotid Duplex 39972. This is a Carotid Duplex examination using [...] MD Date Dictated: 10/21/23855 Date Transcribed: 10/24/231738 Toggle Press Folder And Feeder: Signed Normal [facility] L501.2276on 10-21-2023 Ionized Calcium 5.02 mg/dL Normal 4.36-5.20 [facility] Comment on above: Performed By: #### L 501.2276 ####[facility] [address] [place], [address] PTHINon 10-21-2023 PTH 39.3 pg/mL Normal 18.4-80.1 [facility] Comment on above: Performed By: #### L 3300.0960, L506.1000, L509.1000, L801.1541 #### [facility] [address] [place], [address] Vitamin D,25 Hydroxyon 10-20 Vitamin D 25-OH 46.5 ng/mL Normal [facility] Comment on above: Result Comment: Criselda min D 25(OH) Status Range Deficiency <20 ng/mL (50nmol/L) Insufficiency 20 - 30 ng/mL (50 - 75 nmol/L) Sufficiency 30 - 100 ng/mL (75 - 250 nmol/L) Toxicity >100 ng/mL (>250 nmol/L) Performed By: #### L 3300.0960, L506.1000, L509.1000, L801.1541 #### [facility] [address] [place], [address] Comprehensive Metabolic Prof ilon 10-13-2023 Albumin [Mass/Vol] 3.9 g/dL Normal 3.2-5.0 [facility] Comment on above: Performed By: #### L 500.4050, L501.9520, L400.2010 #### [facility] [address] [place], [address] Albumin/Globulin [Mass ratio] 0.9 {ratio} Normal 0.9-2.4 [facility] Comment on above: Performed By: #### L 500.4050, L501.9520, L400.2010 #### [facility] [address] [place], [address] ALK P 80 U/L Normal 45-117 [facility] Comment on above: Performed By: #### L 500.4050, L501.9520, L4.2010 #### [facility] [address] [place], [address] ALT [Catalytic activity/Vol] 26 U/L Normal 13-56 [facility] Comment on above: Performed By: #### L 500.4050, L501.9520, L4.2010 #### [facility] [address] [place], [address] AST [Catalytic activity/Vol] 23 U/L Normal 15-37 [facility] Comment on above: Performed By: #### L 500.4050, L501.9520, L4 #### [facility] [address] [place], [address] Bilirubin [Mass/Vol] 0.50 mg/dL Normal 0.20-1.00 [facility] Comment on above: Result Comment: For patients on eltrombopag therapy, use of Dimension [place] TBIL is not recommended. Performed By: #### L 500.4050, L501.9520, L4.2010 #### [facility] [address] [place], [address] BUN/CRE 19.2 RATIO Normal 10-20 [facility] Comment on above: Performed By: #### L 500.4050, L501.9520, L400.2010 #### [facility] [address] [place], [address] CA,Total 10.6 mg/dL High 8.5-10.1 [facility] Comment on above: Performed By: #### L 500.4050, L501.9520, L4.2010 #### [facility] [address] [place], [address] Chloride [Moles/Vol] 102 mmol/L Normal 98-107 [facility] Comment on above: Performed By: #### L 500.4050, L501.9520, L4 #### [facility] [address] [place], [address] CO2 [Moles/Vol] 26.0 mmol/L Normal 21.0-32.0 [facility] Comment on above: Performed By: #### L 500.4050, L501.9520, L4 #### [facility] [address] [place], [address] Creatinine [Mass/Vol] 1.20 mg/dL High 0.55-1.02 [facility] Comment on above: Result Comment: The validity of the calculated GFR GFRAA in patients over 70 years has not been determined. Clinical correlation is essential. Performed By: #### L 500.4050, L501.9520, L4 #### [facility] [address] [place], [address] EST GFR - AA 55 mL/min Low >60 [facility] Comment on above: Result Comment: Afri can Salvadorean GFR Calc Performed By: #### L 500.4050, L501.9520, L400 #### [facility] [address] [place], [address] GAP 7 Normal 5-15 [facility] Comment on above: Performed By: #### L 500.4050, L501.9520, L400 #### [facility] [address] [place], [address] GFR/1.73 sq M.predicted among non-blacks MDRD (S/P/Bld) [Vol rate/Area] 46 mL/min/{1.73_m2} Low >60 [facility] Comment on above: Result Comment: Non- GFR Calc Performed By: #### L 500.4050, L501.9520, L400.2010 #### [facility] [address] [place], [address] Globulin (S) [Mass/Vol] 4.2 g/dL Normal 2.2-4.2 [facility] Comment on above: Performed By: #### L 500.4050, L501.9520, L400.2010 #### [facility] [address] [place], [address] Glucose [Mass/Vol] 104 mg/dL Normal 74-106 [facility] Comment on above: Result Comment: Fast ing Glucose result from 100 to 125 mg/dL suggests IMPAIRED HOMEOSTASIS per A.D.A. criteria. Performed By: #### L 500.4050, L501.9520, L400.2010 #### [facility] [address] [place], [address] Potassium [Moles/Vol] 4.4 mmol/L Normal 3.5-5.1 [facility] Comment on above: Performed By: #### L 500.4050, L501.9520, L4.2010 #### [facility] [address] [place], [address] Sodium [Moles/Vol] 135 mmol/L Low 136-145 [facility] Comment on above: Performed By: #### L 500.4050, L501.9520, L400.2010 #### [facility] [address] [place], [address] T PROT 8.1 g/dL Normal 6.4-8.2 [facility] Comment on above: Performed By: #### L 500.4050, L501.9520, L400.2010 #### [facility] [address] [place], [address] Urea nitrogen [Mass/Vol] 23 mg/dL High 7-18 [facility] Comment on above: Performed By: #### L 500.4050, L501.9520, L400.2010 #### [facility] [address] [place], [address] Thyroid Stim Hormone (TSH)on 10-13-2023 TSH 4.640 uIU/mL High 0.358-3.740 [facility] Comment on above: Performed By: #### L 500.4050, L501.9520, L400.2010 #### [facility] [address] [place], [address] Urinalysis, Routine (Dipstic k)on 10-13-2023 BILIRUBIN URINE Negative Normal Negative [facility] Comment on above: Order Comment: Urine , Random Performed By: #### L 500.4050, L501.9520, L400.2010 #### [facility] [address] [place], [address] Clarity (U) Clear Normal Clear [facility] Comment on above: Order Comment: Urine , Random Performed By: #### L 500.4050, L501.9520, L400.2010 #### [facility] [address] [place], [address] Color (U) Yellow Normal Yellow [facility] Comment on above: Order Comment: Urine , Random Performed By: #### L 500.4050, L501.9520, L400.2010 #### [facility] [address] [place], [address] GLUCOSE, UR Normal Normal Normal [facility] Comment on above: Order Comment: Urine , Random Performed By: #### L 500.4050, L501.9520, L400.2010 #### [facility] [address] [place], [address] KETONE UR Negative Normal Negative [facility] Comment on above: Order Comment: Urine , Random Performed By: #### L 500.4050, L501.9520, L400.2010 #### [facility] [address] [place], [address] LEUK ESTERASE Negative Normal Negative [facility] Comment on above: Order Comment: Urine , Random Performed By: #### L 500.4050, L501.9520, L400 #### [facility] [address] [place], [address] Nitrite Ql (U) Negative Normal Negative [facility] Comment on above: Order Comment: Urine , Random Performed By: #### L 500.4050, L501.9520, L400 #### [facility] [address] [place], [address] OCCULT BLOOD-UR Negative Normal Negative [facility] Comment on above: Order Comment: Urine , Random Performed By: #### L 500.4050, L501.9520, L400.2010 #### [facility] [address] [place], [address] pH UR 7.0 Normal 5.0 - 8.0 [facility] Comment on above: Order Comment: Urine , Random Performed By: #### L 500.4050, L501.9520, L400.2010 #### [facility] [address] [place], [address] PROT DIPSTX Negative Normal Negative [facility] Comment on above: Order Comment: Urine , Random Performed By: #### L 500.4050, L501.9520, L400 #### [facility] [address] [place], [address] SP.GR. DIPSTX 1.005 Normal 1.002-1.030 [facility] Comment on above: Order Comment: Urine , Random Performed By: #### L 500.4050, L501.9520, L4.2010 #### [facility] [address] [place], [address] UROBILI Normal Normal Normal [facility] Comment on above: Order Comment: Urine , Random Performed By: #### L 500.4050, L501.9520, L4.2010 #### [facility] [address] [place], [address] CBC W/Diff, Automatedon 09-15-2023 Absolute Lymph 1.70 X10 3/uL Normal 0.83-4.51 [facility] Comment on above: Performed By: #### L 101.9900, L100.0100, L501.6710 ####[facility] [address] [place], [address] Absolute Neut 3.7 X10 3/uL Normal 2.0-7.7 [facility] Comment on above: Performed By: #### L 101.9900, L100.0100, L501.6710 ####[facility] [address] [place], [address] Basophils/100 WBC (Bld) 0.9 % Normal 0-[address] [facility] Comment on above: Performed By: #### L 101.9900, L100.0100, L501.6710 ####[facility] [address] [place], [address] Eosinophils/100 WBC (Bld) 4.1 % Normal 0-5 [facility] Comment on above: Performed By: #### L 101.9900, L100.0100, L501.6710 ####[facility] [address] [place], [address] Erythrocyte distribution width (RBC) [Ratio] 14.6 % Normal 11.6-14.6 [facility] Comment on above: Performed By: #### L 101.9900, L100.0100, L501.6710 ####[facility] [address] [place], [address] Hematocrit (Bld) [Volume fraction] 39.5 % Normal 37-47 [facility] Comment on above: Performed By: #### L 101.9900, L100.0100, L5.6710 ####[facility] [address] [place], [address] Hemoglobin (Bld) [Mass/Vol] 13.3 g/dL Normal 12.0-15.0 [facility] Comment on above: Performed By: #### L 101.9900, L100.0100, L5.6710 ####[facility] [address] [place], [address] IG% 0.300 Normal 0.0-0.9 [facility] Comment on above: Result Comment: IG% - Immature Granulocytes (promyelocytes, myelocytes and metamyelocytes) > 1% indicates that a LEFT SHIFT is Present. Performed By: #### L 101.9900, L100.0100, L5.10 ####[facility] [address] [place], [address] Lymphocytes/100 WBC (Bld) 24.3 % Normal 19-41 [facility] Comment on above: Performed By: #### L 101.9900, L100.0100, L5.6710 ####[facility] [address] [place], [address] MCH (RBC) [Entitic mass] 31.5 pg Normal 27.0-32.0 [facility] Comment on above: Performed By: #### L 101.9900, L100.0100, L501.6710 ####[facility] [address] [place], [address] MCHC (RBC) [Mass/Vol] 33.7 g/dL Normal 32-36 [facility] Comment on above: Performed By: #### L 101.9900, L100.0100, L501.6710 ####[facility] [address] [place], [address] MCV (RBC) [Entitic vol] 93.6 fL Normal 81-[address] [facility] Comment on above: Performed By: #### L 101.9900, L100.0100, L501.6710 ####[facility] [address] [place], [address] Monocytes/100 WBC (Bld) 17.1 % High 0-10 [facility] Comment on above: Performed By: #### L 101.9900, L100.0100, L501.6710 ####[facility] [address] [place], [address] Neutrophils/100 WBC (Bld) 53.3 % Normal 47-70 [facility] Comment on above: Performed By: #### L 101.9900, L100.0100, L501.6710 ####[facility] [address] [place], [address] Nucleated RBC (Bld) [#/Vol] 0 10*3/uL Normal 0-5 [facility] Comment on above: Performed By: #### L 101.9900, L100.0100, L501.6710 ####[facility] [address] [place], [address] Platelet mean volume (Bld) [Entitic vol] 9.8 fL Normal 6.2-12.0 [facility] Comment on above: Performed By: #### L 101.9900, L100.0100, L501.6710 ####[facility] [address] [place], [address] Platelets (Bld) [#/Vol] 368 10*3/uL Normal 150-450 [facility] Comment on above: Performed By: #### L 101.9900, L100.0100, L501.6710 ####[facility] [address] [place], [address] RBC (Bld) [#/Vol] 4.22 10*6/uL Normal 4.2-5.4 [facility] Comment on above: Performed By: #### L 101.9900, L100.0100, L501.6710 ####[facility] [address] [place], [address] RDW SD 50.3 fl High 35.1-43.9 [facility] Comment on above: Performed By: #### L 101.9900, L100.0100, L501.6710 ####[facility] [address] [place], [address] WBC (Bld) [#/Vol] 7.0 10*3/uL Normal 4.4-11.0 [facility] Comment on above: Performed By: #### L 101.9900, L100.0100, L501.6710 ####[facility] [address] [place], [address] CRPon 10-07-2023 C-REACTIVE PROT < 2.90 Normal 0.0-3.0 [facility] Comment on above: Result Comment: C-Re active Protein (CRP) provides useful information for the diagnosis, therapy and monitoring of inflammatory processes and associated diseases. For the evaluation of Relative Risk for Cardiovascular Disease, a High Sensitivity CRP (HSCRP) should be ordered. Performed By: #### L 101.9900, L100.0100, L501.6710 ####[facility] [address] [place], [address] Erythrocyte Sed Rateon 10-06 SED RATE 24 mm/hr Normal 0-30 [facility] Comment on above: Performed By: #### L 101.9900, L100.0100, L501.6710 ####[facility] [address] [place], [address] Ankle Brachial Indexon 08-08 Ankle Brachial Index [facility] [address] [place] [address] Ankle Brachial Index 08/09/23 0931 MR#: [id number] Acct: [id number] Name: YIN WU Rep #: [id number] : 1940 83 From: Haider Dasilva MD Attending Dr: Shannan Spann, TOW BOAT CAPTAIN-C Status: KURT AGARWAL Ordering Dr: Shannan Spann TOW BOAT CAPTAIN TOW BOAT CAPTAIN-C Date: 08/09/23 Location: [facility] Sex: F C Admitted: Reason For Study: [...] RVT 08/09/232034 Date Haider Dasilva MD CC: TOW BOAT CAPTAIN-C Shannan Spann; Dr. Shavon Pitts MD Date Dictated: 08/09/23930 Date Transcribed: 08/09/232034 Toggle Press Folder And Feeder: Signed Normal [facility] Echo Completeon 08-09-2023 Echo Complete [facility] [address] [place] [address] Echo Complete 08/09/23856 MR#: [id number] Acct: [id number] Name: YIN WU Rep #: [id number] : 1940 83 From: Teddy Ocoha MD Attending Dr: MARLY Louise Status: [facility] C Ordering Dr: Shannan Spann NP [employer] CAPTAIN-C Date: 08/09/23 Location: [facility] Sex: F C Admitted: Reason For Study: [...] 08/09/23 1019 Date Teddy Ochoa MD CC: TOW BOAT CAPTAIN-Whitley Spann; Dr. Shavon Pitts MD Date Dictated: 08/09/23 0857 Date Transcribed: 08/09/23 1019 Toggle Press Folder And Feeder: Signed Normal [facility] Absolute lymphocyte countOrd ered By: Anusha Guzman on 09-10-2022 Lymphocytes Auto (Unsp spec) [#/Vol] 1.96 10*3/uL 0.83-4.51 [facility] Basophil percentageOrdered B y: Anusha Guzman on 09-10-2022 Basophils/100 WBC (Bld) 0.5 % 0-[address] [facility] Chloride [Moles/Vol] 105 mmol/L 98-107 [facility] Eosinophils/100 WBC (Bld) 1.8 % 0-5 [facility] Glucose [Mass/Vol] 115 mg/dL 74-106 [facility] Comment on above: Fasting Glucose resu lt from 100 to 125 mg/dL suggests IMPAIRED HOMEOSTASIS per A.D.A. criteria. Neutrophils (Bld) [#/Vol] 5.8 10*3/uL 2.0-7.7 [facility] Neutrophils/100 WBC (Bld) 62.0 % 47-70 [facility] Potassium [Moles/Vol] 4.1 mmol/L 3.5-5.1 [facility] Sodium [Moles/Vol] 137 mmol/L 136-145 [facility] WBC (Bld) [#/Vol] 9.3 10*3/uL 4.4-11.0 [facility] Blood erythrocytes count (nu mber/volume)Ordered By: Anusha Guzman on 09-10-2022 RBC (Bld) [#/Vol] 3.87 10*6/uL 4.2-5.4 [facility] Blood hemoglobin measurement (mass/volume)Ordered By: Anusha Guzman on 09-10-2022 Hemoglobin (Bld) [Mass/Vol] 12.3 g/dL 12.0-15.0 [facility] Blood lymphocytes/100 leukoc ytesOrdered By: Anusha Guzman on 09-10-2022 Lymphocytes/100 WBC (Bld) 21.0 % 19-41 [facility] Blood monocytes/100 leukocyt esOrdered By: Anusha Guzman on 09-10-2022 Monocytes/100 WBC (Bld) 14.5 % 0-10 [facility] Blood platelet mean volumeOr dered By: Anusha Guzman on 09-10-2022 Platelet mean volume (Bld) [Entitic vol] 9.2 fL 6.2-12.0 [facility] Determination of erythrocyte mean corpuscular volume (MCV)Ordered By: Anusha Guzman on 09-10-2022 MCV (RBC) [Entitic vol] 95.1 fL 81-99 [facility] Hematocrit Auto (Bld) [Volum e fraction]Ordered By: Anusha Guzman on 09-10-2022 Hematocrit (Bld) [Volume fraction] 36.8 % 37-47 [facility] Laboratory - Chemistry and C hemistry - challengeOrdered By: Anusha Guzman on 09-10-2022 CO2 [Moles/Vol] 25.0 mmol/L 21.0-32.0 [facility] Urea nitrogen/Creatinine [Mass ratio] 19.4 mg/mg 10-20 [facility] Laboratory - Hematology and Cell countsOrdered By: Anusha Guzman on 09-10-2022 Erythrocyte distribution width (RBC) [Entitic vol] 49.2 fL 35.1-43.9 [facility] Erythrocyte distribution width (RBC) [Ratio] 14.2 % 11.6-14.6 [facility] Immature granulocytes/100 WBC (Bld) 0.200 % 0.0-0.9 [facility] Comment on above: IG% - Immature Granu locytes (promyelocytes, myelocytes and metamyelocytes) > 1% indicates that a LEFT SHIFT is Present. MCH (RBC) [Entitic mass] 31.8 pg 27.0-32.0 [facility] Nucleated RBC/100 WBC (Bld) [Ratio] 0 % 0-5 [facility] MCHC Auto (RBC) [Mass/Vol]Or dered By: Anusha Guzman on 09-10-2022 MCHC (RBC) [Mass/Vol] 33.4 g/dL 32-36 [facility] No Panel InformationOrdered By: Anusha Guzman on 09-10-2022 Troponin I High Sensitivity 8 pg/mL 3.0-54.0 [facility] Comment on above: Please Note: New Edith t Units and Gender Specific Reference Ranges. For more information see Policy Stat Procedure [place] High Sensitivity Troponin (TNIH) and attachments. Estimated Creatinine Clearance Calc 30.13 ml/min [facility] Estimated GFR (MDRD) Amer 49 mL/min >60 [facility] Comment on above: GFR Calc Estimated GFR (MDRD) Non-Af Amer 40 mL/min >60 [facility] Comment on above: Non- GFR Calc Platelets bldOrdered By: Roberto Carlos Guzman on 09-10-2022 Platelets (Bld) [#/Vol] 330 10*3/uL 150-450 [facility] Serum or plasma calcium josefa urement (mass/volume)Ordered By: Anusha Guzman on 09-10-2022 Calcium [Mass/Vol] 9.1 mg/dL 8.5-10.1 [facility] Serum or plasma creatinine m easurement (mass/volume)Ordered By: Anusha Guzman on 09-10-2022 Creatinine [Mass/Vol] 1.34 mg/dL 0.55-1.02 [facility] Comment on above: The validity of the calculated GFR & GFRAA in patients over 70 years has not been determined. Clinical correlation is essential. Serum or plasma urea nitroge n measurement (mass/volume)Ordered By: Anusha Guzman on 09-10-2022 Urea nitrogen [Mass/Vol] 26 mg/dL 7-18 [facility] Thin prep Papanicolaou smear with manual screeningOrdered By: Anusha Guzman on 09-10-2022 Thin prep Papanicolaou smear with manual screening 7 5-15 [facility] Absolute lymphocyte counton 11-27-2021 Lymphocytes Auto (Unsp spec) [#/Vol] 1.56 10*3/uL 0.83-4.51 [facility] Work Phone: Basophil percentageon 2021 Basophils/100 WBC (Bld) 0.6 % 0-[address] [facility] Work Phone: [phone] Eosinophils/100 WBC (Bld) 1.7 % 0-5 [facility] Work Phone: Neutrophils (Bld) [#/Vol] 4.3 10*3/uL 2.0-7.7 [facility] Work Phone: Neutrophils/100 WBC (Bld) 53.8 % 47-70 [facility] Work Phone: WBC (Bld) [#/Vol] 8.0 10*3/uL 4.4-11.0 [facility] Work Phone: Blood erythrocytes count (nu mber/volume)on 11-27-2021 RBC (Bld) [#/Vol] 4.30 10*6/uL 4.2-5.4 [facility] Work Phone: Blood hemoglobin measurement (mass/volume)on 11-27-2021 Hemoglobin (Bld) [Mass/Vol] 13.6 g/dL 12.0-15.0 [facility] Work Phone: Blood lymphocytes/100 leukoc yteson 11-27-2021 Lymphocytes/100 WBC (Bld) 19.4 % 19-41 [facility] Work Phone: Blood manual differential co mment interpretation (narrative result)on 11-27-2021 Manual differential comment Ronny (Bld) [Interp] COMMENT [facility] Work Phone: Comment on above: MONOCYTOSIS. Blood monocytes/100 leukocyt eson 11-27-2021 Monocytes/100 WBC (Bld) 24.0 % 0-[address] [facility] Work Phone: Blood platelet mean volumeon 11-27-2021 Platelet mean volume (Bld) [Entitic vol] 9.7 fL 6.2-12.0 [facility] Work Phone: Determination of erythrocyte mean corpuscular volume (MCV)on 11-27-2021 MCV (RBC) [Entitic vol] 94.2 fL 81-[address] [facility] Work Phone: Hematocrit Auto (Bld) [Volum e fraction]on 11-27-2021 Hematocrit (Bld) [Volume fraction] 40.5 % 37-47 [facility] Work Phone: Laboratory - Chemistry and C hemistry - challengeon 11-27-2021 Free T4 [Mass/Vol] 0.96 ng/dL 0.76-1.46 [facility] Work Phone: Laboratory - Hematology and Cell countson 11-27-2021 Erythrocyte distribution width (RBC) [Entitic vol] 52.5 fL 35.1-43.9 [facility] Work Phone: Erythrocyte distribution width (RBC) [Ratio] 15.1 % 11.6-14.6 [facility] Work Phone: Immature granulocytes/100 WBC (Bld) 0.500 % 0.0-0.9 [facility] Work Phone: Comment on above: IG% - Immature Granu locytes (promyelocytes, myelocytes and metamyelocytes) > 1% indicates that a LEFT SHIFT is Present. MCH (RBC) [Entitic mass] 31.6 pg 27.0-32.0 [facility] Work Phone: Nucleated RBC/100 WBC (Bld) [Ratio] 0 % 0-5 [facility] Work Phone: MCHC Auto (RBC) [Mass/Vol]on 11-27-2021 MCHC (RBC) [Mass/Vol] 33.6 g/dL 32-36 [facility] Work Phone: No Panel Informationon 11-27 Thyroid Stimulating Hormone (TSH) 1.23 uIU/mL 0.358-3.74 [facility] Work Phone: Platelets bldon 11-27-2021 Platelets (Bld) [#/Vol] 286 10*3/uL 150-450 [facility] Work Phone: Serum or plasma ferritin howard surement (mass/volume)on 11-27-2021 Ferritin [Mass/Vol] 287 ng/mL 8-252 [facility] Work Phone: Surgical Pathologyon 022 Surgical Pathology Report SEE BELOW [facility] 1 [id number] PATHOLOGY [facility] LABORATORY MEDICINE [facility] [address] [place] [address] FINAL SURGICAL PATHOLOGY REPORT NAME: YIN WU : 1940 81 Y F BILLLIZETTE NO.: [id number] LOCATION: 1SPO PROCEDURE 07/01/2021 DATE: SURGEON: BEVERLY [...] characteristics determined by the clinical laboratories of [facility] [employer] [facility]. They have not been cleared by the [...] negativity on decalcified specimens. Case reviewed at [facility] [address] [place] [address]. DEPARTMENT OF PATHOLOGY AND LABORATORY MEDICINE [place], [place] [address] [facility] Surgical Pathology [id number] DEPARTMENT OF PATHOLOGY AND [facility] LABORATORY MEDICINE [address] [place], [place] [id number] FINAL SURGICAL PATHOLOGY REPORT NAME: YIN WU : 1940 81 Y F BILLING NO.: [id number] LOCATION: 1SPO PROCEDURE 07/01/2021 DATE: SURGEON: BEVERLY [...] characteristics determined by the clinical laboratories of [facility]. They have not been cleared by [...] negativity on decalcified specimens. [place] [address]. DEPARTMENT OF PATHOLOGY AND LABORATORY MEDICINE [place], [place] [address] [email or web address] Normal [facility] Vital Signs Date Time Vital Sign Value Performing Clinician Faci lity 07-26-2024 11:00-0400 Body temperature 97.8 [degF] Dr. Shavon Pitts MD Work Phone: [facility] 07-26-2024 11:00-0400 Diastolic blood pressure 73 mm[Hg] Dr. Shavon Pitts MD Work Phone: [facility] 07-26-2024 11:00-0400 Heart rate 73 /min Dr. Shavon Pitts MD Work Phone: [facility] 07-26-2024 11:00-0400 Respiratory rate 16 /min Dr. Shavon Pitts MD Work Phone: [facility] 07-26-2024 11:00-0400 SaO2% (BldA) [Mass fraction] 98 % Dr. Sahvon Pitts MD Work Phone: [facility] 07-26-2024 11:00-0400 Systolic blood pressure 141 mm[Hg] Dr. Shavon Pitts MD Work Phone: [facility] 07-26-2024 08:53-0400 Body height 165.[address] Shavon Pitts MD Work Phone: [facility] 07-26-2024 08:53-0400 Body mass index (BMI) [Ratio] 25.2 kg/m2 Dr. Shavon Pitts MD Work Phone: [facility] 07-26-2024 08:53-0400 Body weight 68.[address] Shavon Pitts MD Work Phone: [facility] 07-23-2024 13:28-0400 Body temperature 97.6 [degF] Dr. Shavon Pitts MD Work Phone: [facility] 07-23-2024 13:28-0400 Diastolic blood pressure 64 mm[Hg] Dr. Shavon Pitts MD Work Phone: [facility] 07-23-2024 13:28-0400 Heart rate 92 /min Dr. Shavon Pitts MD Work Phone: [facility] 07-23-2024 13:28-0400 Respiratory rate 18 /min Dr. Shavon Pitts MD Work Phone: [facility] 07-23-2024 13:28-0400 SaO2% (BldA) [Mass fraction] 96 % Dr. Shavon Pitts MD Work Phone: [facility] 07-23-2024 13:28-0400 Systolic blood pressure 118 mm[Hg] Dr. Shavon Pitts MD Work Phone: [facility] 07-23-2024 10:47-0400 Body height 165.[address] Shavon Pitts MD Work Phone: [facility] 07-23-2024 10:47-0400 Body mass index (BMI) [Ratio] 25.2 kg/m2 Dr. Shavon Pitts MD Work Phone: [facility] 07-23-2024 10:47-0400 Body weight 68.[address] Shavon Pitts MD Work Phone: [facility] 06-12-2024 11:24-0400 Body temperature 97.8 [degF] Dr. Shavon Pitts MD Work Phone: [facility] 06-12-2024 11:24-0400 Diastolic blood pressure 64 mm[Hg] Dr. Shavon Pitts MD Work Phone: [facility] 06-12-2024 11:24-0400 Heart rate 79 /min Dr. Shavon Pitts MD Work Phone: [facility] 06-12-2024 11:24-0400 Respiratory rate 16 /min Dr. Shavon Pitts MD Work Phone: [facility] 06-12-2024 11:24-0400 SaO2% (BldA) [Mass fraction] 98 % Dr. Shavon Pitts MD Work Phone: [facility] 06-12-2024 11:24-0400 Systolic blood pressure 127 mm[Hg] Dr. Shavon Pitts MD Work Phone: [facility] 06-11-2024 14:51-0400 Body height 165.[address] Shavon Pitts MD Work Phone: [facility] 06-11-2024 14:51-0400 Body mass index (BMI) [Ratio] 25.4 kg/m2 Dr. Shavon Pitts MD Work Phone: [facility] 06-11-2024 14:51-0400 Body weight 69.[address] Shavon Pitts MD Work Phone: [facility] 06-11-2024 14:00-0400 Inhaled oxygen flow rate 3 L/min Dr. Shavon Pitts MD Work Phone: [facility] 09-10-2022 15:02-0400 Diastolic blood pressure 72 mm[Hg] [facility] 09-10-2022 15:02-0400 Heart rate 75 /min [facility] 09-10-2022 15:02-0400 Respiratory rate 16 /min [facility] 09-10-2022 15:02-0400 SaO2% (BldA) [Mass fraction] 99 % [facility] 09-10-2022 15:02-0400 Systolic blood pressure 142 mm[Hg] [facility] 09-10-2022 13:03-0400 Body height 165.1 cm [facility] 09-10-2022 13:03-0400 Body mass index (BMI) [Ratio] 25.1 kg/m2 [facility] 09-10-2022 13:03-0400 Body temperature 98 [degF] [facility] 09-10-2022 13:03-0400 Body weight 68.5 kg [facility] Encounters Encounter Date Encounter Type Care Provider Facility Start: 07-26-2024 Evaluation and management of inpatient Dr. Ernie Howard DO [facility] 3 Work Phone: Start: 07-23-2024 End: 07-23-2024 Emergency department patient visit Dr. Shavon Pitts MD Work Phone: -Emergency Department Work Phone: Start: 06-12-2024 Non-patient / [facility] Work Phone: Start: 06-11-2024 End: 06-12-2024 ambulatory Macario Kilgore Facility:[facility] Start: 06-11-2024 End: 06-12-2024 Evaluation and management of inpatient Dr. Silverio Ruiz MD -Medical Surgical 3 Work Phone: Start: 06-11-2024 End: 06-12-[address] Shavon Pitts MD Work Phone: [facility] Work Phone: Start: 05-24-2024 Encounter for other preprocedural examination Silverio Ruiz [facility] Start: 05-21-2024 End: 05-21-[address] Shavon Pitts MD Work Phone: [facility] Work Phone: Start: 05-21-2024 End: 05-21-2024 Patient encounter procedure Antolin BRANNON-C -Radiology, [place] Work Phone: Start: 05-21-2024 End: 05-21-2024 ambulatory Antolin BRANNON Facility:[facility] Start: 05-07-2024 End: 05-07-2024 Non-patient / Non-visit Dr. Teddy Ochoa MD -[facility] Work Phone: Start: 05-07-2024 End: 05-07-[address] Shavon Pitts MD Work Phone: [facility] Work Phone: Start: 05-07-2024 End: 05-07-[address] Silverio Ruiz MD -Cat Scan, [facility] Work Phone: Start: 05-07-2024 End: 05-07-2024 ambulatory Shavon Pitts Facility:[facility] Start: 05-02-2024 ambulatory Shavon Hong Facility: [facility] Start: 12-14-2023 End: 12-14-2023 ambulatory [facility] Facility:[facility] Start: 11-16-2023 ambulatory SILVERIO RUIZ Facility: [facility] Start: 11-16-2023 End: 11-16-2023 Office outpatient new 45 minutes Dorcas Tavares MD Work Phone: Sports Medicine [facility] Comment on above: Left shoulder pain, unspecified chronicity (Primary Dx); History of left shoulder replacement Start: 11-16-2023 End: 11-16-2023 Subsequent hospital visit by physician Dorcas Tavares MD Work Phone: Imaging [facility] Comment on above: Arrived Start: 10-21-2023 ambulatory Sal Andreea Facility:[facility] Start: 10-21-2023 End: 10-21-20[facility] Start: 10-13-2023 End: 10-13-2023 ambulatory [facility] Facility:[facility] Start: 10-07-2023 End: 10-07-2023 ambulatory [facility] Facility:[facility] Start: 08-11-2023 ambulatory Shannan Spann NP Facili ty:[facility] Start: 08-09-2023 ambulatory Shavon Miconner Facility: [facility] Start: 08-09-2023 ambulatory [facility] Facility: [facility] Start: 08-09-2023 End: 08-09-2023 ambulatory [facility] Facility:[facility] Start: 10-18-2022 Non-patient / Non-visit Dr. Slava Pitts Work Phone: [facility] Start: 10-13-2022 End: 10-13-[address] Shavon Pitts Work Phone: [facility] Work Phone: Start: 10-13-2022 End: 10-13-[address] Shavon Pitts Work Phone: [facility]-Cardiovascula r Services Work Phone: Start: 09-14-2022 End: 09-14-2022 ambulatory [facility] Work Phone: Start: 09-14-2022 End: 09-14-2022 Patient encounter procedure [facility]-Radiology, [place] Work Phone: Start: 09-10-2022 End: 09-10-2022 Emergency department patient visit [facility]-Emergency Department Work Phone: Start: 11-27-2021 End: 11-27-2021 ambulatory [facility] Work Phone: Start: 11-27-2021 End: 11-27-2021 Patient encounter procedure [facility]-Laboratory, [facility] Start: 11-12-2021 End: 11-12-2021 ambulatory [facility] Work Phone: Start: 11-12-2021 End: 11-12-2021 Patient encounter procedure [facility]-Cat Scan, [facility] Start: 07-01-2021 End: 07-01-2021 Subsequent hospital visit by physician Beverly Wu MD Work Phone: [facility] Laboratory Procedures Date Procedure Procedure Detail Performing [...] Activity Detail Author Start: 07-26-2024 Verification routine [facility] Start: 07-26-2024 Admission procedure [facility] Start: 07-26-2024 Hospital admission, emergency, from emergency room, medical nature [facility] Start: 07-23-2024 Bacteria identified in Blood by Culture Blood Culture [facility] Start: 07-23-2024 Blood culture Blood Culture [facility] Start: 07-23-2024 [facility] Start: 07-23-2024 [facility] Start: 07-16-2024 Tetanus vaccination [facility] Start: 06-12-2024 Patient discharge [facility] Start: 06-11-2024 Application of intermittent pneumatic compression device [facility] Start: 06-11-2024 Following clinical pathway protocol [facility] Start: 06-11-2024 Anes arthroscopic total shoulder replacement ANESTH SHOULDER REPLACEMENT [facility] Start: 06-11-2024 Arthroplasty glenohumeral joint total shoulder RECONSTRUCT SHOULDER JOINT [facility] Start: 06-11-2024 Recommendation to continue with treatment [facility] Start: 06-11-2024 Admission procedure [facility] Start: 06-11-2024 Ambulation therapy management [facility] Start: 06-11-2024 Application of device [facility] Start: 06-11-2024 Assessment of risk of venous thromboembolism [facility] Start: 06-11-2024 Catheterization of vein [facility] Start: 06-11-2024 Consultation [facility] Start: 06-11-2024 Following clinical pathway protocol [facility] Start: 06-11-2024 Incentive spirometry [facility] Start: 06-11-2024 Introduction of urinary catheter [facility] Start: 06-11-2024 Measuring intake and output [facility] Start: 06-11-2024 Neurovascular assessment [facility] Start: 06-11-2024 Patient education [facility] Start: 06-11-2024 Procedure discontinued [facility] Start: 06-11-2024 Provision of activity privileges [facility] Start: 06-11-2024 Referral to occupational therapist [facility] Start: 06-11-2024 Vital signs measurements [facility] Start: 06-11-2024 Wound care [facility] Start: 06-11-2024 [facility] Start: 05-07-2024 CT of upper limb without contrast Extremity Upper without Contra [facility] Start: 05-07-2024 CT Upper extremity WO contrast [facility] Start: 10-16-2023 COVID-19 VACCINE ( season) COVID-19 VACCINE ( season) [facility] Start: 10-16-2023 Influenza vaccination INFLUENZA VACCINE (#1) [facility] Start: 10-15-2021 Influenza vaccination Flu vaccine (Season Ended) [facility] Start: 2002 RSV VACCINE (1 - 1-dose 60+ series) RSV VACCINE (1 - 1-dose 60+ series) [facility] Start: 1992 Zoster vaccine hzv live for subcutaneous use ZOSTER (SHINGLES) VACCINE (1 of 2) [facility] Start: 1987 Screening for malignant neoplasm of colon COLORECTAL CANCER SCREENING DISCUSSION [facility] Start: 1982 Screening for malignant neoplasm of breast MAMMOGRAM SCREENING DISCUSSION [facility] Start: 1963 Screening for malignant neoplasm of cervix CERVICAL CANCER SCREENING DISCUSSION [facility] Start: 1961 DTaP/Tdap/Td vaccine (1 - Tdap) DTaP/Tdap/Td vaccine (1 - Tdap) [facility] Start: 1947 COVID-19 Vaccine (1) COVID-19 Vaccine (1) [facility] Start: 1942 Screening for osteoporosis DEXA SCAN DISCUSSION [facility] Patient Education [facility] Work Phone: Patient referral [facility] Work Phone: Immunizations Immunization Date Immunization Notes Care Provider Fa [facility] 12-14-2022 influenza virus vaccine, unspecified formulation Dorcas Tavares MD Work Phone: [facility] 11-23-2016 Influenza virus vaccine [facility] 11-13-2012 Influenza virus vaccine [facility] 11-28-2011 Pneumococcal Vaccine [facility] Work Phone: 11-28-2011 pneumococcal vaccine , unspecified formulation [facility] Payers Date Payer Category Payer Medicare MEDICARE MEDICAR E A AND B [id number] 2023-Present [address] [place] [address] [id number] 2023 Self-pay [id number] 2015 Unknown GENERIC PAYOR ME DICARE SUPPLEMENT [id number] 2015-Present [phone] [address] [address] [place] [address] [id number] 2015 Private Health Insurance [id number] 2007 Medicare [id number] 1942 Unknown [id number] [id number]. 2.594 1942 Unknown [id number] 2.16.840.1.866943.3.579. 2.594 Unknown [id number] 2.16.840.1.241008.3.579. 2.462 Unknown [id number] 2.16.840.1.074487.3.579. 2.462 Unknown [id number] 2.16.840.1.470550.3.579. 2.462 Unknown [id number] 2.16840.1.014776.3.579. 2.462 Unknown [id number] 2.16840.1.753603.3.579. 2.462 Unknown [id number] 2.16840.1.952069.3.579. 2.462 Unknown [id number] 2.16840.1.666073.3.579. 2.462 Unknown [id number] 2.840.1.260927.3.579. 2.462 Unknown [id number] 2.840.1.329400.3.579. 2.462 Unknown [id number] 2.840.1.462280.3.579. 2.462 Unknown [id number] 2.16840.1.725694.3.579. 2.462 Unknown [id number] 2.16840.1.212202.3.579. 2.462 Unknown [id number] 2.16840.1.165151.3.579. 2.462 Unknown [id number] 2.16840.1.984613.3.579. 2.462 Unknown [id number] 2.16840.1.878481.3.579. 2.462 Unknown [id number] 2.16840.1.913845.3.579. 2.462 Unknown [id number] 2.16840.1.972464.3.579. 2.462 Social History Date Type Detail Facility Start: 01-13-2019 End: 11-16-2023 Tobacco smoking status NHIS Tobacco smoking consumption unknown [facility] Start: 1940 Sex Assigned At Not on file [facility] Work Phone: Start: 07-08-2013 None [facility] Start: 07-08-2013 Spouse/ Signif icant Other [facility] Start: 07-08-2013 Non-smoker [facility] Start: 1940 Sex Assigned At Female [facility] Gender identity Not on file [facility] Start: 05-09-2024 End: 07-26-2024 Tobacco smoking status NHIS Never smoked tobacco (finding) [facility] Start: 05-12-2024 End: 06-12-2024 Sex Female (finding) [facility] Medical Equipment Procedure Code Equipment Code Equipment [...] 06-11-2024 Polyethylene rev erse shoulder prosthesis cup ()[id number] FDA Start: 06-11-2024 Coated shoulder humeral stem prosthesis ()[id number] 006 FDA Start: 06-11-2024 Reverse shoulder prosthesis head ()[id number] FDA Start: 06-11-2024 Reverse shoulder prosthesis base plate ()[id number] FDA Start: 06-11-2024 EQUINOXE 0MM KIT FDA [...] Assessment Result Facility 06-12-2024 Functional status Chair [facility] Work Phone: Mental Status Date Assessment Result Facility 07-23-2024 Cognitive function Level Of Cons ciousness Awake;Alert;Appropriate [facility] Work Phone: 06-12-2024 Cognitive function Voice/Name [facility] Work Phone: 09-10-2022 Cognitive function Voice/Name [facility] Work Phone: Clinical Notes 11-16-2023 to 06-12-2024 Note Date & Type Note Facility 06-12-2024 Consult note [facility] 06-12-2024 Discharge summary Note Date/Time June 12, 2024 11:41am [facility] System Medical Records Department [address] [place] [address] Instructions for Home/Discharge Instructions 06/12/24 0831 MR#: [id number] Acct: [id number] Name: YIN WU Rep #:[id number] : 1940 84 From: Samantha BRANNON PCP: [...] MD; Dr. Macario Kilgore MD ~ Signed [facility] Work Phone: 1(476) 783-646204-29-2025 Progress [facility] Note Date/Time June 12, 2024 11: 02am [facility] System Medical Records Department [address] [place] [address] Progress Note - Hospitalist 06/12/24 1039 MR#: [id number] Acct: [id number] Name: YIN WU Rep #:[id number] : 1940 84 From: Kelvin fonseca DO PCP: Dr. Shavon Pitts MD Status:ADM YONIS Location: [place] [address] Reason for Visit Reason for Visit: Diagnoses [...] 13:05 IMPRESSION: Hardware in position. Reading Location: [facility] Physical Exam Const alert, oriented x3, no [...] is an 84-year-old female who presented to [facility] on 06/11/2024 for planned right total shoulder [...] 35 minutes. Charges/Coding Visit Charges Inpatient E&M: 89667 Subs Hosp L2 06/12/24 1102 <Electronically signed by Kelvin Almonte DO> Cosigner Signature (if applicable): CC: ~ Signed [facility] Work Phone: 1(160) 510-313904-29-2025 Discharge summary [facility] System Medical Records Department [address] [place] [address] Instructions for Home/Discharge Instructions 06/12/24 0831 MR#: [id number] Acct: [id number] Name: YIN WU Rep #:[id number] : 1940 84 From: Samantha BRANNON PCP: [...] MD; Dr. Macario Kilgore MD ~ Signed [facility]04-29-2025 Progress note [facility] System Medical Records Department [address] [place] [address] Progress Note - Hospitalist 06/12/24 1039 MR#: [id number] Acct: [id number] Name: YIN WU Rep #:[id number] : 1940 84 From: Kelvin fonseca DO PCP: Dr. Shavon Pitts MD Status:ADM [facility] Location: [place] [address] Reason for Visit Reason for Visit: Diagnoses [...] is an 84-year-old female who presented to [facility] on 06/11/2024 for planned right total shoulder [...] 35 minutes. Charges/Coding Visit Charges Inpatient E&M: 67874 Subs Hosp L2 06/12/24 1102 Cosigner Signature (if applicable): CC: ~ Signed [facility]04-29-2025 Progress note Author Samantha Hong [facility] Note Date/Time June 12, 2024 8:3 0am [facility] System Medical Records Department [address] [place] [address] Progress Note - Orthopedic 06/12/24 0818 MR#: [id number] Acct: [id number] Name: YIN WU Rep #:[id number] : 1940 84 From: Samantha BRANNON PCP: Dr. Shavon Pitts MD Status:ADM YONIS Location: [place] [address] Subjective Subjective Patient appears comfortable in bed. [...] 13:05 IMPRESSION: Hardware in position. Reading Location[facility] Physical Exam Narrative Vital signs are stable [...] physical therapy after the 2-week follow-up at [facility] nara visa. 2. DVT prophylaxis: Patient will be taking aspirin 81 mg twice daily for 2 weeks postoperatively. Patient was also educated to wear RANJIT hose for 2 weeks postoperatively. 3. Pain control: Patient was instructed to take Tylenol 1000 mg every 8 hours dtvimz-vpr-zuzre taking no more than 3000 mg in [...] Cosigner Signature (if applicable): CC: ~ Signed [facility] Work Phone: 1(167) 590-751504-29-2025 Progress note [facility] System Medical Records Department [address] [place] [address] Progress Note - Orthopedic 06/12/24817 MR#: [id number] Acct: [id number] Name: YIN WU Rep #:[id number] : 1940 84 From: Samantha BRANNON PCP: Dr. Shavon Pitts MD Status:ADM YONIS Location: [address] Subjective Subjective Patient appears comfortable in [...] 13:05 IMPRESSION: Hardware in position. Reading Location: [facility] Physical Exam Narrative Vital signs are stable [...] physical therapy after the 2-week follow-up at [facility] nara visa. 2. DVT prophylaxis: Patient will be taking aspirin 81 mg twice daily for 2 weeks postoperatively. Patient was also educated to wear RANJIT hose for 2 weeks postoperatively. 3. Pain control: Patient was instructed to take Tylenol 1000 mg every 8 hours fowwbj-pxs-phyuj taking no more than 3000 mg in [...] Cosigner Signature (if applicable): CC: ~ Signed [facility]04-28-2025 Consult note Author Glen Puga [facility] Note Date/Time June 11, 2024 2:0 2pm [facility] Medical Records Department [address] [place] [address] Anesthesia Postop Eval II 06/11/24 1401 MR#: [id number] Acct: [id number] Name: YIN WU Rep #:[id number] : 1940 84 From: Glen Puga MD PCP: Dr. Shavon Pitts MD Status:REG SD Y Race: C Location: [place] [address]- Anesthesia Postop Eval I Sum Postop Eval Completion status Anesthesia document: Postop Eval 1 completed: Yes Anesthesia Postop Eval I Summary Anesthesia Postop Eval I Summary: Anesthesia Postop Eval I: Assessment Summary Airway patent Yes 06/11/24 13:01 BLENDER / COOK.SOBR Spontaneous unlabored Yes 06/11/24 13:01 BLENDER / COOK.SOBR respirations Mental status Awake,Calm 06/11/24 13:01 BLENDER / COOK.SOBR nausea No 06/11/24 13:01 BLENDER / COOK.SOBR Vomiting No 06/11/24 13:01 BLENDER / COOK.SOBR Anesthesia Postop Eval I: Fluid Summary Crystalloid volume administer 1,000 06/11/24 13:01 BLENDER / COOK.SOBR (ml) Colloids volume administered ( ml) Blood Product volume administered (ml) Total IV fluid infused 1,000 06/11/24 13:01 BLENDER / COOK.SOBR Anesthesia Postop Eval I: Summary Notes Anesthesia Complication No 06/11/24 13:01 BLENDER / COOK.SOBR Anesthesia Complication Comment: Post-operative progress note Anesthesia: Postop Eval II Evaluation Mental status: Awake Pain Level: 1 nausea: No Vomiting: No 06/11/24 1402 <Electronically signed by Glen Puga MD > Date _ Glen Puga MD Cosigner Signature: Date CC: ~ Signed [facility] Work Phone: 1(939) 349-815604-28-2025 Consult note Author Monico Cardona [facility] Note Date/Time June 11, 2024 1:0 1pm [facility] Medical Records Department [address] [place] [address] Anesthesia Postop Eval I 06/11/24 1300 MR#: [id number] Acct: [id number] Name: YIN WU Rep #:[id number] : 1940 84 From: Monico BELL NA PCP: Dr. Shavon Pitts MD [place] [facility] [place]: C Location: [place] [address] Anesthesia: Postop Eval I Current Vital Signs [...] 06/11/24 1301 <Electronically signed by Monico Cardona BLENDER / COOK> Date _ Monico Cardona BLENDER / COOK Cosigner Signature: Date CC: ~ Signed [facility] Work Phone: 1(459) 907-211504-28-2025 Consult note [facility] Medical Records Department [address] [place] [address] Anesthesia Postop Eval II 06/11/24 1401 MR#: [id number] Acct: [id number] Name: YIN WU Rep #:[id number] : 1940 84 From: Glen Puga MD PCP: Dr. Shavon Pitts MD Status:[place] [facility] [place] Race: C Location: [place] [address] Anesthesia Postop Eval I Sum Postop Eval Completion status Anesthesia document: Postop Eval 1 completed: Yes Anesthesia Postop Eval I Summary Anesthesia Postop Eval I Summary: Anesthesia Postop Eval I: Assessment Summary Airway patent Yes 06/11/24 13:01 BLENDER / COOK.SOBR Spontaneous unlabored Yes 06/11/24 13:01 BLENDER / COOK.SOBR respirations Mental status Awake,Calm 06/11/24 13:01 BLENDER / COOK.SOBR nausea No 06/11/24 13:01 BLENDER / COOK.SOBR Vomiting No 06/11/24 13:01 BLENDER / COOK.SOBR Anesthesia Postop Eval I: Fluid Summary Crystalloid volume administer 1,000 06/11/24 13:01 BLENDER / COOK.SOBR (ml) Colloids volume administered ( ml) Blood Product volume administered (ml) Total IV fluid infused 1,000 06/11/24 13:01 BLENDER / COOK.SOBR Anesthesia Postop Eval I: Summary Notes Anesthesia Complication No 06/11/24 13:01 BLENDER / COOK.SOBR Anesthesia Complication Comment: Post-operative progress note Anesthesia: Postop Eval II Evaluation Mental status: Awake Pain Level: 1 nausea: No Vomiting: No 06/11/24 1402 > Date _ Glen Valenzuelaigner Signature: Date CC: ~ Signed [facility]04-28-2025 Radiology Diagnostic study note [facility] Imaging Services [address] [place] [address] Shoulder min 2 Views MR#: [id number] Acct: [id number] Name: YIN WU Rep #: [id number] : 1940 F 84 From: Amari Arevalo MD PCP: Dr. Shavon Pitts MD Status: [facility] Study:Shoulder min 2 Views Date of Exam: 06/11/24 Exam# [id number] Ordering Dr: Glenroy Ruiz MD PROCEDURE: SHOULDER [...] Pitts MD; Dr. Silverio Ruiz MD ~ Toggle Press Folder And Feeder: Signed [facility]04-28-2025 Procedure note [facility] System Medical Records Department [address] [place] [address] Operative Report 06/11/24 1146 MR#: [id number] Acct: [id number] Name: YIN WU Rep #:[id number] : 1940 84 From: Silverio Nunez PCP: Dr. Shavon Pitts MD Status: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 His intimate [...] Pitts MD; Dr. Silverio Ruiz MD~ Signed [facility]04-28-2025 Consult note [facility] Medical Records Department [address] [place] [address] Anesthesia Postop Eval I 06/11/24 1300 MR#: [id number] Acct: [id number] Name: YIN WU Rep #:[id number] : 1940 84 From: Monico BELL NA PCP: Dr. Shavon Pitts MD Status:REG SDC Y Race: C Location: [place] [address] Anesthesia: Postop Eval I Current Vital Signs [...] Postop Eval 1 completed: Yes 06/11/24 1301 BLENDER / COOK> Date _ Monico Cardona BLENDER / COOK Cosigner Signature: Date CC: ~ Signed [facility]04-28-2025 History and physical note Author Antolin Paul [facility] Note Date/Time June 11, 2024 9:1 1am [facility] Medical Records Department [address] [place] [address] History & Physical Exam 06/07/24 0647 MR#: [id number] Acct: [id number] Name: YIN WU Rep #:[id number] : 1940 84 From: Antolin BRANNON PA-C PCP: Dr. Shavon Pitts MD Status:[facility] Location: [address] History and Physical History and Physical [...] - 1971 Carpal Tunnel - RT- 2001 [facility]? Dr. James Laminectomy - 1971 [facility]? Dr. James LT THR - (08/19/2008) REMIAPISAAK @ [facility] RT THR - (11/27/2012) MSK@[facility] Shoulder Replacement LT - (02/15/2017) SAW@[facility] Carpal Tunnel Release LT - (06/21/2017) SAW@[facility] vein stripping - (1982) Anesthesia Complications: Takes awhile to wake up Assistive Devices: Glasses - readers Reviewed and updated. 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 Znrw-bc-gldaqgnsb IV glenohumeral osteoarthritis. IMPRESSION: 1.? Severe right [...] MD; Dr. Silverio Ruiz MD ~* Signed [facility] Work Phone: 1(861) 450-724204-28-2025 Consult note Author Glen Puga [facility] Note Date/Time June 11, 2024 8:4 9am [facility] Medical Records Department [address] [place] [address] Pre-Anesthesia Evaluation 06/11/24 08 MR#: [id number] Acct: [id number] Name: YIN WU Rep #:[id number] : 1940 84 From: Glen Puga MD PCP: Dr. Shavon Pitts MD Status:[place] [facility] [place] Race: C Location: [place] [address] Glen Puga MD on [...] Total shoulder Anesthesia History Anesthesia History - athletic team physician: Anesthesia History - athletic team physician Hx Hospitalization No 05/09/24 11:32 Any Problems [...] take am of surgery PONV PONV - athletic team physician: PONV - athletic team physician Female HX of Motion Sickness HX of N/V After Surgery Non-Smoker Duration of Surgery greater than 60 minutes Number of Risk Factors PONV Score Height & Weight Height & Weight: Anesthesia: Height & Weight Height 5 ft 5 in 06/08/24 11:07 Weight: 68.039 kg 06/08/24 11:07 Respiratory Assessment Respiratory Assessment - athletic team physician: Respiratory Tract Infection Hx - athletic team physician Hx Respiratory Tract Infection Yes: SINUS INFECTION/TREATED 05/09/24 11:32 STOP Sleep Apnea STOP Sleep Apnea - athletic team physician: STOP Sleep Apnea - athletic team physician Hx Hypertension Yes: CONTROLLED WITH MED 05/09/24 [...] Tobacco Use History Tobacco Use History - athletic team physician: Tobacco Use History - athletic team physician Tobacco Use Smoking Status Never smoker 05/09/24 11:32 Hx Tobacco Use No 05/09/24 11:32 Years Smoking Packs Smoked per Day Smoking Cessation Date was within the last 15 years Hx Smoking Cessation Date Hx Smoking Cessation Counseling Hematologic Medial History Hematologic Hx - athletic team physician: 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 Specify any problems Hx of Preganancy in last 3 Months Nurse Filling Out Transfusion & Questions: Date: Time: Patient unable to answer at this time (ie. 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 Hx Now Gestational Age (in weeks): EDC: Hx Hx Para Hx Section SAB No 05/09/24 11:32 Active Medications Active Medications: Current Medications Generic Name Dose Route Start Last Admin Trade Name Freq PRN Reason Stop Dose Admin Acetaminophen 1,000 mg 06/11/24 10:30 Acetaminophen 500 Mg Tablet PO 06/11/24 10:31 X1 ONE Acetaminophen 1,000 mg 06/11/24 14:00 Acetaminophen 500 Mg Tablet PO Q8 [facility] Aspirin 81 mg 06/11/24 10:00 Aspirin 81 Mg Tab.Chew PO BID [facility] Dexamethasone Sodium Phosphate 10 mg 06/11/24 10:30 Dexamethasone 10 Mg/Ml Vial IV 06/11/24 10:31 X1 ONE Doxycycline Monohydrate 100 mg 06/12/24 13:00 Doxycycline 100 Mg Capsule PO BID [facility] Enteral Nutritional Formula 237 ml 06/11/24 08:00 Ensure Surgery 237 Ml Liquid PO TIDCM [facility] Famotidine 20 mg 06/11/24 10:00 Famotidine 20 Mg Tablet PO DAILY [facility] Gabapentin 600 mg 06/11/24 10:30 Gabapentin 600 Mg Tablet PO 06/11/24 10:31 X1 ONE Lactated Ringer's 1,000 mls @ 999 mls/hr 06/11/24 10:30 IV 06/11/24 11:30 .Q1H1M [facility] Cefazolin Sodium 2 gm/ N/A 20 mls [...] mls/hr 06/11/24 12:30 IV 06/11/24 20:29 .Q8H [facility] Vancomycin HCl 1,000 mg in 200 mls @ 200 mls/hr 06/11/24 09:00 Vancomycin IV 06/11/24 09:59 PREOP ONE Magnesium Sulfate 1 gm/ 102 mls @ 408 mls/hr 06/11/24 10:30 Dextrose IV 06/11/24 10:44 X1 ONE Cefazolin Sodium 1 gm in 50 mls @ 150 mls/hr 06/11/24 07:40 IV 06/11/24 15:59 Q8H [facility] Insulin Human Lispro 1 - 6 unit [...] 10:00 Senna/Docusate Sodium 1 Tablet PO BID [facility] Medical History Wears glasses Post-menopausal Low iron [...] MD Cosigner Signature: Date CC: ~ Signed [facility] Work Phone: 1(708) 390-703004-28-2025 Evaluation note* Diagnosis Onset Date Resolution Status Admit Date Status post reverse total shoulder replacement acute June 11, 2024 7:37am [facility] Work Phone: 1(850) 428-814804-28-2025 Evaluation note* Diagnosis Onset Date Resolution Status Admit Date Status post reverse total shoulder replacement acute June 11, 2024 7:37am Cellulitis acute July 26 10:44am Hypertension chronic July 26 10:44am [facility] Work Phone: 1(229) 320-496204-28-2025 History and physical note [facility] Medical Records Department [address] [place] [address] History & Physical Exam 06/07/24 0647 MR#: [id number] Acct: [id number] Name: YIN WU Rep #:[id number] : 1940 84 From: Antolin BRANNON PA-C PCP: Dr. Shavon Pitts MD Status:[facility] Location: [place] [address] History and Physical History and Physical Patient [...] - 1971 Carpal Tunnel - RT- 2001 [facility]? Dr. James Laminectomy - 1971 [facility]? Dr. James LT THR - (08/19/2008) ROGER @ [facility] RT THR - (11/27/2012) [email or web address]@[facility] Shoulder Replacement LT - (02/15/2017) [email or web address]@[facility] Carpal Tunnel Release LT - (06/21/2017) SAW@[facility] vein stripping - (1982) Anesthesia Complications: Takes awhile to wake up Assistive Devices: Glasses - readers Reviewed and updated. 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 Cmdi-lk-klsxluzbv IV glenohumeral osteoarthritis. IMPRESSION: 1.? Severe right [...] MD; Dr. Silverio Ruiz MD ~* Signed [facility]04-28-2025 Consult note [facility] Medical Records Department [address] [place] [address] Pre-Anesthesia Evaluation 06/11/24 0848 MR#: [id number] Acct: [id number] Name: YIN WU Rep #:[id number] : 1940 84 From: Glen Puga MD PCP: Dr. Shavon Pitts MD Status[place] [facility] [place]: C Location: [place] [address] Glen Puga MD on [...] Total shoulder Anesthesia History Anesthesia History - athletic team physician: Anesthesia History - athletic team physician Hx Hospitalization No 05/09/24 11:32 Any Problems [...] take am of surgery PONV PONV - athletic team physician: PONV - athletic team physician Female HX of Motion Sickness HX of N/V After Surgery Non-Smoker Duration of Surgery greater than 60 minutes Number of Risk Factors PONV Score Height & Weight Height & Weight: Anesthesia: Height & Weight Height 5 ft 5 in 06/08/24 11:07 Weight: 68.039 kg 06/08/24 11:07 Respiratory Assessment Respiratory Assessment - athletic team physician: Respiratory Tract Infection Hx - athletic team physician Hx Respiratory Tract Infection Yes: SINUS INFECTION/TREATED 05/09/24 11:32 STOP Sleep Apnea STOP Sleep Apnea - athletic team physician: STOP Sleep Apnea - athletic team physician Hx Hypertension Yes: CONTROLLED WITH MED 05/09/24 [...] Tobacco Use History Tobacco Use History - athletic team physician: Tobacco Use History - athletic team physician Tobacco Use Smoking Status Never smoker 05/09/24 11:32 Hx Tobacco Use No 05/09/24 11:32 Years Smoking Packs Smoked per Day Smoking Cessation Date was within the last 15 years Hx Smoking Cessation Date Hx Smoking Cessation Counseling Hematologic Medial History Hematologic Hx - athletic team physician: 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 Specify any problems Hx of Preganancy in last 3 Months Nurse Filling Out Transfusion & Questions: Date: Time: Patient unable to answer at this time (ie. 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 Hx Now Gestational Age (in weeks): EDC: Hx Hx Para Hx Section SAB No 05/09/24 11:32 Active Medications Active Medications: Current Medications Generic Name Dose Route Start Last Admin Trade Name Freq PRN Reason Stop Dose Admin Acetaminophen 1,000 mg 06/11/24 10:30 Acetaminophen 500 Mg Tablet PO 06/11/24 10:31 X1 ONE Acetaminophen 1,000 mg 06/11/24 14:00 Acetaminophen 500 Mg Tablet PO Q8 [facility] Aspirin 81 mg 06/11/24 10:00 Aspirin 81 Mg Tab.Chew PO BID [facility] Dexamethasone Sodium Phosphate 10 mg 06/11/24 10:30 Dexamethasone 10 Mg/Ml Vial IV 06/11/24 10:31 X1 ONE Doxycycline Monohydrate 100 mg 06/12/24 13:00 Doxycycline 100 Mg Capsule PO BID [facility] Enteral Nutritional Formula 237 ml 06/11/24 08:00 Ensure Surgery 237 Ml Liquid PO TIDCM [facility] Famotidine 20 mg 06/11/24 10:00 Famotidine 20 Mg Tablet PO DAILY [facility] Gabapentin 600 mg 06/11/24 10:30 Gabapentin 600 Mg Tablet PO 06/11/24 10:31 X1 ONE Lactated Ringer's 1,000 mls @ 999 mls/hr 06/11/24 10:30 IV 06/11/24 11:30 .Q1H1M [facility] Cefazolin Sodium 2 gm/ N/A 20 mls [...] mls/hr 06/11/24 07:40 IV 06/11/24 15:59 Q8H [facility] Insulin Human Lispro 1 - 6 unit [...] 10:00 Senna/Docusate Sodium 1 Tablet PO BID [facility] Medical History Wears glasses Post-menopausal Low iron [...] Glen Calvert Signature: Date CC: ~ Signed [facility]04-24-2025 [facility] Medical Records Department [address] [place] [address] History Physical Exam 06/07/24 0647 MR#: [id number] Acct: [id number] Name: YIN WU Rep #: [id number] : 1940 84 From: Antolin BRANNON PA-C PCP: Dr. Shavon Pitts MD Status:[facility] Location: [place] [address] History and Physical History and Physical Patient [...] - 1971 Carpal Tunnel - RT- 2001 [facility]??? Dr. James Laminectomy - 1971 [facility]??? Dr. James LT THR - (08/19/2008) ROGER @ [facility] RT THR - (11/27/2012) [email or web address]@[facility] Shoulder Replacement LT - (02/15/2017) [email or web address]@[facility] Carpal Tunnel Release LT - (06/21/2017) SAW@[facility] vein stripping - (1982) Anesthesia Complications: Takes awhile to wake up Assistive Devices: Glasses - readers Reviewed and updated. 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 Shavon Pitts MD Status: REG CLI Study:Chest PA and Lateral Date of Exam: 05/21/24 Exam# [id number] Ordering Dr: Antolin Paul PA-C PROCEDURE: PA [...] LEAH Paul; Dr. Shavon Pitts MD ~ Toggle Press Folder And Feeder: Signed [facility]10-02-2024 History of Present illness Narrative* Roe Christian MD - 11/16/2023 10:45 AM EDT Chief Complaint Patient presents with Left Shoulder - Pain XOA. 83 y/o RHD F presents for L shoulder eval. New pt. Pt states she had L TSA 7-8y ago w Dr. Ruiz in [place]. Was told her cuff has failed and [...] for conservative treatment documented [facility] Author Kay Issa [facility] Note Date/Time June 12, 2024 1:5 8pm [facility] Medical Records Department [address] [place] [id number] Counseling Note - Pharmacy 06/12/24 1357 MR#: [id number] Acct: [id number] Name: YIN WU Rep #:[id number] : 1940 84 From: Kay Issa PCP: Dr. Shavon Pitts MD Status:ADM YONIS Y Location: [place] [address] Pharmacy [facility] has performed discharge medication reconciliation [...] understanding of their dischargemedications. Patient counseled by corporate director of pharmacy, Mat. Medications at Discharge Home Medications amlodipine [...] Signature (if applicable): Date CC: ~ Signed [facility] Work Phone: Evaluation noteNo assessment information available [facility] Work Phone: Evaluation note* Diagnosis Left shoulder pain, unspecified chronicity- Primary History of left shoulder replacement Left shoulder pain, unspecified chronicity documented in this encounter [facility]* Diagnosis Left shoulder pain, unspecified chronicity documented in this encounter [facility] Dis[facility] instructions Additional Instructions Follow-up with your primary care physician. Take all of your antibiotics. You received the first dose here in the emergency department. You need to return back to the ED if you developing worsening symptoms such as fever, chills, nausea, vomiting, spreading of the redness outside of the marker lines.[facility] Work Phone: Reason for referral (narrative)No reason for referral information availableWSt. Anthony's Hospital Work Phone: Summary Purpose Family History Relationship Condition Age at Onset Recorded Date/T cruz father Cardiac disease Unknown Relationship Condition Age at Onset Recorded Date/T cruz father Coronary artery disease Unknown Advance Directives Advance Directive Response Recorded Date/ Time Advance Directives Yes January 8:05pm Living Will Yes July 29, 2017 11:16pm Power of Waredresser Yes July 29 11:16pm Advance Directive Response Recorded Date/ Time Advance Directives Yes January 8:05pm Living Will No September 10, 2022 1:02pm Power of Waredresser No September 10 1:02pm Advance Directive Response Recorded Date/ Time Advance Directives Yes January 8:05pm Advance Directive Response Recorded Date/ Time Do you have a Healthcare Power of Waredresser? Yes June 11, 2024 2:51pm Name of Medical Power of Waredresser Victor Hugo June 11, 2024 2:51pm Advance Directives Yes January 8:05pm Advance Directive Response Recorded Date/ Time Do you have a Healthcare Power of Waredresser? Yes June 11, 2024 2:51pm Name of Medical Power of Waredresser Victor Hugo June 11, 2024 2:51pm Do you have a Healthcare Power of Waredresser? Yes July 23, 2024 11:26am Name of Medical Power of Waredresser Victor Hugo Wu July 23, 2024 11:26am Advance Directives Yes January 8:05pm Advance Directive Response Recorded Date/ Time Do you have a Healthcare Power of Waredresser? Yes June 11, 2024 2:51pm Name of Medical Power of Waredresser Aylin Gay June 11, 2024 2:51pm Do you have a Healthcare Power of Waredresser? Yes July 23, 2024 11:26am Name of Medical Power of Waredresser Victor Hugo Wu July 23, 2024 11:26am Do you have a Healthcare Power of Waredresser? No July 26, 2024 9:08am Advance Directives [...] SHOULDER LEFT 2+ VIEWS Dorcas Tavares MD [address] [place] [address] Referral ID Status Reason Start Date Expiration Date V isits Requested Visits Authorized [id number] New Request 11/14/2023 12/08/2024 1 1 Additional Source Comments INFORMATION SOURCE (unrecogn ized section and content) DATE CREATED AUTHOR 07/03/2021 [facility] DATE CREATED AUTHOR AUTHOR'S ORGANIZ ATION 11/18/2023 [facility] DATE CREATED AUTHOR AUTHOR'S ORGANIZ ATION 07/24/2024 [facility] Goals (unrecognized section and content) Goals may [...] TSA 7-8y ago w Dr. Ruiz in [place]. Was told her cuff has failed and [...] artificial shoulder joint Silverio Ruiz MD [address] [place] [address] [facility] [address] [place] [address] Referral ID Status Reason Start Date Expiration Date V isits Requested Visits Authorized [id number] Pending Review 10/12/2023 11/05/2024 1 1 Specialty Diagnoses / Procedures Referred By Rad t Referred To Contact Diagnoses Left shoulder pain, unspecified chronicity Procedures XR SHOULDER LEFT 2+ VIEWS Dorcas Tavares MD [address] [place] [address] Referral ID Status Reason Start Date Expiration Date V isits Requested Visits Authorized [id number] New Request 11/14/2023 12/08/2024 1 1 FOR [...] BE BASED ON THE PRIMARY CLINICAL RECORDS. [employer] [facility]. provides no warranty or guarantee of the accuracy or completeness of information in this document.
[2024-07-27 05:18] VITALS: BP 136/56; PULSE 61; RESP 16; TEMP 36.5; O2SAT 94
[2024-07-27 07:07] LABS: Anion Gap 13 (5-15); BUN 22 mg/dL (4-19); BUN/Creat Ratio 13.8 RATIO (10-20); Calcium,Total 9.3 mg/dL (7.6-11.0); Carbon Dioxide 18.3 mmol/L (21.0-32.0); Chloride 102 mmol/L (98-108); Creatinine, Serum 1.57 mg/dL (0.70-1.20); EST Glomerular Filtration Rate 33 (>60); Estimated Creatinine Clearance 26.94 ml/min (50-250); Glucose 104 mg/dL (70-99); Potassium 4.3 mmol/L (3.3-5.1); Sodium Level 133 mmol/L (133-145)
[2024-07-27 07:26] LABS: Absolute Lymphocyte Count 1.42 X10^3/uL (0.83-4.51); Absolute Neutrophil Count 2.3 X10^3/uL (2.0-7.7); Basophil# 0.05 X10^3/uL; Basophil% 0.9 % (0-1); Eosinophil# 0.41 X10^3/uL; Eosinophils% 7.6 % (0-5); Hematocrit 32.7 % (37-47); Hemoglobin 11.4 g/dL (12.0-15.0); Lymphocyte # 1.42 X10^3/ul (0.83-4.51); Lymphocyte % 26.2 % (19-41); Mean Corp Hgb Conc 34.9 g/dL (32-36); Mean Corpuscular Hgb 31.9 pg (27.0-32.0); Mean Corpuscular Volume 91.6 fL (81-99); Mean Platelet Vol. 9.6 fl (6.2-12.0); Monocyte# 1.24 X10^3/uL; Monocyte% 22.9 % (0-10); NRBC Flagged by Analyzer 0 % (0-5); Neutrophil # 2.27 X10^3/uL (2.7-7.7); Platelet Count 359 K/mm3 (150-450); RBC Distribution Width SD 47.7 fl (35.1-43.9); Red Blood Count 3.57 M/mm3 (4.2-5.4); White Blood Count 5.4 K/mm3 (4.4-11.0)
[2024-07-27 09:30] VITALS: BP 147/77; PULSE 64; RESP 16; TEMP 36.4; O2SAT 96
[2024-07-27 10:23] VITALS: PULSE 64
[2024-07-27] MEDS: Metoprolol(XL)Succ 50 MG Tablet PO (10:23)
[2024-07-27] MEDS: 0.9% Saline Lock 10 ML Syringe IV (10:24)
[2024-07-27] MEDS: amLODIPine 10 MG Tablet PO (10:24)
[2024-07-27] MEDS: Ampicillin/Sulbactam 3 GM in 0.9% Normal Saline (100mL MB+) 100 ML IV ×2 (10:24→21:29)
[2024-07-27] MEDS: Fluticasone 0.05% 1 SPRAY NASAL.SRY NASAL (10:24)
[2024-07-27] MEDS: Loratadine 10 MG Tablet PO (10:24)
[2024-07-27] MEDS: Losartan Potassium 100 MG Tablet PO (10:24)
--- NOTE | 2024-07-27 10:45 | PCM.CONS.GEN ---
Assessment & Plan Assessment/Plan (1) Cellulitis: PLAN: Atypical presentation. Presented for 2-3 weeks. No systemic symptoms. Will check for Lyme. Covering with doxy and unasyn for now. Had been on bactrim and keflex for 3 days without improvement. If she improves, would send home with 10 days po doxy 100mg bid and augmentin 875mg bid. If Lyme is (+), would stop unasyn/augmentin. will follow, thank you, d/w Dr. Howard yesterday (2) Status post reverse total shoulder replacement: HPI Consult Data Date of Consult: 07/27/24 HPI Narrative Reason for Consultation: cellulitis HPI Narrative: MISSY WYNN, is a 84 F with R shoulder replacement end of May 2024. Surg site has been doing well. About 2-3 weeks ago, developed areas of progressive redness, swelling, and itching on R upper arm and R lateral thigh. Thinks it was a bug bite, never saw a tick there. No pain, no fever, no body aches. Using steroid cream without help. Came to ED 07/23, giiven bactrim and keflex, sx cont to slowly worsen. Came back, admitted vanc/unasyn, maybe redness and induration slightly better this AM. Full ROS performed and neg except as noted above. No recent travel. Had tick on her a year ago. [facility] Medical History Wears glasses Post-menopausal Low iron Migraine headache Syncope Non-smoker Shortness of breath on exertion History of echocardiogram History of stress test Cardiology follow-up encounter MRSA (methicillin resistant staph aureus) culture positive Skin cancer Chronic renal disease, stage 3, moderately decreased glomerular filtration rate (GFR) between 30-59 mL/min/1.73 square meter Vitamin D deficiency Essential hypertension Arthritis Multinodular goiter NSVT (nonsustained ventricular tachycardia) Hypokalemia Dehydration MVP (mitral valve prolapse) Syncope Prerenal azotemia Home Medications ?Medication ?Instructions ?Recorded ?Last Taken ?Type amlodipine 10 mg tablet 10 mg PO DAILY 10/04/22 07/23/24 History calcium 600 mg (as 1 tab PO DAILY 10/04/22 07/23/24 History carbonate)-vitamin D3 10 mcg (400 unit) tablet fluticasone propionate 50 1 spray NASAL DAILY ALLERGIES 10/04/22 07/23/24 History mcg/actuation nasal spray,suspension metoprolol succinate 50 mg 50 mg PO DAILY 10/04/22 07/23/24 History tablet,extended release 24 hr losartan 100 mg tablet 100 mg PO DAILY #90 tabs 11/01/22 07/23/24 Rx multivitamin with folic acid 400 1 tab PO DAILY SUPPLEMENT 11/01/22 07/23/24 History mcg tablet loratadine 10 mg tablet (Claritin) 10 mg PO DAILY 05/09/24 07/23/24 History acetaminophen 500 mg tablet 1,000 mg (2 x 500 mg) PO TID #0 06/12/24 Unknown Rx tabs cephalexin 500 mg capsule 500 mg PO BID 7 days #14 caps 07/23/24 Unknown Rx sulfamethoxazole 800 1 tab PO BID 7 days #14 tabs 07/23/24 Unknown Rx mg-trimethoprim 160 mg tablet (Bactrim DS) Allergy/AdvReac Type Severity Reaction Status Date / Time No Known Allergies Allergy Verified 07/26/24 08:53 Family History Father CAD (coronary artery disease) Surgical History Hx of colonoscopy History of lumbar laminectomy History of carpal tunnel surgery of left wrist Hx of total hip arthroplasty Hx of total hip arthroplasty History of vein stripping History of carpal tunnel surgery of right wrist Status post biopsy of thyroid gland (~12/2018) History of tonsillectomy History of tubal ligation History of total replacement of left shoulder joint Social History Smoking Status: Never smoker alcohol intake: never substance use type: does not use Physical Exam Const alert, oriented x3 and no apparent distress General Appearance: cooperative HEENT normocephalic and head/scalp atraumatic Eyes PERRL and EOMs intact bilaterally Neck supple and No nodes Resp normal air movement and clear to auscultation bilaterally Cardio regular rate and regular rhythm Heart Sounds: murmur GI soft to palpation, non-tender and non-distended Extremity General Extremity: Negative for edema Skin Skin Narrative: Large area of induration, redness, mild warmth on R lateral arm and R lateral thigh. Non tender, no drainage. Neuro CN's II-XII intact bilaterally Lab / Micro Data Attestation: I reviewed the patient's lab results. 07/27/24 05:56 07/27/24 05:56 Labs: Laboratory Results - last 24 hr 07/27/24 05:56: WBC 5.4, RBC 3.57 L, Hgb 11.4 L, Hct 32.7 L, MCV 91.6, MCH 31.9, MCHC 34.9, RDW Std Deviation 47.7 H, RDW Coeff of Jennifer 14.0, Plt Count 359, MPV 9.6, Immature Gran % (Auto) 0.400, Neut % (Auto) 42.0 L, Lymph % (Auto) 26.2, [place] % (Auto) 22.9 H, Eos % (Auto) 7.6 H, Baso % (Auto) 0.9, Absolute Neuts (auto) 2.3, Absolute Lymphs (auto) 1.42, Nucleated RBC % 0, Sodium 133, Potassium 4.3, Chloride 102, Carbon Dioxide 18.3 L, Anion Gap 13, BUN 22 H, Creatinine 1.57 H, Estim Creat Clear Calc 26.94 L, Est GFR (MDRD) Non-Af 33 L, BUN/Creatinine Ratio 13.8, Glucose 104 H, Calcium 9.3
--- NOTE | 2024-07-27 12:50 | CASEMGMT ---
KAE SEGOVIA Assessment: Face to Face with pt for initial transition planning/care coordination assessment. KAE SEGOVIA introduced self and role at [facility], pt voices understanding and consents to assessment. Pt is A&O x4 and answers all questions appropriately at this time. Pt sitting up in chair in no distress. Care providers, pharmacy, and demographics verified/updated. Admitting Dx: cellulitis of the R arm and R leg Strata Score: 3 PCP:Hong Specialists:Nick, ortho; Miedel, eyes; [facility] [place] [facility] Preferred Pharmacy: [facility] Insurance: [employer] Prescription Benefit: yes LNOK: Victor Hugo Wu, ; Marianela Wu Weaver, dtr Living Arrangements: Pt lives with in a two story home with a couple of steps to enter. Pt reports she also has a one story home 5 min away that she stays at often. Pt reports being I in ADL/IADLs and denies concerns at home. Transportation: Pt reports she is 6 wks post op from her shoulder surgery but has not been seen by to be cleared to drive yet. Pt transports pt as needed. DME:Has DME if needs HHC/SNF: Denies hx of Pt states no concerns with going home at time of dc. Pt states no further concerns/needs. CM to follow. Advised pt to ask CM if any further questions/concerns/needs arise, voices understanding. Pt Goal: Home Plan: Home [employer] PAL CM
[2024-07-27] MEDS: Doxycycline 100 MG CAPSULE PO ×2 (13:18→21:29)
[2024-07-27 14:06] VITALS: BP 131/69; PULSE 70; RESP 16; TEMP 36.6; O2SAT 96
--- NOTE | 2024-07-27 18:17 | PCM.PN.HOSP ---
Reason for Visit Reason for Visit: Diagnoses Cellulitis, unspecified (07/26/24) Presence of unspecified artificial shoulder joint (07/26/24) Subjective Subjective Patient was seen and examined today, the area of redness and induration on the patient's right upper arm appears to be improved, the area on the patient's right hip however appears the same as yesterday. I reviewed the notes from infectious diseases, they recommended the patient be placed on doxycycline and Unasyn. Objective Data Objective Data Vital Signs: Vital Signs Temp Pulse Resp BP Pulse Ox O2 Del Method 97.9 F 70 16 131/69 H 96 Room Air 07/27/24 14:06 07/27/24 14:06 07/27/24 14:06 07/27/24 14:06 07/27/24 14:06 07/27/24 14:06 Oxygen Delivery Method Room Air Weight: 68.946 kg Body Mass Index (BMI) 25.2 Intake & Output: Intake and Output for Last 24 Hours 07/25/24 07/26/24 07/27/24 23:59 23:59 23:59 Intake Total 800 / 800 700.0 / 700.0 Balance 800 / 800 700.0 / 700.0 Lab / Micro Data 07/27/24 05:56 07/27/24 05:56 Labs: Laboratory Results - last 24 hr 07/27/24 05:56: WBC 5.4, RBC 3.57 L, Hgb 11.4 L, Hct 32.7 L, MCV 91.6, MCH 31.9, MCHC 34.9, RDW Std Deviation 47.7 H, RDW Coeff of Jennifer 14.0, Plt Count 359, MPV 9.6, Immature Gran % (Auto) 0.400, Neut % (Auto) 42.0 L, Lymph % (Auto) 26.2, [place] % (Auto) 22.9 H, Eos % (Auto) 7.6 H, Baso % (Auto) 0.9, Absolute Neuts (auto) 2.3, Absolute Lymphs (auto) 1.42, Nucleated RBC % 0, Sodium 133, Potassium 4.3, Chloride 102, Carbon Dioxide 18.3 L, Anion Gap 13, BUN 22 H, Creatinine 1.57 H, Estim Creat Clear Calc 26.94 L, Est GFR (MDRD) Non-Af 33 L, BUN/Creatinine Ratio 13.8, Glucose 104 H, Calcium 9.3 Physical Exam Narrative alert, oriented x3, no apparent distress and healthy appearing General Appearance: cooperative, well kempt and well developed Orientation / Consciousness: awake, oriented to person, oriented to place and oriented to time HEENT normocephalic, head/scalp atraumatic, hearing grossly normal bilaterally and moist oral mucous membranes Eyes PERRL, EOMs intact bilaterally and conjunctivae normal Neck supple, no JVD, thyroid normal and no carotid bruits General: trachea midline Resp normal respiratory effort and clear to auscultation bilaterally Auscultation: Negative for rales, rhonchi or wheezes Cardio regular rate, regular rhythm, no murmurs, no rub and no gallops GI normal to inspection, nondistended, normoactive bowel sounds, soft to palpation, non-tender and non-distended Extremity no clubbing, cyanosis or edema Skin Skin Narrative: There is an area on the patient's right upper arm that is approximately 4 cm in diameter, this area is erythematous and indurated, there is some skin shear noted over the center of the area. There is another area over the patient's right hip area/right upper thigh that is approximately 3 cm, reddened and indurated. Both these areas are warm to the touch. Neuro oriented x3, CN's II-XII intact bilaterally, moves all extremities, no focal motor deficits and no sensory deficits noted Sensorium / Orientation: awake and alert Speech: speech normal Psych affect normal Assessment & Plan Assessment/Plan (1) Cellulitis: PLAN: Plan 1. Cellulitis of the right arm and right upper leg-failed outpatient therapy-patient will remain on Unasyn and doxycycline at this time, she will be reevaluated tomorrow #2 essential hypertension-patient will remain on her present medications #3 chronic kidney disease stage IIIb-BMP will be monitored as necessary, patient's creatinine today was 1.57 Total clinical time spent by myself addressing the patient's medical issues, reviewing all of her data, and collaborating with patient's care team 35 minutes Charges/Coding Visit Charges Inpatient E&M: 24535 Subs Hosp L2
[2024-07-27 20:37] VITALS: BP 155/72; PULSE 70; RESP 16; TEMP 36.7; O2SAT 98
[2024-07-28 04:45] VITALS: BP 152/59; PULSE 60; RESP 18; TEMP 36.6; O2SAT 99
[2024-07-28 09:00] VITALS: BP 138/68; PULSE 63; RESP 18; TEMP 36.8; O2SAT 99
[2024-07-28] MEDS: Ampicillin/Sulbactam 3 GM in 0.9% Normal Saline (100mL MB+) 100 ML IV (10:10)
[2024-07-28] MEDS: 0.9% Saline Lock 10 ML Syringe IV (10:11)
[2024-07-28] MEDS: Losartan Potassium 100 MG Tablet PO (10:17)
[2024-07-28] MEDS: Loratadine 10 MG Tablet PO (10:17)
[2024-07-28] MEDS: Doxycycline 100 MG CAPSULE PO (10:17)
[2024-07-28] MEDS: amLODIPine 10 MG Tablet PO (10:18)
[2024-07-28] MEDS: Fluticasone 0.05% 1 SPRAY NASAL.SRY NASAL (10:18)
[2024-07-28 10:19] VITALS: PULSE 60
[2024-07-28] MEDS: Metoprolol(XL)Succ 50 MG Tablet PO (10:19)
[2024-07-28 12:09] LABS: Lyme Scn Total Ab w/Rflx Negative (Negative)
--- NOTE | 2024-07-28 13:00 | DCINST_ITS ---
Discharge Instructions Diet Discharge Diet: No restrictions DC O2, CPAP, BIPAP needs Home O2 Discharge instructions: No Dressing / Incision Discharge Activity: Return to Normal Activity Weight Bearing Status: Full weight bearing Follow Up Care Test Results: Test results from this visit will be discussed in further detail at your follow- up appointment, if applicable. Discharge Plan Admission Admit Date/Time: 07/26/24 10:42 Primary Reason for Your Visit: Cellulitis Attending Provider: Ernie Howard Primary Care Provider: Shavon Pitts Consulting Providers: Pedro Luis Townsend Discharge Orders/Prescriptions Prescriptions: New doxycycline monohydrate 100 mg Capsule 100 mg PO BID Qty: 20 0RF amoxicillin-pot clavulanate 875-125 mg tablet 1 tab PO BID Qty: 20 0RF Rx Instructions: Take with food Continued amlodipine 10 mg tablet 10 mg PO DAILY metoprolol succinate 50 mg tablet extended release 24 hr 50 mg PO DAILY calcium carbonate-vitamin D3 600 mg-10 mcg (400 unit) tablet 1 tab PO DAILY losartan 100 mg tablet 100 mg PO DAILY Qty: 90 3RF multivitamin with folic acid 400 mcg tablet 1 tab PO DAILY Patient Comments: vitamin fluticasone propionate 50 mcg/actuation spray,suspension 1 spray NASAL DAILY acetaminophen 500 mg Tablet 1,000 mg PO TID Qty: 0 0RF loratadine [Claritin] 10 mg tablet 10 mg PO DAILY Discontinued sulfamethoxazole-trimethoprim [Bactrim DS] 800-160 mg tablet 1 tab PO BID 7 Days Qty: 14 0RF cephalexin 500 mg capsule 500 mg PO BID 7 Days Qty: 14 0RF Referrals / Follow Up: Shavon Pitts MD [Primary Care Provider] - In 1 Week Disposition Disposition (needs filled in before D/C Order can be placed): Home, Self Care
[2024-07-28 13:06] VITALS: BP 145/76; PULSE 74; RESP 18; TEMP 36.8; O2SAT 98
--- NOTE | 2024-07-28 13:06 | PCM.DC.SUM ---
Providers Date of Admission: 07/26/24 Date of Discharge: 07/28/24 Primary Care Physician: Dr. Shavon Pitts MD Consultations 07/26/24 11:17 Consult: Infectious Disease Routine Consulting Provider: Pedro Luis Townsend Reason for Consult: Cellulitis-failure of outpatient therapy EMERGENT Consult: No MD Notified: Yes Date Notified: 07/26/24 Time Notified: 10:49 Method of Notification: Verbal Reason For Visit: CELLULITIS OF THE RIGHT ARE AND RIGHT LEG Diagnosis Discharge Diagnosis (1) Cellulitis: Status: Acute Code(s): L03.90 - Cellulitis, unspecified Plan 1. Cellulitis of the right arm and right upper leg-failed outpatient therapy-patient will remain on Unasyn and doxycycline at this time, she will be reevaluated tomorrow #2 essential hypertension-patient will remain on her present medications #3 chronic kidney disease stage IIIb-BMP will be monitored as necessary, patient's creatinine today was 1.57 Total clinical time spent by myself addressing the patient's medical issues, reviewing all of her data, and collaborating with patient's care team 35 minutes Medications at Discharge Home Medications amlodipine 10 mg tablet 10 mg PO DAILY 10/04/22 calcium 600 mg (as carbonate)-vitamin D3 10 mcg (400 unit) tablet 1 tab PO DAILY 10/04/22 fluticasone propionate 50 mcg/actuation nasal spray,suspension 1 spray NASAL DAILY ALLERGIES 10/04/22 metoprolol succinate 50 mg tablet,extended release 24 hr 50 mg PO DAILY 10/04/22 losartan 100 mg tablet 100 mg PO DAILY #90 tabs 11/01/22 multivitamin with folic acid 400 mcg tablet 1 tab PO DAILY SUPPLEMENT 11/01/22 loratadine 10 mg tablet (Claritin) 10 mg PO DAILY 05/09/24 acetaminophen 500 mg tablet 1,000 mg (2 x 500 mg) PO TID #0 tabs 06/12/24 amoxicillin 875 mg-potassium clavulanate 125 mg tablet 1 tab PO BID #20 tabs 07/28/24 doxycycline monohydrate 100 mg capsule 100 mg PO BID #20 caps 07/28/24 Hospital Course Operations None Procedures None Summary of Care Provided Minutes Spent on Discharge: 31 Hospital Course: This 84-year-old white female was seen in the emergency room [facility] with a 4-day history of reddened area suspected to be cellulitis over her right hip area and right upper arm area, patient denied any fevers or chills, white blood cell count was normal, patient's creatinine was elevated 1.63 and BUN was 21. Patient was admitted to [place] [address] and placed on IV Unasyn and IV vancomycin, she was seen in consultation by infectious diseases and the coverage was changed to doxycycline orally and Unasyn IV. Over the next 48 hours patient's redness improved, her induration improved, and on 07/28/2024 she was felt to be stable for discharge home. Patient was seen and examined that day: On examination she appeared in good health and spirits, she does not appear to be in any distress. Vital signs as documented. Skin-there is some mild induration on the patient's right upper outer arm along with redness, there is also redness and induration over her right lateral hip area/right upper thigh.. Neck without JVD, thyroid appears normal, trachea is midline, neck is supple. Lungs clear, normal air movement was noted. Heart exam notable for regular rhythm, normal sounds and absence of murmurs, rubs or gallops. Abdomen unremarkable and without evidence of organomegaly, masses, or abdominal aortic enlargement, bowel sounds are present in all 4 quadrants, no abdominal tenderness was noted. Extremities nonedematous, no cyanosis was noted, no clubbing was noted. Neuro: Cranial nerves II through XII are grossly intact, no focal motor deficits were noted, sensation to light touch and pinprick is intact, motor exam 5/5 throughout. Psych: Patient is alert and oriented x3, she does not appear anxious or depressed, she does not appear agitated.\ Patient was felt to be stable for discharge home on 07/28/2024 Weight / BMI Weight Weight: 68.946 kg Body Mass Index (BMI) 25.2 ABG / Lab / Microbiology Data 07/27/24 05:56 07/27/24 05:56 Laboratory: Laboratory Results - last 24 hr 07/27/24 11:54: Lyme Total Antibody Negative D/C Instructions Discharge Diet: No restrictions Weight Bearing Status: Full weight bearing DC O2, CPAP, BIPAP Needs Home O2 Discharge instructions: No Meaningful Use Info Meaningful Use Meaningful Use Diagnoses (Choose all that apply): None applicable Ischemic Stroke Statin Dosing Therapy Reference: STATIN DOSE THERAPY REFERENCE: * Patients > 75 years receive moderate or high dose statin therapy. * Patients 75 years or YOUNGER should receive HIGH intensity statin dose unless contraindicated. You will be required to document reason for non-treatment if statin daily dose does not meet guidelines. HIGH DOSE STATIN THERAPY DAILY Atorvastatin > than or = to 40 mg Rosuvastatin > than or = to 20 mg Amlodipine + Atorvastatin > than or = to 2.5/40 mg Ezetimibe + Simvastatin 10/80 mg Simvastatin 80mg Discharge Plan Admission Admit Date/Time: 07/26/24 10:42 Primary Reason for Your Visit: Cellulitis Attending Provider: Ernie Howard Primary Care Provider: Shavon Pitts Consulting Providers: Pedro Luis Townsend Discharge Orders/Prescriptions Prescriptions: New doxycycline monohydrate 100 mg Capsule 100 mg PO BID Qty: 20 0RF amoxicillin-pot clavulanate 875-125 mg tablet 1 tab PO BID Qty: 20 0RF Rx Instructions: Take with food Continued amlodipine 10 mg tablet 10 mg PO DAILY metoprolol succinate 50 mg tablet extended release 24 hr 50 mg PO DAILY calcium carbonate-vitamin D3 600 mg-10 mcg (400 unit) tablet 1 tab PO DAILY losartan 100 mg tablet 100 mg PO DAILY Qty: 90 3RF multivitamin with folic acid 400 mcg tablet 1 tab PO DAILY Patient Comments: vitamin fluticasone propionate 50 mcg/actuation spray,suspension 1 spray NASAL DAILY acetaminophen 500 mg Tablet 1,000 mg PO TID Qty: 0 0RF loratadine [Claritin] 10 mg tablet 10 mg PO DAILY Discontinued sulfamethoxazole-trimethoprim [Bactrim DS] 800-160 mg tablet 1 tab PO BID 7 Days Qty: 14 0RF cephalexin 500 mg capsule 500 mg PO BID 7 Days Qty: 14 0RF Referrals / Follow Up: Shavon Pitts MD [Primary Care Provider] - In 1 Week Disposition Disposition (needs filled in before D/C Order can be placed): Home, Self Care Charges/Coding Visit Charges Inpatient E&M: 02599 Disch Hosp >30min
== END 2024-07-28 13:53 | disposition home or self-care (01) | DRG 603 ==
LOC: ED 09:49 → MS3 12:16
PROVIDERS: Internal Medicine Infectious Disease; Admitting Provider Internal Medicine; Emergency Provider Emergency Medicine; PCP Family Medicine; Visit Provider Internal Medicine
DX: L03.113 Cellulitis of right upper limb (principal); L03.115 Cellulitis of right lower limb; N18.32 Chronic kidney disease, stage 3b; I12.9 Hypertensive chronic kidney disease with stage 1 through stage 4 chronic kidney disease, or unspecified chronic kidney disease; Z79.899 Other long term (current) drug therapy; Z86.14 Personal history of Methicillin resistant Staphylococcus aureus infection; Z96.611 Presence of right artificial shoulder joint
CPT/HCPCS: 36415; 80048; 83605; 85025; 86618; 87040; 97802; 99284; 99285; A4216; J0295

== ENCOUNTER → 2024-10-16 | Outpatient (CLI) | payer MEDICARE, OTHER, SELFPAY ==
[2024-10-16 18:12] LABS: Hematocrit 37.8 % (37-47); Hemoglobin 12.5 g/dL (12.0-15.0); Immature Granulocytes Count 0.030 X10^3/uL (0.0-0.0); Mean Corp Hgb Conc 33.1 g/dL (32-36); Mean Corpuscular Volume 93.6 fL (81-99); Mean Platelet Vol. 10.0 fl (6.2-12.0); NRBC Flagged by Analyzer 0 % (0-5); Platelet Count 320 K/mm3 (150-450); RBC Distribution Width CV 14.6 % (11.6-14.6); RBC Distribution Width SD 50.6 fl (35.1-43.9); Red Blood Count 4.04 M/mm3 (4.2-5.4); White Blood Count 9.1 K/mm3 (4.4-11.0)
[2024-10-16 18:13] LABS: PTHIN 25 pg/mL (11-61)
[2024-10-16 18:38] LABS: AST(SGOT) 21 U/L (<=31); Alanine Aminotransfer ALT/SGPT 15 U/L (<=34); Albumin, Serum 4.4 g/dL (3.4-4.8); Alkaline Phosphatase 77 U/L (35-104); Anion Gap 14 (5-15); BUN 33 mg/dL (4-19); BUN/Creat Ratio 20.6 RATIO (10-20); Calcium,Total 10.7 mg/dL (7.6-11.0); Carbon Dioxide 22.6 mmol/L (21.0-32.0); Chloride 100 mmol/L (98-108); Globulin 3.2 g/dL (2.2-4.2); Glucose 115 mg/dL (70-99); Potassium 4.4 mmol/L (3.3-5.1); Vitamin D,25 Hydroxy 66.5 ng/mL (30-100)
== END | disposition home or self-care (01) ==
LOC: BFHLAB 14:33
PROVIDERS: PCP Family Medicine; Visit Provider Family Medicine
DX: I12.9 Hypertensive chronic kidney disease with stage 1 through stage 4 chronic kidney disease, or unspecified chronic kidney disease (principal); N18.32 Chronic kidney disease, stage 3b; E03.8 Other specified hypothyroidism
CPT/HCPCS: 36415; 80053; 82306; 83970; 84439; 84443; 85025